=== PATIENT | male | born 1985 | race Caucasian/White ===

== ENCOUNTER 2016-12-04 | Outpatient (CLI) | payer MEDICAID | END 2016-12-04 15:03 | disposition critical access hospital (66) | DX: F99 Mental disorder, not otherwise specified (principal) | CPT/HCPCS: A0425; A0429 ==

== ENCOUNTER 2016-12-04 15:48 | Emergency (ER) | payer MEDICAID ==
[2016-12-04] MEDS ORDERED: QUEtiapine 100 MG TABLET PO STA (19:18)
[2016-12-04] MEDS ORDERED: traZODone 50 MG TABLET PO STA (19:18)
[2016-12-04] MEDS ORDERED: clonazePAM 0.5 MG TABLET PO STA (19:18)
[2016-12-04] MEDS ORDERED: OLANZapine ODT 5 MG TABLET TL STA (19:18)
[2016-12-04] MEDS ORDERED: OLANZapine ODT 5 MG TABLET TL ONE (19:31)
[2016-12-04] MEDS ORDERED: clonazePAM 0.5 MG TABLET PO ONE (19:31)
[2016-12-04] MEDS ORDERED: traZODone 50 MG TABLET PO ONE (19:32)
== END 2016-12-04 20:16 | disposition home or self-care (01) ==
DX: F20.9 Schizophrenia, unspecified (principal); F31.9 Bipolar disorder, unspecified; F41.0 Panic disorder [episodic paroxysmal anxiety]; F90.9 Attention-deficit hyperactivity disorder, unspecified type; F42.9 Obsessive-compulsive disorder, unspecified; F17.200 Nicotine dependence, unspecified, uncomplicated
CPT/HCPCS: 36415; 80053; 80306; 80307; 80320; 80329; 83690; 85025; 99283; 99284; A9270

== ENCOUNTER 2016-12-08 | Outpatient (CLI) | payer MEDICAID | END 2016-12-08 00:57 | disposition critical access hospital (66) | CPT/HCPCS: A0425; A0429 ==

== ENCOUNTER 2016-12-08 01:01 | Emergency (ER) | payer MEDICAID ==
[2016-12-08] MEDS ORDERED: OLANZapine ODT 5 MG TABLET TL ONE ×4 (01:29→14:03)
[2016-12-08] MEDS ORDERED: SODIUM CHLORIDE 0.9% 1,000 ML IV ONE (01:29)
[2016-12-08] MEDS ORDERED: ACETAMINOPHEN 325 MG TABLET PO ONE (02:43)
[2016-12-08] MEDS ORDERED: ACETAMINOPHEN 325 MG TABLET PO STA (02:43)
[2016-12-08] MEDS ORDERED: QUEtiapine 25 MG TABLET PO STA (13:44)
[2016-12-08] MEDS ORDERED: QUEtiapine 100 MG TABLET PO STA (14:10)
== END 2016-12-08 14:22 | disposition home or self-care (01) ==
DX: F20.9 Schizophrenia, unspecified (principal); R51 Headache; R05 Cough; Z91.14 Patient's other noncompliance with medication regimen; F17.200 Nicotine dependence, unspecified, uncomplicated; E86.0 Dehydration
CPT/HCPCS: 36415; 80053; 80306; 80320; 81003; 82550; 82553; 83690; 85025; 96360; 99285; A9270

== ENCOUNTER 2016-12-21 | Outpatient (CLI) | payer MEDICAID | END 2016-12-21 17:59 | disposition critical access hospital (66) | DX: R44.0 Auditory hallucinations (principal) | CPT/HCPCS: A0425; A0429 ==

== ENCOUNTER 2016-12-21 18:19 | Emergency (ER) | payer MEDICAID ==
[2016-12-21] MEDS ORDERED: OLANZapine ODT 5 MG TABLET TL ONE ×2 (19:18→19:21)
[2016-12-21] MEDS ORDERED: traZODone 50 MG TABLET PO STA (19:18)
[2016-12-21] MEDS ORDERED: traZODone 50 MG TABLET PO ONE (19:21)
[2016-12-21] MEDS ORDERED: LORazepam 0.5 MG TABLET PO STA (20:49)
[2016-12-21] MEDS ORDERED: LORazepam 0.5 MG TABLET ONE (20:50)
[2016-12-21] MEDS ORDERED: QUEtiapine 25 MG TABLET PO STA (20:53)
== END 2016-12-22 10:24 ==
DX: F20.9 Schizophrenia, unspecified (principal); F31.9 Bipolar disorder, unspecified; F41.0 Panic disorder [episodic paroxysmal anxiety]; F42.9 Obsessive-compulsive disorder, unspecified; F90.1 Attention-deficit hyperactivity disorder, predominantly hyperactive type; F17.200 Nicotine dependence, unspecified, uncomplicated
CPT/HCPCS: 36415; 80053; 80306; 80320; 81003; 83690; 85025; 99284; 99285; A9270

== ENCOUNTER 2017-02-09 17:01 | Outpatient (CLI) | payer MEDICAID | END 2017-02-09 17:02 | disposition EMS.NT | DX: Z03.89 Encounter for observation for other suspected diseases and conditions ruled out (principal) ==

== ENCOUNTER 2017-02-11 11:51 | Emergency (ER) | payer MEDICAID ==
[2017-02-11] MEDS ORDERED: SODIUM CHLORIDE 0.9% 1,000 ML IV ONE ×3 (13:24→16:02)
[2017-02-11] MEDS ORDERED: IOPAMIDOL-300 100 ML VIAL IVP ONE (14:18)
== END 2017-02-11 17:25 | disposition home or self-care (01) ==
DX: F15.10 Other stimulant abuse, uncomplicated (principal); D72.829 Elevated white blood cell count, unspecified; F20.9 Schizophrenia, unspecified; F17.200 Nicotine dependence, unspecified, uncomplicated
CPT/HCPCS: 36415; 74177; 80053; 80306; 80307; 80320; 80329; 81003; 83690; 85025; 96360; 96361; 99284; Q9967

== ENCOUNTER 2017-07-05 14:57 | Outpatient (CLI) | payer MEDICAID | END 2017-07-05 14:58 | disposition critical access hospital (66) | LOC: EMS 14:57 | PROVIDERS: ATTEND Surgery | DX: R45.851 Suicidal ideations (principal); R44.0 Auditory hallucinations | CPT/HCPCS: A0425; A0429 ==

== ENCOUNTER 2017-07-05 15:17 | Emergency (ER) | payer MEDICAID ==
[2017-07-05 15:31] VITALS: BP 124/72
[2017-07-05] MEDS ORDERED: SODIUM CHLORIDE FLUSH 0.9% 10 ML SYRINGE IVP ONE (15:58)
[2017-07-05 16:49] LABS: BILIRUBIN,URINE NEGATIVE (NEGATIVE); UA CHARGE (STRIP ONLY) YES; UR CULTURE IF IND NOT INDICATED
--- NOTE | 2017-07-05 17:31 | ED Physician Documentation ---
PD HPI MHE - Stated complaint Stated Complaint: MHE - Chief complaint Chief Complaint: MHE - History obtained from History obtained from: Patient - History of Present Illness Primary symptom: Suicidal ideation, Depression, Anxiety. No: Suicide attempt Timing - onset: Today (he has [facility] psych process and today was feeling anxious and concerned that voices were telling him to kill the other voices. He thought he would feel safer around others so called EMS to come to ED. He felt better enroute being with the medics. He is feeling okay here.) Contributing factors: No: Substance abuse - ETOH, Substance abuse - drugs Similar symptoms before: Diagnosis (schizoaffective disorder.) Recently seen: Emergency Dept Review of Systems Constitutional: denies: Fever, Chills Nose: denies: Rhinorrhea / runny nose, Congestion Throat: denies: Sore throat Respiratory: denies: Cough GI: denies: Nausea, Vomiting, Diarrhea Skin: denies: Abrasion (s), Laceration (s) Neurologic: denies: Focal weakness PD PAST MEDICAL HISTORY - Past Medical History Cardiovascular: None Respiratory: None Neuro: Tremors Endocrine/Autoimmune: None GI: None : Renal insuffiency HEENT: None Psych: Depression, Anxiety, Bipolar disorder, Schizophrenia, Panic attacks, ADD/ ADHD, Obsessive compulsive disorder Musculoskeletal: None Derm: None - Past Surgical History Past Surgical History: No - Present Medications Home Medications: Ambulatory Orders Medication Instructions Recorded Confirmed QUEtiapine [SEROquel] 300 mg PO QPM #60 tablet 10/10/15 01/19/16 Clonazepam 1 mg PO BID 12/14/15 01/19/16 FLUoxetine [PROzac] 30 mg PO DAILY 12/14/15 01/19/16 Olanzapine 10 mg ORAL BID 12/14/15 01/19/16 Trazodone HCl 50 mg ORAL QPM 12/14/15 01/19/16 Terbinafine HCl [Lamisil At] 1 applic TP BID 7 Days 01/19/16 Clonazepam 1 mg PO BID PRN #10 tablet 12/04/16 Olanzapine [Zyprexa] 10 mg PO BID #10 tablet 12/04/16 QUEtiapine [SEROquel] 300 mg PO QPM #15 tablet 12/04/16 Trazodone HCl 50 mg PO QPM #5 tablet 12/04/16 - Allergies Allergies/Adverse Reactions: Allergies Allergy/AdvReac Type Severity Reaction Status Date / Time ziprasidone HCl * AdvReac Severe Hallucinati Verified 12/21/16 18:40 [From [facility]] ons ziprasidone mesylate * AdvReac Severe Hallucinati Verified 12/21/16 18:40 [From [facility]] ons - Living Situation Living Situation: reports: Alone Living Arrangement: reports: At home - Social History Does the pt smoke?: Yes Smoking Status: Current every day smoker Does the pt drink ETOH?: Yes Does the pt have substance abuse?: Yes Substance Use and Type: Marijuana - Family History Family history: reports: Non contributory - Immunizations Immunizations are current?: No - POLST Patient has POLST: No PD ED PE NORMAL - Vitals Vital signs reviewed: Yes - General General: Alert and oriented X 3, No acute distress, Well developed/nourished - HEENT HEENT: Atraumatic, Pharynx benign - Neck Neck: Supple, no meningeal sign, No adenopathy - Cardiac Cardiac: RRR, No murmur - Respiratory Respiratory: Clear bilaterally - Derm Derm: Normal color, Warm and dry - Extremities Extremities: No tenderness to palpate, Normal ROM s pain - Neuro Neuro: Alert and oriented X 3, No motor deficit, Normal speech Results - Vitals Vitals: Oxygen O2 Source Room air - Labs Labs: Laboratory Tests 07/05/17 15:20 Urine Color YELLOW Urine Clarity CLEAR Urine pH 6.0 Ur Specific [place] >=1.030 H Urine Protein TRACE Urine Glucose (UA) NEGATIVE Urine Ketones NEGATIVE Urine Occult Blood NEGATIVE Urine Nitrite NEGATIVE Urine Bilirubin NEGATIVE Urine Urobilinogen 1 (NORMAL) Ur Leukocyte Esterase NEGATIVE Ur Microscopic Review NOT INDICATED Urine Culture Comments NOT INDICATED Urine Opiates Screen NEGATIVE Ur Oxycodone Screen NEGATIVE Urine Methadone Screen NEGATIVE Ur Propoxyphene Screen NEGATIVE Ur Barbiturates Screen NEGATIVE Ur Tricyclics Screen POSITIVE H Ur Phencyclidine Scrn NEGATIVE Ur Amphetamine Screen NEGATIVE U Methamphetamines Scrn NEGATIVE U Benzodiazepines Scrn POSITIVE H Urine Cocaine Screen NEGATIVE U Cannabinoids Screen POSITIVE H PD MEDICAL DECISION MAKING - ED course Complexity details: reviewed old records, re-evaluated patient (he is feeling okay without suicidal thoughts here in ED. Feels better with dose Clonazepam. He can see his psych provider tomorrow. He feels comfortable going home and wants to leave soon to catch the bus before they stop running. ), considered differential, d/w patient Departure - Departure Disposition: 01 Home, Self Care Clinical Impression: Anxiety Condition: Stable Record reviewed to determine appropriate education?: Yes Instructions: ED Panic Attack Comments: Continue usual medications. Follow-up with your primary care and psychologist this week. Return as needed. Discharge Date/Time: 07/05/17 18:35
[2017-07-05] MEDS ORDERED: clonazePAM 0.5 MG TABLET PO STA (17:46)
[2017-07-05] MEDS ORDERED: clonazePAM 0.5 MG TABLET PO ONE (17:52)
== END 2017-07-05 18:35 | disposition home or self-care (01) ==
LOC: EDUNIT# → ED 15:17
DX: F41.9 Anxiety disorder, unspecified (principal); F17.200 Nicotine dependence, unspecified, uncomplicated; F12.90 Cannabis use, unspecified, uncomplicated; F32.9 Major depressive disorder, single episode, unspecified
CPT/HCPCS: 80306; 81003; 99283; A9270; 81001; 87086

== ENCOUNTER 2017-10-15 18:53 | Outpatient (CLI) | payer MEDICAID | END 2017-10-15 18:54 | disposition home or self-care (01) | LOC: EMS 18:53 | PROVIDERS: ATTEND Surgery | DX: S09.93XA Unspecified injury of face, initial encounter (principal); Y04.2XXA Assault by strike against or bumped into by another person, initial encounter ==

== ENCOUNTER 2017-10-24 11:05 | Outpatient (CLI) | payer MEDICAID | END 2017-10-24 11:06 | disposition critical access hospital (66) | LOC: EMS 11:05 | PROVIDERS: ATTEND Surgery | DX: R46.2 Strange and inexplicable behavior (principal) | CPT/HCPCS: A0425; A0429 ==

== ENCOUNTER 2017-10-24 11:25 | Emergency (ER) | payer MEDICAID ==
[2017-10-24 12:23] LABS: HCT - HEMATOCRIT 45.3 % (42.0-52.0); HGB - HEMOGLOBIN 15.2 g/dL (14.0-18.0); MEAN CORPUSCULAR HEMOGLOBIN 29.8 pg (27.0-31.0); MEAN CORPUSCULAR HGB CONC 33.6 g/dL (32.0-36.0); RED BLOOD COUNT 5.09 10^6/uL (4.70-6.10); RED CELL DISTRIBUTION WIDTH 14.1 % (12.0-15.0); WHITE BLOOD COUNT 18.1 x10^3/uL (4.8-10.8)
[2017-10-24 12:37] LABS: ALBUMIN/GLOBULIN RATIO 1.4 (1.0-2.2); BILIRUBIN,TOTAL 1.9 mg/dL (0.2-1.0); BUN - BLOOD UREA NITROGEN 25 mg/dL (6-20); CALCIUM 8.8 mg/dL (8.5-10.3); CARBON DIOXIDE - CO2 15 mmol/L (21-32); CHLORIDE 97 mmol/L (101-111); CREATININE 0.8 mg/dL (0.6-1.2); GFR - MDRD 113 (>89); GLUCOSE 69 mg/dL (70-100); LIPASE 12 U/L (22-51); POTASSIUM 4.2 mmol/L (3.5-5.0); SALICYLATE < 6.0 mg/dL; SODIUM 130 mmol/L (135-145)
[2017-10-24 12:38] LABS: ACETAMINOPHEN < 10 ug/mL (10-30)
--- NOTE | 2017-10-24 12:51 | ED Physician Documentation ---
PD HPI MHE - Stated complaint Stated Complaint: MHE - Chief complaint Chief Complaint: MHE - History obtained from History obtained from: Patient - History of Present Illness Primary symptom: Psychosis, Other (he walked into EMS station cold and wet, mumbling and mostly incoherent. Patient said he was not taking his meds when asked.) Timing - onset: Unknown Contributing factors: Off meds Similar symptoms before: Diagnosis (schizophrenia and homeless) Recently seen: Not recently seen Review of Systems Unable to obtain: AMS (acute psychosis) Constitutional: reports: Chills. denies: Fever Cardiac: denies: Chest pain / pressure Respiratory: denies: Cough GI: denies: Vomiting PD PAST MEDICAL HISTORY - Past Medical History Cardiovascular: None Respiratory: None Neuro: Tremors Endocrine/Autoimmune: None GI: None : Renal insuffiency HEENT: None Psych: Depression, Anxiety, Bipolar disorder, Schizophrenia, Panic attacks, ADD/ ADHD, Obsessive compulsive disorder Musculoskeletal: None Derm: None - Past Surgical History Past Surgical History: No - Present Medications Home Medications: Ambulatory Orders Medication Instructions Recorded Confirmed FLUoxetine [PROzac] 40 mg PO DAILY 12/14/15 09/27/17 OLANZapine [Zyprexa] 20 mg PO BID 09/27/17 09/27/17 QUEtiapine [SEROquel] 400 mg PO QPM 09/27/17 09/27/17 Divalproex [Rubén Toscano] 500 mg PO BID #30 tablet 10/24/17 Olanzapine [Zyprexa] 20 mg PO BID #30 tablet 10/24/17 Quetiapine Fumarate [Seroquel] 400 mg PO QPM #15 tablet 10/24/17 - Allergies Allergies/Adverse Reactions: Allergies Allergy/AdvReac Type Severity Reaction Status Date / Time ziprasidone HCl * AdvReac Severe Hallucinati Verified 09/27/17 15:55 [From [facility]] ons ziprasidone mesylate * AdvReac Severe Hallucinati Verified 09/27/17 15:55 [From [facility]] ons - Social History Does the pt smoke?: Yes Smoking Status: Current every day smoker Does the pt drink ETOH?: Yes Does the pt have substance abuse?: Yes - Immunizations Immunizations are current?: No - POLST Patient has POLST: No PD ED PE NORMAL - Vitals Vital signs reviewed: Yes - General General: Well developed/nourished. No: Alert and oriented X 3 (he is quite disheveled, wet feet and socks. Ungroomed and unbathed. ) - HEENT HEENT: Atraumatic, Pharynx benign. No: Moist mucous membranes, Dentition benign (very poor dentition; no obvious acute infection) - Neck Neck: Supple, no meningeal sign, No adenopathy - Cardiac Cardiac: RRR, No murmur - Respiratory Respiratory: Clear bilaterally - Abdomen Abdomen: Soft, Non tender - Male Male : Deferred - Rectal Rectal: Deferred - Back Back: No CVA TTP - Derm Derm: Normal color, Warm and dry, Other (feet with shriveled look and blanched skin with some superficial breakdown in toes creases c/w trench foot. No obvious infection. ) - Extremities Extremities: Normal ROM s pain - Neuro Neuro: No motor deficit, Other (he is just mumbling and making incoherent or nonsensical responses. Far away look when I call his name but he does turn head to look at me. ) Results - Vitals Vitals: Oxygen O2 Source Room air - Labs Labs: Laboratory Tests 10/24/17 10/24/17 10/24/17 12:09 12:09 13:37 WBC 18.1 H RBC 5.09 Hgb 15.2 Hct 45.3 MCV 89.0 MCH 29.8 MCHC 33.6 RDW 14.1 Plt Count Sodium 130 L Potassium 4.2 Chloride 97 L Carbon Dioxide 15 L Anion Gap 18.0 H BUN 25 H Creatinine 0.8 Estimated GFR (MDRD) 113 Glucose 69 L Calcium 8.8 Total Bilirubin 1.9 H AST 48 H ALT 23 Alkaline Phosphatase 61 Total Protein 8.0 Albumin 4.7 Globulin 3.3 Albumin/Globulin Ratio 1.4 Lipase 12 L Last Dose Date UNK Last Dose Time UNK Salicylates < 6.0 Acetaminophen < 10 L Valproic Acid < 10.0 Ethyl Alcohol < 5.0 PD MEDICAL DECISION MAKING - ED course Complexity details: re-evaluated patient (he is able to talk more clearly after dose of meds. Issue is of course getting him to take them ongoing, which is unlikely. He says he has Rx/meds already, but were not on him right now, so not sure where they would be. Gave Rx for his usual meds for couple weeks anyway, hopefully to get into his PMD. ), considered differential (exac of his schizophrenia, and he says not taking his meds. Very unkempt. Feet have trench foot from chronic wet. Nursing gave clean stockings and put lotion on feet. ), d /w patient, d/w home energy consultant supervisor (SW and DM[employer]ARISSE - saw patient and felt that he was not debilitated by his mentation at this time, and got him voucher to [facility]. ) Departure - Departure Disposition: 01 Home, Self Care Clinical Impression: Acute exacerbation of psychosis, Schizophrenia Trench feet Qualifiers: Encounter type: initial encounter Laterality: unspecified laterality Qualified Code(s): T69.029A - Immersion foot, unspecified foot, initial encounter Condition: Stable Record reviewed to determine appropriate education?: Yes Instructions: ED Schizophrenia General Follow-Up: [facility] [Provider Group] Prescriptions: Divalproex [Rubén Toscano] 500 mg PO BID #30 tablet Olanzapine [Zyprexa] 20 mg PO BID #30 tablet Quetiapine Fumarate [Seroquel] 400 mg PO QPM #15 tablet Comments: Continue usual medications and take them regularly. Drink lots of fluids. Eat regularly. Follow-up with your primary care clinic at nearest appointment. Discharge Date/Time: 10/24/17 16:28
[2017-10-24] MEDS ORDERED: OLANZapine 10 MG VIAL IM STA ×2 (13:09)
[2017-10-24] MEDS ORDERED: QUEtiapine 100 MG TABLET PO STA (13:09)
[2017-10-24] MEDS ORDERED: OLANZapine 10 MG VIAL IM ONE (13:21)
[2017-10-24] MEDS ORDERED: WATER FOR INJECTION,STERILE 10 ML ONE (13:21)
[2017-10-24 16:02] VITALS: BP 112/63
== END 2017-10-24 16:28 | disposition home or self-care (01) ==
LOC: ED 11:25
DX: F20.9 Schizophrenia, unspecified (principal); T69.029A Immersion foot, unspecified foot, initial encounter; X31.XXXA Exposure to excessive natural cold, initial encounter; Z59.0 Homelessness; F17.200 Nicotine dependence, unspecified, uncomplicated
CPT/HCPCS: 36415; 80053; 80164; 80307; 80320; 80329; 83690; 85027; 96372; 99283; 99284; A9270

== ENCOUNTER 2017-10-28 14:10 | Emergency (ER) | payer MEDICAID ==
--- NOTE | 2017-10-28 14:40 | ED Physician Documentation ---
PD HPI MHE - Stated complaint Stated Complaint: MHE - Chief complaint Chief Complaint: MHE - History obtained from History obtained from: Patient, Caregiver (Mr Velasquez his therapist) - History of Present Illness Primary symptom: Other (32 yo with H/o Schizphrenia, brought in by his therapist for increasing disorganized thoughts and wants hospitalization. Admits to episodic methamphetamine use, although he does not remember when he last used. He is only sometimes taking his medications. He does admit to suicidal ideation without plan.) Review of Systems Ten Systems: 10 systems reviewed and negative Constitutional: reports: Reviewed and negative Throat: reports: Reviewed and negative Cardiac: reports: Reviewed and negative PD PAST MEDICAL HISTORY - Past Medical History Cardiovascular: None Respiratory: None Neuro: Tremors Endocrine/Autoimmune: None GI: None : Renal insuffiency HEENT: None Psych: Depression, Anxiety, Bipolar disorder, Schizophrenia, Panic attacks, ADD/ ADHD, Obsessive compulsive disorder Musculoskeletal: None Derm: None - Past Surgical History Past Surgical History: No - Present Medications Home Medications: Ambulatory Orders Medication Instructions Recorded Confirmed FLUoxetine [PROzac] 40 mg PO DAILY 12/14/15 09/27/17 OLANZapine [Zyprexa] 20 mg PO BID 09/27/17 09/27/17 QUEtiapine [SEROquel] 400 mg PO QPM 09/27/17 09/27/17 Divalproex [uRbén Toscano] 500 mg PO BID #30 tablet 10/24/17 Olanzapine [Zyprexa] 20 mg PO BID #30 tablet 10/24/17 Quetiapine Fumarate [Seroquel] 400 mg PO QPM #15 tablet 10/24/17 - Allergies Allergies/Adverse Reactions: Allergies Allergy/AdvReac Type Severity Reaction Status Date / Time ziprasidone HCl * AdvReac Severe Hallucinati Verified 10/28/17 14:22 [From [facility]] ons ziprasidone mesylate * AdvReac Severe Hallucinati Verified 10/28/17 14:22 [From [facility]] ons - Social History Does the pt smoke?: Yes Smoking Status: Current every day smoker Does the pt drink ETOH?: Yes Does the pt have substance abuse?: Yes - Family History Family history: reports: Non contributory - Immunizations Immunizations are current?: No - POLST Patient has POLST: No PD ED PE NORMAL - Vitals Vital signs reviewed: Yes - General General: Other (Disheveled with disorganized thinking, cooperative though, admits to auditory hallucinations. Blunted affect.) - HEENT HEENT: PERRL, EOMI - Neck Neck: Supple, no meningeal sign, No bony TTP - Cardiac Cardiac: RRR, No murmur - Respiratory Respiratory: No respiratory distress, Clear bilaterally - Abdomen Abdomen: Normal bowel sounds, Soft, Non tender - Back Back: No CVA TTP, No spinal TTP - Derm Derm: Normal color, Warm and dry - Extremities Extremities: No edema, No calf tenderness / cord - Neuro Neuro: Alert and oriented X 3 Eye Opening: Spontaneous Motor: Obeys Commands Verbal: Oriented GCS Score: 15 Results - Vitals Vitals: Vital Signs - 24 hr 10/28/17 10/29/17 10/29/17 22:34 07:45 15:48 Temperature 36.4 C L Heart Rate 92 78 76 Respiratory 12 14 16 Rate Blood Pressure 130/78 122/70 117/97 H O2 Saturation 96 98 98 10/29/17 17:57 Temperature 36.5 C Heart Rate 91 Respiratory 20 Rate Blood Pressure 131/79 H O2 Saturation 97 Oxygen O2 Source Room air - Labs Labs: Laboratory Tests 10/28/17 10/28/17 10/28/17 14:40 14:50 14:50 WBC 7.5 RBC 4.60 L Hgb 13.7 L Hct 40.3 L MCV 87.7 MCH 29.9 MCHC 34.0 RDW 13.7 Plt Count 200 MPV 9.5 Neut # 4.3 Lymph # 2.1 [place] # 0.9 Eos # 0.2 Baso # 0.0 Absolute Nucleated RBC 0.00 Nucleated RBC % 0.0 Sodium 137 Potassium 3.6 Chloride 94 L Carbon Dioxide 29 Anion Gap 14.0 H BUN 18 Creatinine 0.8 Estimated GFR (MDRD) 113 Glucose 119 H Calcium 9.4 Total Bilirubin 0.6 AST 27 ALT 22 Alkaline Phosphatase 63 Total Protein 6.9 Albumin 4.0 Globulin 2.9 Albumin/Globulin Ratio 1.4 Lipase 23 Last Dose Date Last Dose Time Urine Opiates Screen NEGATIVE Ur Oxycodone Screen NEGATIVE Urine Methadone Screen NEGATIVE Ur Propoxyphene Screen NEGATIVE Ur Barbiturates Screen NEGATIVE Valproic Acid Ur Tricyclics Screen POSITIVE H Ur Phencyclidine Scrn NEGATIVE Ur Amphetamine Screen POSITIVE H U Methamphetamines Scrn POSITIVE H U Benzodiazepines Scrn NEGATIVE Urine Cocaine Screen NEGATIVE U Cannabinoids Screen POSITIVE H Ethyl Alcohol < 5.0 10/28/17 14:50 WBC RBC Hgb Hct MCV MCH MCHC RDW Plt Count MPV Neut # Lymph # [place] # Eos # Baso # Absolute Nucleated RBC Nucleated RBC % Sodium Potassium Chloride Carbon Dioxide Anion Gap BUN Creatinine Estimated GFR (MDRD) Glucose Calcium Total Bilirubin AST ALT Alkaline Phosphatase Total Protein Albumin Globulin Albumin/Globulin Ratio Lipase Last Dose Date UNKNOWN Last Dose Time UNKNOWN Urine Opiates Screen Ur Oxycodone Screen Urine Methadone Screen Ur Propoxyphene Screen Ur Barbiturates Screen Valproic Acid < 10.0 Ur Tricyclics Screen Ur Phencyclidine Scrn Ur Amphetamine Screen U Methamphetamines Scrn U Benzodiazepines Scrn Urine Cocaine Screen U Cannabinoids Screen Ethyl Alcohol PD MEDICAL DECISION MAKING - ED course ED course: 32-year-old gentleman with schizophrenia, seems exacerbated by Multiple issues including stressors, medication noncompliance, and drug use. He is medically clear for psychiatric evaluation. Seen by the social work specialist who is trying to arrange for a crisis bed for him. We were unable to arrange for crisis bed for him and he will overnight in the ER to have the social workers continue their efforts at placement in the morning. He is cooperative. Does request his usual nighttime medications. 10/29/17, He has been stable throughout the shift, social work trying to place. I guess there was a problem with the insurance and he could go to [place]. They arranged for a bed potentially [facility] but they wanted to Depakote level. I noted to the social work specialist that I actually got one yesterday and it was undetectable. They also wanted an EKG which is ordered. Departure - Departure Disposition: [facility] Hosp/Unit DC/Xfer Clinical Impression: Schizophrenia Condition: Stable Record reviewed to determine appropriate education?: Yes
[2017-10-28 15:06] LABS: BASOPHILS % (AUTO) 0.6 %; EOSINOPHILS # (AUTO) 0.2 10^3/uL (0.0-0.7); EOSINOPHILS % (AUTO) 2.2 %; HCT - HEMATOCRIT 40.3 % (42.0-52.0); HGB - HEMOGLOBIN 13.7 g/dL (14.0-18.0); LYMPHOCYTES # (AUTO) 2.1 10^3/uL (1.5-3.5); LYMPHOCYTES % (AUTO) 28.2 %; MEAN CORPUSCULAR HEMOGLOBIN 29.9 pg (27.0-31.0); MEAN CORPUSCULAR VOLUME 87.7 fL (80.0-94.0); MEAN PLATELET VOLUME 9.5 fL (7.4-11.4); MONOCYTES # (AUTO) 0.9 10^3/uL (0.0-1.0); MONOCYTES % (AUTO) 11.7 %; NEUTROPHILS # (AUTO) 4.3 10^3/uL (1.5-6.6); NEUTROPHILS % (AUTO) 57.3 %; RED CELL DISTRIBUTION WIDTH 13.7 % (12.0-15.0); UNCORRECTED WHITE BLOOD COUNT 7.5 x10^3/uL; WHITE BLOOD COUNT 7.5 x10^3/uL (4.8-10.8)
[2017-10-28 15:13] LABS: ALBUMIN/GLOBULIN RATIO 1.4 (1.0-2.2); BILIRUBIN,TOTAL 0.6 mg/dL (0.2-1.0); BUN - BLOOD UREA NITROGEN 18 mg/dL (6-20); CALCIUM 9.4 mg/dL (8.5-10.3); CARBON DIOXIDE - CO2 29 mmol/L (21-32); CHLORIDE 94 mmol/L (101-111); CREATININE 0.8 mg/dL (0.6-1.2); GFR - MDRD 113 (>89); GLUCOSE 119 mg/dL (70-100); LIPASE 23 U/L (22-51); POTASSIUM 3.6 mmol/L (3.5-5.0); SODIUM 137 mmol/L (135-145); TOTAL PROTEIN 6.9 g/dL (6.7-8.2)
[2017-10-28] MEDS ORDERED: DIVALPROEX ER 250 MG TABLET PO STA (20:15)
[2017-10-28] MEDS ORDERED: QUEtiapine 100 MG TABLET PO STA (20:15)
[2017-10-28] MEDS ORDERED: OLANZapine ODT 5 MG TABLET TL STA (20:15)
[2017-10-30] MEDS ORDERED: QUEtiapine 100 MG TABLET PO STA (00:59)
[2017-10-30] MEDS ORDERED: OLANZapine ODT 5 MG TABLET TL STA (00:59)
[2017-10-30] MEDS ORDERED: DIVALPROEX ER 250 MG TABLET PO STA (00:59)
[2017-10-30] MEDS ORDERED: OLANZapine ODT 5 MG TABLET TL ONE (01:11)
[2017-10-30 05:52] VITALS: BP 109/64
== END 2017-10-30 09:16 ==
LOC: ED 14:10
DX: F20.9 Schizophrenia, unspecified (principal); T43.226A Underdosing of selective serotonin reuptake inhibitors, initial encounter; T43.596A Underdosing of other antipsychotics and neuroleptics, initial encounter; T42.6X6A Underdosing of other antiepileptic and sedative-hypnotic drugs, initial encounter; Z91.128 Patient's intentional underdosing of medication regimen for other reason; F15.90 Other stimulant use, unspecified, uncomplicated; F31.9 Bipolar disorder, unspecified; F32.9 Major depressive disorder, single episode, unspecified; F41.9 Anxiety disorder, unspecified; F17.200 Nicotine dependence, unspecified, uncomplicated
CPT/HCPCS: 36415; 80053; 80164; 80306; 80320; 83690; 85025; 93005; 99284; 99285; A9270

== ENCOUNTER 2017-11-23 14:01 | Emergency (ER) | payer MEDICAID ==
[2017-11-23] MEDS ORDERED: OLANZapine ODT 5 MG TABLET TL STA (15:17)
--- NOTE | 2017-11-23 15:19 | ED Physician Documentation ---
PD HPI MHE - Stated complaint Stated Complaint: WITHDRAWS - Chief complaint Chief Complaint: MHE - History obtained from History obtained from: Patient - History of Present Illness Primary symptom: Psychosis Timing - onset: Today Pain level max: 0 Pain level now: 0 Similar symptoms before: Diagnosis (schizophrenia) - Additional information Additional information: patient unable to give history. Staring into space. mumbling to himself. Has a history of schizophrenia and methamphetamine abuse. Review of Systems Unable to obtain: Confused PD PAST MEDICAL HISTORY - Past Medical History Cardiovascular: None Respiratory: None Neuro: Tremors Endocrine/Autoimmune: None GI: None : Renal insuffiency HEENT: None Psych: Depression, Anxiety, Bipolar disorder, Schizophrenia, Panic attacks, ADD/ ADHD, Obsessive compulsive disorder Musculoskeletal: None Derm: None - Past Surgical History Past Surgical History: No - Present Medications Home Medications: Ambulatory Orders Medication Instructions Recorded Confirmed FLUoxetine [PROzac] 40 mg PO DAILY 12/14/15 09/27/17 OLANZapine [Zyprexa] 20 mg PO BID 09/27/17 09/27/17 QUEtiapine [SEROquel] 400 mg PO QPM 09/27/17 09/27/[address] [Rubén Toscano] 500 mg PO BID #30 tablet 10/24/17 Olanzapine [Zyprexa] 20 mg PO BID #30 tablet 10/24/17 Quetiapine Fumarate [Seroquel] 400 mg PO QPM #15 tablet 10/24/17 - Allergies Allergies/Adverse Reactions: Allergies Allergy/AdvReac Type Severity Reaction Status Date / Time ziprasidone HCl * AdvReac Severe Hallucinati Verified 10/28/17 14:22 [From [facility]] ons ziprasidone mesylate * AdvReac Severe Hallucinati Verified 10/28/17 14:22 [From [facility]] ons - Social History Does the pt smoke?: Yes Smoking Status: Current every day smoker Does the pt drink ETOH?: Yes Does the pt have substance abuse?: Yes - Immunizations Immunizations are current?: No - POLST Patient has POLST: No PD ED PE NORMAL - Vitals Vital signs reviewed: Yes - General General: No acute distress, Well developed/nourished - HEENT HEENT: PERRL, Moist mucous membranes - Neck Neck: Supple, no meningeal sign - Cardiac Cardiac: RRR - Respiratory Respiratory: No respiratory distress, Clear bilaterally - Abdomen Abdomen: Soft, Non tender, Non distended - Derm Derm: Warm and dry - Neuro Neuro: Other (alert) - Psych Psych: Other (staring into space, talking to himself) Results - Vitals Vitals: Vital Signs - 24 hr 11/23/17 11/23/17 14:28 17:25 Temperature 36.0 C L 36.9 C Heart Rate 89 82 Respiratory 14 14 Rate Blood Pressure 176/77 H 168/80 H O2 Saturation 100 100 Oxygen O2 Source Room air - Labs Labs: Laboratory Tests 11/23/17 11/23/17 11/23/17 15:31 15:31 18:00 WBC 11.9 H RBC 4.58 L Hgb 13.5 L Hct 39.7 L MCV 86.7 MCH 29.4 MCHC 33.9 RDW 13.9 Plt Count 268 MPV 8.8 Neut # Not Reportable Lymph # Not Reportable [place] # Not Reportable Eos # Not Reportable Baso # Not Reportable Absolute Nucleated RBC Not Reportable Total Counted 100 Band Neuts % (Manual) 0 Reactive Lymphs % (Man) 4 Abnorm Lymph % (Manual) 0 Nucleated RBC % Not Reportable Neutrophils # (Manual) 8.0 H Lymphocytes # (Manual) 2.4 Monocytes # (Manual) 1.4 H Eosinophils # (Manual) 0.1 Basophils # (Manual) 0.0 Differential Comment MANUAL DIFFERENTIAL Platelet Estimate NORMAL (130-450,000) Platelet Morphology NORMAL APPEARANCE RBC Morph Micro Appear NORMAL APPEARANCE Sodium 137 Potassium 3.8 Chloride 98 L Carbon Dioxide 28 Anion Gap 11.0 BUN 31 H Creatinine 0.7 Estimated GFR (MDRD) 132 Glucose 114 H Calcium 9.2 Total Bilirubin 1.1 H AST 31 ALT 26 Alkaline Phosphatase 59 Total Protein 8.0 Albumin 4.9 Globulin 3.1 Albumin/Globulin Ratio 1.6 Lipase 28 Urine Color YELLOW Urine Clarity CLEAR Urine pH 6.5 Ur Specific [place] 1.020 Urine Protein TRACE Urine Glucose (UA) NEGATIVE Urine Ketones 15 H Urine Occult Blood NEGATIVE Urine Nitrite NEGATIVE Urine Bilirubin NEGATIVE Urine Urobilinogen 0.2 (NORMAL) Ur Leukocyte Esterase NEGATIVE Ur Microscopic Review NOT INDICATED Urine Culture Comments NOT INDICATED Salicylates < 6.0 Urine Opiates Screen NEGATIVE Ur Oxycodone Screen NEGATIVE Urine Methadone Screen NEGATIVE Ur Propoxyphene Screen NEGATIVE Acetaminophen < 10 L Ur Barbiturates Screen NEGATIVE Ur Tricyclics Screen NEGATIVE Ur Phencyclidine Scrn NEGATIVE Ur Amphetamine Screen POSITIVE H U Methamphetamines Scrn POSITIVE H U Benzodiazepines Scrn NEGATIVE Urine Cocaine Screen NEGATIVE U Cannabinoids Screen POSITIVE H Ethyl Alcohol < 5.0 PD MEDICAL DECISION MAKING - ED course Complexity details: reviewed old records, reviewed results, re-evaluated patient , considered differential ED course: Patient is a 32-year-old schizophrenic male who presents to the emergency department with acute psychosis. Is positive for methamphetamines. Was given Zyprexa and fell asleep in the emergency department. He will need to be reevaluated when he awakens to see if he has had his baseline mental status or if he is still presenting with psychosis and hallucinations. If he is still psychotic, will likely need a [facility] evaluation as he will be unable to consent for treatment. He does not appear to have been taking his psychiatric medications. [facility]. This document was made in part using voice recognition software. While efforts are made to proofread this document, sound alike and grammatical errors may occur. Departure - Departure Clinical Impression: Schizophrenia, Methamphetamine abuse Condition: Stable
[2017-11-23 15:40] LABS: BASOPHILS % (AUTO) 0.5 %; EOSINOPHILS % (AUTO) 0.4 %; HGB - HEMOGLOBIN 13.5 g/dL (14.0-18.0); LYMPHOCYTES % (AUTO) 21.2 %; MEAN CORPUSCULAR HEMOGLOBIN 29.4 pg (27.0-31.0); MEAN CORPUSCULAR HGB CONC 33.9 g/dL (32.0-36.0); MEAN CORPUSCULAR VOLUME 86.7 fL (80.0-94.0); MEAN PLATELET VOLUME 8.8 fL (7.4-11.4); NEUTROPHILS % (AUTO) 63.9 %; PLT - PLATELET COUNT 268 10^3/uL (130-450); RED BLOOD COUNT 4.58 10^6/uL (4.70-6.10); RED CELL DISTRIBUTION WIDTH 13.9 % (12.0-15.0); WHITE BLOOD COUNT 11.9 x10^3/uL (4.8-10.8)
[2017-11-23 15:43] LABS: ABNORMAL LYMPHS % (MANUAL) 0 %; BAND NEUTROPHILS % (MANUAL) 0 %
[2017-11-23 15:51] LABS: ALBUMIN 4.9 g/dL (3.2-5.5); ALBUMIN/GLOBULIN RATIO 1.6 (1.0-2.2); ALKALINE PHOSPHATASE 59 IU/L (42-121); ALT ALANINE AMINOTRANSFERASE 26 IU/L (10-60); AST ASPARTATE AMINOTRANSFERASE 31 IU/L (10-42); BILIRUBIN,TOTAL 1.1 mg/dL (0.2-1.0); BUN - BLOOD UREA NITROGEN 31 mg/dL (6-20); CALCIUM 9.2 mg/dL (8.5-10.3); CARBON DIOXIDE - CO2 28 mmol/L (21-32); CHLORIDE 98 mmol/L (101-111); CREATININE 0.7 mg/dL (0.6-1.2); GFR - MDRD 132 (>89); GLUCOSE 114 mg/dL (70-100); LIPASE 28 U/L (22-51); SALICYLATE < 6.0 mg/dL; SODIUM 137 mmol/L (135-145)
[2017-11-23 15:52] LABS: ACETAMINOPHEN < 10 ug/mL (10-30)
[2017-11-23] MEDS ORDERED: OLANZapine 10 MG VIAL IM STA (16:19)
[2017-11-23 16:20] LABS: EOSINOPHILS # (MANUAL) 0.1 10^3/uL (0-0.7); LYMPHOCYTES # (MANUAL) 2.4 10^3/uL (1.5-3.5); LYMPHOCYTES % (MANUAL) 16 %; MONOCYTES # (MANUAL) 1.4 10^3/uL (0.0-1.0); NEUTROPHILS % (MANUAL) 67 %
[2017-11-23 16:21] LABS: DIFFERENTIAL COMMENT MANUAL DIFFERENTIAL; PLATELET ESTIMATE, MANUAL NORMAL (130-450,000) (NORMAL); PLATELET MORPHOLOGY NORMAL APPEARANCE (NORMAL); RBC MORPHOLOGY (MULTIPLE) NORMAL APPEARANCE (NORMAL)
[2017-11-23] MEDS ORDERED: WATER FOR INJECTION,STERILE 10 ML ONE (16:28)
[2017-11-23 18:22] LABS: MUDS CUTOFF CONCENTRATIONS CUTOFF CONC BELOW:
[2017-11-23 18:35] LABS: GLUCOSE, URINE (UA) NEGATIVE (NEGATIVE); KETONES,URINE (UA) 15 mg/dL (NEGATIVE); LEUKOCYTE ESTERASE, URINE NEGATIVE (NEGATIVE); NITRITE,URINE NEGATIVE (NEGATIVE); OCCULT BLOOD,URINE NEGATIVE (NEGATIVE); PH,URINE 6.5 PH (5.0-7.5); PROTEIN,URINE TRACE mg/dL (NEGATIVE); UROBILINOGEN,URINE 0.2 (NORMAL) E.U./dL (NORMAL)
[2017-11-23 18:39] LABS: BILIRUBIN,URINE NEGATIVE (NEGATIVE); CLARITY,URINE CLEAR (CLEAR); ICTOTEST,URINE NEGATIVE
[2017-11-23 19:06] LABS: AMPHETAMINE SCREEN,URINE POSITIVE (NEGATIVE); BENZODIAZEPINES SCREEN, URINE NEGATIVE (NEGATIVE); COCAINE SCREEN URINE NEGATIVE (NEGATIVE); METHADONE SCREEN, URINE NEGATIVE (NEGATIVE); METHAMPHETAMINES SCREEN, URINE POSITIVE (NEGATIVE); OPIATE SCREEN, URINE NEGATIVE (NEGATIVE); TRICYCLIC ANTIDEPRESSANT,URINE NEGATIVE (NEGATIVE)
[2017-11-23 19:07] LABS: OXYCODONE SCREEN, URINE NEGATIVE (NEGATIVE); PROPOXYPHENE SCREEN, URINE NEGATIVE (NEGATIVE)
--- NOTE | 2017-11-24 07:10 | ED Physician Documentation ---
ED Addendum - Addendum Addendum: 11/24/17 07:08 Patient was signed over to me from Dr. Bianchi. Patient was observed overnight. In the morning patient was awake, alert and oriented. Patient was no longer delusional or aggressive. Patient was not suicidal or homicidal or gravely disabled. patient required no further work up and was stable for discharge with outpatient follow up.
[2017-11-24 08:18] VITALS: BP 129/90
== END 2017-11-24 08:18 | disposition home or self-care (01) ==
LOC: ED 14:01
DX: F20.9 Schizophrenia, unspecified (principal); F15.10 Other stimulant abuse, uncomplicated; F31.9 Bipolar disorder, unspecified; F41.9 Anxiety disorder, unspecified; F42.9 Obsessive-compulsive disorder, unspecified; F17.200 Nicotine dependence, unspecified, uncomplicated; Z79.899 Other long term (current) drug therapy
CPT/HCPCS: 36415; 80053; 80306; 80307; 80320; 80329; 81003; 83690; 85025; 96372; 99283; 99284; A9270; 81001; 87086

== ENCOUNTER 2017-11-26 14:21 | Outpatient (CLI) | payer MEDICAID | END 2017-11-26 14:22 | disposition critical access hospital (66) | LOC: EMS 14:21 | PROVIDERS: ATTEND Surgery | DX: F99 Mental disorder, not otherwise specified (principal) | CPT/HCPCS: A0425; A0429 ==

== ENCOUNTER 2017-11-26 14:41 | Emergency (ER) | payer MEDICAID ==
[2017-11-26 15:34] LABS: HGB - HEMOGLOBIN 13.4 g/dL (14.0-18.0); MEAN CORPUSCULAR HEMOGLOBIN 29.4 pg (27.0-31.0); MEAN CORPUSCULAR HGB CONC 32.7 g/dL (32.0-36.0); MEAN PLATELET VOLUME 9.3 fL (7.4-11.4); RED BLOOD COUNT 4.55 10^6/uL (4.70-6.10)
[2017-11-26 15:54] LABS: ALBUMIN 4.3 g/dL (3.2-5.5); ALBUMIN/GLOBULIN RATIO 1.5 (1.0-2.2); ALKALINE PHOSPHATASE 53 IU/L (42-121); ALT ALANINE AMINOTRANSFERASE 25 IU/L (10-60); AST ASPARTATE AMINOTRANSFERASE 25 IU/L (10-42); BILIRUBIN,TOTAL 0.2 mg/dL (0.2-1.0); BUN - BLOOD UREA NITROGEN 17 mg/dL (6-20); CALCIUM 9.5 mg/dL (8.5-10.3); CARBON DIOXIDE - CO2 31 mmol/L (21-32); CHLORIDE 99 mmol/L (101-111); CREATININE 0.7 mg/dL (0.6-1.2); GFR - MDRD 132 (>89); GLUCOSE 104 mg/dL (70-100); LIPASE 27 U/L (22-51); SALICYLATE < 6.0 mg/dL; SODIUM 139 mmol/L (135-145); TOTAL PROTEIN 7.2 g/dL (6.7-8.2)
[2017-11-26 15:55] LABS: ACETAMINOPHEN < 10 ug/mL (10-30)
[2017-11-26 16:28] LABS: MUDS CUTOFF CONCENTRATIONS CUTOFF CONC BELOW:
[2017-11-26] MEDS ORDERED: QUEtiapine 100 MG TABLET PO STA (16:37)
[2017-11-26] MEDS ORDERED: OLANZapine ODT 5 MG TABLET TL STA (16:37)
[2017-11-26] MEDS ORDERED: DIVALPROEX DR 125 MG TABLET PO STA (16:37)
[2017-11-26 16:38] LABS: AMPHETAMINE SCREEN,URINE NEGATIVE (NEGATIVE); BENZODIAZEPINES SCREEN, URINE NEGATIVE (NEGATIVE); COCAINE SCREEN URINE NEGATIVE (NEGATIVE); METHADONE SCREEN, URINE NEGATIVE (NEGATIVE); METHAMPHETAMINES SCREEN, URINE NEGATIVE (NEGATIVE); OPIATE SCREEN, URINE NEGATIVE (NEGATIVE); OXYCODONE SCREEN, URINE NEGATIVE (NEGATIVE); PROPOXYPHENE SCREEN, URINE NEGATIVE (NEGATIVE); TRICYCLIC ANTIDEPRESSANT,URINE NEGATIVE (NEGATIVE)
[2017-11-26] MEDS ORDERED: DIVALPROEX DR 250 MG TABLET PO STA (16:40)
--- NOTE | 2017-11-26 16:40 | ED Physician Documentation ---
PD HPI MHE - Stated complaint Stated Complaint: MHE - Chief complaint Chief Complaint: MHE - History obtained from History obtained from: Patient - History of Present Illness Primary symptom: Other (This is a young man with history of schizophrenia, he either had his medications lost or misplaced depending on when I asked him a couple of days ago and he has been noncompliant because of that and feels like his thoughts are getting out of control and he is anxious.) Review of Systems Ten Systems: 10 systems reviewed and negative Constitutional: reports: Reviewed and negative Cardiac: reports: Reviewed and negative Respiratory: reports: Reviewed and negative GI: reports: Reviewed and negative PD PAST MEDICAL HISTORY - Past Medical History Cardiovascular: None Respiratory: None Neuro: Tremors Endocrine/Autoimmune: None GI: None : Renal insuffiency HEENT: None Psych: Depression, Anxiety, Bipolar disorder, Schizophrenia, Panic attacks, ADD/ ADHD, Obsessive compulsive disorder Musculoskeletal: None Derm: None - Past Surgical History Past Surgical History: No - Present Medications Home Medications: Ambulatory Orders Medication Instructions Recorded Confirmed FLUoxetine [PROzac] 40 mg PO DAILY 12/14/15 11/26/17 OLANZapine [Zyprexa] 20 mg PO BID 09/27/17 11/26/17 QUEtiapine [SEROquel] 400 mg PO QPM 09/27/17 11/26/17 Divalproex [Rubén Toscano] 500 mg PO BID #30 tablet 10/24/17 11/26/17 Olanzapine [Zyprexa] 20 mg PO BID #30 tablet 10/24/17 11/26/17 Quetiapine Fumarate [Seroquel] 400 mg PO QPM #15 tablet 10/24/17 11/26/17 FLUoxetine [PROzac] 40 mg PO DAILY #14 capsule 11/27/17 OLANZapine [Zyprexa] 20 mg PO BID #30 tablet 11/27/17 Quetiapine Fumarate [Seroquel Xr] 400 mg PO QPM #14 tab.er.24h 11/27/17 - Allergies Allergies/Adverse Reactions: Allergies Allergy/AdvReac Type Severity Reaction Status Date / Time ziprasidone HCl * AdvReac Severe Hallucinati Verified 10/28/17 14:22 [From Geodon] ons ziprasidone mesylate * AdvReac Severe Hallucinati Verified 10/28/17 14:22 [From Geodon] ons - Social History Does the pt smoke?: Yes Smoking Status: Current every day smoker Does the pt drink ETOH?: Yes Does the pt have substance abuse?: Yes - Family History Family history: reports: Non contributory - Immunizations Immunizations are current?: No - POLST Patient has POLST: No PD ED PE NORMAL - Vitals Vital signs reviewed: Yes - General General: Alert and oriented X 3, Other (Disheveled, blunted but not flat affect) - HEENT HEENT: PERRL, EOMI - Neck Neck: Supple, no meningeal sign, No bony TTP - Cardiac Cardiac: RRR, No murmur - Respiratory Respiratory: No respiratory distress, Clear bilaterally - Abdomen Abdomen: Normal bowel sounds, Soft, Non tender - Back Back: No CVA TTP, No spinal TTP - Derm Derm: Normal color, Warm and dry - Extremities Extremities: No edema, No calf tenderness / cord - Neuro Neuro: Alert and oriented X 3, Normal speech - Psych Psych: Other (Admits to hallucinating.) Results - Vitals Vitals: Vital Signs - 24 hr 11/26/17 11/26/17 11/27/17 14:44 19:17 02:07 Temperature 36.0 C L Heart Rate 84 103 H Respiratory 15 18 15 Rate Blood Pressure 135/84 H 127/63 O2 Saturation 98 96 11/27/17 11/27/17 06:53 11:11 Temperature 36.2 C L Heart Rate 76 88 Respiratory 16 18 Rate Blood Pressure 121/68 95/53 L O2 Saturation 98 98 Oxygen O2 Source Room air - Labs Labs: Laboratory Tests 11/26/17 11/26/17 11/26/17 15:20 15:29 15:29 WBC 8.0 RBC 4.55 L Hgb 13.4 L Hct 41.0 L MCV 90.0 MCH 29.4 MCHC 32.7 RDW 14.0 Plt Count 200 MPV 9.3 Sodium 139 Potassium 3.7 Chloride 99 L Carbon Dioxide 31 Anion Gap 9.0 BUN 17 Creatinine 0.7 Estimated GFR (MDRD) 132 Glucose 104 H Calcium 9.5 Total Bilirubin 0.2 AST 25 ALT 25 Alkaline Phosphatase 53 Total Protein 7.2 Albumin 4.3 Globulin 2.9 Albumin/Globulin Ratio 1.5 Lipase 27 Salicylates < 6.0 Urine Opiates Screen NEGATIVE Ur Oxycodone Screen NEGATIVE Urine Methadone Screen NEGATIVE Ur Propoxyphene Screen NEGATIVE Acetaminophen < 10 L Ur Barbiturates Screen NEGATIVE Ur Tricyclics Screen NEGATIVE Ur Phencyclidine Scrn NEGATIVE Ur Amphetamine Screen NEGATIVE U Methamphetamines Scrn NEGATIVE U Benzodiazepines Scrn NEGATIVE Urine Cocaine Screen NEGATIVE U Cannabinoids Screen POSITIVE H Ethyl Alcohol < 5.0 PD MEDICAL DECISION MAKING - ED course ED course: He is out of his medications, depending on when you ask him they were either lost or stolen. He felt better after his medications here and slept in the ER, no really other options at nighttime. Social work saw in the morning and arrange for respite bed and he needed a prescription for his meds. Departure - Departure Disposition: 01 Home, Self Care Clinical Impression: Schizophrenia Condition: Good Record reviewed to determine appropriate education?: Yes Prescriptions: FLUoxetine [PROzac] 40 mg PO DAILY #14 capsule OLANZapine [Zyprexa] 20 mg PO BID #30 tablet Quetiapine Fumarate [Seroquel Xr] 400 mg PO QPM #14 tab.er.24h Comments: Go directly to the respite bed and follow-up with your psychiatric physician as soon as possible.
[2017-11-27 11:11] VITALS: BP 95/53
== END 2017-11-27 12:22 | disposition home or self-care (01) ==
LOC: EDUNIT# → ED 14:41
DX: F20.9 Schizophrenia, unspecified (principal); Z76.0 Encounter for issue of repeat prescription; F17.200 Nicotine dependence, unspecified, uncomplicated
CPT/HCPCS: 36415; 80053; 80306; 80307; 80320; 80329; 83690; 85027; 99283; 99284; A9270

== ENCOUNTER 2018-01-16 14:36 | Outpatient (CLI) | payer MEDICAID | END 2018-01-16 14:37 | disposition critical access hospital (66) | LOC: EMS 14:36 | PROVIDERS: ATTEND Surgery | DX: R46.89 Other symptoms and signs involving appearance and behavior (principal) | CPT/HCPCS: A0425; A0429 ==

== ENCOUNTER 2018-01-16 14:55 | Emergency (ER) | payer MEDICAID ==
[2018-01-16] MEDS ORDERED: LORazepam 2 MG/ML VIAL IM STA (15:10)
--- NOTE | 2018-01-16 15:12 | ED Physician Documentation ---
PD HPI MHE - Stated complaint Stated Complaint: MHE - History obtained from History obtained from: Patient - History of Present Illness Primary symptom: Psychosis (32-year-old gent with chronic mental illness presents with rapid thoughts and both visual and auditory hallucinations. He told the nurse he has been taking his psychiatric medications, but would not answer this question for me. He denies any drug use except for marijuana, specifically denies methamphetamines. He would like to go to a crisis bed.) Review of Systems Ten Systems: 10 systems reviewed and negative Constitutional: reports: Reviewed and negative Cardiac: reports: Reviewed and negative Respiratory: reports: Reviewed and negative PD PAST MEDICAL HISTORY - Past Medical History Cardiovascular: None Respiratory: None Neuro: Tremors Endocrine/Autoimmune: None GI: None : Renal insuffiency HEENT: None Psych: Depression, Anxiety, Bipolar disorder, Schizophrenia, Panic attacks, ADD/ ADHD, Obsessive compulsive disorder Musculoskeletal: None Derm: None - Past Surgical History Past Surgical History: No - Present Medications Home Medications: Ambulatory Orders Medication Instructions Recorded Confirmed FLUoxetine [PROzac] 40 mg PO DAILY 12/14/15 11/26/17 OLANZapine [Zyprexa] 20 mg PO BID 09/27/17 11/26/17 QUEtiapine [SEROquel] 400 mg PO QPM 09/27/17 11/26/17 Divalproex [Rubén Toscano] 500 mg PO BID #30 tablet 10/24/17 11/26/17 Olanzapine [Zyprexa] 20 mg PO BID #30 tablet 10/24/17 11/26/17 Quetiapine Fumarate [Seroquel] 400 mg PO QPM #15 tablet 10/24/17 11/26/17 FLUoxetine [PROzac] 40 mg PO DAILY #14 capsule 11/27/17 OLANZapine [Zyprexa] 20 mg PO BID #30 tablet 11/27/17 Quetiapine Fumarate [Seroquel Xr] 400 mg PO QPM #14 tab.er.24h 11/27/17 - Allergies Allergies/Adverse Reactions: Allergies Allergy/AdvReac Type Severity Reaction Status Date / Time ziprasidone HCl * AdvReac Severe Hallucinati Verified 01/16/18 15:18 [From Geodon] ons ziprasidone mesylate * AdvReac Severe Hallucinati Verified 01/16/18 15:18 [From Geodon] ons - Social History Does the pt smoke?: Yes Smoking Status: Current every day smoker Does the pt drink ETOH?: Yes Does the pt have substance abuse?: Yes - Family History Family history: reports: Non contributory - Immunizations Immunizations are current?: No - POLST Patient has POLST: No PD ED PE NORMAL - Vitals Vital signs reviewed: Yes - General General: Alert and oriented X 3 (Anxious with rapid speech, good eye contact, does seem to respond to some external stimuli.) - HEENT HEENT: PERRL, EOMI - Neck Neck: Supple, no meningeal sign, No bony TTP - Cardiac Cardiac: RRR, No murmur - Respiratory Respiratory: No respiratory distress, Clear bilaterally - Abdomen Abdomen: Normal bowel sounds, Soft, Non tender - Back Back: No CVA TTP, No spinal TTP - Derm Derm: Normal color, Warm and dry - Extremities Extremities: No edema, No calf tenderness / cord - Neuro Neuro: Alert and oriented X 3 Eye Opening: Spontaneous Motor: Obeys Commands - Psych Psych: Other (Pressured affect) Results - Vitals Vitals: Vital Signs - 24 hr 01/16/18 01/17/18 01/17/18 18:50 06:04 10:27 Temperature 36.8 C 36.2 C L Heart Rate 84 117 H 92 Respiratory 12 16 14 Rate Blood Pressure 120/75 125/95 H 118/72 O2 Saturation 100 95 97 Oxygen O2 Source Room air - Labs Labs: Laboratory Tests 01/16/18 01/16/18 01/16/18 15:18 15:18 16:47 WBC 9.4 RBC 4.81 Hgb 14.2 Hct 41.2 L MCV 85.8 MCH 29.5 MCHC 34.4 RDW 13.1 Plt Count 197 MPV 9.4 Neut # 8.1 H Lymph # 0.8 L [place] # 0.4 Eos # 0.0 Baso # 0.0 Absolute Nucleated RBC 0.00 Nucleated RBC % 0.0 Sodium 136 Potassium 4.1 Chloride 100 L Carbon Dioxide 24 Anion Gap 12.0 BUN 14 Creatinine 0.9 Estimated GFR (MDRD) 98 Glucose 111 H Calcium 9.7 Total Bilirubin 0.5 AST 17 ALT < 10 L Alkaline Phosphatase 58 Total Protein 8.1 Albumin 5.2 Globulin 2.9 Albumin/Globulin Ratio 1.8 Lipase 10 L Urine Color Urine Clarity Urine pH Ur Specific [place] Urine Protein Urine Glucose (UA) Urine Ketones Urine Occult Blood Urine Nitrite Urine Bilirubin Urine Urobilinogen Ur Leukocyte Esterase Ur Microscopic Review Urine Culture Comments Salicylates < 6.0 Urine Opiates Screen NEGATIVE Ur Oxycodone Screen NEGATIVE Urine Methadone Screen NEGATIVE Ur Propoxyphene Screen NEGATIVE Acetaminophen < 10 L Ur Barbiturates Screen NEGATIVE Ur Tricyclics Screen POSITIVE H Ur Phencyclidine Scrn NEGATIVE Ur Amphetamine Screen NEGATIVE U Methamphetamines Scrn NEGATIVE U Benzodiazepines Scrn NEGATIVE Urine Cocaine Screen NEGATIVE U Cannabinoids Screen POSITIVE H Ethyl Alcohol < 5.0 01/16/18 16:47 WBC RBC Hgb Hct MCV MCH MCHC RDW Plt Count MPV Neut # Lymph # [place] # Eos # Baso # Absolute Nucleated RBC Nucleated RBC % Sodium Potassium Chloride Carbon Dioxide Anion Gap BUN Creatinine Estimated GFR (MDRD) Glucose Calcium Total Bilirubin AST ALT Alkaline Phosphatase Total Protein Albumin Globulin Albumin/Globulin Ratio Lipase Urine Color YELLOW Urine Clarity CLEAR Urine pH 6.0 Ur Specific [place] 1.025 Urine Protein NEGATIVE Urine Glucose (UA) NEGATIVE Urine Ketones >=80 H Urine Occult Blood TRACE-INTA Urine Nitrite NEGATIVE Urine Bilirubin NEGATIVE Urine Urobilinogen 0.2 (NORMAL) Ur Leukocyte Esterase NEGATIVE Ur Microscopic Review NOT INDICATED Urine Culture Comments NOT INDICATED Salicylates Urine Opiates Screen Ur Oxycodone Screen Urine Methadone Screen Ur Propoxyphene Screen Acetaminophen Ur Barbiturates Screen Ur Tricyclics Screen Ur Phencyclidine Scrn Ur Amphetamine Screen U Methamphetamines Scrn U Benzodiazepines Scrn Urine Cocaine Screen U Cannabinoids Screen Ethyl Alcohol PD MEDICAL DECISION MAKING - ED course ED course: 32-year-old gentleman presents with psychiatric symptoms and increased psychosis. Seen by the forensic social worker here who felt he was too acute for a crisis bed. The [facility] was called and and felt that he was close enough to his baseline and given the circumstances he was voluntary and deferred back to our forensic social worker for definitive placement. At this point the forensic social worker had already gone home so he is staying overnight in the emergency department. Care transferred to overnight ED physician. I was not involved in his care or decision making after 01/16/18 11pm. Departure - Departure Disposition: 07 Against Medical Advice Clinical Impression: Schizophrenia Psychosis Qualifiers: Psychosis type: unspecified psychosis type Qualified Code(s): F29 - Unspecified psychosis not due to a substance or known physiological condition Condition: Stable Discharge Date/Time: 01/17/18 12:15
[2018-01-16 15:23] LABS: BASOPHILS % (AUTO) 0.4 %; HGB - HEMOGLOBIN 14.2 g/dL (14.0-18.0); LYMPHOCYTES # (AUTO) 0.8 10^3/uL (1.5-3.5); MEAN CORPUSCULAR HEMOGLOBIN 29.5 pg (27.0-31.0); MEAN CORPUSCULAR HGB CONC 34.4 g/dL (32.0-36.0); MEAN CORPUSCULAR VOLUME 85.8 fL (80.0-94.0); MEAN PLATELET VOLUME 9.4 fL (7.4-11.4); MONOCYTES # (AUTO) 0.4 10^3/uL (0.0-1.0); MONOCYTES % (AUTO) 4.7 %; NEUTROPHILS # (AUTO) 8.1 10^3/uL (1.5-6.6); NEUTROPHILS % (AUTO) 85.9 %; PLT - PLATELET COUNT 197 10^3/uL (130-450); RED BLOOD COUNT 4.81 10^6/uL (4.70-6.10); RED CELL DISTRIBUTION WIDTH 13.1 % (12.0-15.0); WHITE BLOOD COUNT 9.4 x10^3/uL (4.8-10.8)
[2018-01-16 15:37] LABS: ALBUMIN 5.2 g/dL (3.2-5.5); ALBUMIN/GLOBULIN RATIO 1.8 (1.0-2.2); ALKALINE PHOSPHATASE 58 IU/L (42-121); ALT ALANINE AMINOTRANSFERASE < 10 IU/L (10-60); AST ASPARTATE AMINOTRANSFERASE 17 IU/L (10-42); BILIRUBIN,TOTAL 0.5 mg/dL (0.2-1.0); BUN - BLOOD UREA NITROGEN 14 mg/dL (6-20); CALCIUM 9.7 mg/dL (8.5-10.3); CARBON DIOXIDE - CO2 24 mmol/L (21-32); CHLORIDE 100 mmol/L (101-111); CREATININE 0.9 mg/dL (0.6-1.2); GFR - MDRD 98 (>89); GLUCOSE 111 mg/dL (70-100); LIPASE 10 U/L (22-51); SALICYLATE < 6.0 mg/dL; SODIUM 136 mmol/L (135-145); TOTAL PROTEIN 8.1 g/dL (6.7-8.2)
[2018-01-16 15:41] LABS: ACETAMINOPHEN < 10 ug/mL (10-30)
[2018-01-16 17:00] LABS: MUDS CUTOFF CONCENTRATIONS CUTOFF CONC BELOW:
[2018-01-16 17:02] LABS: GLUCOSE, URINE (UA) NEGATIVE (NEGATIVE); KETONES,URINE (UA) >=80 mg/dL (NEGATIVE); LEUKOCYTE ESTERASE, URINE NEGATIVE (NEGATIVE); NITRITE,URINE NEGATIVE (NEGATIVE); OCCULT BLOOD,URINE TRACE-INTA (NEGATIVE); PROTEIN,URINE NEGATIVE (NEGATIVE); UROBILINOGEN,URINE 0.2 (NORMAL) E.U./dL (NORMAL)
[2018-01-16 17:05] LABS: BILIRUBIN,URINE NEGATIVE (NEGATIVE); CLARITY,URINE CLEAR (CLEAR); ICTOTEST,URINE NEGATIVE
[2018-01-16 17:13] LABS: AMPHETAMINE SCREEN,URINE NEGATIVE (NEGATIVE); BENZODIAZEPINES SCREEN, URINE NEGATIVE (NEGATIVE); COCAINE SCREEN URINE NEGATIVE (NEGATIVE); METHADONE SCREEN, URINE NEGATIVE (NEGATIVE); METHAMPHETAMINES SCREEN, URINE NEGATIVE (NEGATIVE); OPIATE SCREEN, URINE NEGATIVE (NEGATIVE); OXYCODONE SCREEN, URINE NEGATIVE (NEGATIVE); PROPOXYPHENE SCREEN, URINE NEGATIVE (NEGATIVE); TRICYCLIC ANTIDEPRESSANT,URINE POSITIVE (NEGATIVE)
[2018-01-16] MEDS ORDERED: QUEtiapine 100 MG TABLET PO STA (20:23)
[2018-01-16] MEDS ORDERED: OLANZapine ODT 5 MG TABLET TL STA (20:23)
[2018-01-16] MEDS ORDERED: LORazepam 0.5 MG TABLET PO STA (22:13)
[2018-01-17 12:28] VITALS: BP 118/72
== END 2018-01-17 12:15 | disposition left against medical advice (07) ==
LOC: EDUNIT# → ED 14:55
DX: F20.9 Schizophrenia, unspecified (principal); F32.9 Major depressive disorder, single episode, unspecified; F17.200 Nicotine dependence, unspecified, uncomplicated
CPT/HCPCS: 36415; 80053; 80306; 80307; 80320; 80329; 81003; 83690; 85025; 93005; 96372; 99283; 99284; A9270; J2060; 81001; 87086

== ENCOUNTER 2018-01-18 16:05 | Outpatient (CLI) | payer MEDICAID | END 2018-01-18 16:06 | disposition critical access hospital (66) | LOC: EMS 16:05 | PROVIDERS: ATTEND Surgery | DX: R46.89 Other symptoms and signs involving appearance and behavior (principal) | CPT/HCPCS: A0425; A0429 ==

== ENCOUNTER 2018-01-18 16:27 | Emergency (ER) | payer MEDICAID ==
[2018-01-18] MEDS ORDERED: LORazepam 2 MG/ML VIAL IM STA ×2 (16:46→23:00)
--- NOTE | 2018-01-18 16:55 | ED Physician Documentation ---
PD HPI MHE - History obtained from History obtained from: Patient - History of Present Illness Primary symptom: Other (32-year-old with a history of schizophrenia, he presents with worsening psychosis. At this point he is an unreliable historian , I am unable to glean from him whether or not he is taking his medications. He just sort of babbling and staring off into space but he does admit to both auditory and visual hallucinations but he will not tell me what the content is.) - Stated complaint Stated Complaint: MHE - Chief complaint Chief Complaint: MHE Review of Systems Unable to obtain: Confused PD PAST MEDICAL HISTORY - Past Medical History Cardiovascular: None Respiratory: None Neuro: Tremors Endocrine/Autoimmune: None GI: None : Renal insuffiency HEENT: None Psych: Depression, Anxiety, Bipolar disorder, Schizophrenia, Panic attacks, ADD/ ADHD, Obsessive compulsive disorder Musculoskeletal: None Derm: None - Past Surgical History Past Surgical History: No - Social History Does the pt smoke?: Yes Smoking Status: Current every day smoker Does the pt drink ETOH?: Yes Does the pt have substance abuse?: Yes - Immunizations Immunizations are current?: No - POLST Patient has POLST: No - Present Medications Home Medications: Ambulatory Orders Medication Instructions Recorded Confirmed FLUoxetine [PROzac] 40 mg PO DAILY 12/14/15 11/26/17 OLANZapine [Zyprexa] 20 mg PO BID 09/27/17 11/26/17 QUEtiapine [SEROquel] 400 mg PO QPM 09/27/17 11/26/17 Divalproex [Rubén Toscano] 500 mg PO BID #30 tablet 10/24/17 11/26/17 Olanzapine [Zyprexa] 20 mg PO BID #30 tablet 10/24/17 11/26/17 Quetiapine Fumarate [Seroquel] 400 mg PO QPM #15 tablet 10/24/17 11/26/17 FLUoxetine [PROzac] 40 mg PO DAILY #14 capsule 11/27/17 OLANZapine [Zyprexa] 20 mg PO BID #30 tablet 11/27/17 Quetiapine Fumarate [Seroquel Xr] 400 mg PO QPM #14 tab.er.24h 11/27/17 - Allergies Allergies/Adverse Reactions: Allergies Allergy/AdvReac Type Severity Reaction Status Date / Time ziprasidone HCl * AdvReac Severe Hallucinati Verified 01/16/18 15:18 [From [facility]] ons ziprasidone mesylate * AdvReac Severe Hallucinati Verified 01/16/18 15:18 [From [facility]] ons PD ED PE NORMAL - Vitals Vital signs reviewed: Yes - General General: Other (He is alert and cooperative but somewhat agitated, severe flight of ideas.) - HEENT HEENT: PERRL, EOMI - Neck Neck: Supple, no meningeal sign, No bony TTP - Cardiac Cardiac: RRR, No murmur - Respiratory Respiratory: No respiratory distress, Clear bilaterally - Abdomen Abdomen: Soft, Non tender - Derm Derm: Normal color, Warm and dry - Neuro Neuro: No motor deficit, No sensory deficit Eye Opening: Spontaneous Motor: Obeys Commands Verbal: Oriented GCS Score: 15 Results - Rads (name of study) 1v chest Radiology: EMP read contemporaneously (NAD) - Vitals Vitals: Oxygen O2 Source Room air - Labs Labs: Laboratory Tests 01/18/18 01/18/18 01/18/18 16:58 16:58 16:58 WBC 10.1 RBC 5.19 Hgb 14.8 Hct 44.3 MCV 85.4 MCH 28.5 MCHC 33.3 RDW 13.2 Plt Count 242 MPV 9.4 Neut # 7.0 H Lymph # 2.2 [place] # 0.8 Eos # 0.0 Baso # 0.1 Absolute Nucleated RBC 0.00 Nucleated RBC % 0.0 Sodium 135 Potassium 3.7 Chloride 96 L Carbon Dioxide 25 Anion Gap 14.0 H BUN 17 Creatinine 0.9 Estimated GFR (MDRD) 98 Glucose 109 H Calcium 9.5 Total Bilirubin 0.6 AST 17 ALT 11 Alkaline Phosphatase 58 Total Protein 8.2 Albumin 5.2 Globulin 3.0 Albumin/Globulin Ratio 1.7 Lipase < 10 L Last Dose Date UNKNOWN Last Dose Time UNKNOWN Urine Opiates Screen Ur Oxycodone Screen Urine Methadone Screen Ur Propoxyphene Screen Ur Barbiturates Screen Valproic Acid < 10.0 Ur Tricyclics Screen Ur Phencyclidine Scrn Ur Amphetamine Screen U Methamphetamines Scrn U Benzodiazepines Scrn Urine Cocaine Screen U Cannabinoids Screen Ethyl Alcohol < 5.0 01/18/18 19:30 WBC RBC Hgb Hct MCV MCH MCHC RDW Plt Count MPV Neut # Lymph # [place] # Eos # Baso # Absolute Nucleated RBC Nucleated RBC % Sodium Potassium Chloride Carbon Dioxide Anion Gap BUN Creatinine Estimated GFR (MDRD) Glucose Calcium Total Bilirubin AST ALT Alkaline Phosphatase Total Protein Albumin Globulin Albumin/Globulin Ratio Lipase Last Dose Date Last Dose Time Urine Opiates Screen NEGATIVE Ur Oxycodone Screen NEGATIVE Urine Methadone Screen NEGATIVE Ur Propoxyphene Screen NEGATIVE Ur Barbiturates Screen NEGATIVE Valproic Acid Ur Tricyclics Screen NEGATIVE Ur Phencyclidine Scrn NEGATIVE Ur Amphetamine Screen NEGATIVE U Methamphetamines Scrn NEGATIVE U Benzodiazepines Scrn POSITIVE H Urine Cocaine Screen NEGATIVE U Cannabinoids Screen POSITIVE H Ethyl Alcohol PD MEDICAL DECISION MAKING - ED course ED course: 32-year-old gentleman with chronic psychosis presents with an exacerbation of same. He seems well off of his baseline now and the [facility] was called to dispatch the [facility] after medical clearance. [facility] arrived and evaluated him. Also felt he was not at his baseline. They contacted his mother by phone who was specifically concerned for pneumonia and given the borderline pulse oximetry a chest x-ray was done without acute findings. (Nando Hadley) Patient was observed in the emergency department and after evaluation by mph arrangements were made for transfer for inpatient psychiatry. Patient was transferred in stable condition (Mario Hubbard) Departure - Departure Disposition: 65 Psych Hosp/Unit DC/Xfer Clinical Impression: Psychosis Qualifiers: Psychosis type: schizophrenia Schizophrenia type: disorganized schizophrenia Qualified Code(s): F20.1 - Disorganized schizophrenia Condition: Stable Discharge Date/Time: 01/19/18 03:36
[2018-01-18 17:11] LABS: BASOPHILS # (AUTO) 0.1 10^3/uL (0.0-0.1); BASOPHILS % (AUTO) 0.6 %; EOSINOPHILS % (AUTO) 0.1 %; HGB - HEMOGLOBIN 14.8 g/dL (14.0-18.0); LYMPHOCYTES # (AUTO) 2.2 10^3/uL (1.5-3.5); LYMPHOCYTES % (AUTO) 21.6 %; MEAN CORPUSCULAR HEMOGLOBIN 28.5 pg (27.0-31.0); MEAN CORPUSCULAR HGB CONC 33.3 g/dL (32.0-36.0); MEAN CORPUSCULAR VOLUME 85.4 fL (80.0-94.0); MEAN PLATELET VOLUME 9.4 fL (7.4-11.4); MONOCYTES # (AUTO) 0.8 10^3/uL (0.0-1.0); MONOCYTES % (AUTO) 8.1 %; NEUTROPHILS % (AUTO) 69.6 %; PLT - PLATELET COUNT 242 10^3/uL (130-450); RED BLOOD COUNT 5.19 10^6/uL (4.70-6.10); RED CELL DISTRIBUTION WIDTH 13.2 % (12.0-15.0); WHITE BLOOD COUNT 10.1 x10^3/uL (4.8-10.8)
[2018-01-18 17:18] LABS: ALBUMIN 5.2 g/dL (3.2-5.5); ALBUMIN/GLOBULIN RATIO 1.7 (1.0-2.2); ALKALINE PHOSPHATASE 58 IU/L (42-121); ALT ALANINE AMINOTRANSFERASE 11 IU/L (10-60); AST ASPARTATE AMINOTRANSFERASE 17 IU/L (10-42); BILIRUBIN,TOTAL 0.6 mg/dL (0.2-1.0); BUN - BLOOD UREA NITROGEN 17 mg/dL (6-20); CALCIUM 9.5 mg/dL (8.5-10.3); CARBON DIOXIDE - CO2 25 mmol/L (21-32); CHLORIDE 96 mmol/L (101-111); CREATININE 0.9 mg/dL (0.6-1.2); GFR - MDRD 98 (>89); GLUCOSE 109 mg/dL (70-100); SODIUM 135 mmol/L (135-145); TOTAL PROTEIN 8.2 g/dL (6.7-8.2)
[2018-01-18 17:19] LABS: LIPASE < 10 U/L (22-51)
[2018-01-18 17:21] LABS: VALPROIC ACID (DEPAKOTE) < 10.0 ug/mL
[2018-01-18 20:07] LABS: MUDS CUTOFF CONCENTRATIONS CUTOFF CONC BELOW:
[2018-01-18 20:22] LABS: AMPHETAMINE SCREEN,URINE NEGATIVE (NEGATIVE); BENZODIAZEPINES SCREEN, URINE POSITIVE (NEGATIVE); COCAINE SCREEN URINE NEGATIVE (NEGATIVE); METHADONE SCREEN, URINE NEGATIVE (NEGATIVE); METHAMPHETAMINES SCREEN, URINE NEGATIVE (NEGATIVE); OPIATE SCREEN, URINE NEGATIVE (NEGATIVE); OXYCODONE SCREEN, URINE NEGATIVE (NEGATIVE); PROPOXYPHENE SCREEN, URINE NEGATIVE (NEGATIVE); TRICYCLIC ANTIDEPRESSANT,URINE NEGATIVE (NEGATIVE)
[2018-01-18] MEDS ORDERED: OLANZapine ODT 5 MG TABLET TL STA (21:52)
[2018-01-18] MEDS ORDERED: QUEtiapine 100 MG TABLET PO STA (21:52)
[2018-01-18] MEDS ORDERED: FLUoxetine 10 MG CAPSULE PO STA (21:52)
--- NOTE | 2018-01-18 22:32 | XRAY Report ---
EXAM: CHEST RADIOGRAPHY EXAM DATE: 01/18/2018 10:26 PM. CLINICAL HISTORY: Cough. COMPARISON: 05/05/2013. TECHNIQUE: 1 view. FINDINGS: Lungs/Pleura: No focal opacities evident. No pleural effusion. No pneumothorax. Mediastinum: Within exam limitations, the cardiomediastinal contour is normal. Other: None. IMPRESSION: Stable negative single view chest. [facility] Referring Provider Line: [phone] SITE ID: [id number]
[2018-01-19 03:21] VITALS: BP 143/95
== END 2018-01-19 03:36 ==
LOC: EDUNIT# → ED 16:27
DX: F20.1 Disorganized schizophrenia (principal); F31.9 Bipolar disorder, unspecified; R05 Cough; F17.200 Nicotine dependence, unspecified, uncomplicated
CPT/HCPCS: 36415; 71045; 80053; 80164; 80306; 80320; 83690; 85025; 96372; 99283; 99284; A9270; J2060; 81001; 81003; 87086

== ENCOUNTER 2018-01-19 03:30 | Outpatient (CLI) | payer MEDICAID | END 2018-01-19 03:31 | LOC: EMS 03:30 | PROVIDERS: ATTEND Surgery | DX: F20.9 Schizophrenia, unspecified (principal) | CPT/HCPCS: A0425; A0428 ==

== ENCOUNTER 2018-03-03 17:10 | Outpatient (CLI) | payer MEDICAID ==
[2018-03-03 12:36] LABS: BASOPHILS % (AUTO) 0.6 %; EOSINOPHILS # (AUTO) 0.1 10^3/uL (0.0-0.7); EOSINOPHILS % (AUTO) 2.1 %; HGB - HEMOGLOBIN 14.3 g/dL (14.0-18.0); LYMPHOCYTES # (AUTO) 1.8 10^3/uL (1.5-3.5); LYMPHOCYTES % (AUTO) 35.9 %; MEAN CORPUSCULAR HEMOGLOBIN 28.9 pg (27.0-31.0); MEAN CORPUSCULAR HGB CONC 33.4 g/dL (32.0-36.0); MEAN CORPUSCULAR VOLUME 86.6 fL (80.0-94.0); MEAN PLATELET VOLUME 10.9 fL (7.4-11.4); MONOCYTES # (AUTO) 0.4 10^3/uL (0.0-1.0); MONOCYTES % (AUTO) 7.6 %; NEUTROPHILS # (AUTO) 2.7 10^3/uL (1.5-6.6); NEUTROPHILS % (AUTO) 53.8 %; PLT - PLATELET COUNT 158 10^3/uL (130-450); RED BLOOD COUNT 4.94 10^6/uL (4.70-6.10); RED CELL DISTRIBUTION WIDTH 13.6 % (12.0-15.0)
[2018-03-03 12:40] LABS: ALBUMIN 4.5 g/dL (3.2-5.5); ALBUMIN/GLOBULIN RATIO 1.8 (1.0-2.2); ALKALINE PHOSPHATASE 37 IU/L (42-121); ALT ALANINE AMINOTRANSFERASE < 10 IU/L (10-60); AST ASPARTATE AMINOTRANSFERASE 14 IU/L (10-42); BILIRUBIN,TOTAL 0.3 mg/dL (0.2-1.0); BUN - BLOOD UREA NITROGEN 13 mg/dL (6-20); CALCIUM 8.8 mg/dL (8.5-10.3); CARBON DIOXIDE - CO2 29 mmol/L (21-32); CHLORIDE 103 mmol/L (101-111); CHOL/HDL RATIO 3.8 (<5.0); CHOLESTEROL 186 mg/dL; CREATININE 0.8 mg/dL (0.6-1.2); GFR - MDRD 113 (>89); GLUCOSE 93 mg/dL (70-100); HDL CHOLESTEROL 49 mg/dL; LDL CHOLESTEROL,CALCULATED 122 mg/dL; LDL/HDL RATIO 2.5 (<3.6); SODIUM 136 mmol/L (135-145); VALPROIC ACID (DEPAKOTE) 76.6 ug/mL; VLDL CHOLESTEROL 15 mg/dL
== END 2018-03-03 17:11 | disposition home or self-care (01) ==
LOC: LAB.WCP 17:10
PROVIDERS: ATTEND Registered Nurse
DX: F25.9 Schizoaffective disorder, unspecified (principal); Z79.899 Other long term (current) drug therapy
CPT/HCPCS: 36415; 80053; 80061; 80164; 83721; 85025

== ENCOUNTER 2018-05-30 15:40 | Outpatient (CLI) | payer MEDICAID | END 2018-05-30 15:41 | disposition critical access hospital (66) | LOC: EMS 15:40 | PROVIDERS: ATTEND Surgery | DX: R52 Pain, unspecified (principal); K92.1 Melena; R06.00 Dyspnea, unspecified | CPT/HCPCS: A0425; A0429; A0999 ==

== ENCOUNTER 2018-05-30 15:59 | Emergency (ER) | payer MEDICAID ==
[2018-05-30 16:41] LABS: BASOPHILS % (AUTO) 0.7 %; EOSINOPHILS # (AUTO) 0.1 10^3/uL (0.0-0.7); EOSINOPHILS % (AUTO) 1.5 %; HGB - HEMOGLOBIN 14.5 g/dL (14.0-18.0); LYMPHOCYTES # (AUTO) 2.2 10^3/uL (1.5-3.5); LYMPHOCYTES % (AUTO) 46.4 %; MEAN CORPUSCULAR HEMOGLOBIN 30.8 pg (27.0-31.0); MEAN CORPUSCULAR HGB CONC 34.4 g/dL (32.0-36.0); MEAN CORPUSCULAR VOLUME 89.5 fL (80.0-94.0); MEAN PLATELET VOLUME 8.3 fL (7.4-11.4); MONOCYTES # (AUTO) 0.4 10^3/uL (0.0-1.0); MONOCYTES % (AUTO) 8.2 %; NEUTROPHILS # (AUTO) 2.1 10^3/uL (1.5-6.6); NEUTROPHILS % (AUTO) 43.2 %; PLT - PLATELET COUNT 130 10^3/uL (130-450); RED BLOOD COUNT 4.72 10^6/uL (4.70-6.10); RED CELL DISTRIBUTION WIDTH 15.6 % (12.0-15.0); WHITE BLOOD COUNT 4.8 x10^3/uL (4.8-10.8)
--- NOTE | 2018-05-30 16:44 | ED Physician Documentation ---
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 Patient states that over the last couple of weeks he has had some shortness of breath and intermittent leg pains. Patient states that he has also had a few episodes of bloody stool. Upon initial evaluation in the emergency department patient is well appearing in no distress. Review of Systems Ten Systems: 10 systems reviewed and negative PD PAST MEDICAL HISTORY - Past Medical History Cardiovascular: None Respiratory: None Endocrine/Autoimmune: None GI: None : Renal insuffiency HEENT: None Psych: Depression, Anxiety, Bipolar disorder, Schizophrenia, Panic attacks, ADD/ ADHD, Obsessive compulsive disorder Musculoskeletal: None Derm: None - Past Surgical History Past Surgical History: No - Present Medications Home Medications: Ambulatory Orders Medication Instructions Recorded Confirmed FLUoxetine [PROzac] 40 mg PO DAILY 12/14/15 11/26/17 OLANZapine [Zyprexa] 20 mg PO BID 09/27/17 11/26/17 QUEtiapine [SEROquel] 400 mg PO QPM 09/27/17 11/26/17 Divalproex [Rubén Toscano] 500 mg PO BID #30 tablet 10/24/17 11/26/17 Olanzapine [Zyprexa] 20 mg PO BID #30 tablet 10/24/17 11/26/17 Quetiapine Fumarate [Seroquel] 400 mg PO QPM #15 tablet 10/24/17 11/26/17 FLUoxetine [PROzac] 40 mg PO DAILY #14 capsule 11/27/17 OLANZapine [Zyprexa] 20 mg PO BID #30 tablet 11/27/17 Quetiapine Fumarate [Seroquel Xr] 400 mg PO QPM #14 tab.er.24h 11/27/17 - Allergies Allergies/Adverse Reactions: Allergies Allergy/AdvReac Type Severity Reaction Status Date / Time ziprasidone HCl * AdvReac Severe Hallucinati Verified 01/16/18 15:18 [From Geodon] ons ziprasidone mesylate * AdvReac Severe Hallucinati Verified 01/16/18 15:18 [From Geodon] ons - Social History Does the pt smoke?: Yes Smoking Status: Current every day smoker Does the pt drink ETOH?: Yes Does the pt have substance abuse?: Yes - Immunizations Immunizations are current?: No - POLST Patient has POLST: No PD ED PE NORMAL - Vitals Vital signs reviewed: Yes - General General: No acute distress, Well developed/nourished - HEENT HEENT: Atraumatic - Cardiac Cardiac: RRR - Respiratory Respiratory: No respiratory distress - Abdomen Abdomen: Soft, Non tender, Non distended - Rectal Rectal: Deferred - Derm Derm: Normal color, No rash - Extremities Extremities: No deformity, No tenderness to palpate, Normal ROM s pain, No edema - Neuro Neuro: No motor deficit, Normal speech Eye Opening: Spontaneous Motor: Obeys Commands Results - Vitals Vitals: Vital Signs - 24 hr 05/30/18 16:00 Temperature 36.4 C L Heart Rate 95 Respiratory 18 Rate Blood Pressure 145/99 H O2 Saturation 96 Oxygen O2 Source Room air - Labs Labs: Laboratory Tests 05/30/18 05/30/18 05/30/18 16:37 16:37 16:37 WBC 4.8 RBC 4.72 Hgb 14.5 Hct 42.3 MCV 89.5 MCH 30.8 MCHC 34.4 RDW 15.6 H Plt Count 130 MPV 8.3 Neut # (Auto) 2.1 Lymph # (Auto) 2.2 [place] # (Auto) 0.4 Eos # (Auto) 0.1 Baso # (Auto) 0.0 Absolute Nucleated RBC 0.01 Nucleated RBC % 0.1 PT 12.0 INR 1.1 APTT 33.4 H Sodium 140 Potassium 3.8 Chloride 104 Carbon Dioxide 26 Anion Gap 10.0 BUN 15 Creatinine 0.7 Estimated GFR (MDRD) 131 Glucose 92 Calcium 9.1 Phosphorus 4.1 Magnesium 2.1 Total Bilirubin 0.6 AST 28 ALT 19 Alkaline Phosphatase 46 Total Protein 7.3 Albumin 4.2 Globulin 3.1 Albumin/Globulin Ratio 1.4 Lipase 23 PD MEDICAL DECISION MAKING - ED course Complexity details: reviewed old records, reviewed results, re-evaluated patient , considered differential, d/w patient ED course: patient was seen and examined at bedside. patient was well appearing in no distress. labs were drawn. when patient's diagnostics came back the findings were discussed with him. Patient had no acute findings at this time. Patient required no further inpatient work up and was stable for discharge with outpatient follow up. - Sepsis Event Vital Signs: Vital Signs - 24 hr 05/30/18 16:00 Temperature 36.4 C L Heart Rate 95 Respiratory 18 Rate Blood Pressure 145/99 H O2 Saturation 96 Oxygen O2 Source Room air Departure - Departure Disposition: Home, Self Care Clinical Impression: Generalized muscle ache Condition: Good Instructions: ED Acute Pain [facility] Follow-Up: primary,care provider [Other] - Within 3 Days Comments: Your diagnostics today were within normal limits. there are no acute abnormalities. you should follow up with your doctor if your symptoms persist. you may return to the emergency department at any time for new, worsening or uncontrollable symptoms.
[2018-05-30 16:47] LABS: INR 1.1 (0.8-1.2)
[2018-05-30 16:59] LABS: ALBUMIN 4.2 g/dL (3.2-5.5); ALBUMIN/GLOBULIN RATIO 1.4 (1.0-2.2); BILIRUBIN,TOTAL 0.6 mg/dL (0.2-1.0); CALCIUM 9.1 mg/dL (8.5-10.3); CREATININE 0.7 mg/dL (0.6-1.2); MAGNESIUM 2.1 mg/dL (1.7-2.8); PHOSPHORUS 4.1 mg/dL (2.5-4.6); TOTAL PROTEIN 7.3 g/dL (6.7-8.2)
[2018-05-30 17:44] VITALS: BP 142/84
== END 2018-05-30 17:41 | disposition home or self-care (01) ==
LOC: EDUNIT# → ED 15:59
DX: M79.1 Myalgia (principal)
CPT/HCPCS: 36415; 80053; 83690; 83735; 84100; 85025; 85610; 85730; 99283

== ENCOUNTER 2019-11-21 19:32 | Outpatient (CLI) | payer MEDICAID | END 2019-11-21 19:33 | disposition critical access hospital (66) | LOC: EMS 19:32 | PROVIDERS: ATTEND Surgery | DX: G47.00 Insomnia, unspecified (principal); R11.10 Vomiting, unspecified; F32.9 Major depressive disorder, single episode, unspecified | CPT/HCPCS: A0425; A0429 ==

== ENCOUNTER 2019-11-21 19:50 | Emergency (ER) | payer MEDICAID ==
[2019-11-21 20:04] VITALS: BP 136/102
[2019-11-21] MEDS ORDERED: LORazepam 2 MG/ML VIAL IM STA (20:43)
--- NOTE | 2019-11-21 20:46 | ED Physician Documentation ---
PD HPI MHE - Stated complaint Stated Complaint: MHE - Chief complaint Chief Complaint: MHE - History obtained from History obtained from: Patient - History of Present Illness Primary symptom: Other (34-year-old gentleman with psychiatric disorder. Gets medications prescribed by [facility]. He had been out of his medication and has not slept for 3 days. That said he went to the pharmacy today and got his meds refilled which include Zyprexa, Seroquel, Depakote and lithium. He has not taken them yet. Denies suicidal or homicidal ideation. No drug use besides marijuana.) Review of Systems Constitutional: denies: Fever, Chills Throat: reports: Reviewed and negative Cardiac: reports: Reviewed and negative Respiratory: reports: Reviewed and negative PD PAST MEDICAL HISTORY - Past Medical History Cardiovascular: None Respiratory: None Endocrine/Autoimmune: None GI: None : Renal insuffiency HEENT: None Psych: Depression, Anxiety, Bipolar disorder, Schizophrenia, Panic attacks, ADD/ADHD, Obsessive compulsive disorder Musculoskeletal: None Derm: None - Past Surgical History Past Surgical History: No - Present Medications Home Medications: Ambulatory Orders Medication Instructions Recorded Confirmed OLANZapine [Zyprexa] 20 mg PO QPM 09/27/17 11/21/[address] [Depakote Dr] 500 mg PO BID #30 tablet 10/24/17 11/26/17 Quetiapine Fumarate [Seroquel Xr] 400 mg PO QPM #14 tab.er.24h 11/27/17 FLUoxetine [PROzac] 20 mg PO DAILY 11/21/19 11/21/19 [place] Carbonate 300 mg PO BID 11/21/19 11/21/19 Quetiapine Fumarate [Seroquel] 300 mg PO QPM 11/21/19 11/21/19 - Allergies Allergies/Adverse Reactions: Allergies Allergy/AdvReac Type Severity Reaction Status Date / Time ziprasidone HCl * AdvReac Severe Hallucinati Verified 01/16/18 15:18 [From [facility]] ons ziprasidone mesylate * AdvReac Severe Hallucinati Verified 01/16/18 15:18 [From [facility]] ons - Social History Does the pt smoke?: Yes Smoking Status: Current every day smoker Does the pt drink ETOH?: Yes Does the pt have substance abuse?: Yes Substance Use and Type: Marijuana - Immunizations Immunizations are current?: No Immunizations: TDAP >10years/unknown, Other immun current - POLST Patient has POLST: No PD ED PE NORMAL - Vitals Vital signs reviewed: Yes - General General: Alert and oriented X 3, Other (Somewhat disheveled but alert and oriented and cooperative) - HEENT HEENT: PERRL, EOMI - Neck Neck: Supple, no meningeal sign, No bony TTP - Neuro Neuro: Alert and oriented X 3, No motor deficit, No sensory deficit, Normal speech - Psych Psych: Normal mood, Normal affect Results - Vitals Vitals: Vital Signs - 24 hr 11/21/19 19:57 Heart Rate 112 H Blood Pressure 136/102 H O2 Saturation 95 Oxygen O2 Source Room air PD MEDICAL DECISION MAKING - ED course ED course: This is a 34-year-old gentleman with underlying psychiatric disorder who has had medical noncompliance, that said he has his meds now and is mostly worried to take his usual medications when he gets home. He can return anytime if worse. He is not interested in inpatient psychiatric treatment. Departure - Departure Disposition: 01 Home, Self Care Clinical Impression: Insomnia Qualifiers: Insomnia type: psychophysiologic Qualified Code(s): F51.04 - Psychophysiologic insomnia Condition: Good Record reviewed to determine appropriate education?: Yes Instructions: ED Insomnia Comments: Go home and take your usual medications in addition to the shot we gave you that should help you rest tonight, return anytime if worse or if you decide you would like to seek inpatient treatment.
== END 2019-11-21 21:15 | disposition home or self-care (01) ==
LOC: EDUNIT# → EDBD → ED 19:50
DX: F51.04 Psychophysiologic insomnia (principal); Z91.14 Patient's other noncompliance with medication regimen; F20.9 Schizophrenia, unspecified; F31.9 Bipolar disorder, unspecified; F17.200 Nicotine dependence, unspecified, uncomplicated
CPT/HCPCS: 96372; 99283; J2060

== ENCOUNTER 2019-12-13 13:11 | Outpatient (CLI) | payer MEDICAID | END 2019-12-13 13:12 | disposition critical access hospital (66) | LOC: EMS 13:11 | PROVIDERS: ATTEND Surgery | DX: R11.2 Nausea with vomiting, unspecified (principal); R51 Headache | CPT/HCPCS: A0425; A0429 ==

== ENCOUNTER 2019-12-13 13:30 | Emergency (ER) | payer MEDICAID ==
[2019-12-13] MEDS ORDERED: PROMETHAZINE 25 MG TABLET PO STA (14:09)
--- NOTE | 2019-12-13 14:14 | ED Physician Documentation ---
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 He states that he has been vomiting for the past 2 to 3 days and has been unable to take his medications. Does use marijuana several times daily. Occasionally drinks beer. No abdominal pain. No fevers. No diarrhea. Patient is comfortably drinking a Sprite upon arrival here. Review of Systems Ten Systems: 10 systems reviewed and negative Constitutional: denies: Fever, Chills Throat: denies: Sore throat Cardiac: denies: Chest pain / pressure Respiratory: denies: Cough GI: reports: Nausea, Vomiting. denies: Diarrhea Skin: denies: Rash Musculoskeletal: denies: Neck pain, Back pain Neurologic: denies: Headache PD PAST MEDICAL HISTORY - Past Medical History Past Medical History: Yes Cardiovascular: None Respiratory: None Endocrine/Autoimmune: None GI: None : Renal insuffiency HEENT: None Psych: Depression, Anxiety, Bipolar disorder, Schizophrenia, Panic attacks, ADD/ADHD, Obsessive compulsive disorder Musculoskeletal: None Derm: None - Past Surgical History Past Surgical History: No - Present Medications Home Medications: Ambulatory Orders Medication Instructions Recorded Confirmed OLANZapine [Zyprexa] 20 mg PO QPM 09/27/17 11/21/[address] [Rubén [place]osc[place]] 500 mg PO BID #30 tablet 10/24/17 11/26/17 Quetiapine Fumarate [Seroquel Xr] 400 mg PO QPM #14 tab.er.24h 11/27/17 FLUoxetine [PROzac] 20 mg PO DAILY 11/21/19 11/21/19 [place] Carbonate 300 mg PO BID 11/21/19 11/21/19 Quetiapine Fumarate [Seroquel] 300 mg PO QPM 11/21/19 11/21/19 Promethazine [Phenergan] 25 mg PO Q6H PRN #10 tab 12/13/19 - Allergies Allergies/Adverse Reactions: Allergies Allergy/AdvReac Type Severity Reaction Status Date / Time ziprasidone HCl * AdvReac Severe Hallucinati Verified 12/13/19 13:36 [From [facility]] ons ziprasidone mesylate * AdvReac Severe Hallucinati Verified 12/13/19 13:36 [From [facility]] ons - Social History Does the pt smoke?: Yes Smoking Status: Current every day smoker Does the pt drink ETOH?: Yes Does the pt have substance abuse?: Yes - Immunizations Immunizations are current?: No Immunizations: TDAP >10years/unknown, Other immun current - POLST Patient has POLST: No PD ED PE NORMAL - Vitals Vital signs reviewed: Yes - General General: Alert and oriented X 3, No acute distress, Well developed/nourished - HEENT HEENT: PERRL, Moist mucous membranes - Neck Neck: Supple, no meningeal sign - Cardiac Cardiac: RRR, Strong equal pulses - Respiratory Respiratory: No respiratory distress, Clear bilaterally - Abdomen Abdomen: Soft, Non tender, Non distended - Back Back: No CVA TTP - Derm Derm: Warm and dry - Extremities Extremities: No edema - Neuro Neuro: Alert and oriented X 3 - Psych Psych: Normal mood, Normal affect Results - Vitals Vitals: Vital Signs - 24 hr 12/13/19 13:36 Temperature 37.1 C Heart Rate 98 Respiratory 14 Rate Blood Pressure 120/66 O2 Saturation 95 Oxygen O2 Source Room air PD MEDICAL DECISION MAKING - ED course Complexity details: re-evaluated patient, considered differential, d/w patient ED course: Patient with vomiting for the past 2 days. Given Phenergan here. Tolerating p.o. without difficulty. He is able to tolerate his medications without difficulty. Abdomen is soft, nontender nondistended. Counseled to decrease or stop his marijuana use as this may be contributing as well. Patient counseled regarding signs and symptoms for which I believe and urgent re-evaluation would be necessary. Patient with good understanding of and agreement to plan and is comfortable going home at this time This document was made in part using voice recognition software. While efforts are made to proofread this document, sound alike and grammatical errors may occur. Departure - Departure Disposition: 01 Home, Self Care Clinical Impression: Vomiting Qualifiers: Vomiting type: unspecified Vomiting Intractability: non-intractable Nausea presence: with nausea Qualified Code(s): R11.2 - Nausea with vomiting, unspecified Condition: Good Instructions: ED Nausea Vomiting Follow-Up: Ludwig Packer PA-C [Primary Care Provider] - Within 1 week Prescriptions: Promethazine [Phenergan] 25 mg PO Q6H PRN #10 tab PRN Reason: Nausea / Vomiting Comments: Continue your medications at home. Return if you worsen. Follow-up with your doctor for further care.
[2019-12-13 15:13] VITALS: BP 120/64
== END 2019-12-13 15:13 | disposition home or self-care (01) ==
LOC: EDUNIT# → ED 13:30
DX: R11.2 Nausea with vomiting, unspecified (principal); F17.200 Nicotine dependence, unspecified, uncomplicated
CPT/HCPCS: 99283; Q0169

== ENCOUNTER 2019-12-14 21:36 | Outpatient (CLI) | payer MEDICAID | END 2019-12-14 21:37 | disposition critical access hospital (66) | LOC: EMS 21:36 | PROVIDERS: ATTEND Surgery | DX: R11.2 Nausea with vomiting, unspecified (principal) | CPT/HCPCS: A0425; A0427 ==

== ENCOUNTER 2019-12-14 21:51 | Emergency (ER) | payer MEDICAID ==
--- NOTE | 2019-12-15 01:02 | ED Physician Documentation ---
History of Present Illness - Stated complaint Stated Complaint: VOMITING - Chief complaint Chief Complaint: Abd Pain - History obtained from History obtained from: Patient (Patient is a 34-year-old male who presents after he been smoking marijuana daily and now is vomiting he denies any other complaints he denies drinking alcohol he denies any hematemesis or hematochezia.) Review of Systems Constitutional: reports: Reviewed and negative Eyes: reports: Reviewed and negative Ears: reports: Reviewed and negative Nose: reports: Reviewed and negative Throat: reports: Reviewed and negative Cardiac: reports: Reviewed and negative Respiratory: reports: Reviewed and negative GI: reports: Vomiting, Reviewed and negative : reports: Reviewed and negative Skin: reports: Reviewed and negative Musculoskeletal: reports: Reviewed and negative Neurologic: reports: Reviewed and negative Psychiatric: reports: Reviewed and negative Endocrine: reports: Reviewed and negative Immunocompromised: reports: Reviewed and negative PD PAST MEDICAL HISTORY - Past Medical History Past Medical History: Yes Cardiovascular: None Respiratory: None Endocrine/Autoimmune: None GI: None : Renal insuffiency HEENT: None Psych: Depression, Anxiety, Bipolar disorder, Schizophrenia, Panic attacks, ADD/ADHD, Obsessive compulsive disorder Musculoskeletal: None Derm: None - Past Surgical History Past Surgical History: No - Present Medications Home Medications: Ambulatory Orders Medication Instructions Recorded Confirmed OLANZapine [Zyprexa] 20 mg PO QPM 09/27/17 11/21/19 Divalproex [Rubén Toscano] 500 mg PO BID #30 tablet 10/24/17 11/26/17 Quetiapine Fumarate [Seroquel Xr] 400 mg PO QPM #14 tab.er.24h 11/27/17 FLUoxetine [PROzac] 20 mg PO DAILY 11/21/19 11/21/19 [place] Carbonate 300 mg PO BID 11/21/19 11/21/19 Quetiapine Fumarate [Seroquel] 300 mg PO QPM 11/21/19 11/21/19 Promethazine [Phenergan] 25 mg PO Q6H PRN #10 tab 12/13/19 - Allergies Allergies/Adverse Reactions: Allergies Allergy/AdvReac Type Severity Reaction Status Date / Time ziprasidone HCl * AdvReac Severe Hallucinati Verified 12/14/19 22:02 [From [facility]] ons ziprasidone mesylate * AdvReac Severe Hallucinati Verified 01/23/20 22:02 [From [facility]] ons - Social History Does the pt smoke?: Yes Smoking Status: Current every day smoker Does the pt drink ETOH?: Yes Does the pt have substance abuse?: Yes - Immunizations Immunizations are current?: No Immunizations: TDAP >10years/unknown, Other immun current - POLST Patient has POLST: No PD ED PE NORMAL - Vitals Vital signs reviewed: Yes - General General: Alert and oriented X 3, No acute distress - HEENT HEENT: PERRL - Neck Neck: Supple, no meningeal sign - Cardiac Cardiac: RRR, No murmur - Respiratory Respiratory: Clear bilaterally - Abdomen Abdomen: Normal bowel sounds, Soft, Non tender, Non distended - Derm Derm: Warm and dry - Extremities Extremities: No deformity - Neuro Neuro: Alert and oriented X 3 - Psych Psych: Normal mood, Normal affect Results - Vitals Vitals: Vital Signs - 24 hr 12/14/19 12/15/19 21:50 00:17 Temperature 36.8 C 37.1 C Heart Rate 94 82 Respiratory 18 15 Rate Blood Pressure 144/71 H 134/94 H O2 Saturation 99 97 Oxygen O2 Source Room air PD MEDICAL DECISION MAKING - ED course Complexity details: other (Patient was evaluated for several hours in the emergency department he stopped vomiting spontaneously he has been asking for food and water he is tolerated p.o. challenge she is ambulated his vital signs are unremarkable and the patient is requesting to be discharged home) Departure - Departure Disposition: Home, Self Care Clinical Impression: Cyclic vomiting syndrome Condition: Good Instructions: ED Diet Vomiting Diarrhea Follow-Up: Ludwig Packer PA-C [Primary Care Provider] - Tomorrow
[2019-12-15 01:37] VITALS: BP 155/109
== END 2019-12-15 01:45 | disposition home or self-care (01) ==
LOC: EDUNIT# → ED 21:51
DX: R11.15 Cyclical vomiting syndrome unrelated to migraine (principal); F17.200 Nicotine dependence, unspecified, uncomplicated
CPT/HCPCS: 99283

== ENCOUNTER 2019-12-15 15:07 | Outpatient (CLI) | payer MEDICAID | END 2019-12-15 15:08 | disposition critical access hospital (66) | LOC: EMS 15:07 | PROVIDERS: ATTEND Surgery | DX: R11.2 Nausea with vomiting, unspecified (principal); R10.9 Unspecified abdominal pain | CPT/HCPCS: A0425; A0429 ==

== ENCOUNTER 2019-12-15 15:25 | Emergency (ER) | payer MEDICAID ==
[2019-12-15] MEDS ORDERED: PROMETHAZINE 25 MG/1 ML VIAL IM STA (15:30)
--- NOTE | 2019-12-15 15:32 | ED Physician Documentation ---
<JomarNando M - Last Filed: 12/15/19 21:46> PD HPI NVD - Stated complaint Stated Complaint: VOMITING - Chief complaint Chief Complaint: Abd Pain - History obtained from History obtained from: Patient, EMS, Other - History of Present Illness Timing - onset: Other (34-year-old gentleman with extensive mental health issues, brought in by ambulance. I had spoken with the DCR Ayde Malik prior to arrival, he reportedly has been vomiting for the last 8 days. The patient says that his disassociative identity disorder is getting out of hand and he just cannot take it anymore and he has not been sleeping or eating and has been vomiting. He denied pain to me but told the paramedics that he has abdominal pain. No reported fevers or diarrhea. Review of the chart shows that this is his third visit in his many days, on the first visit he got Phenergan but reportedly threw it up after he got home. Yesterday he was witnessed per the record eating and drinking without issue in the department. He has not been taking his meds.) Review of Systems Ten Systems: 10 systems reviewed and negative Constitutional: reports: Fatigue. denies: Fever, Chills Cardiac: denies: Chest pain / pressure, Palpitations Respiratory: denies: Dyspnea, Cough GI: reports: Abdominal Pain, Nausea, Vomiting. denies: Diarrhea PD PAST MEDICAL HISTORY - Past Medical History Cardiovascular: None Respiratory: None Endocrine/Autoimmune: None GI: None : Renal insuffiency HEENT: None Psych: Depression, Anxiety, Bipolar disorder, Schizophrenia, Panic attacks, ADD/ADHD, Obsessive compulsive disorder Musculoskeletal: None Derm: None - Past Surgical History Past Surgical History: No - Present Medications Home Medications: Ambulatory Orders Medication Instructions Recorded Confirmed OLANZapine [Zyprexa] 20 mg PO QPM 09/27/17 11/21/19 FLUoxetine [PROzac] 20 mg PO DAILY 11/21/19 11/21/19 [place] Carbonate 300 mg PO BID 11/21/19 11/21/19 Quetiapine Fumarate [Seroquel] 300 mg PO QPM 11/21/19 11/21/19 Diclofenac Sodium [Voltarekailee] 12/15/19 - Allergies Allergies/Adverse Reactions: Allergies Allergy/AdvReac Type Severity Reaction Status Date / Time ziprasidone HCl * AdvReac Severe Hallucinati Verified 12/15/19 15:30 [From [facility]] ons ziprasidone mesylate * AdvReac Severe Hallucinati Verified 12/15/19 15:30 [From [facility]] ons - Social History Does the pt smoke?: Yes Smoking Status: Current every day smoker Does the pt drink ETOH?: Yes Does the pt have substance abuse?: Yes - Immunizations Immunizations are current?: No Immunizations: TDAP >10years/unknown, Other immun current - POLST Patient has POLST: No PD ED PE NORMAL - Vitals Vital signs reviewed: Yes - General General: Alert and oriented X 3, Other (He is crying with poor eye contact) - HEENT HEENT: PERRL, EOMI - Neck Neck: Supple, no meningeal sign, No bony TTP - Cardiac Cardiac: RRR, No murmur - Respiratory Respiratory: No respiratory distress, Clear bilaterally - Abdomen Abdomen: Normal bowel sounds, Soft, Non tender - Back Back: No CVA TTP, No spinal TTP - Derm Derm: Normal color, Warm and dry - Extremities Extremities: No edema, No calf tenderness / cord - Neuro Neuro: Alert and oriented X 3, Normal speech PD MEDICAL DECISION MAKING - ED course ED course: 34-year-old gentleman presents by ambulance for vomiting, but based on his description it is very consistent with a psychiatric issue. He was able to drink and eat here after some IV Phenergan, and his mental status and demeanor improved significantly after Ativan as well. He was seen by the DCR, Tomás who initially felt he was not attainable, but as Tomás was talking to the patient's mom by phone the patient got very agitated and Tomás changed his mind and decided to detain him. Patient was reexamined several times throughout his stay and remained without any abdominal tenderness. There was also some note of a lump on his head which has been there for 6 years, the patient was unable to point it out though and I was unable to feel any lumps on his head. Signed out to Dr. Burdick, the overnight doctor pending DCR placement. He was dehydrated based on his labs but received 2 L of IV fluids here which should help and he also received some oral potassium. 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.89 - Other specified eating disorder Condition: Stable <Vinnie Burdick - Last Filed: 12/16/19 01:22> Results - Vitals Vitals: Vital Signs - 24 hr 12/15/19 12/15/19 15:26 21:03 Temperature 37.1 C 37.1 C Heart Rate 86 84 Respiratory 18 12 Rate Blood Pressure 138/108 H 123/85 H O2 Saturation 97 98 Oxygen O2 Source Room air - Labs Labs: Laboratory Tests 12/15/19 12/15/19 12/15/19 15:36 15:36 15:36 WBC 17.0 H RBC 5.57 Hgb 16.5 Hct 47.1 MCV 84.6 MCH 29.6 MCHC 35.0 RDW 12.1 Plt Count 273 MPV 12.8 H Neut # (Auto) 12.2 H Lymph # (Auto) 3.0 [place] # (Auto) 1.7 H Eos # (Auto) 0.0 Baso # (Auto) 0.1 Absolute Nucleated RBC 0.00 Band Neuts % (Manual) Not Reportable Abnorm Lymph % (Manual) Not Reportable Nucleated RBC % 0.0 Neutrophils # (Manual) Not Reportable Lymphocytes # (Manual) Not Reportable Monocytes # (Manual) Not Reportable Eosinophils # (Manual) Not Reportable Basophils # (Manual) Not Reportable Differential Comment MANUAL=AUTO DIFF Manual Slide Review Indicated Platelet Estimate NORMAL (130-450,000) Platelet Morphology NORMAL APPEARANCE RBC Morph Micro Appear NORMAL APPEARANCE Sodium 136 Potassium 3.0 L Chloride 91 L Carbon Dioxide 27 Anion Gap 18.0 H BUN 34 H Creatinine 1.1 Estimated GFR (MDRD) 77 L Glucose 126 H Calcium 10.5 H Total Bilirubin 1.5 H AST 22 ALT 20 Alkaline Phosphatase 57 Total Protein 9.0 H Albumin 5.6 H Globulin 3.4 Albumin/Globulin Ratio 1.6 Lipase 80 H TSH 0.88 Urine Color Urine Clarity Urine pH Ur Specific [place] Urine Protein Urine Glucose (UA) Urine Ketones Urine Occult Blood Urine Nitrite Urine Bilirubin Urine Urobilinogen Ur Leukocyte Esterase Urine RBC Urine WBC Ur Squamous Epith Cells Urine Crystals Amorphous Sediment Urine Bacteria Urine Casts Last Dose Date Last Dose Time Salicylates < 6.0 Urine Opiates Screen Ur Oxycodone Screen Urine Methadone Screen Ur Propoxyphene Screen Acetaminophen < 10 L Ur Barbiturates Screen Ur Tricyclics Screen Ur Phencyclidine Scrn Ur Amphetamine Screen U Methamphetamines Scrn U Benzodiazepines Scrn [place] Urine Cocaine Screen U Cannabinoids Screen Ethyl Alcohol < 5.0 12/15/19 12/15/19 12/15/19 15:36 16:25 16:43 WBC RBC Hgb Hct MCV MCH MCHC RDW Plt Count MPV Neut # (Auto) Lymph # (Auto) [place] # (Auto) Eos # (Auto) Baso # (Auto) Absolute Nucleated RBC Band Neuts % (Manual) Abnorm Lymph % (Manual) Nucleated RBC % Neutrophils # (Manual) Lymphocytes # (Manual) Monocytes # (Manual) Eosinophils # (Manual) Basophils # (Manual) Differential Comment Manual Slide Review Platelet Estimate Platelet Morphology RBC Morph Micro Appear Sodium Potassium Chloride Carbon Dioxide Anion Gap BUN Creatinine Estimated GFR (MDRD) Glucose Calcium Total Bilirubin AST ALT Alkaline Phosphatase Total Protein Albumin Globulin Albumin/Globulin Ratio Lipase TSH Urine Color DARK YELLOW Urine Clarity CLOUDY Urine pH 5.5 Ur Specific [place] >=1.030 H Urine Protein 100 H Urine Glucose (UA) NEGATIVE Urine Ketones 15 H Urine Occult Blood NEGATIVE Urine Nitrite NEGATIVE Urine Bilirubin NEGATIVE Urine Urobilinogen 0.2 (NORMAL) Ur Leukocyte Esterase NEGATIVE Urine RBC 0-5 Urine WBC 0-3 Ur Squamous Epith Cells FEW Squamous Urine Crystals 3-5 Calcium Oxalate Amorphous Sediment Marked Urine Bacteria Few Urine Casts 3-5 Hyaline Casts Last Dose Date UNKNOWN Last Dose Time UNKNOWN Salicylates Urine Opiates Screen NEGATIVE Ur Oxycodone Screen NEGATIVE Urine Methadone Screen NEGATIVE Ur Propoxyphene Screen NEGATIVE Acetaminophen Ur Barbiturates Screen NEGATIVE Ur Tricyclics Screen POSITIVE H Ur Phencyclidine Scrn NEGATIVE Ur Amphetamine Screen NEGATIVE U Methamphetamines Scrn NEGATIVE U Benzodiazepines Scrn NEGATIVE [place] 0.21 Urine Cocaine Screen NEGATIVE U Cannabinoids Screen POSITIVE H Ethyl Alcohol 12/15/19 12/15/19 12/15/19 23:10 23:10 23:10 WBC 12.1 H RBC 4.57 L Hgb 13.7 L Hct 40.0 L MCV 87.5 MCH 30.0 MCHC 34.3 RDW 12.3 Plt Count 213 MPV 12.1 H Neut # (Auto) 7.6 H Lymph # (Auto) 2.8 [place] # (Auto) 1.5 H Eos # (Auto) 0.0 Baso # (Auto) 0.1 Absolute Nucleated RBC 0.00 Band Neuts % (Manual) Abnorm Lymph % (Manual) Nucleated RBC % 0.0 Neutrophils # (Manual) Lymphocytes # (Manual) Monocytes # (Manual) Eosinophils # (Manual) Basophils # (Manual) Differential Comment Manual Slide Review Platelet Estimate Platelet Morphology RBC Morph Micro Appear Sodium 137 Potassium 3.0 L Chloride 96 L Carbon Dioxide 30 Anion Gap 11.0 BUN 25 H Creatinine 0.9 Estimated GFR (MDRD) 97 Glucose 109 H Calcium 9.0 Total Bilirubin 1.1 H AST 20 ALT 17 Alkaline Phosphatase 43 Total Protein 6.9 Albumin 4.3 Globulin 2.6 Albumin/Globulin Ratio 1.7 Lipase TSH 0.58 Urine Color Urine Clarity Urine pH Ur Specific [place] Urine Protein Urine Glucose (UA) Urine Ketones Urine Occult Blood Urine Nitrite Urine Bilirubin Urine Urobilinogen Ur Leukocyte Esterase Urine RBC Urine WBC Ur Squamous Epith Cells Urine Crystals Amorphous Sediment Urine Bacteria Urine Casts Last Dose Date Last Dose Time Salicylates Urine Opiates Screen Ur Oxycodone Screen Urine Methadone Screen Ur Propoxyphene Screen Acetaminophen Ur Barbiturates Screen Ur Tricyclics Screen Ur Phencyclidine Scrn Ur Amphetamine Screen U Methamphetamines Scrn U Benzodiazepines Scrn [place] Urine Cocaine Screen U Cannabinoids Screen Ethyl Alcohol PD MEDICAL DECISION MAKING - ED course Complexity details: other (Patient was signed out to me at shift change by Dr. victoria. Patient Evaluated by myself currently he is being transferred to [facility] and is stable.)
[2019-12-15] MEDS ORDERED: SODIUM CHLORIDE 0.9% 1,000 ML IV ONE (15:43)
[2019-12-15] MEDS ORDERED: PROMETHAZINE INJ 25 MG in SODIUM CHLORIDE 0.9% 50 ML IV STA (15:43)
[2019-12-15 15:52] LABS: BASOPHILS # (AUTO) 0.1 10^3/uL (0.0-0.1); BASOPHILS % (AUTO) 0.4 %; EOSINOPHILS % (AUTO) 0.1 %; HGB - HEMOGLOBIN 16.5 g/dL (14.0-18.0); LYMPHOCYTES % (AUTO) 17.7 %; MEAN CORPUSCULAR HEMOGLOBIN 29.6 pg (27.0-31.0); MEAN CORPUSCULAR VOLUME 84.6 fL (80.0-94.0); MEAN PLATELET VOLUME 12.8 fL (7.4-11.4); MONOCYTES # (AUTO) 1.7 10^3/uL (0.0-1.0); MONOCYTES % (AUTO) 9.8 %; NEUTROPHILS # (AUTO) 12.2 10^3/uL (1.5-6.6); NEUTROPHILS % (AUTO) 71.4 %; PLT - PLATELET COUNT 273 10^3/uL (130-450); RED BLOOD COUNT 5.57 10^6/uL (4.70-6.10); RED CELL DISTRIBUTION WIDTH 12.1 % (12.0-15.0)
[2019-12-15 16:05] LABS: ACETAMINOPHEN < 10 ug/mL (10-30); ALBUMIN 5.6 g/dL (3.2-5.5); ALBUMIN/GLOBULIN RATIO 1.6 (1.0-2.2); ALKALINE PHOSPHATASE 57 IU/L (42-121); ALT ALANINE AMINOTRANSFERASE 20 IU/L (10-60); AST ASPARTATE AMINOTRANSFERASE 22 IU/L (10-42); BILIRUBIN,TOTAL 1.5 mg/dL (0.2-1.0); BUN - BLOOD UREA NITROGEN 34 mg/dL (6-20); CALCIUM 10.5 mg/dL (8.5-10.3); CARBON DIOXIDE - CO2 27 mmol/L (21-32); CHLORIDE 91 mmol/L (101-111); CREATININE 1.1 mg/dL (0.6-1.2); GFR - MDRD 77 (>89); GLUCOSE 126 mg/dL (70-100); LIPASE 80 U/L (22-51); SALICYLATE < 6.0 mg/dL; SODIUM 136 mmol/L (135-145)
[2019-12-15 16:09] LABS: LITHIUM 0.21 mmol/L
[2019-12-15] MEDS ORDERED: POTASSIUM CHLORIDE 20 MEQ TABLET PO STA (16:14)
[2019-12-15] MEDS ORDERED: LACTATED RINGERS 1,000 ML IV STA (16:14)
[2019-12-15 16:29] LABS: DIFFERENTIAL COMMENT MANUAL=AUTO DIFF; PLATELET ESTIMATE, MANUAL NORMAL (130-450,000) (NORMAL); PLATELET MORPHOLOGY NORMAL APPEARANCE (NORMAL); RBC MORPHOLOGY (MULTIPLE) NORMAL APPEARANCE (NORMAL)
[2019-12-15 16:46] LABS: MUDS CUTOFF CONCENTRATIONS CUTOFF CONC BELOW:
[2019-12-15] MEDS ORDERED: LORazepam 1 MG TABLET PO STA (16:59)
[2019-12-15 17:04] LABS: AMPHETAMINE SCREEN,URINE NEGATIVE (NEGATIVE); BENZODIAZEPINES SCREEN, URINE NEGATIVE (NEGATIVE); COCAINE SCREEN URINE NEGATIVE (NEGATIVE); METHADONE SCREEN, URINE NEGATIVE (NEGATIVE); METHAMPHETAMINES SCREEN, URINE NEGATIVE (NEGATIVE); OPIATE SCREEN, URINE NEGATIVE (NEGATIVE); OXYCODONE SCREEN, URINE NEGATIVE (NEGATIVE); PROPOXYPHENE SCREEN, URINE NEGATIVE (NEGATIVE); TRICYCLIC ANTIDEPRESSANT,URINE POSITIVE (NEGATIVE)
[2019-12-15] MEDS ORDERED: OLANZapine ODT 5 MG TABLET TL STA (21:38)
[2019-12-15 23:16] LABS: BASOPHILS # (AUTO) 0.1 10^3/uL (0.0-0.1); BASOPHILS % (AUTO) 0.4 %; EOSINOPHILS % (AUTO) 0.3 %; HGB - HEMOGLOBIN 13.7 g/dL (14.0-18.0); LYMPHOCYTES # (AUTO) 2.8 10^3/uL (1.5-3.5); LYMPHOCYTES % (AUTO) 23.5 %; MEAN CORPUSCULAR HGB CONC 34.3 g/dL (32.0-36.0); MEAN CORPUSCULAR VOLUME 87.5 fL (80.0-94.0); MEAN PLATELET VOLUME 12.1 fL (7.4-11.4); MONOCYTES # (AUTO) 1.5 10^3/uL (0.0-1.0); MONOCYTES % (AUTO) 12.4 %; NEUTROPHILS # (AUTO) 7.6 10^3/uL (1.5-6.6); PLT - PLATELET COUNT 213 10^3/uL (130-450); RED BLOOD COUNT 4.57 10^6/uL (4.70-6.10); RED CELL DISTRIBUTION WIDTH 12.3 % (12.0-15.0); WHITE BLOOD COUNT 12.1 x10^3/uL (4.8-10.8)
[2019-12-15 23:29] LABS: ALBUMIN 4.3 g/dL (3.2-5.5); ALBUMIN/GLOBULIN RATIO 1.7 (1.0-2.2); BILIRUBIN,TOTAL 1.1 mg/dL (0.2-1.0); CREATININE 0.9 mg/dL (0.6-1.2); TOTAL PROTEIN 6.9 g/dL (6.7-8.2)
[2019-12-16 00:07] LABS: BACTERIA,URINE Few /HPF (None Seen); BILIRUBIN,URINE NEGATIVE (NEGATIVE); CLARITY,URINE CLOUDY (CLEAR); GLUCOSE, URINE (UA) NEGATIVE (NEGATIVE); ICTOTEST,URINE NEGATIVE; KETONES,URINE (UA) 15 mg/dL (NEGATIVE); LEUKOCYTE ESTERASE, URINE NEGATIVE (NEGATIVE); NITRITE,URINE NEGATIVE (NEGATIVE); OCCULT BLOOD,URINE NEGATIVE (NEGATIVE); PH,URINE 5.5 PH (5.0-7.5); PROTEIN,URINE 100 mg/dL (NEGATIVE); RBC,URINE 0-5 /HPF (0-5); SQUAMOUS EPITHELIAL CELL,UR FEW Squamous (<= Few); UROBILINOGEN,URINE 0.2 (NORMAL) E.U./dL (NORMAL)
[2019-12-16 00:08] LABS: AMORPHOUS SEDIMENT,UR Marked /LPF; CASTS, URINE 3-5 Hyaline Casts /LPF; CRYSTALS,URINE 3-5 Calcium Oxalate /LPF
[2019-12-16 08:48] VITALS: BP 127/73
== END 2019-12-16 08:40 ==
LOC: EDUNIT# → ED 15:25
DX: E86.0 Dehydration (principal); F50.89 Other specified eating disorder; F23 Brief psychotic disorder; R11.15 Cyclical vomiting syndrome unrelated to migraine; F17.200 Nicotine dependence, unspecified, uncomplicated
CPT/HCPCS: 36415; 80053; 80178; 80306; 80307; 80320; 80329; 81001; 83690; 84443; 85025; 96361; 96365; 99283; 99284; 99285; A9270; J7040; J7120; J8499

== ENCOUNTER 2020-01-17 16:29 | Outpatient (CLI) | payer MEDICAID | END 2020-01-17 16:30 | disposition critical access hospital (66) | LOC: EMS 16:29 | PROVIDERS: ATTEND Surgery | DX: R45.850 Homicidal ideations (principal); R44.0 Auditory hallucinations | CPT/HCPCS: A0425; A0429; A0999 ==

== ENCOUNTER 2020-01-17 16:46 | Emergency (ER) | payer MEDICAID ==
[2020-01-17 17:07] LABS: BASOPHILS % (AUTO) 0.4 %; EOSINOPHILS % (AUTO) 0.2 %; HGB - HEMOGLOBIN 13.7 g/dL (14.0-18.0); LYMPHOCYTES # (AUTO) 1.1 10^3/uL (1.5-3.5); LYMPHOCYTES % (AUTO) 11.4 %; MEAN CORPUSCULAR HEMOGLOBIN 30.2 pg (27.0-31.0); MEAN CORPUSCULAR HGB CONC 33.5 g/dL (32.0-36.0); MEAN CORPUSCULAR VOLUME 90.1 fL (80.0-94.0); MEAN PLATELET VOLUME 11.3 fL (7.4-11.4); MONOCYTES # (AUTO) 0.5 10^3/uL (0.0-1.0); MONOCYTES % (AUTO) 5.6 %; NEUTROPHILS # (AUTO) 7.9 10^3/uL (1.5-6.6); NEUTROPHILS % (AUTO) 81.9 %; PLT - PLATELET COUNT 205 10^3/uL (130-450); RED BLOOD COUNT 4.54 10^6/uL (4.70-6.10); RED CELL DISTRIBUTION WIDTH 12.6 % (12.0-15.0); WHITE BLOOD COUNT 9.7 x10^3/uL (4.8-10.8)
[2020-01-17 17:21] LABS: MUDS CUTOFF CONCENTRATIONS CUTOFF CONC BELOW:
[2020-01-17 17:22] LABS: ACETAMINOPHEN < 10 ug/mL (10-30); ALBUMIN 4.8 g/dL (3.2-5.5); ALBUMIN/GLOBULIN RATIO 1.7 (1.0-2.2); ALKALINE PHOSPHATASE 50 IU/L (42-121); ALT ALANINE AMINOTRANSFERASE 17 IU/L (10-60); AST ASPARTATE AMINOTRANSFERASE 15 IU/L (10-42); BILIRUBIN,TOTAL 0.7 mg/dL (0.2-1.0); BUN - BLOOD UREA NITROGEN 20 mg/dL (6-20); CALCIUM 9.4 mg/dL (8.5-10.3); CARBON DIOXIDE - CO2 25 mmol/L (21-32); CHLORIDE 101 mmol/L (101-111); CREATININE 0.9 mg/dL (0.6-1.2); GFR - MDRD 97 (>89); GLUCOSE 101 mg/dL (70-100); LIPASE 26 U/L (22-51); SALICYLATE < 6.0 mg/dL; SODIUM 136 mmol/L (135-145); TOTAL PROTEIN 7.6 g/dL (6.7-8.2)
[2020-01-17 17:24] LABS: BILIRUBIN,URINE NEGATIVE (NEGATIVE); GLUCOSE, URINE (UA) NEGATIVE (NEGATIVE); KETONES,URINE (UA) TRACE mg/dL (NEGATIVE); LEUKOCYTE ESTERASE, URINE NEGATIVE (NEGATIVE); NITRITE,URINE NEGATIVE (NEGATIVE); OCCULT BLOOD,URINE NEGATIVE (NEGATIVE); PROTEIN,URINE NEGATIVE (NEGATIVE); UROBILINOGEN,URINE 0.2 (NORMAL) E.U./dL (NORMAL)
[2020-01-17 17:26] LABS: CLARITY,URINE CLEAR (CLEAR)
[2020-01-17] MEDS ORDERED: QUEtiapine 100 MG TABLET PO STA (17:29)
[2020-01-17] MEDS ORDERED: OLANZapine ODT 5 MG TABLET TL STA (17:29)
[2020-01-17] MEDS ORDERED: LITHIUM 150 MG CAPSULE PO STA (17:29)
[2020-01-17] MEDS ORDERED: FLUoxetine 10 MG CAPSULE PO STA (17:29)
[2020-01-17 17:40] LABS: AMPHETAMINE SCREEN,URINE NEGATIVE (NEGATIVE); BENZODIAZEPINES SCREEN, URINE NEGATIVE (NEGATIVE); COCAINE SCREEN URINE NEGATIVE (NEGATIVE); METHADONE SCREEN, URINE NEGATIVE (NEGATIVE); METHAMPHETAMINES SCREEN, URINE NEGATIVE (NEGATIVE); OPIATE SCREEN, URINE NEGATIVE (NEGATIVE); OXYCODONE SCREEN, URINE NEGATIVE (NEGATIVE); PROPOXYPHENE SCREEN, URINE NEGATIVE (NEGATIVE); TRICYCLIC ANTIDEPRESSANT,URINE POSITIVE (NEGATIVE)
[2020-01-17 17:59] LABS: LITHIUM 0.28 mmol/L
--- NOTE | 2020-01-17 18:18 | ED Physician Documentation ---
PD HPI MHE - Stated complaint Stated Complaint: MHE - Chief complaint Chief Complaint: MHE - History obtained from History obtained from: Patient, EMS - History of Present Illness Primary symptom: Psychosis Pain level max: 0 Pain level now: 0 Contributing factors: Off meds Recently seen: Not recently seen - Additional information Additional information: 34-year-old male with schizophrenia and dissociated identity disorder. He states he did not take his medications today and now the voices in his head are arguing with each other. Denies suicidal or homicidal ideation. Saw his counselor who told him to come here for possible respite care. Review of Systems Ten Systems: 10 systems reviewed and negative Constitutional: denies: Fever, Chills Throat: denies: Sore throat Cardiac: denies: Chest pain / pressure Respiratory: denies: Cough GI: denies: Nausea, Vomiting, Diarrhea Skin: denies: Rash Musculoskeletal: denies: Neck pain, Back pain Neurologic: denies: Headache PD PAST MEDICAL HISTORY - Past Medical History Past Medical History: Yes Cardiovascular: None Respiratory: None Endocrine/Autoimmune: None GI: None : Renal insuffiency HEENT: None Psych: Depression, Anxiety, Bipolar disorder, Schizophrenia, Panic attacks, ADD/ADHD, Obsessive compulsive disorder Musculoskeletal: None Derm: None - Past Surgical History Past Surgical History: No - Present Medications Home Medications: Ambulatory Orders Medication Instructions Recorded Confirmed OLANZapine [Zyprexa] 20 mg PO QPM 09/27/17 11/21/19 FLUoxetine [PROzac] 20 mg PO DAILY 11/21/19 11/21/19 [place] Carbonate 300 mg PO BID 11/21/19 11/21/19 Quetiapine Fumarate [Seroquel] 300 mg PO QPM 11/21/19 11/21/[address] [Voltaren] 12/15/19 - Allergies Allergies/Adverse Reactions: Allergies Allergy/AdvReac Type Severity Reaction Status Date / Time ziprasidone HCl * AdvReac Severe Hallucinati Verified 01/17/20 17:02 [From Geodon] ons ziprasidone mesylate * AdvReac Severe Hallucinati Verified 01/17/20 17:02 [From Geodon] ons - Social History Does the pt smoke?: Yes Smoking Status: Current every day smoker Does the pt drink ETOH?: Yes Does the pt have substance abuse?: Yes - Immunizations Immunizations are current?: No Immunizations: TDAP >10years/unknown, Other immun current - POLST Patient has POLST: No PD ED PE NORMAL - Vitals Vital signs reviewed: Yes - General General: Alert and oriented X 3, No acute distress, Well developed/nourished - HEENT HEENT: PERRL, Moist mucous membranes - Neck Neck: Supple, no meningeal sign - Cardiac Cardiac: RRR - Respiratory Respiratory: Clear bilaterally - Abdomen Abdomen: Soft, Non tender, Non distended - Back Back: No spinal TTP - Derm Derm: Warm and dry - Extremities Extremities: Normal ROM s pain - Neuro Neuro: Alert and oriented X 3 - Psych Psych: Normal mood, Normal affect Results - Vitals Vitals: Vital Signs - 24 hr 01/17/20 16:49 Temperature 36.8 C Heart Rate 108 H Respiratory 16 Rate Blood Pressure 138/100 H O2 Saturation 99 Oxygen O2 Source Room air - Labs Labs: Laboratory Tests 01/17/20 01/17/20 01/17/20 17:02 17:02 17:02 WBC 9.7 RBC 4.54 L Hgb 13.7 L Hct 40.9 L MCV 90.1 MCH 30.2 MCHC 33.5 RDW 12.6 Plt Count 205 MPV 11.3 Neut # (Auto) 7.9 H Lymph # (Auto) 1.1 L [place] # (Auto) 0.5 Eos # (Auto) 0.0 Baso # (Auto) 0.0 Absolute Nucleated RBC 0.00 Nucleated RBC % 0.0 Sodium 136 Potassium 4.5 Chloride 101 Carbon Dioxide 25 Anion Gap 10.0 BUN 20 Creatinine 0.9 Estimated GFR (MDRD) 97 Glucose 101 H Calcium 9.4 Total Bilirubin 0.7 AST 15 ALT 17 Alkaline Phosphatase 50 Total Protein 7.6 Albumin 4.8 Globulin 2.8 Albumin/Globulin Ratio 1.7 Lipase 26 TSH 0.85 Urine Color Urine Clarity Urine pH Ur Specific [place] Urine Protein Urine Glucose (UA) Urine Ketones Urine Occult Blood Urine Nitrite Urine Bilirubin Urine Urobilinogen Ur Leukocyte Esterase Ur Microscopic Review Urine Culture Comments Last Dose Date Last Dose Time Salicylates < 6.0 Urine Opiates Screen Ur Oxycodone Screen Urine Methadone Screen Ur Propoxyphene Screen Acetaminophen < 10 L Ur Barbiturates Screen Ur Tricyclics Screen Ur Phencyclidine Scrn Ur Amphetamine Screen U Methamphetamines Scrn U Benzodiazepines Scrn [place] Urine Cocaine Screen U Cannabinoids Screen Ethyl Alcohol < 5.0 01/17/20 01/17/20 17:10 17:35 WBC RBC Hgb Hct MCV MCH MCHC RDW Plt Count MPV Neut # (Auto) Lymph # (Auto) [place] # (Auto) Eos # (Auto) Baso # (Auto) Absolute Nucleated RBC Nucleated RBC % Sodium Potassium Chloride Carbon Dioxide Anion Gap BUN Creatinine Estimated GFR (MDRD) Glucose Calcium Total Bilirubin AST ALT Alkaline Phosphatase Total Protein Albumin Globulin Albumin/Globulin Ratio Lipase TSH Urine Color YELLOW Urine Clarity CLEAR Urine pH 6.0 Ur Specific [place] >=1.030 H Urine Protein NEGATIVE Urine Glucose (UA) NEGATIVE Urine Ketones TRACE Urine Occult Blood NEGATIVE Urine Nitrite NEGATIVE Urine Bilirubin NEGATIVE Urine Urobilinogen 0.2 (NORMAL) Ur Leukocyte Esterase NEGATIVE Ur Microscopic Review NOT INDICATED Urine Culture Comments NOT INDICATED Last Dose Date Last Dose Time 180 Salicylates Urine Opiates Screen NEGATIVE Ur Oxycodone Screen NEGATIVE Urine Methadone Screen NEGATIVE Ur Propoxyphene Screen NEGATIVE Acetaminophen Ur Barbiturates Screen NEGATIVE Ur Tricyclics Screen POSITIVE H Ur Phencyclidine Scrn NEGATIVE Ur Amphetamine Screen NEGATIVE U Methamphetamines Scrn NEGATIVE U Benzodiazepines Scrn NEGATIVE [place] 0.28 Urine Cocaine Screen NEGATIVE U Cannabinoids Screen POSITIVE H Ethyl Alcohol PD MEDICAL DECISION MAKING - ED course Complexity details: reviewed results, re-evaluated patient, considered differential, d/w patient, d/w intelligence consultant ED course: Upon arrival to the emergency department the patient was calm and cooperative. Speaking clearly and coherently. Social work was consulted and as she was talking to him he began to scream and cry. He is responding much more to the stimulus in his head. DCR will be dispatched. Patient was given his home medications in the emergency department Patient is signed out to the [facility] emergency department physician awaiting DCR and further evaluation.
[2020-01-18 07:58] VITALS: BP 126/98
== END 2020-01-18 08:30 ==
LOC: EDUNIT# → ED 16:46
DX: F20.9 Schizophrenia, unspecified (principal); F44.81 Dissociative identity disorder; F17.200 Nicotine dependence, unspecified, uncomplicated
CPT/HCPCS: 36415; 80053; 80178; 80306; 80307; 80320; 80329; 81003; 83690; 84443; 85025; 99283; 99285; A9270; 81001; 87086

== ENCOUNTER 2020-11-04 17:42 | Outpatient (CLI) | payer MEDICAID | END 2020-11-04 17:43 | disposition critical access hospital (66) | LOC: EMS 17:42 | PROVIDERS: ATTEND Surgery | DX: R45.851 Suicidal ideations (principal); R11.10 Vomiting, unspecified | CPT/HCPCS: A0425; A0429; A0999 ==

== ENCOUNTER 2020-11-04 18:03 | Emergency (ER) | payer MEDICAID ==
[2020-11-04 18:13] VITALS: BP 135/99
[2020-11-04 18:25] LABS: MUDS CUTOFF CONCENTRATIONS CUTOFF CONC BELOW:
[2020-11-04 18:28] LABS: BILIRUBIN,URINE NEGATIVE (NEGATIVE); GLUCOSE, URINE (UA) NEGATIVE (NEGATIVE); KETONES,URINE (UA) NEGATIVE (NEGATIVE); LEUKOCYTE ESTERASE, URINE NEGATIVE (NEGATIVE); NITRITE,URINE NEGATIVE (NEGATIVE); OCCULT BLOOD,URINE NEGATIVE (NEGATIVE); PH,URINE 6.5 PH (5.0-7.5); PROTEIN,URINE NEGATIVE (NEGATIVE); UROBILINOGEN,URINE 0.2 (NORMAL) E.U./dL (NORMAL)
[2020-11-04 18:29] LABS: CLARITY,URINE CLEAR (CLEAR)
[2020-11-04 18:42] LABS: BASOPHILS # (AUTO) 0.1 10^3/uL (0.0-0.1); BASOPHILS % (AUTO) 0.6 %; EOSINOPHILS # (AUTO) 0.2 10^3/uL (0.0-0.7); HGB - HEMOGLOBIN 16.1 g/dL (14.0-18.0); MEAN CORPUSCULAR HGB CONC 33.3 g/dL (32.0-36.0); MEAN CORPUSCULAR VOLUME 87.2 fL (80.0-94.0); MEAN PLATELET VOLUME 11.2 fL (7.4-11.4); MONOCYTES # (AUTO) 0.7 10^3/uL (0.0-1.0); MONOCYTES % (AUTO) 7.7 %; NEUTROPHILS # (AUTO) 5.5 10^3/uL (1.5-6.6); NEUTROPHILS % (AUTO) 65.2 %; PLT - PLATELET COUNT 240 10^3/uL (130-450); RED BLOOD COUNT 5.55 10^6/uL (4.70-6.10); RED CELL DISTRIBUTION WIDTH 12.8 % (12.0-15.0); WHITE BLOOD COUNT 8.4 x10^3/uL (4.8-10.8)
[2020-11-04 18:49] LABS: AMPHETAMINE SCREEN,URINE NEGATIVE (NEGATIVE); BENZODIAZEPINES SCREEN, URINE NEGATIVE (NEGATIVE); COCAINE SCREEN URINE NEGATIVE (NEGATIVE); METHADONE SCREEN, URINE NEGATIVE (NEGATIVE); METHAMPHETAMINES SCREEN, URINE NEGATIVE (NEGATIVE); OPIATE SCREEN, URINE NEGATIVE (NEGATIVE); OXYCODONE SCREEN, URINE NEGATIVE (NEGATIVE); PROPOXYPHENE SCREEN, URINE NEGATIVE (NEGATIVE); TRICYCLIC ANTIDEPRESSANT,URINE NEGATIVE (NEGATIVE)
[2020-11-04] MEDS ORDERED: NICOTINE 14 MG PATCH TOP STA (18:51)
[2020-11-04 18:58] LABS: ACETAMINOPHEN < 10 ug/mL (10-30); ALBUMIN 4.7 g/dL (3.2-5.5); ALBUMIN/GLOBULIN RATIO 1.7 (1.0-2.2); ALKALINE PHOSPHATASE 78 IU/L (42-121); ALT ALANINE AMINOTRANSFERASE 24 IU/L (10-60); AST ASPARTATE AMINOTRANSFERASE 15 IU/L (10-42); BILIRUBIN,TOTAL 0.7 mg/dL (0.2-1.0); BUN - BLOOD UREA NITROGEN 8 mg/dL (6-20); CALCIUM 9.6 mg/dL (8.5-10.3); CARBON DIOXIDE - CO2 28 mmol/L (21-32); CHLORIDE 103 mmol/L (101-111); CREATININE 0.8 mg/dL (0.6-1.2); GLUCOSE 109 mg/dL (70-100); LIPASE 27 U/L (22-51); SALICYLATE < 6.0 mg/dL; SODIUM 142 mmol/L (135-145); TOTAL PROTEIN 7.5 g/dL (6.7-8.2)
[2020-11-04 20:54] LABS: C. PNEUMONIAE- RESP PCR PANEL NOT DETECTED
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
--- NOTE | 2020-11-04 22:33 | ED Physician Documentation ---
PD HPI MHE - Stated complaint Stated Complaint: MHE - Chief complaint Chief Complaint: MHE - History obtained from History obtained from: Patient - History of Present Illness Primary symptom: Suicidal ideation, Psychosis Timing - onset: Chronic Pain level max: 0 Pain level now: 0 - Additional information Additional information: 35-year-old male, well-known schizophrenic presents to the emergency department stating that he has had increasing hallucinations and Suicidal ideation since returning home from [place] [facility]. He has been home for about 3 days. He is currently on Zyprexa. He is wondering if there is another medication that may work better for him. He thinks that he may need to be rehospitalized, but is open to trying medication. Nothing makes this better or worse. He has not hurt himself. Review of Systems Ten Systems: 10 systems reviewed and negative Constitutional: denies: Fever, Chills Throat: denies: Sore throat Cardiac: denies: Chest pain / pressure, Palpitations GI: denies: Vomiting, Diarrhea Skin: denies: Rash Musculoskeletal: denies: Neck pain, Back pain PD PAST MEDICAL HISTORY - Past Medical History Past Medical History: Yes Cardiovascular: High cholesterol Respiratory: None Neuro: None Endocrine/Autoimmune: None GI: None : Renal insuffiency HEENT: None Psych: Depression, Anxiety, Bipolar disorder, Schizophrenia, Panic attacks, ADD/ADHD, Obsessive compulsive disorder Musculoskeletal: None Derm: None - Past Surgical History Past Surgical History: No - Present Medications Home Medications: Ambulatory Orders Medication Instructions Recorded Confirmed OLANZapine [Zyprexa] 25 mg PO QPM 09/27/17 11/04/20 FLUoxetine [PROzac] 20 mg PO DAILY 11/21/19 11/21/19 [place] Carbonate 300 mg PO BID 11/21/19 11/21/19 Quetiapine Fumarate [Seroquel] 300 mg PO QPM 11/21/19 11/21/[address] [Voltaren] 12/15/19 Atorvastatin [Lipitor] 10 mg ORAL DAILY 11/04/20 11/04/20 traZODone [Desyrel] 150 mg PO HS 11/04/20 11/04/20 - Allergies Allergies/Adverse Reactions: Allergies Allergy/AdvReac Type Severity Reaction Status Date / Time ziprasidone HCl * AdvReac Severe Hallucinati Verified 11/04/20 18:10 [From Geodon] ons ziprasidone mesylate * AdvReac Severe Hallucinati Verified 11/04/20 18:10 [From [facility]] ons - Social History Does the pt smoke?: Yes Smoking Status: Current every day smoker Does the pt drink ETOH?: Yes Does the pt have substance abuse?: No - Immunizations Immunizations are current?: No Immunizations: TDAP >10years/unknown, Other immun current - POLST Patient has POLST: No PD ED PE NORMAL - Vitals Vital signs reviewed: Yes - General General: Alert and oriented X 3, No acute distress - HEENT HEENT: Atraumatic, PERRL, Moist mucous membranes - Neck Neck: Supple, no meningeal sign - Cardiac Cardiac: RRR, Strong equal pulses - Respiratory Respiratory: No respiratory distress, Clear bilaterally - Abdomen Abdomen: Soft, Non tender, Non distended - Derm Derm: Warm and dry - Neuro Neuro: Alert and oriented X 3 - Psych Psych: Normal mood, Normal affect Results - Vitals Vitals: Vital Signs - 24 hr 11/04/20 18:11 Temperature 37.2 C Heart Rate 81 Respiratory 18 Rate Blood Pressure 135/99 H O2 Saturation 98 Oxygen O2 Source Room air - Labs Labs: Laboratory Tests 11/04/20 11/04/20 11/04/20 18:20 18:24 18:24 WBC 8.4 RBC 5.55 Hgb 16.1 Hct 48.4 MCV 87.2 MCH 29.0 MCHC 33.3 RDW 12.8 Plt Count 240 MPV 11.2 Neut # (Auto) 5.5 Lymph # (Auto) 2.0 [place] # (Auto) 0.7 Eos # (Auto) 0.2 Baso # (Auto) 0.1 Absolute Nucleated RBC 0.00 Nucleated RBC % 0.0 Sodium 142 Potassium 3.7 Chloride 103 Carbon Dioxide 28 Anion Gap 11.0 BUN 8 Creatinine 0.8 Estimated GFR (MDRD) 111 Glucose 109 H Calcium 9.6 Total Bilirubin 0.7 AST 15 ALT 24 Alkaline Phosphatase 78 Total Protein 7.5 Albumin 4.7 Globulin 2.8 Albumin/Globulin Ratio 1.7 Lipase 27 TSH Urine Color YELLOW Urine Clarity CLEAR Urine pH 6.5 Ur Specific [place] 1.020 Urine Protein NEGATIVE Urine Glucose (UA) NEGATIVE Urine Ketones NEGATIVE Urine Occult Blood NEGATIVE Urine Nitrite NEGATIVE Urine Bilirubin NEGATIVE Urine Urobilinogen 0.2 (NORMAL) Ur Leukocyte Esterase NEGATIVE Ur Microscopic Review NOT INDICATED Urine Culture Comments NOT INDICATED Nasal Adenovirus (PCR) Nasal B. parapertussis DNA (PCR) Nasal Coronavir 229E PCR Nasal Coronavir HKU1 PCR Nasal Coronavir NL63 PCR Nasal Coronavir OC43 PCR Nasal Enterovir/Rhinovir PCR Nasal Influenza B PCR Nasal Influenza A PCR Nasal Parainfluen 1 PCR Nasal Parainfluen 2 PCR Nasal Parainfluen 3 PCR Nasal Parainfluen 4 PCR Nasal RSV (PCR) Nasal B.pertussis DNA PCR Nasal C.pneumoniae (PCR) Gabe Human Metapneumo PCR Nasal M.pneumoniae (PCR) Nasal SARS-CoV-2 (PCR) Salicylates < 6.0 Urine Opiates Screen NEGATIVE Ur Oxycodone Screen NEGATIVE Urine Methadone Screen NEGATIVE Ur Propoxyphene Screen NEGATIVE Acetaminophen < 10 L Ur Barbiturates Screen NEGATIVE Ur Tricyclics Screen NEGATIVE Ur Phencyclidine Scrn NEGATIVE Ur Amphetamine Screen NEGATIVE U Methamphetamines Scrn NEGATIVE U Benzodiazepines Scrn NEGATIVE Urine Cocaine Screen NEGATIVE U Cannabinoids Screen NEGATIVE Ethyl Alcohol < 5.0 11/04/20 11/04/20 18:24 19:50 WBC RBC Hgb Hct MCV MCH MCHC RDW Plt Count MPV Neut # (Auto) Lymph # (Auto) [place] # (Auto) Eos # (Auto) Baso # (Auto) Absolute Nucleated RBC Nucleated RBC % Sodium Potassium Chloride Carbon Dioxide Anion Gap BUN Creatinine Estimated GFR (MDRD) Glucose Calcium Total Bilirubin AST ALT Alkaline Phosphatase Total Protein Albumin Globulin Albumin/Globulin Ratio Lipase TSH 1.23 Urine Color Urine Clarity Urine pH Ur Specific [place] Urine Protein Urine Glucose (UA) Urine Ketones Urine Occult Blood Urine Nitrite Urine Bilirubin Urine Urobilinogen Ur Leukocyte Esterase Ur Microscopic Review Urine Culture Comments Nasal Adenovirus (PCR) NOT DETECTED Nasal B. parapertussis DNA (PCR) NOT DETECTED Nasal Coronavir 229E PCR NOT DETECTED Nasal Coronavir HKU1 PCR NOT DETECTED Nasal Coronavir NL63 PCR NOT DETECTED Nasal Coronavir OC43 PCR NOT DETECTED Nasal Enterovir/Rhinovir PCR NOT DETECTED Nasal Influenza B PCR NOT DETECTED Nasal Influenza A PCR NOT DETECTED Nasal Parainfluen 1 PCR NOT DETECTED Nasal Parainfluen 2 PCR NOT DETECTED Nasal Parainfluen 3 PCR NOT DETECTED Nasal Parainfluen 4 PCR NOT DETECTED Nasal RSV (PCR) NOT DETECTED Nasal B.pertussis DNA PCR NOT DETECTED Nasal C.pneumoniae (PCR) NOT DETECTED Gabe Human Metapneumo PCR NOT DETECTED Nasal M.pneumoniae (PCR) NOT DETECTED Nasal SARS-CoV-2 (PCR) NOT DETECTED Salicylates Urine Opiates Screen Ur Oxycodone Screen Urine Methadone Screen Ur Propoxyphene Screen Acetaminophen Ur Barbiturates Screen Ur Tricyclics Screen Ur Phencyclidine Scrn Ur Amphetamine Screen U Methamphetamines Scrn U Benzodiazepines Scrn Urine Cocaine Screen U Cannabinoids Screen Ethyl Alcohol PD MEDICAL DECISION MAKING - ED course Complexity details: reviewed results, re-evaluated patient, considered leroy frazier d/w patient, d/w commercial sales consultant ED course: Patient is medically clear for psychiatric care. Telepsychiatry was consulted. They recommend starting risperidone 1 mg p.o. twice daily. They state if he is still in the emergency department that they would change to 1 mg in the morning and 2 mg at night starting tomorrow. Social work will be consulted in the morning as well. Patient signed out to the oncoming emergency department physician. This document was made in part using voice recognition software. While efforts are made to proofread this document, sound alike and grammatical errors may occur. Departure - Departure Clinical Impression: Schizophrenia Qualifiers: Schizophrenia type: paranoid schizophrenia Qualified Code(s): F20.0 - Paranoid schizophrenia Condition: Stable
[2020-11-04] MEDS: risperiDONE 1 MG TABLET PO SCH (22:43)
[2020-11-05 03:30] LABS: LITHIUM < 0.05 mmol/L
[2020-11-05] MEDS: risperiDONE 1 MG TABLET PO SCH (09:31)
== END 2020-11-05 12:29 ==
LOC: EDUNIT# → ED 18:03
DX: F20.0 Paranoid schizophrenia (principal); F17.200 Nicotine dependence, unspecified, uncomplicated; Z20.828 Contact with and (suspected) exposure to other viral communicable diseases
CPT/HCPCS: 0202U; 80053; 80178; 80306; 80307; 80320; 80329; 81003; 83690; 84443; 85025; 99284; 99285; A9270; G0425; 81001; 87086

== ENCOUNTER 2020-12-23 21:56 | Outpatient (CLI) | payer MEDICAID | END 2020-12-23 21:57 | disposition critical access hospital (66) | LOC: EMS 21:56 | PROVIDERS: ATTEND Surgery | DX: Z00.8 Encounter for other general examination (principal) | CPT/HCPCS: A0425; A0429; A0999 ==

== ENCOUNTER 2020-12-23 22:13 | Emergency (ER) | payer MEDICAID ==
--- NOTE | 2020-12-23 23:26 | ED Physician Documentation ---
PD HPI MHE - Stated complaint Stated Complaint: MHE - Chief complaint Chief Complaint: MHE - History obtained from History obtained from: EMS - Additional information Additional information: The patient is brought to the emergency department by EMS after they were called due to the patient exhibiting more agitated behavior this evening. Patient has a history of paranoid schizophrenia and is chronically noncompliant with medication. He lives with his mother at home. Police did also respond to the call, and after evaluating the patient and talking with the mother, neither the mother nor the police wish to file for involuntary hold and evaluation. However, the medics state that they "talk the patient into coming" and told him he could have a meal if he came here. They state the patient has been cooperative for them. They are not aware of the patient making any attempts to harm himself, and they deny report of any suicidal or homicidal statements by the patient. Patient does not answer any questions during my attempt to evaluate and interview him. Review of Systems Unable to obtain: Uncooperative PD PAST MEDICAL HISTORY - Past Medical History Cardiovascular: High cholesterol Respiratory: None Neuro: None Endocrine/Autoimmune: None GI: None : Renal insuffiency HEENT: None Psych: Depression, Anxiety, Bipolar disorder, Schizophrenia, Panic attacks, ADD/ADHD, Obsessive compulsive disorder Musculoskeletal: None Derm: None - Past Surgical History Past Surgical History: No - Present Medications Home Medications: Ambulatory Orders Medication Instructions Recorded Confirmed OLANZapine [Zyprexa] 25 mg PO QPM 09/27/17 11/04/20 FLUoxetine [PROzac] 20 mg PO DAILY 11/21/19 11/21/19 [place] Carbonate 300 mg PO BID 11/21/19 11/21/19 Quetiapine Fumarate [Seroquel] 300 mg PO QPM 11/21/19 11/21/[address] [Voltaren] 12/15/19 Atorvastatin [Lipitor] 10 mg ORAL DAILY 11/04/20 11/04/20 traZODone [Desyrel] 150 mg PO HS 11/04/20 11/04/20 - Allergies Allergies/Adverse Reactions: Allergies Allergy/AdvReac Type Severity Reaction Status Date / Time ziprasidone HCl * AdvReac Severe Hallucinati Verified 12/24/20 13:12 [From [facility]] ons ziprasidone mesylate * AdvReac Severe Hallucinati Verified 12/24/20 13:12 [From [facility]] ons - Social History Does the pt smoke?: Yes Smoking Status: Current every day smoker Does the pt drink ETOH?: Yes Does the pt have substance abuse?: No - Immunizations Immunizations are current?: No Immunizations: TDAP >10years/unknown, Other immun current - POLST Patient has POLST: No PD ED PE NORMAL - Vitals Vital signs reviewed: Yes - General General: Other (Patient is disheveled and appears wary of staff. Does not answer questions.) - HEENT HEENT: Atraumatic, PERRL, Moist mucous membranes - Neck Neck: Supple, no meningeal sign - Respiratory Respiratory: No respiratory distress - Derm Derm: Normal color, Warm and dry, No rash - Extremities Extremities: No deformity - Neuro Neuro: Other (The patient does not answer questions. He ambulates without difficulty. No gross deficits physically.) - Psych Psych: Other (Patient does not respond verbally, though he does verbalize. Appears very wary of staff and refuses to get on stretcher. Wanders around emergency department shoving equipment and pulling on female nurses' clothes.) Results - Vitals Vitals: Oxygen O2 Source Room air PD MEDICAL DECISION MAKING - ED course Complexity details: considered differential, d/w patient ED course: The patient upon arrival in the emergency department expressed clearly that he did not wish to have anybody touch him or do anything to him. He swung between appearing wary of the staff and alternately coming inappropriately close and touching the clothes. The patient continued to wander around the emergency department and took multiple staff members to redirect. The patient continually refused to get in the bed or cooperate. I discussed with EMS what their exact intent was in bringing the patient here, as the patient's mother and police did not feel that the patient was off of baseline or that he should be involuntarily held and evaluated. At this point, the patient was completely uncooperative, and the only way to treat or evaluate would be to restrain him. Under the circumstances of his chronic paranoid schizophrenia with chronic medication noncompliance, I did not feel this was appropriate if the family was not concerned enough to file for an involuntary hold. The police were summoned and I did discuss the matter with them. I discussed with them that it is of no benefit to the patient to coax him into coming here when she clearly does not want help and there is no desire on the part of family to file an involuntary hold. The police ultimately offered to give the patient a ride home, and his mother was willing but not able. Mother understands that if she wishes to file an involuntary hold, she may have this patient sent back under different circumstances, at which time we can restrain him and medicate him if needed, for further evaluation. At this time, the pt will return home. Departure - Departure Disposition: 01 Home, Self Care Clinical Impression: Schizophrenia Qualifiers: Schizophrenia type: unspecified Qualified Code(s): F20.9 - Schizophrenia, unspecified Condition: Stable Discharge Date/Time: 12/23/20 23:32
== END 2020-12-23 23:32 | disposition home or self-care (01) ==
LOC: EDUNIT# → ED 22:13
DX: F20.9 Schizophrenia, unspecified (principal); F17.200 Nicotine dependence, unspecified, uncomplicated
CPT/HCPCS: 99281

== ENCOUNTER 2020-12-24 11:46 | Outpatient (CLI) | payer MEDICAID | END 2020-12-24 11:47 | disposition critical access hospital (66) | LOC: EMS 11:46 | PROVIDERS: ATTEND Surgery | DX: Z04.6 Encounter for general psychiatric examination, requested by authority (principal) | CPT/HCPCS: A0425; A0429; A0999 ==

== ENCOUNTER 2020-12-24 12:05 | Emergency (ER) | payer MEDICAID ==
[2020-12-24] MEDS ORDERED: OLANZapine 10 MG VIAL IM STA (12:27)
[2020-12-24] MEDS ORDERED: LORazepam 2 MG/ML VIAL IM STA ×2 (12:28→21:43)
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
[2020-12-24 14:29] LABS: C. PNEUMONIAE- RESP PCR PANEL NOT DETECTED
[2020-12-24 14:42] LABS: BASOPHILS # (AUTO) 0.1 10^3/uL (0.0-0.1); BASOPHILS % (AUTO) 0.6 %; EOSINOPHILS # (AUTO) 0.1 10^3/uL (0.0-0.7); EOSINOPHILS % (AUTO) 1.3 %; HGB - HEMOGLOBIN 15.4 g/dL (14.0-18.0); LYMPHOCYTES # (AUTO) 1.4 10^3/uL (1.5-3.5); LYMPHOCYTES % (AUTO) 16.7 %; MEAN CORPUSCULAR HEMOGLOBIN 28.9 pg (27.0-31.0); MEAN CORPUSCULAR HGB CONC 33.8 g/dL (32.0-36.0); MEAN CORPUSCULAR VOLUME 85.7 fL (80.0-94.0); MEAN PLATELET VOLUME 12.1 fL (7.4-11.4); MONOCYTES # (AUTO) 0.7 10^3/uL (0.0-1.0); MONOCYTES % (AUTO) 7.9 %; NEUTROPHILS # (AUTO) 6.2 10^3/uL (1.5-6.6); NEUTROPHILS % (AUTO) 73.3 %; PLT - PLATELET COUNT 245 10^3/uL (130-450); RED BLOOD COUNT 5.32 10^6/uL (4.70-6.10); RED CELL DISTRIBUTION WIDTH 12.5 % (12.0-15.0); WHITE BLOOD COUNT 8.5 x10^3/uL (4.8-10.8)
[2020-12-24 15:01] LABS: ACETAMINOPHEN < 10 ug/mL (10-30); ALBUMIN 4.8 g/dL (3.2-5.5); ALBUMIN/GLOBULIN RATIO 1.5 (1.0-2.2); ALKALINE PHOSPHATASE 76 IU/L (42-121); ALT ALANINE AMINOTRANSFERASE 52 IU/L (10-60); AST ASPARTATE AMINOTRANSFERASE 21 IU/L (10-42); BUN - BLOOD UREA NITROGEN 21 mg/dL (6-20); CARBON DIOXIDE - CO2 24 mmol/L (21-32); CHLORIDE 99 mmol/L (101-111); CREATININE 0.8 mg/dL (0.6-1.2); GLUCOSE 118 mg/dL (70-100); LIPASE 24 U/L (22-51); SALICYLATE < 6.0 mg/dL; TOTAL PROTEIN 8.1 g/dL (6.7-8.2)
[2020-12-24 15:52] LABS: MUDS CUTOFF CONCENTRATIONS CUTOFF CONC BELOW:
[2020-12-24 16:08] LABS: AMPHETAMINE SCREEN,URINE NEGATIVE (NEGATIVE); BENZODIAZEPINES SCREEN, URINE NEGATIVE (NEGATIVE); COCAINE SCREEN URINE NEGATIVE (NEGATIVE); METHADONE SCREEN, URINE NEGATIVE (NEGATIVE); METHAMPHETAMINES SCREEN, URINE POSITIVE (NEGATIVE); OPIATE SCREEN, URINE NEGATIVE (NEGATIVE); OXYCODONE SCREEN, URINE NEGATIVE (NEGATIVE); PROPOXYPHENE SCREEN, URINE NEGATIVE (NEGATIVE); TRICYCLIC ANTIDEPRESSANT,URINE NEGATIVE (NEGATIVE)
[2020-12-24 16:13] LABS: BILIRUBIN,URINE NEGATIVE (NEGATIVE); CLARITY,URINE CLEAR (CLEAR); ICTOTEST,URINE NEGATIVE; KETONES,URINE (UA) >=80 mg/dL (NEGATIVE); LEUKOCYTE ESTERASE, URINE NEGATIVE (NEGATIVE); NITRITE,URINE NEGATIVE (NEGATIVE); OCCULT BLOOD,URINE TRACE-INTACT (NEGATIVE); PROTEIN,URINE 100 mg/dL (NEGATIVE); UROBILINOGEN,URINE 1 (NORMAL) E.U./dL (NORMAL)
[2020-12-24 16:14] LABS: BACTERIA,URINE Rare /HPF (None Seen); CASTS, URINE 3-5 Hyaline Casts /LPF; GLUCOSE, URINE (UA) NEGATIVE (NEGATIVE); MUCUS,URINE Moderate Strands; RBC,URINE 0-5 /HPF (0-5); SQUAMOUS EPITHELIAL CELL,UR FEW Squamous (<= Few)
[2020-12-25] MEDS ORDERED: LORazepam 1 MG TABLET PO STA (06:34)
[2020-12-25] MEDS ORDERED: OLANZapine 10 MG VIAL IM STA (07:05)
[2020-12-25 09:04] VITALS: BP 136/85
--- NOTE | 2020-12-25 09:14 | ED Physician Documentation ---
Face to Face for Restraints - Immediate Situation Face to Face Evaluation Date: 12/25/20 Face to Face Evaluation Time: 07:00 Restraint Situation: Chemical Patient's Reactions to the Intervention: Compliant - Behavioral Condition Attitude: Guarded Behavior: Agitated Orientation: Person, Place, Situation Mood: Labile - Evaluation Review of Systems: He is breathing unlabored. Denies abd pain, chest pain, headache, nausea. Pertinent History/Illicit Drugs/Medications/Results: He has not been taking his usual psychiatric meds, which is reason for his symptoms and detainment by DCR. - Plan Need to Continue or Terminate Violent or Chemical Restraint: Anticipate giving IM medication to help with agitation as he was not wanting to take PO med at this time. Anticipate ongoing PO medications at his prescribed dosings. Transferring to Psychiatric facility later this morning. He is resting on cart and becoming less anxious/labile verbally. He was not physical during any of this this morning.
== END 2020-12-25 09:40 ==
LOC: EDSEX → EDUNIT# → ED 12:05
DX: F15.129 Other stimulant abuse with intoxication, unspecified (principal); F20.9 Schizophrenia, unspecified; Z91.128 Patient's intentional underdosing of medication regimen for other reason; F17.200 Nicotine dependence, unspecified, uncomplicated; Z20.822 Contact with and (suspected) exposure to COVID-19
CPT/HCPCS: 0202U; 36415; 51701; 80053; 80306; 80307; 80320; 80329; 81001; 83690; 84443; 85025; 93005; 96372; 99281; 99285; J2060; J8499; 81003; 87086

== ENCOUNTER 2021-02-25 | Outpatient (CLI) | payer MEDICAID | END 2021-02-25 18:52 | disposition critical access hospital (66) | DX: R45.89 Other symptoms and signs involving emotional state (principal) | CPT/HCPCS: A0425; A0429; A0999 ==

== ENCOUNTER 2021-02-25 19:10 | Emergency (ER) | payer MEDICAID ==
--- NOTE | 2021-02-25 19:38 | ED Physician Documentation ---
History of Present Illness - Stated complaint Stated Complaint: MHE - Chief complaint Chief Complaint: MHE - History obtained from History obtained from: Patient - Additonal information Additional information: 35-year-old man with history of schizophrenia and dissociative personality disorder presents with erratic behavior over the past few days reported by family as well as personal report of hearing satanic voices telling him to harm other people. He states that he has been working on taking his medications regularly. Endorses marijuana use but denies other drug use. Denies SI or visual hallucinations. Patient is requesting psychiatric evaluation for possible inpatient admission. Review of Systems Ten Systems: 10 systems reviewed and negative PD PAST MEDICAL HISTORY - Past Medical History Past Medical History: Yes Cardiovascular: High cholesterol Respiratory: None Neuro: None Endocrine/Autoimmune: None GI: None : Renal insuffiency HEENT: None Psych: Depression, Anxiety, Bipolar disorder, Schizophrenia, Panic attacks, ADD/ADHD, Obsessive compulsive disorder Musculoskeletal: None Derm: None - Past Surgical History Past Surgical History: No - Present Medications Home Medications: Ambulatory Orders Medication Instructions Recorded Confirmed Benztropine [Cogentin] 0.5 mg PO HS 02/25/21 02/26/21 Haloperidol Oral Soln [Haldol Oral 10 mg PO BID 02/25/21 02/26/21 Soln] LORazepam [Ativan] 0.5 mg PO BID 02/25/21 02/26/21 OLANZapine [Zyprexa Zydis] 20 mg PO HS 02/25/21 02/26/21 Benztropine [Cogentin] 0.5 mg PO DAILY 15 Days #3.75 02/26/21 tablet Fluoxetine HCl [Prozac] 60 mg PO DAILY 02/26/21 02/26/21 Fluoxetine HCl [Prozac] 60 mg PO QDAC 15 Days #45 tab 02/26/21 Haloperidol Oral Soln [Haldol Oral 10 mg PO BID #150 ml 02/26/21 Soln] LORazepam [Ativan] 0.5 mg PO BID 15 Days #30 tablet 02/26/21 OLANZapine ODT [Zyprexa Odt] 20 mg ORAL QDAC 15 Days #15 tablet 02/26/21 - Allergies Allergies/Adverse Reactions: Allergies Allergy/AdvReac Type Severity Reaction Status Date / Time ziprasidone HCl * AdvReac Severe Hallucinati Verified 12/24/20 13:12 [From [facility]] ons ziprasidone mesylate * AdvReac Severe Hallucinati Verified 12/24/20 13:12 [From [facility]] ons - Social History Does the pt smoke?: Yes Smoking Status: Current every day smoker Does the pt drink ETOH?: Yes Does the pt have substance abuse?: No Substance Use and Type: Marijuana - Immunizations Immunizations are current?: No Immunizations: TDAP >10years/unknown, Other immun current - POLST Patient has POLST: No PD ED PE NORMAL - Vitals Vital signs reviewed: Yes - General General: Alert and oriented X 3, No acute distress, Well developed/nourished - HEENT HEENT: Atraumatic, PERRL, EOMI - Neck Neck: Supple, no meningeal sign - Cardiac Cardiac: RRR - Respiratory Respiratory: No respiratory distress, Clear bilaterally - Abdomen Abdomen: Non tender, Non distended - Male Male : Deferred - Rectal Rectal: Deferred - Back Back: No spinal TTP - Derm Derm: Normal color - Extremities Extremities: No deformity - Neuro Neuro: Alert and oriented X 3 - Psych Psych: Other (+HI, +auditory hallucinations) Results - Vitals Vitals: Vital Signs - 24 hr 02/26/21 09:00 Temperature 36.6 C Heart Rate 90 Respiratory 18 Rate Blood Pressure 148/80 H O2 Saturation 99 Oxygen O2 Source Room air - Labs Labs: Laboratory Tests 02/25/21 02/25/21 02/25/21 19:22 19:44 19:44 WBC 8.0 RBC 5.29 Hgb 15.4 Hct 45.3 MCV 85.6 MCH 29.1 MCHC 34.0 RDW 12.5 Plt Count 218 MPV 11.7 H Neut # (Auto) 5.9 Lymph # (Auto) 1.7 [place] # (Auto) 0.4 Eos # (Auto) 0.0 Baso # (Auto) 0.0 Absolute Nucleated RBC 0.00 Nucleated RBC % 0.0 Sodium 138 Potassium 3.6 Chloride 104 Carbon Dioxide 25 Anion Gap 9.0 BUN 8 Creatinine 0.8 Estimated GFR (MDRD) 111 Glucose 112 H Calcium 9.7 Magnesium Total Bilirubin 0.9 AST 17 ALT 18 Alkaline Phosphatase 73 Total Protein 7.6 Albumin 4.7 Globulin 2.9 Albumin/Globulin Ratio 1.6 Lipase 56 H TSH Free T4 Free T3 pg/mL Urine Color YELLOW Urine Clarity CLEAR Urine pH 6.0 Ur Specific [place] >=1.030 H Urine Protein NEGATIVE Urine Glucose (UA) NEGATIVE Urine Ketones TRACE Urine Occult Blood NEGATIVE Urine Nitrite NEGATIVE Urine Bilirubin NEGATIVE Urine Urobilinogen 0.2 (NORMAL) Ur Leukocyte Esterase NEGATIVE Ur Microscopic Review NOT INDICATED Urine Culture Comments NOT INDICATED Nasal Adenovirus (PCR) Nasal B. parapertussis DNA (PCR) Nasal Coronavir 229E PCR Nasal Coronavir HKU1 PCR Nasal Coronavir NL63 PCR Nasal Coronavir OC43 PCR Nasal Enterovir/Rhinovir PCR Nasal Influenza B PCR Nasal Influenza A PCR Nasal Parainfluen 1 PCR Nasal Parainfluen 2 PCR Nasal Parainfluen 3 PCR Nasal Parainfluen 4 PCR Nasal RSV (PCR) Nasal B.pertussis DNA PCR Nasal C.pneumoniae (PCR) Gabe Human Metapneumo PCR Nasal M.pneumoniae (PCR) Nasal SARS-CoV-2 (PCR) Salicylates < 6.0 Urine Opiates Screen NEGATIVE Ur Oxycodone Screen NEGATIVE Urine Methadone Screen NEGATIVE Ur Propoxyphene Screen NEGATIVE Acetaminophen < 10 L Ur Barbiturates Screen NEGATIVE Ur Tricyclics Screen NEGATIVE Ur Phencyclidine Scrn NEGATIVE Ur Amphetamine Screen NEGATIVE U Methamphetamines Scrn NEGATIVE U Benzodiazepines Scrn POSITIVE H Urine Cocaine Screen NEGATIVE U Cannabinoids Screen POSITIVE H Ethyl Alcohol < 5.0 02/25/21 02/25/21 02/25/21 19:44 19:44 19:44 WBC RBC Hgb Hct MCV MCH MCHC RDW Plt Count MPV Neut # (Auto) Lymph # (Auto) [place] # (Auto) Eos # (Auto) Baso # (Auto) Absolute Nucleated RBC Nucleated RBC % Sodium Potassium Chloride Carbon Dioxide Anion Gap BUN Creatinine Estimated GFR (MDRD) Glucose Calcium Magnesium 2.2 Total Bilirubin AST ALT Alkaline Phosphatase Total Protein Albumin Globulin Albumin/Globulin Ratio Lipase TSH 0.16 L Free T4 1.00 Free T3 pg/mL 3.15 Urine Color Urine Clarity Urine pH Ur Specific [place] Urine Protein Urine Glucose (UA) Urine Ketones Urine Occult Blood Urine Nitrite Urine Bilirubin Urine Urobilinogen Ur Leukocyte Esterase Ur Microscopic Review Urine Culture Comments Nasal Adenovirus (PCR) Nasal B. parapertussis DNA (PCR) Nasal Coronavir 229E PCR Nasal Coronavir HKU1 PCR Nasal Coronavir NL63 PCR Nasal Coronavir OC43 PCR Nasal Enterovir/Rhinovir PCR Nasal Influenza B PCR Nasal Influenza A PCR Nasal Parainfluen 1 PCR Nasal Parainfluen 2 PCR Nasal Parainfluen 3 PCR Nasal Parainfluen 4 PCR Nasal RSV (PCR) Nasal B.pertussis DNA PCR Nasal C.pneumoniae (PCR) Gabe Human Metapneumo PCR Nasal M.pneumoniae (PCR) Nasal SARS-CoV-2 (PCR) Salicylates Urine Opiates Screen Ur Oxycodone Screen Urine Methadone Screen Ur Propoxyphene Screen Acetaminophen Ur Barbiturates Screen Ur Tricyclics Screen Ur Phencyclidine Scrn Ur Amphetamine Screen U Methamphetamines Scrn U Benzodiazepines Scrn Urine Cocaine Screen U Cannabinoids Screen Ethyl Alcohol 02/25/21 20:06 WBC RBC Hgb Hct MCV MCH MCHC RDW Plt Count MPV Neut # (Auto) Lymph # (Auto) [place] # (Auto) Eos # (Auto) Baso # (Auto) Absolute Nucleated RBC Nucleated RBC % Sodium Potassium Chloride Carbon Dioxide Anion Gap BUN Creatinine Estimated GFR (MDRD) Glucose Calcium Magnesium Total Bilirubin AST ALT Alkaline Phosphatase Total Protein Albumin Globulin Albumin/Globulin Ratio Lipase TSH Free T4 Free T3 pg/mL Urine Color Urine Clarity Urine pH Ur Specific [place] Urine Protein Urine Glucose (UA) Urine Ketones Urine Occult Blood Urine Nitrite Urine Bilirubin Urine Urobilinogen Ur Leukocyte Esterase Ur Microscopic Review Urine Culture Comments Nasal Adenovirus (PCR) NOT DETECTED Nasal B. parapertussis DNA (PCR) NOT DETECTED Nasal Coronavir 229E PCR NOT DETECTED Nasal Coronavir HKU1 PCR NOT DETECTED Nasal Coronavir NL63 PCR NOT DETECTED Nasal Coronavir OC43 PCR NOT DETECTED Nasal Enterovir/Rhinovir PCR NOT DETECTED Nasal Influenza B PCR NOT DETECTED Nasal Influenza A PCR NOT DETECTED Nasal Parainfluen 1 PCR NOT DETECTED Nasal Parainfluen 2 PCR NOT DETECTED Nasal Parainfluen 3 PCR NOT DETECTED Nasal Parainfluen 4 PCR NOT DETECTED Nasal RSV (PCR) NOT DETECTED Nasal B.pertussis DNA PCR NOT DETECTED Nasal C.pneumoniae (PCR) NOT DETECTED Gabe Human Metapneumo PCR NOT DETECTED Nasal M.pneumoniae (PCR) NOT DETECTED Nasal SARS-CoV-2 (PCR) NOT DETECTED Salicylates Urine Opiates Screen Ur Oxycodone Screen Urine Methadone Screen Ur Propoxyphene Screen Acetaminophen Ur Barbiturates Screen Ur Tricyclics Screen Ur Phencyclidine Scrn Ur Amphetamine Screen U Methamphetamines Scrn U Benzodiazepines Scrn Urine Cocaine Screen U Cannabinoids Screen Ethyl Alcohol PD MEDICAL DECISION MAKING - ED course ED course: 35-year-old man presents with "satanic voices". Will do medical screening and then have telepsych evaluate him. Impression: 1. schizophrenia 2. hallucinations Departure - Departure Disposition: 65 Psych Hosp/Unit DC/Xfer Clinical Impression: Hallucinations Schizophrenia Qualifiers: Schizophrenia type: unspecified Qualified Code(s): F20.9 - Schizophrenia, unspecified Condition: Stable Prescriptions: LORazepam [Ativan] 0.5 mg PO BID 15 Days #30 tablet Benztropine [Cogentin] 0.5 mg PO DAILY 15 Days #3.75 tablet Haloperidol Oral Soln [Haldol Oral Soln] 10 mg PO BID #150 ml Fluoxetine HCl [Prozac] 60 mg PO QDAC 15 Days #45 tab OLANZapine ODT [Zyprexa Odt] 20 mg ORAL QDAC 15 Days #15 tablet Discharge Date/Time: 02/26/21 11:16
[2021-02-25 19:39] LABS: MUDS CUTOFF CONCENTRATIONS CUTOFF CONC BELOW:
[2021-02-25 19:42] LABS: BILIRUBIN,URINE NEGATIVE (NEGATIVE); GLUCOSE, URINE (UA) NEGATIVE (NEGATIVE); KETONES,URINE (UA) TRACE mg/dL (NEGATIVE); LEUKOCYTE ESTERASE, URINE NEGATIVE (NEGATIVE); NITRITE,URINE NEGATIVE (NEGATIVE); OCCULT BLOOD,URINE NEGATIVE (NEGATIVE); PROTEIN,URINE NEGATIVE (NEGATIVE); UROBILINOGEN,URINE 0.2 (NORMAL) E.U./dL (NORMAL)
[2021-02-25 19:45] LABS: CLARITY,URINE CLEAR (CLEAR)
[2021-02-25 19:51] LABS: BASOPHILS % (AUTO) 0.5 %; EOSINOPHILS % (AUTO) 0.1 %; HCT - HEMATOCRIT 45.3 % (42.0-52.0); HGB - HEMOGLOBIN 15.4 g/dL (14.0-18.0); LYMPHOCYTES # (AUTO) 1.7 10^3/uL (1.5-3.5); LYMPHOCYTES % (AUTO) 20.7 %; MEAN CORPUSCULAR HEMOGLOBIN 29.1 pg (27.0-31.0); MEAN CORPUSCULAR VOLUME 85.6 fL (80.0-94.0); MEAN PLATELET VOLUME 11.7 fL (7.4-11.4); MONOCYTES # (AUTO) 0.4 10^3/uL (0.0-1.0); MONOCYTES % (AUTO) 4.5 %; NEUTROPHILS # (AUTO) 5.9 10^3/uL (1.5-6.6); NEUTROPHILS % (AUTO) 74.1 %; PLT - PLATELET COUNT 218 10^3/uL (130-450); RED BLOOD COUNT 5.29 10^6/uL (4.70-6.10); RED CELL DISTRIBUTION WIDTH 12.5 % (12.0-15.0)
[2021-02-25 19:59] LABS: AMPHETAMINE SCREEN,URINE NEGATIVE (NEGATIVE); BARBITURATE SCREEN,UR NEGATIVE (NEGATIVE); BENZODIAZEPINES SCREEN, URINE POSITIVE (NEGATIVE); COCAINE SCREEN URINE NEGATIVE (NEGATIVE); METHADONE SCREEN, URINE NEGATIVE (NEGATIVE); METHAMPHETAMINES SCREEN, URINE NEGATIVE (NEGATIVE); OPIATE SCREEN, URINE NEGATIVE (NEGATIVE); OXYCODONE SCREEN, URINE NEGATIVE (NEGATIVE); PROPOXYPHENE SCREEN, URINE NEGATIVE (NEGATIVE); THC CANNABINOID SCREEN, URINE POSITIVE (NEGATIVE); TRICYCLIC ANTIDEPRESSANT,URINE NEGATIVE (NEGATIVE)
[2021-02-25 20:10] LABS: ACETAMINOPHEN < 10 ug/mL (10-30); ALBUMIN 4.7 g/dL (3.2-5.5); ALBUMIN/GLOBULIN RATIO 1.6 (1.0-2.2); ALKALINE PHOSPHATASE 73 IU/L (42-121); ALT ALANINE AMINOTRANSFERASE 18 IU/L (10-60); AST ASPARTATE AMINOTRANSFERASE 17 IU/L (10-42); BILIRUBIN,TOTAL 0.9 mg/dL (0.2-1.0); BUN - BLOOD UREA NITROGEN 8 mg/dL (6-20); CALCIUM 9.7 mg/dL (8.5-10.3); CARBON DIOXIDE - CO2 25 mmol/L (21-32); CHLORIDE 104 mmol/L (101-111); CREATININE 0.8 mg/dL (0.6-1.2); ETOH - ETHANOL < 5.0 mg/dL; GFR - MDRD 111 (>89); GLUCOSE 112 mg/dL (70-100); LIPASE 56 U/L (22-51); POTASSIUM 3.6 mmol/L (3.5-5.0); SALICYLATE < 6.0 mg/dL; SODIUM 138 mmol/L (135-145); TOTAL PROTEIN 7.6 g/dL (6.7-8.2)
[2021-02-25] MEDS ORDERED: OLANZapine ODT 5 MG TABLET TL STA (20:26)
[2021-02-25 21:06] LABS: CORONAVIRUS 229E-RESP PCR NOT DETECTED; CORONAVIRUS HKU1-RESP PCR NOT DETECTED; CORONAVIRUS NL63-RESP PCR NOT DETECTED; CORONAVIRUS OC43-RESP PCR NOT DETECTED; HUMAN METAPNEUMOVIRUS NOT DETECTED; INFLUENZA A- RESP PCR PANEL NOT DETECTED; RHINOVIRUS/ENTEROVIRUS NOT DETECTED; SARS-CoV-2 -RESP PCR PANEL NOT DETECTED
[2021-02-25 21:07] LABS: B. PARAPERTUSSIS- RESP PCR PAN NOT DETECTED; B. PERTUSSIS- RESP PCR PANEL NOT DETECTED; C. PNEUMONIAE- RESP PCR PANEL NOT DETECTED; INFLUENZA B - RESP PCR PANEL NOT DETECTED; M. PNEUMONIAE- RESP PCR PANEL NOT DETECTED; PARAINFLUENZA VIRUS 1 NOT DETECTED; PARAINFLUENZA VIRUS 2 NOT DETECTED; PARAINFLUENZA VIRUS 3 NOT DETECTED; PARAINFLUENZA VIRUS 4 NOT DETECTED; RSV- RESP PCR PANEL NOT DETECTED
[2021-02-25] MEDS ORDERED: LORazepam 0.5 MG TABLET PO STA (21:46)
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
--- OUTSIDE RECORDS SUMMARY | 2021-02-26 03:26 | EXTERNAL MEDICAL SUMMARY RPT | Continuity of Care Document ---
:1985 Demographics Phone Unavailable Preferred Language Unknown Marital Status Unknown Islam Affiliation Unknown Race Unknown Ethnic Group Unknown Author Organization [facility] Address [address] [place] [address] Phone Social History date description facility [phone]
[2021-02-26 06:12] LABS: FREE T3 3.15 pg/mL (2.5-3.9)
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
[2021-02-26 09:23] VITALS: BP 148/80
[2021-02-26] MEDS ORDERED: haloperidoL 1 MG TABLET PO STA (10:15)
[2021-02-26] MEDS ORDERED: LORazepam 0.5 MG TABLET PO STA (10:15)
[2021-02-26] MEDS ORDERED: diphenhydrAMINE 25 MG CAPSULE PO STA (10:15)
[2021-02-26] MEDS ORDERED: FLUoxetine 10 MG CAPSULE PO STA (10:16)
[2021-02-26] MEDS ORDERED: LORazepam 1 MG TABLET PO STA (10:46)
[2021-02-26] MEDS ORDERED: NICOTINE 14 MG PATCH TOP STA (10:46)
== END 2021-02-26 11:16 ==
LOC: EDUNIT# → ED 19:10
DX: F20.9 Schizophrenia, unspecified (principal); F60.89 Other specific personality disorders; F17.200 Nicotine dependence, unspecified, uncomplicated; Z20.822 Contact with and (suspected) exposure to COVID-19
CPT/HCPCS: 0202U; 36415; 80053; 80306; 80307; 80320; 80329; 81003; 83690; 83735; 84439; 84443; 84481; 85025; 93005; 99281; 99285; A9270; G0426; J8499; Q3014; 81001; 87086

== ENCOUNTER 2021-03-02 23:45 | Outpatient (CLI) | payer MEDICAID | END 2021-03-02 23:46 | disposition home or self-care (01) | LOC: EMS 23:45 | DX: R53.81 Other malaise (principal) | CPT/HCPCS: A0425; A0429 ==

== ENCOUNTER 2021-03-03 00:01 | Emergency (ER) | payer MEDICAID ==
[2021-03-03 00:54] LABS: BILIRUBIN,URINE NEGATIVE (NEGATIVE); GLUCOSE, URINE (UA) NEGATIVE (NEGATIVE); KETONES,URINE (UA) NEGATIVE (NEGATIVE); LEUKOCYTE ESTERASE, URINE NEGATIVE (NEGATIVE); MUDS CUTOFF CONCENTRATIONS CUTOFF CONC BELOW:; NITRITE,URINE NEGATIVE (NEGATIVE); OCCULT BLOOD,URINE NEGATIVE (NEGATIVE); PH,URINE 6.5 PH (5.0-7.5); PROTEIN,URINE NEGATIVE (NEGATIVE); UROBILINOGEN,URINE 0.2 (NORMAL) E.U./dL (NORMAL)
[2021-03-03 00:55] LABS: CLARITY,URINE CLEAR (CLEAR)
[2021-03-03 01:04] LABS: AMPHETAMINE SCREEN,URINE NEGATIVE (NEGATIVE); BARBITURATE SCREEN,UR NEGATIVE (NEGATIVE); BENZODIAZEPINES SCREEN, URINE NEGATIVE (NEGATIVE); COCAINE SCREEN URINE NEGATIVE (NEGATIVE); METHADONE SCREEN, URINE NEGATIVE (NEGATIVE); METHAMPHETAMINES SCREEN, URINE NEGATIVE (NEGATIVE); OPIATE SCREEN, URINE NEGATIVE (NEGATIVE); OXYCODONE SCREEN, URINE NEGATIVE (NEGATIVE); PROPOXYPHENE SCREEN, URINE NEGATIVE (NEGATIVE); THC CANNABINOID SCREEN, URINE POSITIVE (NEGATIVE); TRICYCLIC ANTIDEPRESSANT,URINE NEGATIVE (NEGATIVE)
[2021-03-03] MEDS ORDERED: LORazepam 0.5 MG TABLET PO STA (01:43)
[2021-03-03] MEDS ORDERED: OLANZapine ODT 5 MG TABLET TL ONE (01:44)
--- NOTE | 2021-03-03 01:44 | ED Physician Documentation ---
PD HPI MHE - Stated complaint Stated Complaint: SI - Chief complaint Chief Complaint: MHE - History obtained from History obtained from: Patient - History of Present Illness Primary symptom: Psychosis, Out of meds Timing - onset: How many days ago (3) Contributing factors: Off meds, Out of meds Similar symptoms before: Diagnosis (schizoaffective disorder.) Recently seen: Emergency Dept, Admitted - Additional information Additional information: 35-year-old male with a psychiatric history of schizoaffective disorder has had a recent admission to [facility] and he was discharged 3 days ago without his medications and he subsequently went home and has been without his medicines for 3 days. He feels that he needs to be back on his medications and he feels that a respite bed with supervised medication administration would be helpful. Review of Systems Constitutional: denies: Fever Eyes: denies: Decreased vision Nose: denies: Congestion Throat: denies: Sore throat Cardiac: denies: Chest pain / pressure, Palpitations Respiratory: denies: Dyspnea, Cough GI: denies: Abdominal Pain, Nausea, Vomiting, Constipation, Diarrhea : denies: Dysuria, Frequency Skin: denies: Rash Musculoskeletal: denies: Neck pain, Back pain, Extremity pain Neurologic: denies: Generalized weakness, Focal weakness, Numbness Psychiatric: reports: Depressed, Anxiety, Insomnia. denies: Suicidal, Homicidal PD PAST MEDICAL HISTORY - Past Medical History Cardiovascular: High cholesterol Respiratory: None Neuro: None Endocrine/Autoimmune: None GI: None : Renal insuffiency HEENT: None Psych: Depression, Anxiety, Bipolar disorder, Schizophrenia, Panic attacks, ADD/ADHD, Obsessive compulsive disorder Musculoskeletal: None Derm: None - Past Surgical History Past Surgical History: No - Present Medications Home Medications: Ambulatory Orders Medication Instructions Recorded Confirmed Benztropine [Cogentin] 0.5 mg PO HS 02/25/21 03/03/21 Haloperidol Oral Soln [Haldol Oral 10 mg PO BID 02/25/21 03/03/21 Soln] LORazepam [Ativan] 0.5 mg PO BID 02/25/21 03/03/21 OLANZapine [Zyprexa Zydis] 20 mg PO HS 02/25/21 03/03/21 Benztropine [Cogentin] 0.5 mg PO DAILY 15 Days #3.75 02/26/21 03/03/21 tablet Fluoxetine HCl [Prozac] 60 mg PO DAILY 02/26/21 03/03/21 Fluoxetine HCl [Prozac] 60 mg PO QDAC 15 Days #45 tab 02/26/21 03/03/21 Haloperidol Oral Soln [Haldol Oral 10 mg PO BID #150 ml 02/26/21 03/03/21 Soln] LORazepam [Ativan] 0.5 mg PO BID 15 Days #30 tablet 02/26/21 03/03/21 OLANZapine ODT [Zyprexa Odt] 20 mg ORAL QDAC 15 Days #15 tablet 02/26/21 1 - Allergies Allergies/Adverse Reactions: Allergies Allergy/AdvReac Type Severity Reaction Status Date / Time ziprasidone HCl * AdvReac Severe Hallucinati Verified 03/03/21 19:37 [From Geodon] ons ziprasidone mesylate * AdvReac Severe Hallucinati Verified 03/03/21 19:37 [From Geodon] ons - Social History Does the pt smoke?: Yes Smoking Status: Current every day smoker Does the pt drink ETOH?: Yes Does the pt have substance abuse?: No - Immunizations Immunizations are current?: No Immunizations: TDAP >10years/unknown, Other immun current - POLST Patient has POLST: No PD ED PE NORMAL - Vitals Vital signs reviewed: Yes (hypertensive mild ) - General General: Alert and oriented X 3, No acute distress, Well developed/nourished - HEENT HEENT: Atraumatic, PERRL, EOMI, Ears normal - Neck Neck: Supple, no meningeal sign, No bony TTP - Cardiac Cardiac: RRR, No murmur - Respiratory Respiratory: No respiratory distress, Clear bilaterally - Abdomen Abdomen: Normal bowel sounds, Soft, Non tender, Non distended, No organomegaly - Back Back: No CVA TTP, No spinal TTP - Derm Derm: Normal color, Warm and dry, No rash - Extremities Extremities: No deformity, No edema - Neuro Neuro: Alert and oriented X 3, 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, No motor deficit, No sensory deficit, Normal speech Eye Opening: Spontaneous Motor: Obeys Commands Verbal: Oriented GCS Score: 15 - Psych Psych: Normal mood, Normal affect Results - Vitals Vitals: Vital Signs - 24 hr 03/03/21 03/03/21 09:44 11:13 Temperature 36.4 C L 36.3 C L Heart Rate 79 89 Respiratory 14 18 Rate Blood Pressure 134/68 H 144/101 H O2 Saturation 97 100 Oxygen O2 Source Room air - Labs Labs: Laboratory Tests 03/03/21 03/03/21 03/03/21 00:41 05:21 05:21 WBC 6.6 RBC 5.19 Hgb 14.9 Hct 44.3 MCV 85.4 MCH 28.7 MCHC 33.6 RDW 12.7 Plt Count 204 MPV 11.0 Neut # (Auto) 2.5 Lymph # (Auto) 3.4 [place] # (Auto) 0.5 Eos # (Auto) 0.2 Baso # (Auto) 0.1 Absolute Nucleated RBC 0.00 Nucleated RBC % 0.0 Sodium 140 Potassium 3.8 Chloride 106 Carbon Dioxide 25 Anion Gap 9.0 BUN 12 Creatinine 0.7 Estimated GFR (MDRD) 129 Glucose 88 Calcium 9.4 Total Bilirubin 0.5 AST 19 ALT 20 Alkaline Phosphatase 59 Total Protein 7.3 Albumin 4.7 Globulin 2.6 Albumin/Globulin Ratio 1.8 Lipase 153 H Urine Color YELLOW Urine Clarity CLEAR Urine pH 6.5 Ur Specific [place] 1.020 Urine Protein NEGATIVE Urine Glucose (UA) NEGATIVE Urine Ketones NEGATIVE Urine Occult Blood NEGATIVE Urine Nitrite NEGATIVE Urine Bilirubin NEGATIVE Urine Urobilinogen 0.2 (NORMAL) Ur Leukocyte Esterase NEGATIVE Ur Microscopic Review NOT INDICATED Urine Culture Comments NOT INDICATED Urine Opiates Screen NEGATIVE Ur Oxycodone Screen NEGATIVE Urine Methadone Screen NEGATIVE Ur Propoxyphene Screen NEGATIVE Ur Barbiturates Screen NEGATIVE Ur Tricyclics Screen NEGATIVE Ur Phencyclidine Scrn NEGATIVE Ur Amphetamine Screen NEGATIVE U Methamphetamines Scrn NEGATIVE U Benzodiazepines Scrn NEGATIVE Urine Cocaine Screen NEGATIVE U Cannabinoids Screen POSITIVE H Ethyl Alcohol 21.9 PD MEDICAL DECISION MAKING - ED course Complexity details: reviewed old records, reviewed results, re-evaluated patient, considered differential, d/w patient ED course: 35-year-old male with a psychiatric history who has recently been into the hospital on his medications had a benefit from the hospitalization but left the hospital without his medications. He has subsequently been out medications for 3 days and feels that he would do much better with them. He is asking for assistance with obtaining his medications and administration. He has been in a respite bed previously and feels this would be helpful. States that he does usually live with his mother. Departure - Departure Disposition: 01 Home, Self Care Clinical Impression: Psychiatric symptoms Condition: Stable Comments: Follow-up with your counselor and primary care at their earliest available. Your medications are available for pickup at [facility] and had been available for a week or so apparently. Continue with your usual medication doses. Stay well-hydrated. Regular diet. Return as needed. Discharge Date/Time: 03/03/21 11:16
--- OUTSIDE RECORDS SUMMARY | 2021-03-03 01:52 | EXTERNAL MEDICAL SUMMARY RPT | Continuity of Care Document ---
:1985 Demographics Phone Unavailable Preferred Language Unknown Marital Status Unknown Cheondoism Affiliation Unknown Race Unknown Ethnic Group Unknown Author Organization [facility] Address [address] [id number] Phone Social History date description facility [phone]
[2021-03-03 05:24] LABS: BASOPHILS # (AUTO) 0.1 10^3/uL (0.0-0.1); BASOPHILS % (AUTO) 0.9 %; EOSINOPHILS # (AUTO) 0.2 10^3/uL (0.0-0.7); EOSINOPHILS % (AUTO) 2.6 %; HCT - HEMATOCRIT 44.3 % (42.0-52.0); HGB - HEMOGLOBIN 14.9 g/dL (14.0-18.0); LYMPHOCYTES # (AUTO) 3.4 10^3/uL (1.5-3.5); LYMPHOCYTES % (AUTO) 51.1 %; MEAN CORPUSCULAR HEMOGLOBIN 28.7 pg (27.0-31.0); MEAN CORPUSCULAR HGB CONC 33.6 g/dL (32.0-36.0); MEAN CORPUSCULAR VOLUME 85.4 fL (80.0-94.0); MONOCYTES # (AUTO) 0.5 10^3/uL (0.0-1.0); MONOCYTES % (AUTO) 8.2 %; NEUTROPHILS # (AUTO) 2.5 10^3/uL (1.5-6.6); PLT - PLATELET COUNT 204 10^3/uL (130-450); RED BLOOD COUNT 5.19 10^6/uL (4.70-6.10); RED CELL DISTRIBUTION WIDTH 12.7 % (12.0-15.0); WHITE BLOOD COUNT 6.6 x10^3/uL (4.8-10.8)
[2021-03-03 05:37] LABS: ALBUMIN 4.7 g/dL (3.2-5.5); ALBUMIN/GLOBULIN RATIO 1.8 (1.0-2.2); BILIRUBIN,TOTAL 0.5 mg/dL (0.2-1.0); CALCIUM 9.4 mg/dL (8.5-10.3); CREATININE 0.7 mg/dL (0.6-1.2); ETOH - ETHANOL 21.9 mg/dL; POTASSIUM 3.8 mmol/L (3.5-5.0); TOTAL PROTEIN 7.3 g/dL (6.7-8.2)
--- NOTE | 2021-03-03 10:09 | ED Physician Documentation ---
ED Addendum - Addendum Addendum: 03/03/21 10:08 The patient was seen by social work. She contacted his counselor. She also contacted [facility] pharmacy and found that his prescriptions had been available to [facility] picker for the last week or more. She advised laying of this and he said he could go get them filled. He is comfortable going home at this point. No suicidal ideation.
[2021-03-03 11:14] VITALS: BP 144/101
== END 2021-03-03 11:16 | disposition home or self-care (01) ==
LOC: EDUNIT# → ED 00:01
DX: F41.9 Anxiety disorder, unspecified (principal); G47.00 Insomnia, unspecified; F32.9 Major depressive disorder, single episode, unspecified; T50.916A Underdosing of multiple unspecified drugs, medicaments and biological substances, initial encounter; Z91.138 Patient's unintentional underdosing of medication regimen for other reason; F17.200 Nicotine dependence, unspecified, uncomplicated
CPT/HCPCS: 36415; 80053; 80306; 80320; 81001; 81003; 83690; 85025; 87086; 99283; 99284

== ENCOUNTER 2021-03-03 19:07 | Outpatient (CLI) | payer MEDICAID | END 2021-03-03 19:08 | disposition critical access hospital (66) | LOC: EMS 19:07 | DX: R44.0 Auditory hallucinations (principal) | CPT/HCPCS: A0425; A0429 ==

== ENCOUNTER 2021-03-03 19:26 | Emergency (ER) | payer MEDICAID ==
--- OUTSIDE RECORDS SUMMARY | 2021-03-03 19:38 | EXTERNAL MEDICAL SUMMARY RPT | Continuity of Care Document ---
:1985 Demographics Phone Unavailable Preferred Language Unknown Marital Status Unknown Faith Affiliation Unknown Race Unknown Ethnic Group Unknown Author Organization [facility] Address [address] [place] [address] Phone Social History date description facility [phone]
[2021-03-03 22:24] LABS: MUDS CUTOFF CONCENTRATIONS CUTOFF CONC BELOW:
[2021-03-03 22:30] LABS: BILIRUBIN,URINE NEGATIVE (NEGATIVE); GLUCOSE, URINE (UA) NEGATIVE (NEGATIVE); KETONES,URINE (UA) NEGATIVE (NEGATIVE); LEUKOCYTE ESTERASE, URINE NEGATIVE (NEGATIVE); NITRITE,URINE NEGATIVE (NEGATIVE); OCCULT BLOOD,URINE NEGATIVE (NEGATIVE); PROTEIN,URINE NEGATIVE (NEGATIVE); UROBILINOGEN,URINE 0.2 (NORMAL) E.U./dL (NORMAL)
[2021-03-03 22:34] LABS: BASOPHILS # (AUTO) 0.1 10^3/uL (0.0-0.1); BASOPHILS % (AUTO) 0.7 %; EOSINOPHILS # (AUTO) 0.1 10^3/uL (0.0-0.7); EOSINOPHILS % (AUTO) 1.7 %; HCT - HEMATOCRIT 45.9 % (42.0-52.0); HGB - HEMOGLOBIN 15.4 g/dL (14.0-18.0); LYMPHOCYTES # (AUTO) 2.9 10^3/uL (1.5-3.5); LYMPHOCYTES % (AUTO) 38.8 %; MEAN CORPUSCULAR HEMOGLOBIN 28.6 pg (27.0-31.0); MEAN CORPUSCULAR HGB CONC 33.6 g/dL (32.0-36.0); MEAN CORPUSCULAR VOLUME 85.2 fL (80.0-94.0); MEAN PLATELET VOLUME 11.4 fL (7.4-11.4); MONOCYTES # (AUTO) 0.5 10^3/uL (0.0-1.0); MONOCYTES % (AUTO) 7.1 %; NEUTROPHILS # (AUTO) 3.8 10^3/uL (1.5-6.6); NEUTROPHILS % (AUTO) 51.4 %; PLT - PLATELET COUNT 225 10^3/uL (130-450); RED BLOOD COUNT 5.39 10^6/uL (4.70-6.10); WHITE BLOOD COUNT 7.4 x10^3/uL (4.8-10.8)
[2021-03-03 22:35] LABS: CLARITY,URINE CLEAR (CLEAR)
[2021-03-03 22:40] LABS: ALBUMIN/GLOBULIN RATIO 1.9 (1.0-2.2); ALKALINE PHOSPHATASE 63 IU/L (42-121); ALT ALANINE AMINOTRANSFERASE 22 IU/L (10-60); AST ASPARTATE AMINOTRANSFERASE 18 IU/L (10-42); BILIRUBIN,TOTAL 0.7 mg/dL (0.2-1.0); BUN - BLOOD UREA NITROGEN 15 mg/dL (6-20); CALCIUM 10.2 mg/dL (8.5-10.3); CARBON DIOXIDE - CO2 25 mmol/L (21-32); CHLORIDE 104 mmol/L (101-111); CREATININE 0.8 mg/dL (0.6-1.2); ETOH - ETHANOL < 5.0 mg/dL; GFR - MDRD 111 (>89); GLUCOSE 97 mg/dL (70-100); LIPASE 42 U/L (22-51); POTASSIUM 3.8 mmol/L (3.5-5.0); SODIUM 139 mmol/L (135-145); TOTAL PROTEIN 7.6 g/dL (6.7-8.2)
[2021-03-03 22:41] LABS: AMPHETAMINE SCREEN,URINE NEGATIVE (NEGATIVE); BARBITURATE SCREEN,UR NEGATIVE (NEGATIVE); BENZODIAZEPINES SCREEN, URINE POSITIVE (NEGATIVE); COCAINE SCREEN URINE NEGATIVE (NEGATIVE); METHADONE SCREEN, URINE NEGATIVE (NEGATIVE); METHAMPHETAMINES SCREEN, URINE NEGATIVE (NEGATIVE); OPIATE SCREEN, URINE NEGATIVE (NEGATIVE); OXYCODONE SCREEN, URINE NEGATIVE (NEGATIVE); PROPOXYPHENE SCREEN, URINE NEGATIVE (NEGATIVE); THC CANNABINOID SCREEN, URINE POSITIVE (NEGATIVE); TRICYCLIC ANTIDEPRESSANT,URINE NEGATIVE (NEGATIVE)
[2021-03-03] MEDS ORDERED: OLANZapine ODT 5 MG TABLET TL ONE (22:57)
[2021-03-03] MEDS ORDERED: LORazepam 0.5 MG TABLET PO STA (22:57)
[2021-03-03] MEDS ORDERED: HALOPERIDOL 10 MG/5 ML UDC PO STA (22:58)
[2021-03-03] MEDS ORDERED: BENZTROPINE 2 MG TABLET PO STA (22:59)
--- NOTE | 2021-03-04 04:14 | ED Physician Documentation ---
PD HPI MHE - Stated complaint Stated Complaint: MHE - Chief complaint Chief Complaint: MHE - History obtained from History obtained from: Patient - History of Present Illness Primary symptom: Psychosis Timing - onset: How many weeks ago (2) Contributing factors: Off meds Similar symptoms before: Diagnosis (schizoaffective disorder) Recently seen: Emergency Dept, Admitted - Additional information Additional information: 35-year-old male with history of schizoaffective disorder has recently been admitted into a psychiatric facility stayed for 2 days and left without medications. He has subsequently come back to the emergency department with a chief complaint that he wanted to have his medications back and be in a respite bed. We were able to get his medications back to him and he returns to the emergency department this evening with a chief complaint that he is having satanic thoughts intrusions. He denies any suicidal or homicidal ideation. He would like to go back to the psychiatric facility. He believes he needs further stabilization. Review of Systems Constitutional: denies: Fever Eyes: denies: Decreased vision Ears: denies: Ear pain Nose: denies: Rhinorrhea / runny nose, Congestion Throat: denies: Sore throat Cardiac: denies: Chest pain / pressure Respiratory: denies: Dyspnea, Cough GI: denies: Abdominal Pain, Nausea : denies: Dysuria, Frequency Skin: denies: Rash Musculoskeletal: denies: Neck pain, Back pain, Extremity pain Neurologic: denies: Generalized weakness, Focal weakness, Numbness, Difficulty speaking, Seizure, Confused, Headache, Head injury, LOC PD PAST MEDICAL HISTORY - Past Medical History Past Medical History: Yes Cardiovascular: High cholesterol Respiratory: None Neuro: None Endocrine/Autoimmune: None GI: None : Renal insuffiency HEENT: None Psych: Depression, Anxiety, Bipolar disorder, Schizophrenia, Panic attacks, ADD/ADHD, Obsessive compulsive disorder Musculoskeletal: None Derm: None - Past Surgical History Past Surgical History: No - Present Medications Home Medications: Ambulatory Orders Medication Instructions Recorded Confirmed OLANZapine [Zyprexa Zydis] 20 mg PO HS 02/25/21 03/03/21 Benztropine [Cogentin] 0.5 mg PO DAILY 15 Days #3.75 02/26/21 03/03/21 tablet Fluoxetine HCl [Prozac] 60 mg PO QDAC 15 Days #45 tab 04/07/21 04/12/21 Haloperidol Oral Soln [Haldol Oral 10 mg PO BID #150 ml 02/26/21 03/03/21 Soln] LORazepam [Ativan] 0.5 mg PO BID 15 Days #30 tablet 02/26/21 03/03/21 OLANZapine ODT [Zyprexa Odt] 20 mg ORAL QDAC 15 Days #15 tablet 02/26/21 03/03/21 - Allergies Allergies/Adverse Reactions: Allergies Allergy/AdvReac Type Severity Reaction Status Date / Time ziprasidone HCl * AdvReac Severe Hallucinati Verified 03/03/21 19:37 [From Geodon] ons ziprasidone mesylate * AdvReac Severe Hallucinati Verified 03/03/21 19:37 [From Geodon] ons - Social History Does the pt smoke?: Yes Smoking Status: Current every day smoker Does the pt drink ETOH?: Yes Does the pt have substance abuse?: No - Immunizations Immunizations are current?: No Immunizations: TDAP >10years/unknown, Other immun current - POLST Patient has POLST: No PD ED PE NORMAL - Vitals Vital signs reviewed: Yes (Tachycardic and hypertensive) - General General: Alert and oriented X 3, No acute distress, Well developed/nourished - HEENT HEENT: Atraumatic, PERRL, EOMI - Neck Neck: Supple, no meningeal sign, No bony TTP - Cardiac Cardiac: RRR, No murmur - Respiratory Respiratory: No respiratory distress, Clear bilaterally - Abdomen Abdomen: Soft, Non tender - Back Back: No CVA TTP, No spinal TTP - Derm Derm: Normal color, Warm and dry, No rash - Extremities Extremities: No deformity, No edema - Neuro Neuro: Alert and oriented X 3, 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, No motor deficit, No sensory deficit, Normal speech Eye Opening: Spontaneous Motor: Obeys Commands Verbal: Oriented GCS Score: 15 - Psych Psych: Normal mood, Normal affect Results - Vitals Vitals: Vital Signs - 24 hr 03/03/21 03/03/21 19:37 22:13 Temperature 36.6 C 36.3 C L Heart Rate 112 H 86 Respiratory 16 18 Rate Blood Pressure 143/100 H 142/98 H O2 Saturation 97 97 Oxygen O2 Source Room air - Labs Labs: Laboratory Tests 03/03/21 03/03/21 03/03/21 22:16 22:21 22:21 WBC 7.4 RBC 5.39 Hgb 15.4 Hct 45.9 MCV 85.2 MCH 28.6 MCHC 33.6 RDW 13.0 Plt Count 225 MPV 11.4 Neut # (Auto) 3.8 Lymph # (Auto) 2.9 [place] # (Auto) 0.5 Eos # (Auto) 0.1 Baso # (Auto) 0.1 Absolute Nucleated RBC 0.00 Nucleated RBC % 0.0 Sodium 139 Potassium 3.8 Chloride 104 Carbon Dioxide 25 Anion Gap 10.0 BUN 15 Creatinine 0.8 Estimated GFR (MDRD) 111 Glucose 97 Calcium 10.2 Total Bilirubin 0.7 AST 18 ALT 22 Alkaline Phosphatase 63 Total Protein 7.6 Albumin 5.0 Globulin 2.6 Albumin/Globulin Ratio 1.9 Lipase 42 Urine Color YELLOW Urine Clarity CLEAR Urine pH 6.0 Ur Specific [place] 1.025 Urine Protein NEGATIVE Urine Glucose (UA) NEGATIVE Urine Ketones NEGATIVE Urine Occult Blood NEGATIVE Urine Nitrite NEGATIVE Urine Bilirubin NEGATIVE Urine Urobilinogen 0.2 (NORMAL) Ur Leukocyte Esterase NEGATIVE Ur Microscopic Review NOT INDICATED Urine Culture Comments NOT INDICATED Urine Opiates Screen NEGATIVE Ur Oxycodone Screen NEGATIVE Urine Methadone Screen NEGATIVE Ur Propoxyphene Screen NEGATIVE Ur Barbiturates Screen NEGATIVE Ur Tricyclics Screen NEGATIVE Ur Phencyclidine Scrn NEGATIVE Ur Amphetamine Screen NEGATIVE U Methamphetamines Scrn NEGATIVE U Benzodiazepines Scrn POSITIVE H Urine Cocaine Screen NEGATIVE U Cannabinoids Screen POSITIVE H Ethyl Alcohol < 5.0 PD MEDICAL DECISION MAKING - ED course Complexity details: reviewed old records, reviewed results, re-evaluated patient, considered differential, d/w patient ED course: 35-year-old male with history of schizoaffective disorder has been off of his meds for several days and despite getting them back he is wanting to go back to the psychiatric facility. He is willing to stay in the emergency department overnight to talk to social work about placement. At shift change the patient is awaiting evaluation by the social worker palliative care for return to [facility] and care is turned over to Dr. Grover. Departure - Departure Clinical Impression: Schizophrenia Psychosis Qualifiers: Psychosis type: schizoaffective disorder Schizoaffective disorder type: depressive Qualified Code(s): F25.1 - Schizoaffective disorder, depressive type Condition: Stable
[2021-03-04 06:00] VITALS: BP 130/78
--- NOTE | 2021-03-04 13:28 | ED Physician Documentation ---
ED Addendum - Addendum Addendum: 03/04/21 13:27 The patient had rested here in the ER and slept overnight. He was feeling improved this morning. Social work talked with him and at this point the patient states he did not feel that he needed hospitalizing. He was offered respite and declined. He states he is feeling improved at this point and would prefer to be discharged. He had picked up his medication at [facility] yesterday and had started them last evening. This may be contributing to some improvement. The patient is not suicidal and is not acutely psychotic. At this point he may choose to be discharged comfortably. Disposition: The patient is discharged home in stable condition. Diagnoses: 1. History of schizophrenia 2. Acute psychosis, improving 3. Anxiety
== END 2021-03-04 14:00 | disposition home or self-care (01) ==
LOC: EDUNIT# → ED 19:26
DX: F25.1 Schizoaffective disorder, depressive type (principal); F17.200 Nicotine dependence, unspecified, uncomplicated; F41.9 Anxiety disorder, unspecified; G47.00 Insomnia, unspecified; F32.9 Major depressive disorder, single episode, unspecified; T50.916A Underdosing of multiple unspecified drugs, medicaments and biological substances, initial encounter; Z91.138 Patient's unintentional underdosing of medication regimen for other reason
CPT/HCPCS: 36415; 80053; 80306; 80320; 81003; 83690; 85025; 99283; 99284; A9270; 81001; 87086

== ENCOUNTER 2021-03-07 06:01 | Outpatient (CLI) | payer MEDICAID | END 2021-03-07 06:02 | disposition critical access hospital (66) | LOC: EMS 06:01 | DX: R44.0 Auditory hallucinations (principal) | CPT/HCPCS: A0425; A0429 ==

== ENCOUNTER 2021-03-07 06:20 | Emergency (ER) | payer MEDICAID ==
[2021-03-07] MEDS ORDERED: OLANZapine ODT 5 MG TABLET TL ONE (06:32)
--- NOTE | 2021-03-07 06:32 | ED Physician Documentation ---
PD HPI MHE - Stated complaint Stated Complaint: MHE - History obtained from History obtained from: Patient, EMS - History of Present Illness Primary symptom: Psychosis (he states he is hearing voices and have not been able to sleep. No illness. No recent change in meds. Was hospitalized for same last week, and in hospital 3 days. He says he felt better at time of discharge there.). No: Suicidal ideation, Suicide attempt Timing - onset: How many days ago (2) Contributing factors: No: Substance abuse - ETOH, Substance abuse - drugs, Off meds Similar symptoms before: Diagnosis (schizoaffective disorder) Recently seen: Emergency Dept, Admitted (last week for similar symptoms, then was in Crisis Bed few days ago.) Review of Systems Constitutional: denies: Fever, Chills Nose: denies: Rhinorrhea / runny nose, Congestion Throat: denies: Sore throat Respiratory: denies: Cough GI: denies: Abdominal Pain, Nausea, Vomiting, Diarrhea Neurologic: reports: Generalized weakness. denies: Focal weakness, Numbness, Near syncope Psychiatric: reports: Hallucinations. denies: Depressed, Suicidal PD PAST MEDICAL HISTORY - Past Medical History Cardiovascular: High cholesterol Respiratory: None Neuro: None Endocrine/Autoimmune: None GI: None : Renal insuffiency HEENT: None Psych: Depression, Anxiety, Bipolar disorder, Schizophrenia, Panic attacks, ADD/ADHD, Obsessive compulsive disorder Musculoskeletal: None Derm: None - Past Surgical History Past Surgical History: No - Present Medications Home Medications: Ambulatory Orders Medication Instructions Recorded Confirmed OLANZapine [Zyprexa Zydis] 20 mg PO HS 02/25/21 03/08/21 Benztropine [Cogentin] 0.5 mg PO DAILY 15 Days #3.75 02/26/21 03/08/21 tablet Fluoxetine HCl [Prozac] 60 mg PO QDAC 15 Days #45 tab 02/26/21 03/08/21 Haloperidol Oral Soln [Haldol Oral 10 mg PO BID #150 ml 02/26/21 03/08/21 Soln] LORazepam [Ativan] 0.5 mg PO BID 15 Days #30 tablet 02/26/21 03/08/21 OLANZapine ODT [Zyprexa Odt] 20 mg ORAL QDAC 15 Days #15 tablet 02/26/21 03/08/21 - Allergies Allergies/Adverse Reactions: Allergies Allergy/AdvReac Type Severity Reaction Status Date / Time ziprasidone HCl * AdvReac Severe Hallucinati Verified 03/08/21 00:45 [From [facility]] ons ziprasidone mesylate * AdvReac Severe Hallucinati Verified 03/08/21 00:45 [From [facility]] ons - Social History Does the pt smoke?: Yes Smoking Status: Current every day smoker Does the pt drink ETOH?: Yes Does the pt have substance abuse?: No - Immunizations Immunizations are current?: No Immunizations: TDAP >10years/unknown, Other immun current - POLST Patient has POLST: No PD ED PE NORMAL - Vitals Vital signs reviewed: Yes - General General: Alert and oriented X 3, No acute distress, Well developed/nourished - HEENT HEENT: Pharynx benign - Neck Neck: Supple, no meningeal sign, No adenopathy - Cardiac Cardiac: RRR, No murmur - Respiratory Respiratory: Clear bilaterally - Abdomen Abdomen: Soft, Non tender - Derm Derm: Normal color, Warm and dry - Extremities Extremities: No tenderness to palpate, Normal ROM s pain - Neuro Neuro: Alert and oriented X 3, No motor deficit, Normal speech Eye Opening: Spontaneous Motor: Obeys Commands Verbal: Oriented GCS Score: 15 Results - Vitals Vitals: Vital Signs - 24 hr 03/07/21 03/07/21 03/07/21 06:25 06:29 13:33 Temperature 36.4 C L 36.4 C L 36.5 C Heart Rate 90 90 80 Respiratory 20 20 18 Rate Blood Pressure 147/106 H 147/106 H 160/80 H O2 Saturation 98 98 100 Oxygen O2 Source Room air - Labs Labs: Laboratory Tests 03/07/21 03/07/21 03/07/21 06:20 06:34 06:34 WBC 7.4 RBC 5.16 Hgb 14.8 Hct 43.9 MCV 85.1 MCH 28.7 MCHC 33.7 RDW 12.9 Plt Count 208 MPV 11.0 Neut # (Auto) 5.3 Lymph # (Auto) 1.5 [place] # (Auto) 0.5 Eos # (Auto) 0.0 Baso # (Auto) 0.1 Absolute Nucleated RBC 0.00 Nucleated RBC % 0.0 Sodium 141 Potassium 3.9 Chloride 108 Carbon Dioxide 25 Anion Gap 8.0 BUN 7 Creatinine 0.7 Estimated GFR (MDRD) 129 Glucose 98 Calcium 9.6 Total Bilirubin 0.7 AST 21 ALT 21 Alkaline Phosphatase 65 Total Protein 7.5 Albumin 5.0 Globulin 2.5 Albumin/Globulin Ratio 2.0 Lipase 42 TSH Urine Color YELLOW Urine Clarity CLEAR Urine pH 8.5 H Ur Specific [place] 1.015 Urine Protein NEGATIVE Urine Glucose (UA) NEGATIVE Urine Ketones NEGATIVE Urine Occult Blood NEGATIVE Urine Nitrite NEGATIVE Urine Bilirubin NEGATIVE Urine Urobilinogen 0.2 (NORMAL) Ur Leukocyte Esterase NEGATIVE Ur Microscopic Review NOT INDICATED Urine Culture Comments NOT INDICATED Nasal Adenovirus (PCR) Nasal B. parapertussis DNA (PCR) Nasal Coronavir 229E PCR Nasal Coronavir HKU1 PCR Nasal Coronavir NL63 PCR Nasal Coronavir OC43 PCR Nasal Enterovir/Rhinovir PCR Nasal Influenza B PCR Nasal Influenza A PCR Nasal Parainfluen 1 PCR Nasal Parainfluen 2 PCR Nasal Parainfluen 3 PCR Nasal Parainfluen 4 PCR Nasal RSV (PCR) Nasal B.pertussis DNA PCR Nasal C.pneumoniae (PCR) Gabe Human Metapneumo PCR Nasal M.pneumoniae (PCR) Nasal SARS-CoV-2 (PCR) Salicylates < 6.0 Urine Opiates Screen NEGATIVE Ur Oxycodone Screen NEGATIVE Urine Methadone Screen NEGATIVE Ur Propoxyphene Screen NEGATIVE Acetaminophen < 10 L Ur Barbiturates Screen NEGATIVE Ur Tricyclics Screen NEGATIVE Ur Phencyclidine Scrn NEGATIVE Ur Amphetamine Screen NEGATIVE U Methamphetamines Scrn NEGATIVE U Benzodiazepines Scrn POSITIVE H Urine Cocaine Screen NEGATIVE U Cannabinoids Screen POSITIVE H Ethyl Alcohol < 5.0 03/07/21 03/07/21 06:34 06:34 WBC RBC Hgb Hct MCV MCH MCHC RDW Plt Count MPV Neut # (Auto) Lymph # (Auto) [place] # (Auto) Eos # (Auto) Baso # (Auto) Absolute Nucleated RBC Nucleated RBC % Sodium Potassium Chloride Carbon Dioxide Anion Gap BUN Creatinine Estimated GFR (MDRD) Glucose Calcium Total Bilirubin AST ALT Alkaline Phosphatase Total Protein Albumin Globulin Albumin/Globulin Ratio Lipase TSH 1.19 Urine Color Urine Clarity Urine pH Ur Specific [place] Urine Protein Urine Glucose (UA) Urine Ketones Urine Occult Blood Urine Nitrite Urine Bilirubin Urine Urobilinogen Ur Leukocyte Esterase Ur Microscopic Review Urine Culture Comments Nasal Adenovirus (PCR) NOT DETECTED Nasal B. parapertussis DNA (PCR) NOT DETECTED Nasal Coronavir 229E PCR NOT DETECTED Nasal Coronavir HKU1 PCR NOT DETECTED Nasal Coronavir NL63 PCR NOT DETECTED Nasal Coronavir OC43 PCR NOT DETECTED Nasal Enterovir/Rhinovir PCR NOT DETECTED Nasal Influenza B PCR NOT DETECTED Nasal Influenza A PCR NOT DETECTED Nasal Parainfluen 1 PCR NOT DETECTED Nasal Parainfluen 2 PCR NOT DETECTED Nasal Parainfluen 3 PCR NOT DETECTED Nasal Parainfluen 4 PCR NOT DETECTED Nasal RSV (PCR) NOT DETECTED Nasal B.pertussis DNA PCR NOT DETECTED Nasal C.pneumoniae (PCR) NOT DETECTED Gabe Human Metapneumo PCR NOT DETECTED Nasal M.pneumoniae (PCR) NOT DETECTED Nasal SARS-CoV-2 (PCR) NOT DETECTED Salicylates Urine Opiates Screen Ur Oxycodone Screen Urine Methadone Screen Ur Propoxyphene Screen Acetaminophen Ur Barbiturates Screen Ur Tricyclics Screen Ur Phencyclidine Scrn Ur Amphetamine Screen U Methamphetamines Scrn U Benzodiazepines Scrn Urine Cocaine Screen U Cannabinoids Screen Ethyl Alcohol PD MEDICAL DECISION MAKING - ED course Complexity details: considered differential (S looked for placement but facilities not accepted pt. She talked with his counselor who will see him soon. Pt okay with discharge.), d/w patient Departure - Departure Disposition: 01 Home, Self Care Clinical Impression: Acute exacerbation of psychosis, Schizophrenia Clinical Impression: (Ruled Out): Suicidal ideation Condition: Stable Record reviewed to determine appropriate education?: Yes Comments: Continue with your current medications. See your prescribing provider as scheduled. Stay well-hydrated. Return as needed. Discharge Date/Time: 03/07/21 13:33
[2021-03-07 06:39] LABS: MUDS CUTOFF CONCENTRATIONS CUTOFF CONC BELOW:
[2021-03-07 06:40] LABS: BASOPHILS # (AUTO) 0.1 10^3/uL (0.0-0.1); BASOPHILS % (AUTO) 0.7 %; EOSINOPHILS % (AUTO) 0.5 %; HCT - HEMATOCRIT 43.9 % (42.0-52.0); HGB - HEMOGLOBIN 14.8 g/dL (14.0-18.0); LYMPHOCYTES # (AUTO) 1.5 10^3/uL (1.5-3.5); LYMPHOCYTES % (AUTO) 19.5 %; MEAN CORPUSCULAR HEMOGLOBIN 28.7 pg (27.0-31.0); MEAN CORPUSCULAR HGB CONC 33.7 g/dL (32.0-36.0); MEAN CORPUSCULAR VOLUME 85.1 fL (80.0-94.0); MONOCYTES # (AUTO) 0.5 10^3/uL (0.0-1.0); MONOCYTES % (AUTO) 7.3 %; NEUTROPHILS # (AUTO) 5.3 10^3/uL (1.5-6.6); NEUTROPHILS % (AUTO) 71.7 %; PLT - PLATELET COUNT 208 10^3/uL (130-450); RED BLOOD COUNT 5.16 10^6/uL (4.70-6.10); RED CELL DISTRIBUTION WIDTH 12.9 % (12.0-15.0); WHITE BLOOD COUNT 7.4 x10^3/uL (4.8-10.8)
[2021-03-07 06:43] LABS: BILIRUBIN,URINE NEGATIVE (NEGATIVE); GLUCOSE, URINE (UA) NEGATIVE (NEGATIVE); KETONES,URINE (UA) NEGATIVE (NEGATIVE); LEUKOCYTE ESTERASE, URINE NEGATIVE (NEGATIVE); NITRITE,URINE NEGATIVE (NEGATIVE); OCCULT BLOOD,URINE NEGATIVE (NEGATIVE); PH,URINE 8.5 PH (5.0-7.5); PROTEIN,URINE NEGATIVE (NEGATIVE); UROBILINOGEN,URINE 0.2 (NORMAL) E.U./dL (NORMAL)
[2021-03-07 06:46] LABS: CLARITY,URINE CLEAR (CLEAR)
--- OUTSIDE RECORDS SUMMARY | 2021-03-07 06:46 | EXTERNAL MEDICAL SUMMARY RPT | Continuity of Care Document ---
:1985 Demographics Phone Unavailable Preferred Language Unknown Marital Status Unknown Taoist Affiliation Unknown Race Unknown Ethnic Group Unknown Author Organization [facility] Address [address] [phone] Phone Social History date description facility [phone]
[2021-03-07 06:56] LABS: BENZODIAZEPINES SCREEN, URINE POSITIVE (NEGATIVE); THC CANNABINOID SCREEN, URINE POSITIVE (NEGATIVE)
[2021-03-07 06:57] LABS: AMPHETAMINE SCREEN,URINE NEGATIVE (NEGATIVE); BARBITURATE SCREEN,UR NEGATIVE (NEGATIVE); COCAINE SCREEN URINE NEGATIVE (NEGATIVE); METHADONE SCREEN, URINE NEGATIVE (NEGATIVE); METHAMPHETAMINES SCREEN, URINE NEGATIVE (NEGATIVE); OPIATE SCREEN, URINE NEGATIVE (NEGATIVE); OXYCODONE SCREEN, URINE NEGATIVE (NEGATIVE); PROPOXYPHENE SCREEN, URINE NEGATIVE (NEGATIVE); TRICYCLIC ANTIDEPRESSANT,URINE NEGATIVE (NEGATIVE)
[2021-03-07 07:14] LABS: ACETAMINOPHEN < 10 ug/mL (10-30); ALKALINE PHOSPHATASE 65 IU/L (42-121); ALT ALANINE AMINOTRANSFERASE 21 IU/L (10-60); AST ASPARTATE AMINOTRANSFERASE 21 IU/L (10-42); BILIRUBIN,TOTAL 0.7 mg/dL (0.2-1.0); BUN - BLOOD UREA NITROGEN 7 mg/dL (6-20); CALCIUM 9.6 mg/dL (8.5-10.3); CARBON DIOXIDE - CO2 25 mmol/L (21-32); CHLORIDE 108 mmol/L (101-111); CREATININE 0.7 mg/dL (0.6-1.2); ETOH - ETHANOL < 5.0 mg/dL; GFR - MDRD 129 (>89); GLUCOSE 98 mg/dL (70-100); LIPASE 42 U/L (22-51); POTASSIUM 3.9 mmol/L (3.5-5.0); SALICYLATE < 6.0 mg/dL; SODIUM 141 mmol/L (135-145); TOTAL PROTEIN 7.5 g/dL (6.7-8.2)
[2021-03-07 07:31] LABS: B. PARAPERTUSSIS- RESP PCR PAN NOT DETECTED; B. PERTUSSIS- RESP PCR PANEL NOT DETECTED; C. PNEUMONIAE- RESP PCR PANEL NOT DETECTED; CORONAVIRUS 229E-RESP PCR NOT DETECTED; CORONAVIRUS HKU1-RESP PCR NOT DETECTED; CORONAVIRUS NL63-RESP PCR NOT DETECTED; CORONAVIRUS OC43-RESP PCR NOT DETECTED; HUMAN METAPNEUMOVIRUS NOT DETECTED; INFLUENZA A- RESP PCR PANEL NOT DETECTED; INFLUENZA B - RESP PCR PANEL NOT DETECTED; M. PNEUMONIAE- RESP PCR PANEL NOT DETECTED; PARAINFLUENZA VIRUS 1 NOT DETECTED; PARAINFLUENZA VIRUS 2 NOT DETECTED; PARAINFLUENZA VIRUS 3 NOT DETECTED; PARAINFLUENZA VIRUS 4 NOT DETECTED; RHINOVIRUS/ENTEROVIRUS NOT DETECTED; RSV- RESP PCR PANEL NOT DETECTED; SARS-CoV-2 -RESP PCR PANEL NOT DETECTED
[2021-03-07 13:35] VITALS: BP 160/80
== END 2021-03-07 13:33 | disposition home or self-care (01) ==
LOC: EDUNIT# → ED 06:20
DX: F29 Unspecified psychosis not due to a substance or known physiological condition (principal); F20.9 Schizophrenia, unspecified; F17.200 Nicotine dependence, unspecified, uncomplicated; Z20.822 Contact with and (suspected) exposure to COVID-19
CPT/HCPCS: 0202U; 36415; 80053; 80306; 80307; 80320; 80329; 81003; 83690; 84443; 85025; 99283; 99284; A9270; 81001; 87086

== ENCOUNTER 2021-03-08 00:23 | Outpatient (CLI) | payer MEDICAID | END 2021-03-08 00:24 | disposition critical access hospital (66) | LOC: EMS 00:23 | DX: R44.0 Auditory hallucinations (principal) | CPT/HCPCS: A0425; A0429 ==

== ENCOUNTER 2021-03-08 00:38 | Emergency (ER) | payer MEDICAID ==
--- OUTSIDE RECORDS SUMMARY | 2021-03-08 00:53 | EXTERNAL MEDICAL SUMMARY RPT | Continuity of Care Document ---
:1985 Demographics Phone Unavailable Preferred Language Unknown Marital Status Unknown Christian Affiliation Unknown Race Unknown Ethnic Group Unknown Author Organization [facility] Address [address] [place] [address] Phone Social History date description facility [phone]
[2021-03-08] MEDS ORDERED: OLANZapine ODT 5 MG TABLET TL ONE (02:40)
--- NOTE | 2021-03-08 05:06 | ED Physician Documentation ---
History of Present Illness - Stated complaint Stated Complaint: MHE - Chief complaint Chief Complaint: MHE - History obtained from History obtained from: Patient - Additonal information Additional information: 35-year-old man presents stating that he is having hallucinations. Patient was just seen here a few hours ago for psych eval and discharged. When asked if anything is changed since that time he is unable to answer. denies SI/HI. Review of Systems Unable to obtain: Uncooperative PD PAST MEDICAL HISTORY - Past Medical History Past Medical History: Yes Cardiovascular: High cholesterol Respiratory: None Neuro: None Endocrine/Autoimmune: None GI: None : Renal insuffiency HEENT: None Psych: Depression, Anxiety, Bipolar disorder, Schizophrenia, Panic attacks, ADD/ADHD, Obsessive compulsive disorder Musculoskeletal: None Derm: None - Past Surgical History Past Surgical History: No - Present Medications Home Medications: Ambulatory Orders Medication Instructions Recorded Confirmed OLANZapine [Zyprexa Zydis] 20 mg PO HS 02/25/21 03/08/21 Benztropine [Cogentin] 0.5 mg PO DAILY 15 Days #3.75 02/26/21 03/08/21 tablet Fluoxetine HCl [Prozac] 60 mg PO QDAC 15 Days #45 tab 02/26/21 03/08/21 Haloperidol Oral Soln [Haldol Oral 10 mg PO BID #150 ml 02/26/21 03/08/21 Soln] LORazepam [Ativan] 0.5 mg PO BID 15 Days #30 tablet 02/26/21 03/08/21 OLANZapine ODT [Zyprexa Odt] 20 mg ORAL QDAC 15 Days #15 tablet 02/26/21 03/08/21 - Allergies Allergies/Adverse Reactions: Allergies Allergy/AdvReac Type Severity Reaction Status Date / Time ziprasidone HCl * AdvReac Severe Hallucinati Verified 03/08/21 00:45 [From [facility]] ons ziprasidone mesylate * AdvReac Severe Hallucinati Verified 03/08/21 00:45 [From [facility]] ons - Social History Does the pt smoke?: Yes Smoking Status: Current every day smoker Does the pt drink ETOH?: Yes Does the pt have substance abuse?: No - Immunizations Immunizations are current?: No Immunizations: TDAP >10years/unknown, Other immun current - POLST Patient has POLST: No PD ED PE NORMAL - Vitals Vital signs reviewed: Yes - General General: Alert and oriented X 3, No acute distress, Well developed/nourished - HEENT HEENT: Atraumatic, PERRL, EOMI - Derm Derm: Normal color, Warm and dry - Extremities Extremities: No deformity - Neuro Neuro: Alert and oriented X 3 - Psych Psych: Normal mood, Normal affect, Other (patient appears to have linear thought process. good eye contact. does not appear to be responding to internal stimuli. ) Results - Vitals Vitals: Vital Signs - 24 hr 03/08/21 03/08/21 03/08/21 00:45 00:48 01:48 Temperature 36.7 C 36.7 C Heart Rate 98 98 Respiratory 16 16 15 Rate Blood Pressure 136/99 H 136/99 H O2 Saturation 99 99 03/08/21 03/08/21 03/08/21 02:44 03:31 04:02 Temperature Heart Rate Respiratory 16 14 13 Rate Blood Pressure O2 Saturation 03/08/21 03/08/21 05:16 05:23 Temperature Heart Rate Respiratory 13 16 Rate Blood Pressure O2 Saturation Oxygen O2 Source Room air PD MEDICAL DECISION MAKING - ED course ED course: 35-year-old man with history of schizophrenia presents requesting his psych meds. He has been sleeping comfortably overnight. 5:30am - upon my eval the patient was easy to arouse and states the zyprexa helped him. Feeling better and amenable to discharge with outpatient follow up . Departure - Departure Disposition: 01 Home, Self Care Clinical Impression: Schizophrenia Condition: Good Instructions: ED Schizophrenia General Comments: You were seen in the emergency department for mental health evaluation. I am glad that you are feeling better. Please return to the emergency department if you have any new or worsening symptoms or have other concerns. Follow-up with your psychiatrist.
[2021-03-08 06:20] VITALS: BP 129/82
== END 2021-03-08 06:19 | disposition home or self-care (01) ==
LOC: EDUNIT# → ED 00:38
DX: F20.9 Schizophrenia, unspecified (principal); F17.200 Nicotine dependence, unspecified, uncomplicated
CPT/HCPCS: 99281; 99283; A9270

== ENCOUNTER 2021-03-10 01:29 | Outpatient (CLI) | payer MEDICAID | END 2021-03-10 01:30 | disposition critical access hospital (66) | LOC: EMS 01:29 | DX: R44.0 Auditory hallucinations (principal) | CPT/HCPCS: A0425; A0429 ==

== ENCOUNTER 2021-03-10 01:45 | Emergency (ER) | payer MEDICAID ==
--- NOTE | 2021-03-10 01:52 | ED Physician Documentation ---
PD HPI MHE - Stated complaint Stated Complaint: SI - Chief complaint Chief Complaint: MHE - History obtained from History obtained from: Patient, EMS - History of Present Illness Primary symptom: Psychosis (he states he is still hearing voices and has not improved. He did see his counselor last week. Has been to ER several times this month for this. Was hospitalized one of those, without med change according to patient.) Timing - onset: How many weeks ago (few weeks of worsening auditory hallucinations, anxiety, poor sleep.) Contributing factors: Substance abuse - drugs. No: Substance abuse - ETOH, Off meds (he says he is taking his meds regularly.), Out of meds Similar symptoms before: Diagnosis (schizophrenia. ADHD.) Recently seen: Emergency Dept Review of Systems Constitutional: denies: Fever Nose: denies: Rhinorrhea / runny nose, Congestion Throat: denies: Sore throat Cardiac: denies: Chest pain / pressure Respiratory: denies: Cough GI: denies: Abdominal Pain, Nausea, Vomiting Skin: denies: Abrasion (s), Laceration (s) Neurologic: reports: Generalized weakness. denies: Focal weakness, Numbness, Altered mental status, Headache, Head injury Psychiatric: reports: Hallucinations, Anxiety, Insomnia PD PAST MEDICAL HISTORY - Past Medical History Cardiovascular: High cholesterol Respiratory: None Neuro: None Endocrine/Autoimmune: None GI: None : Renal insuffiency HEENT: None Psych: Depression, Anxiety, Bipolar disorder, Schizophrenia, Panic attacks, ADD/ADHD, Obsessive compulsive disorder Musculoskeletal: None Derm: None - Past Surgical History Past Surgical History: No - Present Medications Home Medications: Ambulatory Orders Medication Instructions Recorded Confirmed OLANZapine [Zyprexa Zydis] 20 mg PO HS 02/25/21 03/08/21 Benztropine [Cogentin] 0.5 mg PO DAILY 15 Days #3.75 02/26/21 03/08/21 tablet Fluoxetine HCl [Prozac] 60 mg PO QDAC 15 Days #45 tab 02/26/21 03/08/21 Haloperidol Oral Soln [Haldol Oral 10 mg PO BID #150 ml 02/26/21 03/08/21 Soln] LORazepam [Ativan] 0.5 mg PO BID 15 Days #30 tablet 02/26/21 03/08/21 OLANZapine ODT [Zyprexa Odt] 20 mg ORAL QDAC 15 Days #15 tablet 02/26/21 03/08/21 - Allergies Allergies/Adverse Reactions: Allergies Allergy/AdvReac Type Severity Reaction Status Date / Time ziprasidone HCl * AdvReac Severe Hallucinati [facility] 03/10[facility]21 [facility] ziprasidone mesylate * AdvReac Severe Hallucinati Verified 03/10/21 01:55 [facility] ons - Social History Does the pt smoke?: Yes Smoking Status: Current every day smoker Does the pt drink ETOH?: Yes Does the pt have substance abuse?: No - Immunizations Immunizations are current?: No Immunizations: TDAP >10years/unknown, Other immun current - POLST Patient has POLST: No PD ED PE NORMAL - Vitals Vital signs reviewed: Yes - General General: Alert and oriented X 3, Well developed/nourished, Other (anxious. Cooperative. Answers questions directly. ) - HEENT HEENT: Pharynx benign - Neck Neck: Supple, no meningeal sign - Cardiac Cardiac: No murmur. No: RRR (regular but tachycardic. ) - Respiratory Respiratory: Clear bilaterally - Abdomen Abdomen: Soft, Non tender - Derm Derm: Normal color, Warm and dry - Neuro Neuro: Alert and oriented X 3, No motor deficit, Normal speech Eye Opening: Spontaneous Motor: Obeys Commands Verbal: Oriented GCS Score: 15 - Psych Psych: No: Normal affect (anxious) Results - Vitals Vitals: Vital Signs - 24 hr 03/10/21 01:45 Temperature 36.8 C Heart Rate 120 H Respiratory 16 Rate Blood Pressure 139/98 H O2 Saturation 100 Oxygen O2 Source Room air - Labs Labs: Laboratory Tests 03/10/21 03/10/21 03/10/21 01:41 01:49 01:49 WBC 10.8 RBC 5.37 Hgb 15.4 Hct 44.9 MCV 83.6 MCH 28.7 MCHC 34.3 RDW 12.8 Plt Count 224 MPV 11.0 Neut # (Auto) 7.8 H Lymph # (Auto) 2.0 [place] # (Auto) 0.9 Eos # (Auto) 0.0 Baso # (Auto) 0.1 Absolute Nucleated RBC 0.00 Nucleated RBC % 0.0 Sodium 133 L Potassium 3.4 L Chloride 99 L Carbon Dioxide 22 Anion Gap 12.0 BUN 22 H Creatinine 0.8 Estimated GFR (MDRD) 111 Glucose 104 H Calcium 9.7 Total Bilirubin 1.1 H AST 19 ALT 22 Alkaline Phosphatase 73 Total Protein 7.9 Albumin 5.1 Globulin 2.8 Albumin/Globulin Ratio 1.8 Lipase 20 L TSH Urine Color YELLOW Urine Clarity CLEAR Urine pH 6.0 Ur Specific [place] >=1.030 H Urine Protein TRACE Urine Glucose (UA) NEGATIVE Urine Ketones 15 H Urine Occult Blood NEGATIVE Urine Nitrite NEGATIVE Urine Bilirubin NEGATIVE Urine Urobilinogen 1 (NORMAL) Ur Leukocyte Esterase NEGATIVE Ur Microscopic Review NOT INDICATED Urine Culture Comments NOT INDICATED Salicylates < 6.0 Urine Opiates Screen NEGATIVE Ur Oxycodone Screen NEGATIVE Urine Methadone Screen NEGATIVE Ur Propoxyphene Screen NEGATIVE Acetaminophen < 10 L Ur Barbiturates Screen NEGATIVE Ur Tricyclics Screen NEGATIVE Ur Phencyclidine Scrn NEGATIVE Ur Amphetamine Screen NEGATIVE U Methamphetamines Scrn NEGATIVE U Benzodiazepines Scrn NEGATIVE Urine Cocaine Screen NEGATIVE U Cannabinoids Screen POSITIVE H Ethyl Alcohol < 5.0 03/10/21 01:49 WBC RBC Hgb Hct MCV MCH MCHC RDW Plt Count MPV Neut # (Auto) Lymph # (Auto) [place] # (Auto) Eos # (Auto) Baso # (Auto) Absolute Nucleated RBC Nucleated RBC % Sodium Potassium Chloride Carbon Dioxide Anion Gap BUN Creatinine Estimated GFR (MDRD) Glucose Calcium Total Bilirubin AST ALT Alkaline Phosphatase Total Protein Albumin Globulin Albumin/Globulin Ratio Lipase TSH 0.78 Urine Color Urine Clarity Urine pH Ur Specific [place] Urine Protein Urine Glucose (UA) Urine Ketones Urine Occult Blood Urine Nitrite Urine Bilirubin Urine Urobilinogen Ur Leukocyte Esterase Ur Microscopic Review Urine Culture Comments Salicylates Urine Opiates Screen Ur Oxycodone Screen Urine Methadone Screen Ur Propoxyphene Screen Acetaminophen Ur Barbiturates Screen Ur Tricyclics Screen Ur Phencyclidine Scrn Ur Amphetamine Screen U Methamphetamines Scrn U Benzodiazepines Scrn Urine Cocaine Screen U Cannabinoids Screen Ethyl Alcohol PD MEDICAL DECISION MAKING - ED course Complexity details: re-evaluated patient (Patient did relax and sleep for the remainder of the night. He had been given p.o. Zyprexa which is one of his usual medicines. Social work will see him this morning and help with disposition.), considered differential (patient with auditory hallucinations, anxiety, poor sleep. Requesting hospitalization and med changes. Will have him see SW in morning as they are not here at this time of evening. ), d/w patient
[2021-03-10] MEDS ORDERED: OLANZapine ODT 5 MG TABLET TL ONE (01:53)
[2021-03-10 01:59] LABS: MUDS CUTOFF CONCENTRATIONS CUTOFF CONC BELOW:
[2021-03-10 02:01] LABS: GLUCOSE, URINE (UA) NEGATIVE (NEGATIVE); KETONES,URINE (UA) 15 mg/dL (NEGATIVE); LEUKOCYTE ESTERASE, URINE NEGATIVE (NEGATIVE); NITRITE,URINE NEGATIVE (NEGATIVE); OCCULT BLOOD,URINE NEGATIVE (NEGATIVE); PROTEIN,URINE TRACE mg/dL (NEGATIVE); UROBILINOGEN,URINE 1 (NORMAL) E.U./dL (NORMAL)
[2021-03-10 02:08] LABS: CLARITY,URINE CLEAR (CLEAR)
[2021-03-10 02:09] LABS: BASOPHILS # (AUTO) 0.1 10^3/uL (0.0-0.1); BASOPHILS % (AUTO) 0.6 %; EOSINOPHILS % (AUTO) 0.1 %; HCT - HEMATOCRIT 44.9 % (42.0-52.0); HGB - HEMOGLOBIN 15.4 g/dL (14.0-18.0); LYMPHOCYTES % (AUTO) 18.4 %; MEAN CORPUSCULAR HEMOGLOBIN 28.7 pg (27.0-31.0); MEAN CORPUSCULAR HGB CONC 34.3 g/dL (32.0-36.0); MEAN CORPUSCULAR VOLUME 83.6 fL (80.0-94.0); MONOCYTES # (AUTO) 0.9 10^3/uL (0.0-1.0); MONOCYTES % (AUTO) 8.2 %; NEUTROPHILS # (AUTO) 7.8 10^3/uL (1.5-6.6); NEUTROPHILS % (AUTO) 72.5 %; PLT - PLATELET COUNT 224 10^3/uL (130-450); RED BLOOD COUNT 5.37 10^6/uL (4.70-6.10); RED CELL DISTRIBUTION WIDTH 12.8 % (12.0-15.0); WHITE BLOOD COUNT 10.8 x10^3/uL (4.8-10.8)
[2021-03-10 02:09] LABS: BILIRUBIN,URINE NEGATIVE (NEGATIVE); ICTOTEST,URINE NEGATIVE
[2021-03-10 02:11] LABS: AMPHETAMINE SCREEN,URINE NEGATIVE (NEGATIVE); BARBITURATE SCREEN,UR NEGATIVE (NEGATIVE); BENZODIAZEPINES SCREEN, URINE NEGATIVE (NEGATIVE); COCAINE SCREEN URINE NEGATIVE (NEGATIVE); METHADONE SCREEN, URINE NEGATIVE (NEGATIVE); METHAMPHETAMINES SCREEN, URINE NEGATIVE (NEGATIVE); OPIATE SCREEN, URINE NEGATIVE (NEGATIVE); OXYCODONE SCREEN, URINE NEGATIVE (NEGATIVE); PROPOXYPHENE SCREEN, URINE NEGATIVE (NEGATIVE); THC CANNABINOID SCREEN, URINE POSITIVE (NEGATIVE); TRICYCLIC ANTIDEPRESSANT,URINE NEGATIVE (NEGATIVE)
[2021-03-10 02:23] LABS: ACETAMINOPHEN < 10 ug/mL (10-30); ALBUMIN 5.1 g/dL (3.2-5.5); ALBUMIN/GLOBULIN RATIO 1.8 (1.0-2.2); ALKALINE PHOSPHATASE 73 IU/L (42-121); ALT ALANINE AMINOTRANSFERASE 22 IU/L (10-60); AST ASPARTATE AMINOTRANSFERASE 19 IU/L (10-42); BILIRUBIN,TOTAL 1.1 mg/dL (0.2-1.0); BUN - BLOOD UREA NITROGEN 22 mg/dL (6-20); CALCIUM 9.7 mg/dL (8.5-10.3); CARBON DIOXIDE - CO2 22 mmol/L (21-32); CHLORIDE 99 mmol/L (101-111); CREATININE 0.8 mg/dL (0.6-1.2); ETOH - ETHANOL < 5.0 mg/dL; GFR - MDRD 111 (>89); GLUCOSE 104 mg/dL (70-100); LIPASE 20 U/L (22-51); POTASSIUM 3.4 mmol/L (3.5-5.0); SALICYLATE < 6.0 mg/dL; SODIUM 133 mmol/L (135-145); TOTAL PROTEIN 7.9 g/dL (6.7-8.2)
--- OUTSIDE RECORDS SUMMARY | 2021-03-10 02:29 | EXTERNAL MEDICAL SUMMARY RPT | Continuity of Care Document ---
:1985 Demographics Phone Unavailable Preferred Language Unknown Marital Status Unknown Nondenominational Affiliation Unknown Race Unknown Ethnic Group Unknown Author Organization [facility] Address [address] [phone] Phone Social History date description facility [phone]
[2021-03-10] MEDS ORDERED: OLANZapine ODT 5 MG TABLET TL STA (10:14)
[2021-03-10 12:11] LABS: B. PARAPERTUSSIS- RESP PCR PAN NOT DETECTED; B. PERTUSSIS- RESP PCR PANEL NOT DETECTED; C. PNEUMONIAE- RESP PCR PANEL NOT DETECTED; CORONAVIRUS 229E-RESP PCR NOT DETECTED; CORONAVIRUS HKU1-RESP PCR NOT DETECTED; CORONAVIRUS NL63-RESP PCR NOT DETECTED; CORONAVIRUS OC43-RESP PCR NOT DETECTED; HUMAN METAPNEUMOVIRUS NOT DETECTED; INFLUENZA A- RESP PCR PANEL NOT DETECTED; INFLUENZA B - RESP PCR PANEL NOT DETECTED; M. PNEUMONIAE- RESP PCR PANEL NOT DETECTED; PARAINFLUENZA VIRUS 1 NOT DETECTED; PARAINFLUENZA VIRUS 2 NOT DETECTED; PARAINFLUENZA VIRUS 3 NOT DETECTED; PARAINFLUENZA VIRUS 4 NOT DETECTED; RHINOVIRUS/ENTEROVIRUS NOT DETECTED; RSV- RESP PCR PANEL NOT DETECTED; SARS-CoV-2 -RESP PCR PANEL NOT DETECTED
[2021-03-10 15:55] VITALS: BP 132/92
== END 2021-03-10 16:09 ==
LOC: EDUNIT# → ED 01:45
DX: F20.9 Schizophrenia, unspecified (principal); R45.851 Suicidal ideations; F29 Unspecified psychosis not due to a substance or known physiological condition; F41.9 Anxiety disorder, unspecified; Z20.822 Contact with and (suspected) exposure to COVID-19; R53.1 Weakness; R00.0 Tachycardia, unspecified; F17.200 Nicotine dependence, unspecified, uncomplicated
CPT/HCPCS: 0202U; 36415; 80053; 80306; 80307; 80320; 80329; 81003; 83690; 83735; 84443; 85025; 93005; 99284; 99285; A9270; 81001; 87086

== ENCOUNTER 2021-03-31 20:28 | Outpatient (CLI) | payer MEDICAID | END 2021-03-31 20:29 | disposition critical access hospital (66) | LOC: EMS 20:28 | DX: R46.89 Other symptoms and signs involving appearance and behavior (principal) | CPT/HCPCS: A0425; A0429; A0999 ==

== ENCOUNTER 2021-04-01 07:51 | Outpatient (CLI) | payer MEDICAID | END 2021-04-01 07:52 | disposition critical access hospital (66) | LOC: EMS 07:51 | DX: Z00.8 Encounter for other general examination (principal) | CPT/HCPCS: A0425; A0429; A0999 ==

== ENCOUNTER 2021-04-01 08:10 | Emergency (ER) | payer MEDICAID ==
[2021-04-01] MEDS ORDERED: OLANZapine ODT 5 MG TABLET TL ONE (08:21)
--- NOTE | 2021-04-01 08:22 | ED Physician Documentation ---
PD HPI MHE - Stated complaint Stated Complaint: MHE - History obtained from History obtained from: Patient, EMS - History of Present Illness Primary symptom: Psychosis (He is hearing voices and feeling very anxious.) Timing - onset: How many days ago (has had increased symptoms over baseline for the past 4-5 days.) Contributing factors: No: Substance abuse - ETOH, Substance abuse - drugs (d enies substances), Off meds (he states he has been taking meds.), Out of meds Similar symptoms before: Diagnosis (schizophrenia with intermittent exac. Last hospitalization was about a month ago. He is not able to tell me if there were med changes with that stay.) Recently seen: Not recently seen (presented to ER for care twice yesterday but left within few minutes.) Review of Systems Constitutional: denies: Fever Nose: denies: Rhinorrhea / runny nose, Congestion Throat: denies: Sore throat Respiratory: denies: Dyspnea, Cough GI: denies: Abdominal Pain, Nausea, Vomiting Musculoskeletal: denies: Neck pain, Back pain Neurologic: denies: Focal weakness, Numbness, Syncope, Headache, Head injury PD PAST MEDICAL HISTORY - Past Medical History Cardiovascular: High cholesterol Respiratory: None Neuro: None Endocrine/Autoimmune: None GI: None : Renal insuffiency HEENT: None Psych: Depression, Anxiety, Bipolar disorder, Schizophrenia, Panic attacks, ADD/ADHD, Obsessive compulsive disorder Musculoskeletal: None Derm: None - Past Surgical History Past Surgical History: No - Present Medications Home Medications: Ambulatory Orders Medication Instructions Recorded Confirmed OLANZapine [Zyprexa Zydis] 20 mg PO HS 02/25/21 03/08/21 Benztropine [Cogentin] 0.5 mg PO DAILY 15 Days #3.75 02/26/21 03/08/21 tablet Fluoxetine HCl [Prozac] 60 mg PO QDAC 15 Days #45 tab 02/26/21 03/08/21 Haloperidol Oral Soln [Haldol Oral 10 mg PO BID #150 ml 02/26/21 03/08/21 Soln] LORazepam [Ativan] 0.5 mg PO BID 15 Days #30 tablet 02/26/21 03/08/21 OLANZapine ODT [Zyprexa Odt] 20 mg ORAL QDAC 15 Days #15 tablet 02/26/21 03/08/21 - Allergies Allergies/Adverse Reactions: Allergies Allergy/AdvReac Type Severity Reaction Status Date / Time ziprasidone HCl * AdvReac Severe Hallucinati Verified 04/01/21 08:13 [From [facility]] ons ziprasidone mesylate * AdvReac Severe Hallucinati Verified 04/01/21 08:13 [From [facility]] ons - Social History Does the pt smoke?: Yes Smoking Status: Current every day smoker Does the pt drink ETOH?: Yes Does the pt have substance abuse?: No - Immunizations Immunizations are current?: No Immunizations: TDAP >10years/unknown, Other immun current - POLST Patient has POLST: No PD ED PE NORMAL - Vitals Vital signs reviewed: Yes - General General: Alert and oriented X 3 (but is reluctant to answer questions and needs repeated questioning to get response. ), No acute distress, Well developed/nourished, Other (unkempt, uncombed, but appears nourished. ) - HEENT HEENT: Atraumatic, Moist mucous membranes - Neck Neck: Supple, no meningeal sign, No adenopathy - Cardiac Cardiac: RRR, No murmur - Respiratory Respiratory: Clear bilaterally - Abdomen Abdomen: Soft, Non tender - Derm Derm: Normal color, Warm and dry - Extremities Extremities: No tenderness to palpate, Normal ROM s pain - Neuro Neuro: Alert and oriented X 3, No motor deficit, Normal speech Eye Opening: Spontaneous Motor: Obeys Commands Verbal: Confused GCS Score: 14 Results - Vitals Vitals: Vital Signs - 24 hr 04/01/21 04/01/21 04/01/21 08:13 09:18 15:02 Temperature 37.2 C 36.7 C 37.2 C Heart Rate 103 H 88 108 H Respiratory 18 18 18 Rate Blood Pressure 151/108 H 145/98 H 137/83 H O2 Saturation 98 99 97 Oxygen O2 Source Room air - EKG (time done) 09:12 Rate: Rate (enter#) (88) Rhythm: NSR [place]: Normal Intervals: Normal [place] QRS: Normal Ischemia: Normal ST segments, ST elevation c/w repol. No: ST elevation c/w ischemia, ST depression, T wave inversion - Labs Labs: Laboratory Tests 04/01/21 04/01/21 04/01/21 08:33 08:33 08:33 WBC 12.5 H RBC 5.12 Hgb 14.9 Hct 43.7 MCV 85.4 MCH 29.1 MCHC 34.1 RDW 13.2 Plt Count 306 MPV 10.7 Neut # (Auto) 10.6 H Lymph # (Auto) 1.2 L [place] # (Auto) 0.6 Eos # (Auto) 0.0 Baso # (Auto) 0.0 Absolute Nucleated RBC 0.00 Nucleated RBC % 0.0 Sodium 135 Potassium 4.0 Chloride 96 L Carbon Dioxide 24 Anion Gap 15.0 H BUN 22 H Creatinine 0.8 Estimated GFR (MDRD) 111 Glucose 105 H Calcium 9.7 Total Bilirubin 1.6 H AST 32 ALT 32 Alkaline Phosphatase 72 Total Protein 7.9 Albumin 5.1 Globulin 2.8 Albumin/Globulin Ratio 1.8 Lipase 57 H TSH 0.25 L Urine Color Urine Clarity Urine pH Ur Specific [place] Urine Protein Urine Glucose (UA) Urine Ketones Urine Occult Blood Urine Nitrite Urine Bilirubin Urine Urobilinogen Ur Leukocyte Esterase Ur Microscopic Review Urine Culture Comments Nasal Adenovirus (PCR) Nasal B. parapertussis DNA (PCR) Nasal Coronavir 229E PCR Nasal Coronavir HKU1 PCR Nasal Coronavir NL63 PCR Nasal Coronavir OC43 PCR Nasal Enterovir/Rhinovir PCR Nasal Influenza B PCR Nasal Influenza A PCR Nasal Parainfluen 1 PCR Nasal Parainfluen 2 PCR Nasal Parainfluen 3 PCR Nasal Parainfluen 4 PCR Nasal RSV (PCR) Nasal B.pertussis DNA PCR Nasal C.pneumoniae (PCR) Gabe Human Metapneumo PCR Nasal M.pneumoniae (PCR) Nasal SARS-CoV-2 (PCR) Salicylates < 6.0 Urine Opiates Screen Ur Oxycodone Screen Urine Methadone Screen Ur Propoxyphene Screen Acetaminophen < 10 L Ur Barbiturates Screen Ur Tricyclics Screen Ur Phencyclidine Scrn Ur Amphetamine Screen U Methamphetamines Scrn U Benzodiazepines Scrn Urine Cocaine Screen U Cannabinoids Screen Ethyl Alcohol < 5.0 04/01/21 04/01/21 08:45 12:00 WBC RBC Hgb Hct MCV MCH MCHC RDW Plt Count MPV Neut # (Auto) Lymph # (Auto) [place] # (Auto) Eos # (Auto) Baso # (Auto) Absolute Nucleated RBC Nucleated RBC % Sodium Potassium Chloride Carbon Dioxide Anion Gap BUN Creatinine Estimated GFR (MDRD) Glucose Calcium Total Bilirubin AST ALT Alkaline Phosphatase Total Protein Albumin Globulin Albumin/Globulin Ratio Lipase TSH Urine Color YELLOW Urine Clarity CLEAR Urine pH 6.0 Ur Specific [place] <=1.005 Urine Protein NEGATIVE Urine Glucose (UA) NEGATIVE Urine Ketones 15 H Urine Occult Blood NEGATIVE Urine Nitrite NEGATIVE Urine Bilirubin NEGATIVE Urine Urobilinogen 0.2 (NORMAL) Ur Leukocyte Esterase NEGATIVE Ur Microscopic Review NOT INDICATED Urine Culture Comments NOT INDICATED Nasal Adenovirus (PCR) NOT DETECTED Nasal B. parapertussis DNA (PCR) NOT DETECTED Nasal Coronavir 229E PCR NOT DETECTED Nasal Coronavir HKU1 PCR NOT DETECTED Nasal Coronavir NL63 PCR NOT DETECTED Nasal Coronavir OC43 PCR NOT DETECTED Nasal Enterovir/Rhinovir PCR NOT DETECTED Nasal Influenza B PCR NOT DETECTED Nasal Influenza A PCR NOT DETECTED Nasal Parainfluen 1 PCR NOT DETECTED Nasal Parainfluen 2 PCR NOT DETECTED Nasal Parainfluen 3 PCR NOT DETECTED Nasal Parainfluen 4 PCR NOT DETECTED Nasal RSV (PCR) NOT DETECTED Nasal B.pertussis DNA PCR NOT DETECTED Nasal C.pneumoniae (PCR) NOT DETECTED Gabe Human Metapneumo PCR NOT DETECTED Nasal M.pneumoniae (PCR) NOT DETECTED Nasal SARS-CoV-2 (PCR) NOT DETECTED Salicylates Urine Opiates Screen NEGATIVE Ur Oxycodone Screen NEGATIVE Urine Methadone Screen NEGATIVE Ur Propoxyphene Screen NEGATIVE Acetaminophen Ur Barbiturates Screen NEGATIVE Ur Tricyclics Screen NEGATIVE Ur Phencyclidine Scrn NEGATIVE Ur Amphetamine Screen NEGATIVE U Methamphetamines Scrn NEGATIVE U Benzodiazepines Scrn POSITIVE H Urine Cocaine Screen NEGATIVE U Cannabinoids Screen POSITIVE H Ethyl Alcohol PD MEDICAL DECISION MAKING - ED course Complexity details: considered differential (Exac of schizophrenia. He states has been taking meds. He feels he needs hospitalization. EVONNE harrison ), d/w patient Departure - Departure Disposition: 65 Psych Hosp/Unit DC/Xfer Clinical Impression: Anxiety, Hallucinations, Acute exacerbation of psychosis Condition: Stable
[2021-04-01] MEDS ORDERED: LORazepam 1 MG TABLET PO STA (08:23)
[2021-04-01 08:38] LABS: BASOPHILS % (AUTO) 0.2 %; EOSINOPHILS % (AUTO) 0.1 %; HCT - HEMATOCRIT 43.7 % (42.0-52.0); HGB - HEMOGLOBIN 14.9 g/dL (14.0-18.0); LYMPHOCYTES # (AUTO) 1.2 10^3/uL (1.5-3.5); LYMPHOCYTES % (AUTO) 9.8 %; MEAN CORPUSCULAR HEMOGLOBIN 29.1 pg (27.0-31.0); MEAN CORPUSCULAR HGB CONC 34.1 g/dL (32.0-36.0); MEAN CORPUSCULAR VOLUME 85.4 fL (80.0-94.0); MEAN PLATELET VOLUME 10.7 fL (7.4-11.4); MONOCYTES # (AUTO) 0.6 10^3/uL (0.0-1.0); NEUTROPHILS # (AUTO) 10.6 10^3/uL (1.5-6.6); NEUTROPHILS % (AUTO) 84.7 %; PLT - PLATELET COUNT 306 10^3/uL (130-450); RED BLOOD COUNT 5.12 10^6/uL (4.70-6.10); RED CELL DISTRIBUTION WIDTH 13.2 % (12.0-15.0); WHITE BLOOD COUNT 12.5 x10^3/uL (4.8-10.8)
[2021-04-01 08:52] LABS: ACETAMINOPHEN < 10 ug/mL (10-30); ALBUMIN 5.1 g/dL (3.2-5.5); ALBUMIN/GLOBULIN RATIO 1.8 (1.0-2.2); ALKALINE PHOSPHATASE 72 IU/L (42-121); ALT ALANINE AMINOTRANSFERASE 32 IU/L (10-60); AST ASPARTATE AMINOTRANSFERASE 32 IU/L (10-42); BILIRUBIN,TOTAL 1.6 mg/dL (0.2-1.0); BUN - BLOOD UREA NITROGEN 22 mg/dL (6-20); CALCIUM 9.7 mg/dL (8.5-10.3); CARBON DIOXIDE - CO2 24 mmol/L (21-32); CHLORIDE 96 mmol/L (101-111); CREATININE 0.8 mg/dL (0.6-1.2); ETOH - ETHANOL < 5.0 mg/dL; GFR - MDRD 111 (>89); GLUCOSE 105 mg/dL (70-100); LIPASE 57 U/L (22-51); SALICYLATE < 6.0 mg/dL; SODIUM 135 mmol/L (135-145); TOTAL PROTEIN 7.9 g/dL (6.7-8.2)
[2021-04-01 10:30] LABS: B. PARAPERTUSSIS- RESP PCR PAN NOT DETECTED; B. PERTUSSIS- RESP PCR PANEL NOT DETECTED; C. PNEUMONIAE- RESP PCR PANEL NOT DETECTED; CORONAVIRUS 229E-RESP PCR NOT DETECTED; CORONAVIRUS HKU1-RESP PCR NOT DETECTED; CORONAVIRUS NL63-RESP PCR NOT DETECTED; CORONAVIRUS OC43-RESP PCR NOT DETECTED; HUMAN METAPNEUMOVIRUS NOT DETECTED; INFLUENZA A- RESP PCR PANEL NOT DETECTED; INFLUENZA B - RESP PCR PANEL NOT DETECTED; M. PNEUMONIAE- RESP PCR PANEL NOT DETECTED; PARAINFLUENZA VIRUS 1 NOT DETECTED; PARAINFLUENZA VIRUS 2 NOT DETECTED; PARAINFLUENZA VIRUS 3 NOT DETECTED; PARAINFLUENZA VIRUS 4 NOT DETECTED; RHINOVIRUS/ENTEROVIRUS NOT DETECTED; RSV- RESP PCR PANEL NOT DETECTED; SARS-CoV-2 -RESP PCR PANEL NOT DETECTED
[2021-04-01 12:04] LABS: MUDS CUTOFF CONCENTRATIONS CUTOFF CONC BELOW:
[2021-04-01 12:10] LABS: BILIRUBIN,URINE NEGATIVE (NEGATIVE); GLUCOSE, URINE (UA) NEGATIVE (NEGATIVE); KETONES,URINE (UA) 15 mg/dL (NEGATIVE); LEUKOCYTE ESTERASE, URINE NEGATIVE (NEGATIVE); NITRITE,URINE NEGATIVE (NEGATIVE); OCCULT BLOOD,URINE NEGATIVE (NEGATIVE); PROTEIN,URINE NEGATIVE (NEGATIVE); UROBILINOGEN,URINE 0.2 (NORMAL) E.U./dL (NORMAL)
[2021-04-01 12:16] LABS: CLARITY,URINE CLEAR (CLEAR)
[2021-04-01 12:35] LABS: AMPHETAMINE SCREEN,URINE NEGATIVE (NEGATIVE); BARBITURATE SCREEN,UR NEGATIVE (NEGATIVE); BENZODIAZEPINES SCREEN, URINE POSITIVE (NEGATIVE); COCAINE SCREEN URINE NEGATIVE (NEGATIVE); METHADONE SCREEN, URINE NEGATIVE (NEGATIVE); METHAMPHETAMINES SCREEN, URINE NEGATIVE (NEGATIVE); OPIATE SCREEN, URINE NEGATIVE (NEGATIVE); OXYCODONE SCREEN, URINE NEGATIVE (NEGATIVE); PROPOXYPHENE SCREEN, URINE NEGATIVE (NEGATIVE); THC CANNABINOID SCREEN, URINE POSITIVE (NEGATIVE); TRICYCLIC ANTIDEPRESSANT,URINE NEGATIVE (NEGATIVE)
[2021-04-01 15:04] VITALS: BP 137/83
== END 2021-04-01 15:09 ==
LOC: EDUNIT# → ED 08:10
DX: F20.9 Schizophrenia, unspecified (principal); F17.200 Nicotine dependence, unspecified, uncomplicated; Z20.822 Contact with and (suspected) exposure to COVID-19; Z53.21 Procedure and treatment not carried out due to patient leaving prior to being seen by health care provider; F29 Unspecified psychosis not due to a substance or known physiological condition; F41.9 Anxiety disorder, unspecified
CPT/HCPCS: 0202U; 36415; 80053; 80306; 80307; 80320; 80329; 81003; 83690; 84443; 85025; 93005; 99281; 99283; 99285; A9270; J8499; 81001; 87086

== ENCOUNTER 2021-04-11 17:34 | Emergency (ER) | payer MEDICAID ==
[2021-04-11 17:57] LABS: MUDS CUTOFF CONCENTRATIONS CUTOFF CONC BELOW:
[2021-04-11 17:59] LABS: BILIRUBIN,URINE NEGATIVE (NEGATIVE); GLUCOSE, URINE (UA) NEGATIVE (NEGATIVE); KETONES,URINE (UA) NEGATIVE (NEGATIVE); LEUKOCYTE ESTERASE, URINE NEGATIVE (NEGATIVE); NITRITE,URINE NEGATIVE (NEGATIVE); OCCULT BLOOD,URINE NEGATIVE (NEGATIVE); PROTEIN,URINE NEGATIVE (NEGATIVE); UROBILINOGEN,URINE 0.2 (NORMAL) E.U./dL (NORMAL)
[2021-04-11 18:01] LABS: BASOPHILS % (AUTO) 0.3 %; EOSINOPHILS % (AUTO) 0.3 %; HGB - HEMOGLOBIN 14.1 g/dL (14.0-18.0); LYMPHOCYTES # (AUTO) 2.5 10^3/uL (1.5-3.5); LYMPHOCYTES % (AUTO) 28.8 %; MEAN CORPUSCULAR HGB CONC 33.6 g/dL (32.0-36.0); MEAN CORPUSCULAR VOLUME 86.4 fL (80.0-94.0); MEAN PLATELET VOLUME 11.1 fL (7.4-11.4); MONOCYTES # (AUTO) 0.7 10^3/uL (0.0-1.0); MONOCYTES % (AUTO) 7.6 %; NEUTROPHILS # (AUTO) 5.4 10^3/uL (1.5-6.6); NEUTROPHILS % (AUTO) 62.8 %; PLT - PLATELET COUNT 245 10^3/uL (130-450); RED BLOOD COUNT 4.86 10^6/uL (4.70-6.10); RED CELL DISTRIBUTION WIDTH 13.3 % (12.0-15.0); WHITE BLOOD COUNT 8.7 x10^3/uL (4.8-10.8)
[2021-04-11 18:01] LABS: CLARITY,URINE CLEAR (CLEAR)
[2021-04-11 18:09] LABS: AMPHETAMINE SCREEN,URINE NEGATIVE (NEGATIVE); BARBITURATE SCREEN,UR NEGATIVE (NEGATIVE); BENZODIAZEPINES SCREEN, URINE POSITIVE (NEGATIVE); COCAINE SCREEN URINE NEGATIVE (NEGATIVE); METHADONE SCREEN, URINE NEGATIVE (NEGATIVE); METHAMPHETAMINES SCREEN, URINE NEGATIVE (NEGATIVE); OPIATE SCREEN, URINE NEGATIVE (NEGATIVE); OXYCODONE SCREEN, URINE NEGATIVE (NEGATIVE); PROPOXYPHENE SCREEN, URINE NEGATIVE (NEGATIVE); THC CANNABINOID SCREEN, URINE POSITIVE (NEGATIVE); TRICYCLIC ANTIDEPRESSANT,URINE NEGATIVE (NEGATIVE)
[2021-04-11 18:16] LABS: ACETAMINOPHEN < 10 ug/mL (10-30); ALBUMIN/GLOBULIN RATIO 1.9 (1.0-2.2); ALKALINE PHOSPHATASE 60 IU/L (42-121); ALT ALANINE AMINOTRANSFERASE 20 IU/L (10-60); AST ASPARTATE AMINOTRANSFERASE 17 IU/L (10-42); BILIRUBIN,TOTAL 0.4 mg/dL (0.2-1.0); BUN - BLOOD UREA NITROGEN 10 mg/dL (6-20); CALCIUM 9.5 mg/dL (8.5-10.3); CARBON DIOXIDE - CO2 26 mmol/L (21-32); CHLORIDE 100 mmol/L (101-111); CREATININE 0.7 mg/dL (0.6-1.2); ETOH - ETHANOL < 5.0 mg/dL; GFR - MDRD 129 (>89); GLUCOSE 103 mg/dL (70-100); LIPASE 26 U/L (22-51); POTASSIUM 3.8 mmol/L (3.5-5.0); SALICYLATE < 6.0 mg/dL; SODIUM 133 mmol/L (135-145); TOTAL PROTEIN 7.7 g/dL (6.7-8.2)
[2021-04-11] MEDS ORDERED: NICOTINE 14 MG PATCH TOP STA (19:38)
[2021-04-11 20:05] LABS: B. PARAPERTUSSIS- RESP PCR PAN NOT DETECTED; B. PERTUSSIS- RESP PCR PANEL NOT DETECTED; C. PNEUMONIAE- RESP PCR PANEL NOT DETECTED; CORONAVIRUS 229E-RESP PCR NOT DETECTED; CORONAVIRUS HKU1-RESP PCR NOT DETECTED; CORONAVIRUS NL63-RESP PCR NOT DETECTED; CORONAVIRUS OC43-RESP PCR NOT DETECTED; HUMAN METAPNEUMOVIRUS NOT DETECTED; INFLUENZA A- RESP PCR PANEL NOT DETECTED; INFLUENZA B - RESP PCR PANEL NOT DETECTED; M. PNEUMONIAE- RESP PCR PANEL NOT DETECTED; PARAINFLUENZA VIRUS 1 NOT DETECTED; PARAINFLUENZA VIRUS 2 NOT DETECTED; PARAINFLUENZA VIRUS 3 NOT DETECTED; PARAINFLUENZA VIRUS 4 NOT DETECTED; RHINOVIRUS/ENTEROVIRUS NOT DETECTED; RSV- RESP PCR PANEL NOT DETECTED; SARS-CoV-2 -RESP PCR PANEL NOT DETECTED
--- NOTE | 2021-04-11 20:41 | ED Physician Documentation ---
PD HPI MHE - Stated complaint Stated Complaint: MHE - Chief complaint Chief Complaint: MHE - History obtained from History obtained from: Patient - History of Present Illness Primary symptom: Psychosis Pain level max: 0 Pain level now: 0 - Additional information Additional information: Patient is a well-known schizophrenic/schizoaffective patient who presents to the emergency department stating the voices are getting louder and he is concerned that he may hurt himself or hurt his family. Nothing makes it better or worse. Recently admitted for same. Review of Systems Ten Systems: 10 systems reviewed and negative Constitutional: denies: Fever, Chills Cardiac: denies: Chest pain / pressure Respiratory: denies: Cough GI: denies: Abdominal Pain, Vomiting, Diarrhea : denies: Dysuria Skin: denies: Rash Musculoskeletal: denies: Neck pain, Back pain Neurologic: denies: Headache PD PAST MEDICAL HISTORY - Past Medical History Past Medical History: Yes Cardiovascular: High cholesterol Respiratory: None Neuro: None Endocrine/Autoimmune: None GI: None : Renal insuffiency HEENT: None Psych: Depression, Anxiety, Bipolar disorder, Schizophrenia, Panic attacks, ADD/ADHD, Obsessive compulsive disorder Musculoskeletal: None Derm: None - Past Surgical History Past Surgical History: No - Present Medications Home Medications: Ambulatory Orders Medication Instructions Recorded Confirmed Haloperidol Oral Soln [Haldol Oral 10 mg PO BID #150 ml 02/26/21 04/11/21 Soln] LORazepam [Ativan] 0.5 mg PO BID 15 Days #30 tablet 02/26/21 04/11/21 - Allergies Allergies/Adverse Reactions: Allergies Allergy/AdvReac Type Severity Reaction Status Date / Time ziprasidone HCl * AdvReac Severe Hallucinati Verified 04/11/21 17:46 [From [facility]] ons ziprasidone mesylate * AdvReac Severe Hallucinati Verified 04/11/21 17:46 [From [facility]] ons - Social History Does the pt smoke?: Yes Smoking Status: Current every day smoker Does the pt drink ETOH?: Yes Does the pt have substance abuse?: No - Immunizations Immunizations are current?: No Immunizations: TDAP >10years/unknown, Other immun current - POLST Patient has POLST: No PD ED PE NORMAL - Vitals Vital signs reviewed: Yes - General General: Alert and oriented X 3, No acute distress, Well developed/nourished - HEENT HEENT: PERRL, Moist mucous membranes, Pharynx benign - Neck Neck: Supple, no meningeal sign - Cardiac Cardiac: RRR, Strong equal pulses - Respiratory Respiratory: No respiratory distress, Clear bilaterally - Abdomen Abdomen: Soft, Non tender, Non distended - Derm Derm: Warm and dry - Extremities Extremities: No edema, No calf tenderness / cord - Neuro Neuro: Alert and oriented X 3, scrap sorter 2-12 intact, No motor deficit, No sensory deficit, Normal speech Eye Opening: Spontaneous Motor: Obeys Commands Verbal: Oriented GCS Score: 15 Results - Vitals Vitals: Vital Signs - 24 hr 04/11/21 17:43 Temperature 36.2 C L Heart Rate 96 Respiratory 16 Rate Blood Pressure 127/94 H O2 Saturation 100 Oxygen O2 Source Room air - Labs Labs: Laboratory Tests 04/11/21 04/11/21 04/11/21 17:50 17:55 17:55 WBC 8.7 RBC 4.86 Hgb 14.1 Hct 42.0 MCV 86.4 MCH 29.0 MCHC 33.6 RDW 13.3 Plt Count 245 MPV 11.1 Neut # (Auto) 5.4 Lymph # (Auto) 2.5 [place] # (Auto) 0.7 Eos # (Auto) 0.0 Baso # (Auto) 0.0 Absolute Nucleated RBC 0.00 Nucleated RBC % 0.0 Sodium 133 L Potassium 3.8 Chloride 100 L Carbon Dioxide 26 Anion Gap 7.0 BUN 10 Creatinine 0.7 Estimated GFR (MDRD) 129 Glucose 103 H Calcium 9.5 Total Bilirubin 0.4 AST 17 ALT 20 Alkaline Phosphatase 60 Total Protein 7.7 Albumin 5.0 Globulin 2.7 Albumin/Globulin Ratio 1.9 Lipase 26 TSH Urine Color YELLOW Urine Clarity CLEAR Urine pH 6.0 Ur Specific [place] >=1.030 H Urine Protein NEGATIVE Urine Glucose (UA) NEGATIVE Urine Ketones NEGATIVE Urine Occult Blood NEGATIVE Urine Nitrite NEGATIVE Urine Bilirubin NEGATIVE Urine Urobilinogen 0.2 (NORMAL) Ur Leukocyte Esterase NEGATIVE Ur Microscopic Review NOT INDICATED Urine Culture Comments NOT INDICATED Nasal Adenovirus (PCR) Nasal B. parapertussis DNA (PCR) Nasal Coronavir 229E PCR Nasal Coronavir HKU1 PCR Nasal Coronavir NL63 PCR Nasal Coronavir OC43 PCR Nasal Enterovir/Rhinovir PCR Nasal Influenza B PCR Nasal Influenza A PCR Nasal Parainfluen 1 PCR Nasal Parainfluen 2 PCR Nasal Parainfluen 3 PCR Nasal Parainfluen 4 PCR Nasal RSV (PCR) Nasal B.pertussis DNA PCR Nasal C.pneumoniae (PCR) Gabe Human Metapneumo PCR Nasal M.pneumoniae (PCR) Nasal SARS-CoV-2 (PCR) Salicylates < 6.0 Urine Opiates Screen NEGATIVE Ur Oxycodone Screen NEGATIVE Urine Methadone Screen NEGATIVE Ur Propoxyphene Screen NEGATIVE Acetaminophen < 10 L Ur Barbiturates Screen NEGATIVE Ur Tricyclics Screen NEGATIVE Ur Phencyclidine Scrn NEGATIVE Ur Amphetamine Screen NEGATIVE U Methamphetamines Scrn NEGATIVE U Benzodiazepines Scrn POSITIVE H Urine Cocaine Screen NEGATIVE U Cannabinoids Screen POSITIVE H Ethyl Alcohol < 5.0 04/11/21 04/11/21 17:55 19:13 WBC RBC Hgb Hct MCV MCH MCHC RDW Plt Count MPV Neut # (Auto) Lymph # (Auto) [place] # (Auto) Eos # (Auto) Baso # (Auto) Absolute Nucleated RBC Nucleated RBC % Sodium Potassium Chloride Carbon Dioxide Anion Gap BUN Creatinine Estimated GFR (MDRD) Glucose Calcium Total Bilirubin AST ALT Alkaline Phosphatase Total Protein Albumin Globulin Albumin/Globulin Ratio Lipase TSH 1.59 Urine Color Urine Clarity Urine pH Ur Specific [place] Urine Protein Urine Glucose (UA) Urine Ketones Urine Occult Blood Urine Nitrite Urine Bilirubin Urine Urobilinogen Ur Leukocyte Esterase Ur Microscopic Review Urine Culture Comments Nasal Adenovirus (PCR) NOT DETECTED Nasal B. parapertussis DNA (PCR) NOT DETECTED Nasal Coronavir 229E PCR NOT DETECTED Nasal Coronavir HKU1 PCR NOT DETECTED Nasal Coronavir NL63 PCR NOT DETECTED Nasal Coronavir OC43 PCR NOT DETECTED Nasal Enterovir/Rhinovir PCR NOT DETECTED Nasal Influenza B PCR NOT DETECTED Nasal Influenza A PCR NOT DETECTED Nasal Parainfluen 1 PCR NOT DETECTED Nasal Parainfluen 2 PCR NOT DETECTED Nasal Parainfluen 3 PCR NOT DETECTED Nasal Parainfluen 4 PCR NOT DETECTED Nasal RSV (PCR) NOT DETECTED Nasal B.pertussis DNA PCR NOT DETECTED Nasal C.pneumoniae (PCR) NOT DETECTED Gabe Human Metapneumo PCR NOT DETECTED Nasal M.pneumoniae (PCR) NOT DETECTED Nasal SARS-CoV-2 (PCR) NOT DETECTED Salicylates Urine Opiates Screen Ur Oxycodone Screen Urine Methadone Screen Ur Propoxyphene Screen Acetaminophen Ur Barbiturates Screen Ur Tricyclics Screen Ur Phencyclidine Scrn Ur Amphetamine Screen U Methamphetamines Scrn U Benzodiazepines Scrn Urine Cocaine Screen U Cannabinoids Screen Ethyl Alcohol PD MEDICAL DECISION MAKING - ED course Complexity details: reviewed results, re-evaluated patient, considered differential, d/w patient ED course: Patient is medically clear for psychiatric care. Social work will be consulted in the morning for voluntary placement. Patient signed out to the oncoming emergency department physician. Departure - Departure Clinical Impression: Schizophrenia Qualifiers: Schizophrenia type: unspecified Qualified Code(s): F20.9 - Schizophrenia, unspecified Condition: Stable
[2021-04-11] MEDS ORDERED: LORazepam 1 MG TABLET PO STA (20:47)
[2021-04-12 06:14] VITALS: BP 121/77
[2021-04-12] MEDS ORDERED: HALOPERIDOL 10 MG/5 ML UDC PO SCH (09:00)
[2021-04-12] MEDS ORDERED: haloperidoL 1 MG TABLET PO SCH (09:00)
[2021-04-12] MEDS ORDERED: LORazepam 1 MG TABLET PO STA (13:47)
--- NOTE | 2021-04-12 13:52 | ED Physician Documentation ---
ED Addendum - Addendum Addendum: 04/12/21 13:52 Patient eloped just prior to administration of medication for anxiolysis. He was in process of undergoing voluntary inpatient psychiatric placement.
== END 2021-04-12 13:56 | disposition home or self-care (01) ==
LOC: ED 17:34
DX: F20.9 Schizophrenia, unspecified (principal); Z53.29 Procedure and treatment not carried out because of patient's decision for other reasons; F17.200 Nicotine dependence, unspecified, uncomplicated; Z20.822 Contact with and (suspected) exposure to COVID-19
CPT/HCPCS: 0202U; 36415; 80053; 80306; 80307; 80320; 80329; 81003; 83690; 84443; 85025; 99283; A9270; J8499; 81001; 87086

== ENCOUNTER 2021-04-27 13:32 | Outpatient (CLI) | payer MEDICAID | END 2021-04-27 13:33 | disposition critical access hospital (66) | LOC: EMS 13:32 | DX: R44.0 Auditory hallucinations (principal); R41.89 Other symptoms and signs involving cognitive functions and awareness | CPT/HCPCS: A0425; A0429 ==

== ENCOUNTER 2021-04-27 13:53 | Emergency (ER) | payer MEDICAID ==
--- NOTE | 2021-04-27 14:02 | ED Physician Documentation ---
PD HPI MHE - Stated complaint Stated Complaint: MHE - History obtained from History obtained from: Patient, EMS - Additional information Additional information: 35-year-old gentleman with severe mental illness who resides with his mother. H as a history of schizoaffective and dissociative disorder. Presents by ambulance because he has been hearing voices talking about the end times and other scary things. No command hallucinations or SI, HI. He has been taking his medications. These include Haldol, carbamazepine. Recently started on atorvastatin. Denies any recent methamphetamine use and last few drug screens here have been negative for same. Albeit fairly reliably positive for cannabis. Review of Systems Ten Systems: 10 systems reviewed and negative Constitutional: reports: Reviewed and negative Nose: reports: Reviewed and negative Throat: reports: Reviewed and negative PD PAST MEDICAL HISTORY - Past Medical History Cardiovascular: High cholesterol Respiratory: None Neuro: None Endocrine/Autoimmune: None GI: None : Renal insuffiency HEENT: None Psych: Depression, Anxiety, Bipolar disorder, Schizophrenia, Panic attacks, ADD/ADHD, Obsessive compulsive disorder Musculoskeletal: None Derm: None - Past Surgical History Past Surgical History: No - Present Medications Home Medications: Ambulatory Orders Medication Instructions Recorded Confirmed Atorvastatin [Lipitor] 10 mg PO DAILY 04/27/21 04/27/21 Benztropine Mesylate 1 mg PO BID 04/27/21 04/27/21 LORazepam [Ativan] 0.5 mg PO BID 04/27/21 04/27/21 carBAMazepine [TEGretol] 200 mg PO BID 04/27/21 04/27/21 haloperidoL [Haloperidol] 10 mg PO BID 04/27/21 04/27/21 traZODone [Desyrel] 150 mg PO HS 04/27/21 04/27/21 - Allergies Allergies/Adverse Reactions: Allergies Allergy/AdvReac Type Severity Reaction Status Date / Time ziprasidone HCl * AdvReac Severe Hallucinati Verified 04/27/21 14:11 [From [facility]] ons ziprasidone mesylate * AdvReac Severe Hallucinati Verified 04/27/21 14:11 [From [facility]] ons - Social History Does the pt smoke?: Yes Smoking Status: Current every day smoker Does the pt drink ETOH?: Yes Does the pt have substance abuse?: No - Immunizations Immunizations are current?: No Immunizations: TDAP >10years/unknown, Other immun current - POLST Patient has POLST: No PD ED PE NORMAL - Vitals Vital signs reviewed: Yes - General General: Alert and oriented X 3, No acute distress - HEENT HEENT: PERRL, EOMI - Neck Neck: Supple, no meningeal sign, No bony TTP - Cardiac Cardiac: RRR, No murmur - Respiratory Respiratory: No respiratory distress, Clear bilaterally - Abdomen Abdomen: Normal bowel sounds, Soft, Non tender - Back Back: No CVA TTP, No spinal TTP - Derm Derm: Normal color, Warm and dry - Extremities Extremities: No edema, No calf tenderness / cord - Neuro Neuro: Alert and oriented X 3, Normal speech - Psych Psych: Other (Intense affect, admits to auditory hallucinations and delusions. No SI or HI. Slightly pressured affect.) Results - Vitals Vitals: Vital Signs - 24 hr 04/27/21 04/27/21 04/27/21 14:07 14:10 21:58 Temperature 37.1 C 37.1 C 36.8 C Heart Rate 101 H 101 H 95 Respiratory 16 16 12 Rate Blood Pressure 148/98 H 148/98 H 110/76 O2 Saturation 96 96 96 04/28/21 06:15 Temperature 36.9 C Heart Rate 67 Respiratory 14 Rate Blood Pressure 118/68 O2 Saturation 99 Oxygen O2 Source Room air - Labs Labs: Laboratory Tests 04/27/21 04/27/21 04/27/21 14:17 14:17 14:29 WBC 8.0 RBC 5.38 Hgb 15.4 Hct 47.0 MCV 87.4 MCH 28.6 MCHC 32.8 RDW 13.0 Plt Count 220 MPV 11.3 Neut # (Auto) 4.9 Lymph # (Auto) 2.4 [place] # (Auto) 0.6 Eos # (Auto) 0.1 Baso # (Auto) 0.1 Absolute Nucleated RBC 0.00 Nucleated RBC % 0.0 Sodium Potassium Chloride Carbon Dioxide Anion Gap BUN Creatinine Estimated GFR (MDRD) Glucose Calcium Total Bilirubin AST ALT Alkaline Phosphatase Total Protein Albumin Globulin Albumin/Globulin Ratio Lipase TSH Urine Color YELLOW Urine Clarity CLEAR Urine pH 6.0 Ur Specific [place] 1.020 Urine Protein NEGATIVE Urine Glucose (UA) NEGATIVE Urine Ketones 15 H Urine Occult Blood NEGATIVE Urine Nitrite NEGATIVE Urine Bilirubin NEGATIVE Urine Urobilinogen 0.2 (NORMAL) Ur Leukocyte Esterase NEGATIVE Ur Microscopic Review NOT INDICATED Urine Culture Comments NOT INDICATED Nasal Adenovirus (PCR) NOT DETECTED Nasal B. parapertussis DNA (PCR) NOT DETECTED Nasal Coronavir 229E PCR NOT DETECTED Nasal Coronavir HKU1 PCR NOT DETECTED Nasal Coronavir NL63 PCR NOT DETECTED Nasal Coronavir OC43 PCR NOT DETECTED Nasal Enterovir/Rhinovir PCR NOT DETECTED Nasal Influenza B PCR NOT DETECTED Nasal Influenza A PCR NOT DETECTED Nasal Parainfluen 1 PCR NOT DETECTED Nasal Parainfluen 2 PCR NOT DETECTED Nasal Parainfluen 3 PCR NOT DETECTED Nasal Parainfluen 4 PCR NOT DETECTED Nasal RSV (PCR) NOT DETECTED Nasal B.pertussis DNA PCR NOT DETECTED Nasal C.pneumoniae (PCR) NOT DETECTED Gabe Human Metapneumo PCR NOT DETECTED Nasal M.pneumoniae (PCR) NOT DETECTED Nasal SARS-CoV-2 (PCR) NOT DETECTED Last Dose Date Last Dose Time Salicylates Urine Opiates Screen NEGATIVE Ur Oxycodone Screen NEGATIVE Urine Methadone Screen NEGATIVE Ur Propoxyphene Screen NEGATIVE Acetaminophen Ur Barbiturates Screen NEGATIVE Carbamazepine Ur Tricyclics Screen NEGATIVE Ur Phencyclidine Scrn NEGATIVE Ur Amphetamine Screen POSITIVE H U Methamphetamines Scrn POSITIVE H U Benzodiazepines Scrn POSITIVE H Urine Cocaine Screen NEGATIVE U Cannabinoids Screen POSITIVE H Ethyl Alcohol 04/27/21 04/27/21 04/27/21 14:29 14:29 14:29 WBC RBC Hgb Hct MCV MCH MCHC RDW Plt Count MPV Neut # (Auto) Lymph # (Auto) [place] # (Auto) Eos # (Auto) Baso # (Auto) Absolute Nucleated RBC Nucleated RBC % Sodium 135 Potassium 4.1 Chloride 98 L Carbon Dioxide 24 Anion Gap 13.0 BUN 21 H Creatinine 0.9 Estimated GFR (MDRD) 97 Glucose 105 H Calcium 9.4 Total Bilirubin 0.7 AST 16 ALT 17 Alkaline Phosphatase 72 Total Protein 7.7 Albumin 5.1 Globulin 2.6 Albumin/Globulin Ratio 2.0 Lipase 22 TSH 0.30 L Urine Color Urine Clarity Urine pH Ur Specific [place] Urine Protein Urine Glucose (UA) Urine Ketones Urine Occult Blood Urine Nitrite Urine Bilirubin Urine Urobilinogen Ur Leukocyte Esterase Ur Microscopic Review Urine Culture Comments Nasal Adenovirus (PCR) Nasal B. parapertussis DNA (PCR) Nasal Coronavir 229E PCR Nasal Coronavir HKU1 PCR Nasal Coronavir NL63 PCR Nasal Coronavir OC43 PCR Nasal Enterovir/Rhinovir PCR Nasal Influenza B PCR Nasal Influenza A PCR Nasal Parainfluen 1 PCR Nasal Parainfluen 2 PCR Nasal Parainfluen 3 PCR Nasal Parainfluen 4 PCR Nasal RSV (PCR) Nasal B.pertussis DNA PCR Nasal C.pneumoniae (PCR) Gabe Human Metapneumo PCR Nasal M.pneumoniae (PCR) Nasal SARS-CoV-2 (PCR) Last Dose Date UNKNOWN Last Dose Time UNKNOWN Salicylates < 6.0 Urine Opiates Screen Ur Oxycodone Screen Urine Methadone Screen Ur Propoxyphene Screen Acetaminophen < 10 L Ur Barbiturates Screen Carbamazepine 9.7 Ur Tricyclics Screen Ur Phencyclidine Scrn Ur Amphetamine Screen U Methamphetamines Scrn U Benzodiazepines Scrn Urine Cocaine Screen U Cannabinoids Screen Ethyl Alcohol < 5.0 PD MEDICAL DECISION MAKING - ED course ED course: 35yo M with schizoaffective presents with increase psychosis. Requests inpt tx. Telepsych rec inpt tx. Eventually accepted for psych tx as per Dr Bianchi's note. Departure - Departure Disposition: 65 Psych Hosp/Unit DC/Xfer Clinical Impression: Schizophrenia, Psychosis Condition: Good
[2021-04-27 14:25] LABS: MUDS CUTOFF CONCENTRATIONS CUTOFF CONC BELOW:
[2021-04-27 14:27] LABS: BILIRUBIN,URINE NEGATIVE (NEGATIVE); CLARITY,URINE CLEAR (CLEAR); GLUCOSE, URINE (UA) NEGATIVE (NEGATIVE); KETONES,URINE (UA) 15 mg/dL (NEGATIVE); LEUKOCYTE ESTERASE, URINE NEGATIVE (NEGATIVE); NITRITE,URINE NEGATIVE (NEGATIVE); OCCULT BLOOD,URINE NEGATIVE (NEGATIVE); PROTEIN,URINE NEGATIVE (NEGATIVE); UROBILINOGEN,URINE 0.2 (NORMAL) E.U./dL (NORMAL)
[2021-04-27 14:34] LABS: BASOPHILS # (AUTO) 0.1 10^3/uL (0.0-0.1); BASOPHILS % (AUTO) 0.7 %; EOSINOPHILS # (AUTO) 0.1 10^3/uL (0.0-0.7); EOSINOPHILS % (AUTO) 0.6 %; HGB - HEMOGLOBIN 15.4 g/dL (14.0-18.0); LYMPHOCYTES # (AUTO) 2.4 10^3/uL (1.5-3.5); LYMPHOCYTES % (AUTO) 29.6 %; MEAN CORPUSCULAR HEMOGLOBIN 28.6 pg (27.0-31.0); MEAN CORPUSCULAR HGB CONC 32.8 g/dL (32.0-36.0); MEAN CORPUSCULAR VOLUME 87.4 fL (80.0-94.0); MEAN PLATELET VOLUME 11.3 fL (7.4-11.4); MONOCYTES # (AUTO) 0.6 10^3/uL (0.0-1.0); MONOCYTES % (AUTO) 7.5 %; NEUTROPHILS # (AUTO) 4.9 10^3/uL (1.5-6.6); NEUTROPHILS % (AUTO) 61.2 %; PLT - PLATELET COUNT 220 10^3/uL (130-450); RED BLOOD COUNT 5.38 10^6/uL (4.70-6.10)
[2021-04-27 14:38] LABS: AMPHETAMINE SCREEN,URINE POSITIVE (NEGATIVE); BARBITURATE SCREEN,UR NEGATIVE (NEGATIVE); BENZODIAZEPINES SCREEN, URINE POSITIVE (NEGATIVE); COCAINE SCREEN URINE NEGATIVE (NEGATIVE); METHADONE SCREEN, URINE NEGATIVE (NEGATIVE); METHAMPHETAMINES SCREEN, URINE POSITIVE (NEGATIVE); OPIATE SCREEN, URINE NEGATIVE (NEGATIVE); OXYCODONE SCREEN, URINE NEGATIVE (NEGATIVE); PROPOXYPHENE SCREEN, URINE NEGATIVE (NEGATIVE); THC CANNABINOID SCREEN, URINE POSITIVE (NEGATIVE); TRICYCLIC ANTIDEPRESSANT,URINE NEGATIVE (NEGATIVE)
--- OUTSIDE RECORDS SUMMARY | 2021-04-27 14:40 | EXTERNAL MEDICAL SUMMARY RPT | Continuity of Care Document ---
:1985 Demographics Phone Unavailable Preferred Language Unknown Marital Status Unknown Alevism Affiliation Unknown Race Unknown Ethnic Group Unknown Author Organization [facility] Address [address] [place] [address] Phone Allergies Encounters Medications Problems Results
[2021-04-27 14:51] LABS: ACETAMINOPHEN < 10 ug/mL (10-30); ALBUMIN 5.1 g/dL (3.2-5.5); ALKALINE PHOSPHATASE 72 IU/L (42-121); ALT ALANINE AMINOTRANSFERASE 17 IU/L (10-60); AST ASPARTATE AMINOTRANSFERASE 16 IU/L (10-42); BILIRUBIN,TOTAL 0.7 mg/dL (0.2-1.0); BUN - BLOOD UREA NITROGEN 21 mg/dL (6-20); CALCIUM 9.4 mg/dL (8.5-10.3); CARBON DIOXIDE - CO2 24 mmol/L (21-32); CHLORIDE 98 mmol/L (101-111); CREATININE 0.9 mg/dL (0.6-1.2); ETOH - ETHANOL < 5.0 mg/dL; GFR - MDRD 97 (>89); GLUCOSE 105 mg/dL (70-100); LIPASE 22 U/L (22-51); POTASSIUM 4.1 mmol/L (3.5-5.0); SALICYLATE < 6.0 mg/dL; SODIUM 135 mmol/L (135-145); TOTAL PROTEIN 7.7 g/dL (6.7-8.2)
[2021-04-27 14:58] LABS: CARBAMAZEPINE (TEGRETOL) 9.7 ug/mL
--- NOTE | 2021-04-27 15:07 | TELEPSYCH PHYS NOTE ---
Telepsych Note - CHIEF COMPLAINT/HX OF PRESENT ILLNESS Chief Complaint and History of Present Illness: Pt is a 35y/o swm with h/o schizoaffective d/o who presents with c/o hearing voices and the end of time, fighting the beast trying to kill God. Pt says he is exhausted and needs help. He did not answer if he was having suicidal thoughts but he did deny thoughts of harm to others. He did not answer if he has harmed himself before but he denied h/o violence. He denied h/o harm to self or others. He says his mood is low and sleep is poor. He has some nightmares but did not answer if he has a h/o trauma. He said his energy is normal. He denied seeing things. He did not answer if he is eating. He denied current drug use. He denied use of alcohol. He did not answer if he has an outpatient provider. - SI/HI/SELF HARM SI/HI/Self Harm Text (Current or History of):: HE did not directly answer if he was having suicidal thoughts, he just said, "I need help" He denied homicidal thoughts. He did not answer if he has a h/o self harm but denied h/o violence. - VIOLENCE/LEGAL/COLLATERAL Violence - Legal - Collateral: denied h/o violence - PSYCHIATRIC HX/TREATMENT HX Psychiatric: Depression, Anxiety, Bipolar disorder, Schizophrenia, Panic attacks, ADD/ADHD, Obsessive compulsive disorder Psychiatric/Treatment Hx Other: Pt says he has been hospitalized many times but was not able to provide any details. - DRUG/ALCOHOL HX Substance Use and Type: Marijuana, Meth Substance use/abuse/alcohol text: PT has a h/o meth and marijuana use. He denied current use. - MEDICAL HX Does the pt have a hx of MRSA?: No Neurological History: None Eyes, Ears, Nose, Throat: None Cardiovascular: High cholesterol Respiratory: None Skin: None Endocrine/Autoimmune: None Gastrointestinal: None Urinary: Renal insuffiency Musculoskeletal: None Blood Disorders: None PMH Other: Pt denied having any mendical issues, sz or head trauma - HOME MEDICATIONS Home Meds (as last confirmed): PT unable to state what meds he is on or what he has taken in the past - ALLERGIES Allergies (as last confirmed): Allergies Allergy/AdvReac Type Severity Reaction Status Date / Time ziprasidone HCl * AdvReac Severe Hallucinati Verified 04/27/21 14:11 [From [facility]] ons ziprasidone mesylate * AdvReac Severe Hallucinati Verified 04/27/21 14:11 [From [facility]] ons - FAMILY PSYCH/SUICIDE/SOCIAL HX-MENTAL Family - Suicide - Social Hx and Mental Status Exam: Pt said his adopted dad committed suicide using cyanide. He was not able to provide any further details of family hx Social hx: PT lives with his mother and has 3 kids ages 8, 10, 11y/o. He is on disability. He has some college but not in the workforce. He denied access to guns. He says he has legal issues to include being on probation but was not able to state why. MSE: PT was appropriately groomed but did not provide eye contact. He appeared in distress and was clearly internally preoccupied. He was calm and cooperative but had difficulty staying focused and frequently asked for questions to be repeated. He never answered reference suicidal thoughts or h/o self harm. His displayed paucity of speech but normal volume and rate. Insight and judgment were limited - PATIENT PROBLEM LIST (1) Psychosis Qualifiers: Psychosis type: schizoaffective disorder Schizoaffective disorder type: unspecified Qualified Code(s): F25.9 - Schizoaffective disorder, unspecified Impression: PT presents with c/o of the end of time, fighting the beast to save God. Pt displays paucity of speech, is clearly internally preoccupied and having difficulty focusing to answer questions. He appears high distraught, distracted, grimacing to internal stimuli and asking if we can hurry. PT reportedly has a h/o meth and marijuana use but is denying current substance use. UDS is pending. He denied thoughts of harm to others but did not answer if he had any thoughts of harming himself or h/o self harm. He said his adopted dad killed himself but did not answer reference bio family hx. Pt denied medical issues. HE lives with his mom. He says he has pending legal issues but was not able to elaborate. He began grimacing, closing his eyes and asking if this can be done. PT was clearly distressed and agreed to inpatient care. - TREATMENT/PHARMACOLOGICAL RECOMMENDATION Treatment - Pharmacological - Therapy Recommendations: Recommend admit to inpatient psychiatry for mood stabilization and safety. PRovide safety precautions 1:1. Pt is in agreement. Rec discussed with Dr Acevedo Recommend zyprexa 10mg po q 4h prn agitation/psychosis NTE 40mg qd Start zyprexa 5mg po bid - TIME SPENT & PROVIDER LOCATION Telepsych consultation conducted via videoconferencing: Yes List names and roles of persons who participated in consult: Dr Alarcon and Earnest Barraza Telepsych Provider Location: [place] Time Telepsych consult began: 17:40 Time Telepsych consult completed: 18:30
[2021-04-27] MEDS ORDERED: NICOTINE 14 MG PATCH TOP STA (15:10)
[2021-04-27 15:21] LABS: B. PARAPERTUSSIS- RESP PCR PAN NOT DETECTED; B. PERTUSSIS- RESP PCR PANEL NOT DETECTED; C. PNEUMONIAE- RESP PCR PANEL NOT DETECTED; CORONAVIRUS 229E-RESP PCR NOT DETECTED; CORONAVIRUS HKU1-RESP PCR NOT DETECTED; CORONAVIRUS NL63-RESP PCR NOT DETECTED; CORONAVIRUS OC43-RESP PCR NOT DETECTED; HUMAN METAPNEUMOVIRUS NOT DETECTED; INFLUENZA A- RESP PCR PANEL NOT DETECTED; INFLUENZA B - RESP PCR PANEL NOT DETECTED; M. PNEUMONIAE- RESP PCR PANEL NOT DETECTED; PARAINFLUENZA VIRUS 1 NOT DETECTED; PARAINFLUENZA VIRUS 2 NOT DETECTED; PARAINFLUENZA VIRUS 3 NOT DETECTED; PARAINFLUENZA VIRUS 4 NOT DETECTED; RHINOVIRUS/ENTEROVIRUS NOT DETECTED; RSV- RESP PCR PANEL NOT DETECTED; SARS-CoV-2 -RESP PCR PANEL NOT DETECTED
[2021-04-27] MEDS ORDERED: LORazepam 1 MG TABLET PO STA (20:36)
--- NOTE | 2021-04-28 10:59 | ED Physician Documentation ---
ED Addendum - Addendum Addendum: 04/28/21 10:58 Patient accepted to [facility] by MAURICE Mcmanus. COBRA forms completed. Patient transferred Departure - Departure Disposition: 65 Psych Hosp/Unit DC/Xfer Clinical Impression: Schizophrenia Qualifiers: Schizophrenia type: unspecified Qualified Code(s): F20.9 - Schizophrenia, unspecified Psychosis Qualifiers: Psychosis type: schizoaffective disorder Schizoaffective disorder type: unspecified Qualified Code(s): F25.9 - Schizoaffective disorder, unspecified Condition: Good
[2021-04-28 15:07] VITALS: BP 108/69
== END 2021-04-28 15:07 ==
LOC: EDUNIT# → ED 13:53
DX: F25.9 Schizoaffective disorder, unspecified (principal); F17.200 Nicotine dependence, unspecified, uncomplicated; Z20.822 Contact with and (suspected) exposure to COVID-19
CPT/HCPCS: 0202U; 36415; 80053; 80156; 80306; 80307; 80320; 80329; 81003; 83690; 84443; 85025; 99284; 99285; A9270; G0426; Q3014; 81001; 87086

== ENCOUNTER 2021-05-14 08:16 | Outpatient (CLI) | payer MEDICAID | END 2021-05-14 08:17 | disposition critical access hospital (66) | LOC: EMS 08:16 | DX: R44.0 Auditory hallucinations (principal) | CPT/HCPCS: A0425; A0429 ==

== ENCOUNTER 2021-05-14 08:36 | Emergency (ER) | payer MEDICAID ==
[2021-05-14 09:02] LABS: BILIRUBIN,URINE NEGATIVE (NEGATIVE); GLUCOSE, URINE (UA) NEGATIVE (NEGATIVE); KETONES,URINE (UA) NEGATIVE (NEGATIVE); LEUKOCYTE ESTERASE, URINE NEGATIVE (NEGATIVE); MUDS CUTOFF CONCENTRATIONS CUTOFF CONC BELOW:; NITRITE,URINE NEGATIVE (NEGATIVE); OCCULT BLOOD,URINE NEGATIVE (NEGATIVE); PROTEIN,URINE TRACE mg/dL (NEGATIVE); UROBILINOGEN,URINE 0.2 (NORMAL) E.U./dL (NORMAL)
[2021-05-14] MEDS ORDERED: OLANZapine ODT 5 MG TABLET TL STA (09:02)
[2021-05-14 09:04] LABS: CLARITY,URINE CLEAR (CLEAR)
[2021-05-14 09:17] LABS: AMPHETAMINE SCREEN,URINE POSITIVE (NEGATIVE); BARBITURATE SCREEN,UR NEGATIVE (NEGATIVE); BENZODIAZEPINES SCREEN, URINE NEGATIVE (NEGATIVE); COCAINE SCREEN URINE NEGATIVE (NEGATIVE); METHADONE SCREEN, URINE NEGATIVE (NEGATIVE); METHAMPHETAMINES SCREEN, URINE POSITIVE (NEGATIVE); OPIATE SCREEN, URINE NEGATIVE (NEGATIVE); OXYCODONE SCREEN, URINE NEGATIVE (NEGATIVE); PROPOXYPHENE SCREEN, URINE NEGATIVE (NEGATIVE); THC CANNABINOID SCREEN, URINE POSITIVE (NEGATIVE); TRICYCLIC ANTIDEPRESSANT,URINE NEGATIVE (NEGATIVE)
[2021-05-14 09:31] LABS: BASOPHILS # (AUTO) 0.1 10^3/uL (0.0-0.1); BASOPHILS % (AUTO) 0.6 %; EOSINOPHILS % (AUTO) 0.1 %; HCT - HEMATOCRIT 44.5 % (42.0-52.0); HGB - HEMOGLOBIN 15.2 g/dL (14.0-18.0); LYMPHOCYTES # (AUTO) 1.6 10^3/uL (1.5-3.5); LYMPHOCYTES % (AUTO) 19.8 %; MEAN CORPUSCULAR HEMOGLOBIN 29.5 pg (27.0-31.0); MEAN CORPUSCULAR HGB CONC 34.2 g/dL (32.0-36.0); MEAN CORPUSCULAR VOLUME 86.2 fL (80.0-94.0); MEAN PLATELET VOLUME 11.1 fL (7.4-11.4); MONOCYTES # (AUTO) 0.5 10^3/uL (0.0-1.0); NEUTROPHILS # (AUTO) 5.7 10^3/uL (1.5-6.6); NEUTROPHILS % (AUTO) 73.1 %; PLT - PLATELET COUNT 226 10^3/uL (130-450); RED BLOOD COUNT 5.16 10^6/uL (4.70-6.10); RED CELL DISTRIBUTION WIDTH 12.8 % (12.0-15.0); WHITE BLOOD COUNT 7.9 x10^3/uL (4.8-10.8)
[2021-05-14 09:49] LABS: ACETAMINOPHEN < 10 ug/mL (10-30); ALBUMIN/GLOBULIN RATIO 1.9 (1.0-2.2); ALKALINE PHOSPHATASE 70 IU/L (42-121); ALT ALANINE AMINOTRANSFERASE 19 IU/L (10-60); AST ASPARTATE AMINOTRANSFERASE 16 IU/L (10-42); BILIRUBIN,TOTAL 0.6 mg/dL (0.2-1.0); BUN - BLOOD UREA NITROGEN 13 mg/dL (6-20); CALCIUM 9.3 mg/dL (8.5-10.3); CARBON DIOXIDE - CO2 27 mmol/L (21-32); CHLORIDE 100 mmol/L (101-111); CREATININE 0.6 mg/dL (0.6-1.2); ETOH - ETHANOL < 5.0 mg/dL; GFR - MDRD 153 (>89); GLUCOSE 115 mg/dL (70-100); LIPASE 20 U/L (22-51); POTASSIUM 3.7 mmol/L (3.5-5.0); SALICYLATE < 6.0 mg/dL; SODIUM 135 mmol/L (135-145); TOTAL PROTEIN 7.7 g/dL (6.7-8.2)
[2021-05-14 10:24] VITALS: BP 147/107
[2021-05-14 11:19] LABS: B. PARAPERTUSSIS- RESP PCR PAN NOT DETECTED; B. PERTUSSIS- RESP PCR PANEL NOT DETECTED; C. PNEUMONIAE- RESP PCR PANEL NOT DETECTED; CORONAVIRUS 229E-RESP PCR NOT DETECTED; CORONAVIRUS HKU1-RESP PCR NOT DETECTED; CORONAVIRUS NL63-RESP PCR NOT DETECTED; CORONAVIRUS OC43-RESP PCR NOT DETECTED; HUMAN METAPNEUMOVIRUS NOT DETECTED; INFLUENZA A- RESP PCR PANEL NOT DETECTED; INFLUENZA B - RESP PCR PANEL NOT DETECTED; M. PNEUMONIAE- RESP PCR PANEL NOT DETECTED; PARAINFLUENZA VIRUS 1 NOT DETECTED; PARAINFLUENZA VIRUS 2 NOT DETECTED; PARAINFLUENZA VIRUS 3 NOT DETECTED; PARAINFLUENZA VIRUS 4 NOT DETECTED; RHINOVIRUS/ENTEROVIRUS NOT DETECTED; RSV- RESP PCR PANEL NOT DETECTED; SARS-CoV-2 -RESP PCR PANEL NOT DETECTED
--- NOTE | 2021-05-14 12:41 | ED Physician Documentation ---
History of Present Illness - Stated complaint Stated Complaint: MHE - Chief complaint Chief Complaint: MHE - History obtained from History obtained from: Patient - Additonal information Additional information: Patient comes emergency department complaining of increasing hallucinations and feeling unsafe at home. He was just discharged from [facility] last week for similar symptoms. He denies any suicidal ideation or homicidal ideation at this time. According to his mom, the patient seems to be steadily decompensating. Patient states that he is taking his medications, though Mom cannot verify this. Patient denies any substance use today, though he does have a history of methamphetamine abuse. No other complaints at this time. Review of Systems Ten Systems: 10 systems reviewed and negative Constitutional: reports: Reviewed and negative Eyes: reports: Reviewed and negative Ears: reports: Reviewed and negative Nose: reports: Reviewed and negative Throat: reports: Reviewed and negative Cardiac: reports: Reviewed and negative Respiratory: reports: Reviewed and negative GI: reports: Reviewed and negative : reports: Reviewed and negative Skin: reports: Reviewed and negative Musculoskeletal: reports: Reviewed and negative Neurologic: reports: Reviewed and negative Psychiatric: reports: Hallucinations, Anxiety Endocrine: reports: Reviewed and negative Immunocompromised: reports: Reviewed and negative PD PAST MEDICAL HISTORY - Past Medical History Past Medical History: Yes Cardiovascular: High cholesterol Respiratory: None Neuro: None Endocrine/Autoimmune: None GI: None : Renal insuffiency HEENT: None Psych: Depression, Anxiety, Bipolar disorder, Schizophrenia, Panic attacks, ADD/ADHD, Obsessive compulsive disorder Musculoskeletal: None Derm: None - Past Surgical History Past Surgical History: No - Present Medications Home Medications: Ambulatory Orders Medication Instructions Recorded Confirmed Atorvastatin [Lipitor] 10 mg PO DAILY 04/27/21 04/27/21 Benztropine Mesylate 1 mg PO BID 04/27/21 04/27/21 LORazepam [Ativan] 0.5 mg PO BID 04/27/21 04/27/21 carBAMazepine [TEGretol] 200 mg PO BID 04/27/21 04/27/21 haloperidoL [Haloperidol] 10 mg PO BID 04/27/21 04/27/21 traZODone [Desyrel] 150 mg PO HS 04/27/21 04/27/21 - Allergies Allergies/Adverse Reactions: Allergies Allergy/AdvReac Type Severity Reaction Status Date / Time ziprasidone HCl * AdvReac Severe Hallucinati Verified 05/14/21 08:43 [From [facility]] ons ziprasidone mesylate * AdvReac Severe Hallucinati Verified 05/14/21 08:43 [From [facility]] ons - Social History Does the pt smoke?: Yes Smoking Status: Current every day smoker Does the pt drink ETOH?: Yes Does the pt have substance abuse?: No - Immunizations Immunizations are current?: No Immunizations: TDAP >10years/unknown, Other immun current - POLST Patient has POLST: No PD ED PE NORMAL - Vitals Vital signs reviewed: Yes - General General: Alert and oriented X 3, No acute distress, Other (Disheveled) - HEENT HEENT: Atraumatic, PERRL, EOMI, Moist mucous membranes - Neck Neck: Supple, no meningeal sign - Cardiac Cardiac: RRR, No murmur - Respiratory Respiratory: No respiratory distress, Clear bilaterally - Abdomen Abdomen: Soft, Non tender, Non distended - Derm Derm: Normal color, Warm and dry, No rash - Extremities Extremities: No deformity, No edema - Neuro Neuro: Alert and oriented X 3, detective precinct 2-12 intact, Other - Psych Psych: Normal mood, Other (Somewhat withdrawn but does answer questions.) Results - Vitals Vitals: Vital Signs - 24 hr 05/14/21 05/14/21 08:43 10:24 Temperature 36.8 C 36.7 C Heart Rate 90 96 Respiratory 18 16 Rate Blood Pressure 125/85 H 147/107 H O2 Saturation 97 100 Oxygen O2 Source Room air - Labs Labs: Laboratory Tests 05/14/21 05/14/21 05/14/21 08:50 09:24 09:24 WBC 7.9 RBC 5.16 Hgb 15.2 Hct 44.5 MCV 86.2 MCH 29.5 MCHC 34.2 RDW 12.8 Plt Count 226 MPV 11.1 Neut # (Auto) 5.7 Lymph # (Auto) 1.6 [place] # (Auto) 0.5 Eos # (Auto) 0.0 Baso # (Auto) 0.1 Absolute Nucleated RBC 0.00 Nucleated RBC % 0.0 Sodium 135 Potassium 3.7 Chloride 100 L Carbon Dioxide 27 Anion Gap 8.0 BUN 13 Creatinine 0.6 Estimated GFR (MDRD) 153 Glucose 115 H Calcium 9.3 Total Bilirubin 0.6 AST 16 ALT 19 Alkaline Phosphatase 70 Total Protein 7.7 Albumin 5.0 Globulin 2.7 Albumin/Globulin Ratio 1.9 Lipase 20 L TSH Urine Color DARK YELLOW Urine Clarity CLEAR Urine pH 6.0 Ur Specific [place] >=1.030 H Urine Protein TRACE Urine Glucose (UA) NEGATIVE Urine Ketones NEGATIVE Urine Occult Blood NEGATIVE Urine Nitrite NEGATIVE Urine Bilirubin NEGATIVE Urine Urobilinogen 0.2 (NORMAL) Ur Leukocyte Esterase NEGATIVE Ur Microscopic Review NOT INDICATED Urine Culture Comments NOT INDICATED Nasal Adenovirus (PCR) Nasal B. parapertussis DNA (PCR) Nasal Coronavir 229E PCR Nasal Coronavir HKU1 PCR Nasal Coronavir NL63 PCR Nasal Coronavir OC43 PCR Nasal Enterovir/Rhinovir PCR Nasal Influenza B PCR Nasal Influenza A PCR Nasal Parainfluen 1 PCR Nasal Parainfluen 2 PCR Nasal Parainfluen 3 PCR Nasal Parainfluen 4 PCR Nasal RSV (PCR) Nasal B.pertussis DNA PCR Nasal C.pneumoniae (PCR) Gabe Human Metapneumo PCR Nasal M.pneumoniae (PCR) Nasal SARS-CoV-2 (PCR) Salicylates < 6.0 Urine Opiates Screen NEGATIVE Ur Oxycodone Screen NEGATIVE Urine Methadone Screen NEGATIVE Ur Propoxyphene Screen NEGATIVE Acetaminophen < 10 L Ur Barbiturates Screen NEGATIVE Ur Tricyclics Screen NEGATIVE Ur Phencyclidine Scrn NEGATIVE Ur Amphetamine Screen POSITIVE H U Methamphetamines Scrn POSITIVE H U Benzodiazepines Scrn NEGATIVE Urine Cocaine Screen NEGATIVE U Cannabinoids Screen POSITIVE H Ethyl Alcohol < 5.0 05/14/21 05/14/21 09:24 10:20 WBC RBC Hgb Hct MCV MCH MCHC RDW Plt Count MPV Neut # (Auto) Lymph # (Auto) [place] # (Auto) Eos # (Auto) Baso # (Auto) Absolute Nucleated RBC Nucleated RBC % Sodium Potassium Chloride Carbon Dioxide Anion Gap BUN Creatinine Estimated GFR (MDRD) Glucose Calcium Total Bilirubin AST ALT Alkaline Phosphatase Total Protein Albumin Globulin Albumin/Globulin Ratio Lipase TSH 0.56 Urine Color Urine Clarity Urine pH Ur Specific [place] Urine Protein Urine Glucose (UA) Urine Ketones Urine Occult Blood Urine Nitrite Urine Bilirubin Urine Urobilinogen Ur Leukocyte Esterase Ur Microscopic Review Urine Culture Comments Nasal Adenovirus (PCR) NOT DETECTED Nasal B. parapertussis DNA (PCR) NOT DETECTED Nasal Coronavir 229E PCR NOT DETECTED Nasal Coronavir HKU1 PCR NOT DETECTED Nasal Coronavir NL63 PCR NOT DETECTED Nasal Coronavir OC43 PCR NOT DETECTED Nasal Enterovir/Rhinovir PCR NOT DETECTED Nasal Influenza B PCR NOT DETECTED Nasal Influenza A PCR NOT DETECTED Nasal Parainfluen 1 PCR NOT DETECTED Nasal Parainfluen 2 PCR NOT DETECTED Nasal Parainfluen 3 PCR NOT DETECTED Nasal Parainfluen 4 PCR NOT DETECTED Nasal RSV (PCR) NOT DETECTED Nasal B.pertussis DNA PCR NOT DETECTED Nasal C.pneumoniae (PCR) NOT DETECTED Gabe Human Metapneumo PCR NOT DETECTED Nasal M.pneumoniae (PCR) NOT DETECTED Nasal SARS-CoV-2 (PCR) NOT DETECTED Salicylates Urine Opiates Screen Ur Oxycodone Screen Urine Methadone Screen Ur Propoxyphene Screen Acetaminophen Ur Barbiturates Screen Ur Tricyclics Screen Ur Phencyclidine Scrn Ur Amphetamine Screen U Methamphetamines Scrn U Benzodiazepines Scrn Urine Cocaine Screen U Cannabinoids Screen Ethyl Alcohol PD MEDICAL DECISION MAKING - ED course Complexity details: reviewed results, re-evaluated patient, considered differential, d/w patient ED course: Pt is well-known to our emergency department and has had required inpatient management of his schizoaffective disorder and psychosis before. He was just recently admitted to [facility] and discharged, and I felt he would likely need readmission. Medical clearance labs were done and patient was deemed clear to proceed with mental health evaluation. He was accepted for transfer to [facility] again by MAURICE Dejesus. Pt was voluntary, and remained stable until transfer. Departure - Departure Disposition: 65 Psych Hosp/Unit DC/Xfer Discharge Date/Time: 05/14/21 15:13
== END 2021-05-14 15:13 ==
LOC: EDUNIT# → ED 08:36
DX: F25.8 Other schizoaffective disorders (principal); F23 Brief psychotic disorder; F17.200 Nicotine dependence, unspecified, uncomplicated; Z20.822 Contact with and (suspected) exposure to COVID-19
CPT/HCPCS: 0202U; 36415; 80053; 80306; 80307; 80320; 80329; 81003; 83690; 84443; 85025; 99285; A9270; 81001; 87086

== ENCOUNTER 2021-06-01 16:08 | Outpatient (CLI) | payer MEDICAID | END 2021-06-01 16:09 | disposition critical access hospital (66) | LOC: EMS 16:08 | DX: R44.0 Auditory hallucinations (principal) | CPT/HCPCS: A0425; A0429; A0999 ==

== ENCOUNTER 2021-06-01 16:25 | Emergency (ER) | payer MEDICAID ==
[2021-06-01 17:02] LABS: BASOPHILS % (AUTO) 0.5 %; EOSINOPHILS % (AUTO) 0.3 %; HCT - HEMATOCRIT 42.2 % (42.0-52.0); HGB - HEMOGLOBIN 14.5 g/dL (14.0-18.0); LYMPHOCYTES # (AUTO) 1.7 10^3/uL (1.5-3.5); LYMPHOCYTES % (AUTO) 25.9 %; MEAN CORPUSCULAR HEMOGLOBIN 29.2 pg (27.0-31.0); MEAN CORPUSCULAR HGB CONC 34.4 g/dL (32.0-36.0); MEAN CORPUSCULAR VOLUME 85.1 fL (80.0-94.0); MEAN PLATELET VOLUME 11.6 fL (7.4-11.4); MONOCYTES # (AUTO) 0.6 10^3/uL (0.0-1.0); MONOCYTES % (AUTO) 8.6 %; NEUTROPHILS # (AUTO) 4.1 10^3/uL (1.5-6.6); NEUTROPHILS % (AUTO) 64.4 %; PLT - PLATELET COUNT 192 10^3/uL (130-450); RED BLOOD COUNT 4.96 10^6/uL (4.70-6.10); RED CELL DISTRIBUTION WIDTH 12.8 % (12.0-15.0); WHITE BLOOD COUNT 6.4 x10^3/uL (4.8-10.8)
--- NOTE | 2021-06-01 17:07 | ED Physician Documentation ---
PD HPI MHE - Stated complaint Stated Complaint: MHE - Chief complaint Chief Complaint: MHE - History obtained from History obtained from: Patient - Additional information Additional information: 36-year-old gentleman with longstanding mental health issues presents with auditory hallucinations about demons. He vacillates as to whether or not he wants hospitalization on initial evaluation. He states he has been taking his medications and denies recent methamphetamine use. Review of Systems Ten Systems: 10 systems reviewed and negative Constitutional: reports: Reviewed and negative Ears: reports: Reviewed and negative Nose: reports: Reviewed and negative Throat: reports: Reviewed and negative PD PAST MEDICAL HISTORY - Past Medical History Cardiovascular: High cholesterol Respiratory: None Neuro: None Endocrine/Autoimmune: None GI: None : Renal insuffiency HEENT: None Psych: Depression, Anxiety, Bipolar disorder, Schizophrenia, Panic attacks, ADD/ADHD, Obsessive compulsive disorder Musculoskeletal: None Derm: None - Past Surgical History Past Surgical History: No - Present Medications Home Medications: Ambulatory Orders Medication Instructions Recorded Confirmed Atorvastatin [Lipitor] 10 mg PO DAILY 04/27/21 06/01/21 Benztropine Mesylate 1 mg PO BID 04/27/21 06/01/21 LORazepam [Ativan] 0.5 mg PO BID 04/27/21 06/01/21 carBAMazepine [TEGretol] 200 mg PO BID 04/27/21 06/01/21 traZODone [Desyrel] 150 mg PO HS 04/27/21 06/01/21 - Allergies Allergies/Adverse Reactions: Allergies Allergy/AdvReac Type Severity Reaction Status Date / Time ziprasidone HCl * AdvReac Severe Hallucinati Verified 06/01/21 16:35 [From [facility]] ons ziprasidone mesylate * AdvReac Severe Hallucinati Verified 06/01/21 16:35 [From [facility]] ons - Social History Does the pt smoke?: Yes Smoking Status: Current every day smoker Does the pt drink ETOH?: Yes Does the pt have substance abuse?: No - Immunizations Immunizations are current?: No Immunizations: TDAP >10years/unknown, Other immun current - POLST Patient has POLST: No PD ED PE NORMAL - Vitals Vital signs reviewed: Yes - General General: Alert and oriented X 3, Other (Very slow answers with poor eye contact but in no distress.) - HEENT HEENT: PERRL, EOMI - Neck Neck: Supple, no meningeal sign, No bony TTP - Cardiac Cardiac: RRR, No murmur - Respiratory Respiratory: No respiratory distress, Clear bilaterally - Abdomen Abdomen: Soft, Non tender - Back Back: No CVA TTP, No spinal TTP - Derm Derm: Normal color, Warm and dry - Extremities Extremities: No edema, No calf tenderness / cord - Neuro Neuro: Alert and oriented X 3, Normal speech - Psych Psych: Other (Poor eye contact, blunted affect) Results - Vitals Vitals: Vital Signs - 24 hr 06/01/21 06/01/21 06/01/21 16:32 17:04 17:10 Temperature 36.5 C Heart Rate 104 H 100 Respiratory 18 16 Rate Blood Pressure 126/77 143/108 H O2 Saturation 98 97 Oxygen O2 Source Room air - Labs Labs: Laboratory Tests 06/01/21 06/01/21 06/01/21 16:51 16:51 16:51 WBC 6.4 RBC 4.96 Hgb 14.5 Hct 42.2 MCV 85.1 MCH 29.2 MCHC 34.4 RDW 12.8 Plt Count 192 MPV 11.6 H Neut # (Auto) 4.1 Lymph # (Auto) 1.7 [place] # (Auto) 0.6 Eos # (Auto) 0.0 Baso # (Auto) 0.0 Absolute Nucleated RBC 0.00 Nucleated RBC % 0.0 Sodium 137 Potassium 3.6 Chloride 102 Carbon Dioxide 25 Anion Gap 10.0 BUN 12 Creatinine 0.7 Estimated GFR (MDRD) 128 Glucose 100 Calcium 9.4 Total Bilirubin 0.9 AST 16 ALT 19 Alkaline Phosphatase 71 Total Protein 7.4 Albumin 4.8 Globulin 2.6 Albumin/Globulin Ratio 1.8 Lipase 19 L TSH 0.81 Urine Color Urine Clarity Urine pH Ur Specific [place] Urine Protein Urine Glucose (UA) Urine Ketones Urine Occult Blood Urine Nitrite Urine Bilirubin Urine Urobilinogen Ur Leukocyte Esterase Urine RBC Urine WBC Ur Epithelial Cells Ur Squamous Epith Cells Urine Bacteria Urine Mucus Urine Sperm Ur Microscopic Review Urine Culture Comments Salicylates < 6.0 Urine Opiates Screen Ur Oxycodone Screen Urine Methadone Screen Ur Propoxyphene Screen Acetaminophen < 10 L Ur Barbiturates Screen Ur Tricyclics Screen Ur Phencyclidine Scrn Ur Amphetamine Screen U Methamphetamines Scrn U Benzodiazepines Scrn Urine Cocaine Screen U Cannabinoids Screen Ethyl Alcohol < 5.0 07/11/21 17:20 WBC RBC Hgb Hct MCV MCH MCHC RDW Plt Count MPV Neut # (Auto) Lymph # (Auto) [place] # (Auto) Eos # (Auto) Baso # (Auto) Absolute Nucleated RBC Nucleated RBC % Sodium Potassium Chloride Carbon Dioxide Anion Gap BUN Creatinine Estimated GFR (MDRD) Glucose Calcium Total Bilirubin AST ALT Alkaline Phosphatase Total Protein Albumin Globulin Albumin/Globulin Ratio Lipase TSH Urine Color YELLOW Urine Clarity CLEAR Urine pH 6.5 Ur Specific [place] 1.025 Urine Protein 100 H Urine Glucose (UA) NEGATIVE Urine Ketones TRACE Urine Occult Blood NEGATIVE Urine Nitrite NEGATIVE Urine Bilirubin NEGATIVE Urine Urobilinogen 0.2 (NORMAL) Ur Leukocyte Esterase NEGATIVE Urine RBC 0-5 Urine WBC 0-3 Ur Epithelial Cells FEW Transitional Ur Squamous Epith Cells NONE SEEN Urine Bacteria None Seen Urine Mucus Marked Strands Urine Sperm PRESENT Ur Microscopic Review INDICATED Urine Culture Comments NOT INDICATED Salicylates Urine Opiates Screen NEGATIVE Ur Oxycodone Screen NEGATIVE Urine Methadone Screen NEGATIVE Ur Propoxyphene Screen NEGATIVE Acetaminophen Ur Barbiturates Screen NEGATIVE Ur Tricyclics Screen NEGATIVE Ur Phencyclidine Scrn NEGATIVE Ur Amphetamine Screen NEGATIVE U Methamphetamines Scrn NEGATIVE U Benzodiazepines Scrn POSITIVE H Urine Cocaine Screen NEGATIVE U Cannabinoids Screen POSITIVE H Ethyl Alcohol PD MEDICAL DECISION MAKING - ED course ED course: 36-year-old gentleman presents with auditory hallucinations. No methamphetamines on board. He was offered hospitalization, but declines. Agreeable to single dose of antipsychotic care. States he has been otherwise compliant with his medications. Departure - Departure Disposition: 01 Home, Self Care Clinical Impression: Psychiatric symptoms Condition: Good Record reviewed to determine appropriate education?: Yes Instructions: ED Psychosis Comments: Call your doctor to arrange a follow-up appointment, make the next available appointment. In the interim, return anytime if worse or if new symptoms develop.
[2021-06-01 17:19] LABS: ACETAMINOPHEN < 10 ug/mL (10-30); ALBUMIN 4.8 g/dL (3.2-5.5); ALBUMIN/GLOBULIN RATIO 1.8 (1.0-2.2); ALKALINE PHOSPHATASE 71 IU/L (42-121); ALT ALANINE AMINOTRANSFERASE 19 IU/L (10-60); AST ASPARTATE AMINOTRANSFERASE 16 IU/L (10-42); BILIRUBIN,TOTAL 0.9 mg/dL (0.2-1.0); BUN - BLOOD UREA NITROGEN 12 mg/dL (6-20); CALCIUM 9.4 mg/dL (8.5-10.3); CARBON DIOXIDE - CO2 25 mmol/L (21-32); CHLORIDE 102 mmol/L (101-111); CREATININE 0.7 mg/dL (0.6-1.2); ETOH - ETHANOL < 5.0 mg/dL; GFR - MDRD 128 (>89); GLUCOSE 100 mg/dL (70-100); LIPASE 19 U/L (22-51); POTASSIUM 3.6 mmol/L (3.5-5.0); SALICYLATE < 6.0 mg/dL; SODIUM 137 mmol/L (135-145); TOTAL PROTEIN 7.4 g/dL (6.7-8.2)
[2021-06-01 17:32] LABS: MUDS CUTOFF CONCENTRATIONS CUTOFF CONC BELOW:
[2021-06-01 17:34] LABS: BILIRUBIN,URINE NEGATIVE (NEGATIVE); GLUCOSE, URINE (UA) NEGATIVE (NEGATIVE); KETONES,URINE (UA) TRACE mg/dL (NEGATIVE); LEUKOCYTE ESTERASE, URINE NEGATIVE (NEGATIVE); NITRITE,URINE NEGATIVE (NEGATIVE); OCCULT BLOOD,URINE NEGATIVE (NEGATIVE); PH,URINE 6.5 PH (5.0-7.5); PROTEIN,URINE 100 mg/dL (NEGATIVE); UROBILINOGEN,URINE 0.2 (NORMAL) E.U./dL (NORMAL)
[2021-06-01 17:36] LABS: CLARITY,URINE CLEAR (CLEAR)
[2021-06-01 17:47] LABS: BACTERIA,URINE None Seen /HPF (None Seen); EPITHELIAL CELLS,UR FEW Transitional /HPF (<= Few); MUCUS,URINE Marked Strands; RBC,URINE 0-5 /HPF (0-5); SPERM,URINE PRESENT; SQUAMOUS EPITHELIAL CELL,UR NONE SEEN (<= Few); WBC,URINE 0-3 /HPF (0-3)
[2021-06-01 17:48] LABS: AMPHETAMINE SCREEN,URINE NEGATIVE (NEGATIVE); BARBITURATE SCREEN,UR NEGATIVE (NEGATIVE); BENZODIAZEPINES SCREEN, URINE POSITIVE (NEGATIVE); COCAINE SCREEN URINE NEGATIVE (NEGATIVE); METHADONE SCREEN, URINE NEGATIVE (NEGATIVE); METHAMPHETAMINES SCREEN, URINE NEGATIVE (NEGATIVE); OPIATE SCREEN, URINE NEGATIVE (NEGATIVE); OXYCODONE SCREEN, URINE NEGATIVE (NEGATIVE); PROPOXYPHENE SCREEN, URINE NEGATIVE (NEGATIVE); THC CANNABINOID SCREEN, URINE POSITIVE (NEGATIVE); TRICYCLIC ANTIDEPRESSANT,URINE NEGATIVE (NEGATIVE)
[2021-06-01] MEDS ORDERED: OLANZapine ODT 5 MG TABLET TL STA (18:11)
[2021-06-01 18:15] LABS: B. PARAPERTUSSIS- RESP PCR PAN NOT DETECTED; B. PERTUSSIS- RESP PCR PANEL NOT DETECTED; C. PNEUMONIAE- RESP PCR PANEL NOT DETECTED; CORONAVIRUS 229E-RESP PCR NOT DETECTED; CORONAVIRUS HKU1-RESP PCR NOT DETECTED; CORONAVIRUS NL63-RESP PCR NOT DETECTED; CORONAVIRUS OC43-RESP PCR NOT DETECTED; HUMAN METAPNEUMOVIRUS NOT DETECTED; INFLUENZA A- RESP PCR PANEL NOT DETECTED; INFLUENZA B - RESP PCR PANEL NOT DETECTED; M. PNEUMONIAE- RESP PCR PANEL NOT DETECTED; PARAINFLUENZA VIRUS 1 NOT DETECTED; PARAINFLUENZA VIRUS 2 NOT DETECTED; PARAINFLUENZA VIRUS 3 NOT DETECTED; PARAINFLUENZA VIRUS 4 NOT DETECTED; RHINOVIRUS/ENTEROVIRUS NOT DETECTED; RSV- RESP PCR PANEL NOT DETECTED; SARS-CoV-2 -RESP PCR PANEL NOT DETECTED
[2021-06-01 18:24] VITALS: BP 141/108
== END 2021-06-01 18:42 | disposition home or self-care (01) ==
LOC: EDUNIT# → ED 16:25
DX: R44.0 Auditory hallucinations (principal); F31.9 Bipolar disorder, unspecified; F17.200 Nicotine dependence, unspecified, uncomplicated; Z20.822 Contact with and (suspected) exposure to COVID-19
CPT/HCPCS: 0202U; 36415; 80053; 80306; 80307; 80320; 80329; 81001; 81003; 83690; 84443; 85025; 87086; 99283; 99284

== ENCOUNTER 2021-06-01 23:40 | Outpatient (CLI) | payer MEDICAID | END 2021-06-01 23:41 | disposition critical access hospital (66) | LOC: EMS 23:40 | DX: R44.0 Auditory hallucinations (principal) | CPT/HCPCS: A0425; A0429; A0999 ==

== ENCOUNTER 2021-06-01 23:58 | Emergency (ER) | payer MEDICAID ==
--- NOTE | 2021-06-02 01:13 | ED Physician Documentation ---
PD HPI MHE - Stated complaint Stated Complaint: DEMONS IN HEAD - Chief complaint Chief Complaint: MHE - History obtained from History obtained from: Patient, EMS - History of Present Illness Primary symptom: Psychosis Timing - onset: How many weeks ago (1) Contributing factors: Other (does not know of trigger) Similar symptoms before: Diagnosis (psychosis) Recently seen: Emergency Dept - Additional information Additional information: 36-year-old male with a history of psychosis was seen in the emergency department earlier today with ambivalence about going into the hospital. He did accept a dose of olanzapine earlier and he has come back to the emergency department this evening by ambulance with the chief complaint of demons in his head. He denies any command hallucinations he denies any persecute Etienne hallucinations states that the demons are just trying to make it hard for him. He denies any current methamphetamine use.Tonight he believes he needs to be back in the hospital. Review of Systems Constitutional: denies: Fever Eyes: denies: Decreased vision Ears: denies: Ear pain Nose: denies: Congestion Throat: denies: Sore throat Cardiac: denies: Chest pain / pressure Respiratory: denies: Dyspnea, Cough GI: denies: Abdominal Pain, Nausea, Vomiting : denies: Dysuria, Frequency Skin: denies: Rash Musculoskeletal: denies: Neck pain, Back pain, Extremity pain Neurologic: denies: Generalized weakness, Focal weakness, Numbness, Difficulty speaking Psychiatric: reports: Depressed, Hallucinations. denies: Suicidal, Homicidal PD PAST MEDICAL HISTORY - Past Medical History Cardiovascular: High cholesterol Respiratory: None Neuro: None Endocrine/Autoimmune: None GI: None : Renal insuffiency HEENT: None Psych: Depression, Anxiety, Bipolar disorder, Schizophrenia, Panic attacks, ADD/ADHD, Obsessive compulsive disorder Musculoskeletal: None Derm: None - Past Surgical History Past Surgical History: No - Present Medications Home Medications: Ambulatory Orders Medication Instructions Recorded Confirmed Atorvastatin [Lipitor] 10 mg PO DAILY 04/27/21 06/02/21 Benztropine Mesylate 1 mg PO BID 04/27/21 06/02/21 LORazepam [Ativan] 0.5 mg PO BID 04/27/21 06/02/21 carBAMazepine [TEGretol] 200 mg PO BID 04/27/21 06/02/21 traZODone [Desyrel] 150 mg PO HS 04/27/21 06/02/21 - Allergies Allergies/Adverse Reactions: Allergies Allergy/AdvReac Type Severity Reaction Status Date / Time ziprasidone HCl * AdvReac Severe Hallucinati Verified 06/01/21 16:35 [From [facility]] ons ziprasidone mesylate * AdvReac Severe Hallucinati Verified 06/01/21 16:35 [From [facility]] ons - Social History Does the pt smoke?: Yes Smoking Status: Current every day smoker Does the pt drink ETOH?: Yes Does the pt have substance abuse?: No - Immunizations Immunizations are current?: No Immunizations: TDAP >10years/unknown, Other immun current - POLST Patient has POLST: No PD ED PE NORMAL - Vitals Vital signs reviewed: Yes (hypertensive ) - General General: Alert and oriented X 3, Well developed/nourished, Other (quiet and withdrawn with flat affect. ) - HEENT HEENT: Atraumatic, PERRL, EOMI - Neck Neck: Supple, no meningeal sign, No bony TTP - Cardiac Cardiac: RRR, No murmur - Respiratory Respiratory: No respiratory distress, Clear bilaterally - Abdomen Abdomen: Soft, Non tender - Back Back: No CVA TTP, No spinal TTP - Derm Derm: Normal color, Warm and dry, No rash - Extremities Extremities: No deformity, No edema - Neuro Neuro: Alert and oriented X 3, parking patroller 2-12 intact, No motor deficit, No sensory deficit, Normal speech Eye Opening: Spontaneous Motor: Obeys Commands Verbal: Oriented GCS Score: 15 - Psych Psych: Other (mood is withdrawn and the affect is flat ) Results - Vitals Vitals: Vital Signs - 24 hr 06/02/21 06/02/21 06/02/21 00:03 02:42 05:33 Temperature 34.1 C L 36.3 C L Heart Rate 87 90 81 Respiratory 18 18 16 Rate Blood Pressure 132/95 H 140/90 H 150/109 H O2 Saturation 98 100 99 06/02/21 06:11 Temperature 36.7 C Heart Rate 72 Respiratory 16 Rate Blood Pressure 140/88 H O2 Saturation 100 Oxygen O2 Source Room air - Labs Labs: Laboratory Tests 06/02/21 06/02/21 06/02/21 01:45 02:00 02:00 WBC 6.4 RBC 4.80 Hgb 14.2 Hct 41.4 L MCV 86.3 MCH 29.6 MCHC 34.3 RDW 12.9 Plt Count 182 MPV 11.8 H Neut # (Auto) 3.5 Lymph # (Auto) 2.2 [place] # (Auto) 0.7 Eos # (Auto) 0.1 Baso # (Auto) 0.0 Absolute Nucleated RBC 0.00 Nucleated RBC % 0.0 Sodium 135 Potassium 3.3 L Chloride 101 Carbon Dioxide 25 Anion Gap 9.0 BUN 12 Creatinine 0.6 Estimated GFR (MDRD) 153 Glucose 112 H Calcium 8.8 Total Bilirubin 0.8 AST 15 ALT 16 Alkaline Phosphatase 62 Total Protein 6.9 Albumin 4.4 Globulin 2.5 Albumin/Globulin Ratio 1.8 Lipase 22 TSH Urine Color YELLOW Urine Clarity CLEAR Urine pH 6.5 Ur Specific [place] 1.010 Urine Protein NEGATIVE Urine Glucose (UA) NEGATIVE Urine Ketones NEGATIVE Urine Occult Blood NEGATIVE Urine Nitrite NEGATIVE Urine Bilirubin NEGATIVE Urine Urobilinogen 0.2 (NORMAL) Ur Leukocyte Esterase NEGATIVE Ur Microscopic Review NOT INDICATED Urine Culture Comments NOT INDICATED Salicylates < 6.0 Urine Opiates Screen NEGATIVE Ur Oxycodone Screen NEGATIVE Urine Methadone Screen NEGATIVE Ur Propoxyphene Screen NEGATIVE Acetaminophen < 10 L Ur Barbiturates Screen NEGATIVE Ur Tricyclics Screen NEGATIVE Ur Phencyclidine Scrn NEGATIVE Ur Amphetamine Screen NEGATIVE U Methamphetamines Scrn NEGATIVE U Benzodiazepines Scrn POSITIVE H Urine Cocaine Screen NEGATIVE U Cannabinoids Screen NEGATIVE Ethyl Alcohol < 5.0 06/02/21 02:00 WBC RBC Hgb Hct MCV MCH MCHC RDW Plt Count MPV Neut # (Auto) Lymph # (Auto) [place] # (Auto) Eos # (Auto) Baso # (Auto) Absolute Nucleated RBC Nucleated RBC % Sodium Potassium Chloride Carbon Dioxide Anion Gap BUN Creatinine Estimated GFR (MDRD) Glucose Calcium Total Bilirubin AST ALT Alkaline Phosphatase Total Protein Albumin Globulin Albumin/Globulin Ratio Lipase TSH 1.00 Urine Color Urine Clarity Urine pH Ur Specific [place] Urine Protein Urine Glucose (UA) Urine Ketones Urine Occult Blood Urine Nitrite Urine Bilirubin Urine Urobilinogen Ur Leukocyte Esterase Ur Microscopic Review Urine Culture Comments Salicylates Urine Opiates Screen Ur Oxycodone Screen Urine Methadone Screen Ur Propoxyphene Screen Acetaminophen Ur Barbiturates Screen Ur Tricyclics Screen Ur Phencyclidine Scrn Ur Amphetamine Screen U Methamphetamines Scrn U Benzodiazepines Scrn Urine Cocaine Screen U Cannabinoids Screen Ethyl Alcohol PD MEDICAL DECISION MAKING - ED course Complexity details: reviewed old records, reviewed results, re-evaluated patient, considered differential, d/w patient ED course: 36-year-old schizophrenic male on medication has an exacerbation of his auditory hallucinations and feels like he needs to come back into the hospital. He was seen in the emerge department earlier today and given a dose of Zyprexa. Despite this he has come back to the emergency department this evening feeling hospitalization is required. He has been in the hospital a number of times. Today he is medically cleared for telepsych. Telepsych recommends the patient be admitted to an inpatient psychiatric facility as he appears to be gravely disabled. He is very disorganized in his thought process unable to give an adequate history at all. At shift change care of the patient is turned over to Dr. Mejia with pending social work consult for hospitalization. Departure - Departure Clinical Impression: Psychosis Qualifiers: Psychosis type: schizoaffective disorder Schizoaffective disorder type: unsp ecified Qualified Code(s): F25.9 - Schizoaffective disorder, unspecified
[2021-06-02 01:59] LABS: MUDS CUTOFF CONCENTRATIONS CUTOFF CONC BELOW:
[2021-06-02 02:02] LABS: BILIRUBIN,URINE NEGATIVE (NEGATIVE); GLUCOSE, URINE (UA) NEGATIVE (NEGATIVE); KETONES,URINE (UA) NEGATIVE (NEGATIVE); LEUKOCYTE ESTERASE, URINE NEGATIVE (NEGATIVE); NITRITE,URINE NEGATIVE (NEGATIVE); OCCULT BLOOD,URINE NEGATIVE (NEGATIVE); PH,URINE 6.5 PH (5.0-7.5); PROTEIN,URINE NEGATIVE (NEGATIVE); UROBILINOGEN,URINE 0.2 (NORMAL) E.U./dL (NORMAL)
[2021-06-02 02:04] LABS: CLARITY,URINE CLEAR (CLEAR)
[2021-06-02 02:10] LABS: BASOPHILS % (AUTO) 0.3 %; EOSINOPHILS # (AUTO) 0.1 10^3/uL (0.0-0.7); EOSINOPHILS % (AUTO) 0.8 %; HCT - HEMATOCRIT 41.4 % (42.0-52.0); HGB - HEMOGLOBIN 14.2 g/dL (14.0-18.0); LYMPHOCYTES # (AUTO) 2.2 10^3/uL (1.5-3.5); LYMPHOCYTES % (AUTO) 33.5 %; MEAN CORPUSCULAR HEMOGLOBIN 29.6 pg (27.0-31.0); MEAN CORPUSCULAR HGB CONC 34.3 g/dL (32.0-36.0); MEAN CORPUSCULAR VOLUME 86.3 fL (80.0-94.0); MEAN PLATELET VOLUME 11.8 fL (7.4-11.4); MONOCYTES # (AUTO) 0.7 10^3/uL (0.0-1.0); MONOCYTES % (AUTO) 10.3 %; NEUTROPHILS # (AUTO) 3.5 10^3/uL (1.5-6.6); NEUTROPHILS % (AUTO) 54.9 %; PLT - PLATELET COUNT 182 10^3/uL (130-450); RED CELL DISTRIBUTION WIDTH 12.9 % (12.0-15.0); WHITE BLOOD COUNT 6.4 x10^3/uL (4.8-10.8)
[2021-06-02 02:13] LABS: AMPHETAMINE SCREEN,URINE NEGATIVE (NEGATIVE); BARBITURATE SCREEN,UR NEGATIVE (NEGATIVE); BENZODIAZEPINES SCREEN, URINE POSITIVE (NEGATIVE); COCAINE SCREEN URINE NEGATIVE (NEGATIVE); METHADONE SCREEN, URINE NEGATIVE (NEGATIVE); METHAMPHETAMINES SCREEN, URINE NEGATIVE (NEGATIVE); OPIATE SCREEN, URINE NEGATIVE (NEGATIVE); OXYCODONE SCREEN, URINE NEGATIVE (NEGATIVE); PROPOXYPHENE SCREEN, URINE NEGATIVE (NEGATIVE); THC CANNABINOID SCREEN, URINE NEGATIVE (NEGATIVE); TRICYCLIC ANTIDEPRESSANT,URINE NEGATIVE (NEGATIVE)
[2021-06-02 02:27] LABS: ACETAMINOPHEN < 10 ug/mL (10-30); ALBUMIN 4.4 g/dL (3.2-5.5); ALBUMIN/GLOBULIN RATIO 1.8 (1.0-2.2); ALKALINE PHOSPHATASE 62 IU/L (42-121); ALT ALANINE AMINOTRANSFERASE 16 IU/L (10-60); AST ASPARTATE AMINOTRANSFERASE 15 IU/L (10-42); BILIRUBIN,TOTAL 0.8 mg/dL (0.2-1.0); BUN - BLOOD UREA NITROGEN 12 mg/dL (6-20); CALCIUM 8.8 mg/dL (8.5-10.3); CARBON DIOXIDE - CO2 25 mmol/L (21-32); CHLORIDE 101 mmol/L (101-111); CREATININE 0.6 mg/dL (0.6-1.2); ETOH - ETHANOL < 5.0 mg/dL; GFR - MDRD 153 (>89); GLUCOSE 112 mg/dL (70-100); LIPASE 22 U/L (22-51); POTASSIUM 3.3 mmol/L (3.5-5.0); SALICYLATE < 6.0 mg/dL; SODIUM 135 mmol/L (135-145); TOTAL PROTEIN 6.9 g/dL (6.7-8.2)
--- NOTE | 2021-06-02 05:50 | TELEPSYCH PHYS NOTE ---
Telepsych Note - CHIEF COMPLAINT/HX OF PRESENT ILLNESS Chief Complaint and History of Present Illness: Name: Earnest Barraza :87 Date: 06/02/21 Time:830 Location of patient: [facility] Location of doctor: [place] Length of consult:30 min This evaluation was conducted via telepsychiatry with the assistance of onsite staff Reason for consult: psychosis Requested by: Bakari Gabriel MD History of Present Illness: 36 year old male with a history of schizophrenia who presented to the ED for the second time in 24 hours reporting demons in his head. he had presented earlier and was ambivalent about hospitalization, but took some Zyprexa. later he returned reporting the demon in his head are too much. The patient was agreeable to the tele interview. He reports that he is having trouble with his head. he reports there are demons and things. he reports he really cant say what they are saying , but they are making him scream. he reports that he has been having them for a while now. he could not tell me the last times he had seen a psychiatrist . he reports taking his medication, but can not say what those are. he reports that his sleep is variable. he reports he is appetite , energy and motivation have been low. he denies suicidal or homicidal ideations intents or plans. he denies visual hallucinations Collateral contacted (Y/N) no____. Name Phone #? , Relationship to the patient . If N, (No Answer/None available/Patient meets criteria for admission/Other free text reason)he meets criteria Sleep issues: Y- Quantity: unknown hours Quality: Suicide Assessment: PSS-3: 1) Over the past 2 weeks have you felt down, depressed or hopeless? (Y/N) yes 2) Over the past 2 weeks have you had thoughts of killing yourself? (Y/N) no 3) Have you ever in your life attempted to kill yourself? (Y/N) yes If yes, then when? Within the past 24h? (N), past month? (N), between 1-6 months (N), > 6 months (Y) PSS-3 Secondary Screen If #2 is yes or #3 is yes within the past 6 months, then complete secondary screen: 1) Positive on PSS-3 questions 2 & 3 active SI with a past attempt? (Y/N) no 2) Have you been thinking about how you might kill yourself? (Y/N) no 3) Have you had some intention of acting on your thoughts? (Y/N) no 4) Lifetime psychiatric hospitalization? (Y/N) yes 5) Has drinking or substance abuse ever been a problem for you? (Y/N) no 6) Current irritability, agitation, or aggression? (Y/N) no PSS-3 Secondary Screen Scoring: Mild - SI/HI/SELF HARM SI/HI/SELF HARM (CURRENT OR HISTORY OF):: Other SI/HI/Self Harm Text (Current or History of):: . he reports a couple suicide attempts of overdose that were 10-20 years ago. - VIOLENCE/LEGAL/COLLATERAL Violence - Legal - Collateral: Access to firearms: Y/N - if Y then describe: denies HI/Violence/Property destruction: Y/N - if Y then describe: denies Legal: Y/N - if Y then describe: reports he was arrested 2 times and he does not remember what for - PSYCHIATRIC HX/TREATMENT HX Psychiatric: Depression, Anxiety, Bipolar disorder, Schizophrenia, Panic attacks, ADD/ADHD, Obsessive compulsive disorder Psychiatric/Treatment Hx Other: : reports seeing a psychiatrist at 9 years old for ADHD , depression. he reports 15 psychiatric hospitalizations. he reports a couple suicide attempts of overdose that were 10-20 years ago. he reports he does not have a psychiatrist and then he reports he does. [place] Hospitalizations: (Y/N) if Y describe: yes Current Treatment: Medication management ( unknown) Therapy (N) - DRUG/ALCOHOL HX ETOH Use: Other Number: 1 Amount/day: Pack/day (ppd) Substance use/abuse/alcohol text: Drug/Alcohol History: Y/N - if Y then describe: reports he smokes 1 ppd and occasional alcohol. denies drugs - MEDICAL HX Does the pt have a hx of MRSA?: No Neurological History: None Eyes, Ears, Nose, Throat: None Cardiovascular: High cholesterol Respiratory: None Skin: None Endocrine/Autoimmune: None Gastrointestinal: None Urinary: Renal insuffiency Musculoskeletal: None Blood Disorders: None - HOME MEDICATIONS Home Meds (as last confirmed): Patient History Medication Instructions Recorded Confirmed Atorvastatin [Lipitor] 10 mg PO DAILY 04/27/21 06/02/21 Benztropine Mesylate 1 mg PO BID 04/27/21 06/02/21 LORazepam [Ativan] 0.5 mg PO BID 04/27/21 06/02/21 carBAMazepine [TEGretol] 200 mg PO BID 04/27/21 06/02/21 traZODone [Desyrel] 150 mg PO HS 04/27/21 06/02/21 - ALLERGIES Allergies (as last confirmed): Allergies Allergy/AdvReac Type Severity Reaction Status Date / Time ziprasidone HCl * AdvReac Severe Hallucinati Verified 06/01/21 16:35 [From [facility]] ons ziprasidone mesylate * AdvReac Severe Hallucinati Verified 06/01/21 16:35 [From [facility]] ons - FAMILY PSYCH/SUICIDE/SOCIAL HX-MENTAL Family - Suicide - Social Hx and Mental Status Exam: [facility]-based Safety Assessment: Risk Factors h/o mental illness Stressors: mental illness Attempts/Self-injury: Y/N if Y then describe : h/o suicide attempts Impulsivity: Y/N if Y then describe : no Drug/Alcohol History: Y/N - if Y then describe: reports he smokes 1 ppd and occasional alcohol. denies drugs Trauma history: Y/N - if Y then describe: denies Access to firearms: Y/N - if Y then describe: denies HI/Violence/Property destruction: Y/N - if Y then describe: denies Legal: Y/N - if Y then describe: reports he was arrested 2 times and he does not remember what for Family Psych History: Y/N - if Y then describe: denies Family History of suicide: (Y/N) no Protective Factors Internal: unknown External: Social supports/ Therapeutic relationships: Y/N - if Y then describe family Relationship history: single Living situation: Homeless Y/N if no describe: lives with mom Employment: Y/N - if Y then describe: disabled Education: reports some college Responsibility to family/children/work: Y/N - if Y then describe: denies Future orientation: Y/N - if Y then describe: no Mental Status Exam: Appearance and attire: he is disheveled and unkempt Attitude and behavior: guarded Psychomotor agitation/abnormal movements: psychomotor retardation Speech: slow , monotone Affect and mood: flat mood depressed Association and thought processes: there is thought blocking Thought content: paranoid and suspicious Perception: internally stimulated Sensorium, memory, and orientation: alert and oriented times 3 Intellectual functioning: average Insight and judgment: limited - PATIENT PROBLEM LIST (1) Schizophrenia Qualifiers: Schizophrenia type: paranoid schizophrenia Qualified Code(s): F20.0 - Paranoid schizophrenia - TREATMENT/PHARMACOLOGICAL RECOMMENDATION Treatment - Pharmacological - Therapy Recommendations: [email or web address] Impression/Risk Assessment: Current Suicide Risk (Elevated? Y/N): no Current Violence Risk (Elevated? Y/N): no Ability to care for self: Y/N no Summary: 36 year old male with a history of schizophrenia who presented to the ED with worsening complaints of demons in his head. he is ambivalent , guarded , paranoid and flat affect, thought blocking and internally stimulated. he is gravely disabled and would benefit from inpatient psychiatric hospitalization Diagnosis: Schizophrenia paranoid type CPT code: 76454 Treatment Plan Level of Care: inpatient Psychiatric Clearance: no Observation level close observation Pharmacological: Zyprexa 10mg IM q 4 hour prn agitation Zyprexa 10mg po q hs Patient psychotic? Y/N if Y was standing antipsychotic medication started Y/N yes Therapy: supportive Follow up needed while in hospital?: Y/N/NA if Y then frequency, q 24 hours Discussed plan with onsite seal delivery vehicle team technician, who? (Y/N): Who Bakari Gabriel MD Other: Sandy Clayton MD - TIME SPENT & PROVIDER LOCATION Telepsych consultation conducted via videoconferencing: Yes (30 min Sandy Davis MD) List names and roles of persons who participated in consult: Bakari Yu MD Telepsych Provider Location: [place] Time Telepsych consult began: 06:15 Time Telepsych consult completed: 06:45
[2021-06-02 06:40] VITALS: BP 140/88
== END 2021-06-02 11:38 | disposition left against medical advice (07) ==
LOC: EDUNIT# → ED 23:58
DX: F20.0 Paranoid schizophrenia (principal); F31.9 Bipolar disorder, unspecified; F17.200 Nicotine dependence, unspecified, uncomplicated; Z20.822 Contact with and (suspected) exposure to COVID-19
CPT/HCPCS: 0202U; 36415; 80053; 80306; 80307; 80320; 80329; 81001; 81003; 83690; 84443; 85025; 99283; 99284; A9270; G0425; Q3014; 87086

== ENCOUNTER 2021-06-02 18:52 | Emergency (ER) | payer MEDICAID ==
[2021-06-02 19:18] LABS: BASOPHILS % (AUTO) 0.5 %; EOSINOPHILS % (AUTO) 0.1 %; HCT - HEMATOCRIT 43.6 % (42.0-52.0); HGB - HEMOGLOBIN 14.2 g/dL (14.0-18.0); LYMPHOCYTES # (AUTO) 2.3 10^3/uL (1.5-3.5); LYMPHOCYTES % (AUTO) 27.7 %; MEAN CORPUSCULAR HEMOGLOBIN 28.5 pg (27.0-31.0); MEAN CORPUSCULAR HGB CONC 32.6 g/dL (32.0-36.0); MEAN CORPUSCULAR VOLUME 87.6 fL (80.0-94.0); MEAN PLATELET VOLUME 11.3 fL (7.4-11.4); MONOCYTES # (AUTO) 0.7 10^3/uL (0.0-1.0); NEUTROPHILS # (AUTO) 5.3 10^3/uL (1.5-6.6); NEUTROPHILS % (AUTO) 63.3 %; PLT - PLATELET COUNT 208 10^3/uL (130-450); RED BLOOD COUNT 4.98 10^6/uL (4.70-6.10); RED CELL DISTRIBUTION WIDTH 13.2 % (12.0-15.0); WHITE BLOOD COUNT 8.3 x10^3/uL (4.8-10.8)
[2021-06-02 19:22] LABS: MUDS CUTOFF CONCENTRATIONS CUTOFF CONC BELOW:
[2021-06-02 19:26] LABS: BILIRUBIN,URINE NEGATIVE (NEGATIVE); GLUCOSE, URINE (UA) NEGATIVE (NEGATIVE); KETONES,URINE (UA) TRACE mg/dL (NEGATIVE); LEUKOCYTE ESTERASE, URINE NEGATIVE (NEGATIVE); NITRITE,URINE NEGATIVE (NEGATIVE); OCCULT BLOOD,URINE NEGATIVE (NEGATIVE); PROTEIN,URINE NEGATIVE (NEGATIVE); UROBILINOGEN,URINE 0.2 (NORMAL) E.U./dL (NORMAL)
[2021-06-02 19:29] LABS: CLARITY,URINE CLEAR (CLEAR)
[2021-06-02 19:30] LABS: ACETAMINOPHEN < 10 ug/mL (10-30); ALBUMIN 4.7 g/dL (3.2-5.5); ALBUMIN/GLOBULIN RATIO 1.7 (1.0-2.2); ALKALINE PHOSPHATASE 67 IU/L (42-121); ALT ALANINE AMINOTRANSFERASE 17 IU/L (10-60); AST ASPARTATE AMINOTRANSFERASE 18 IU/L (10-42); BILIRUBIN,TOTAL 0.6 mg/dL (0.2-1.0); BUN - BLOOD UREA NITROGEN 12 mg/dL (6-20); CALCIUM 9.5 mg/dL (8.5-10.3); CARBON DIOXIDE - CO2 26 mmol/L (21-32); CHLORIDE 102 mmol/L (101-111); CREATININE 0.9 mg/dL (0.6-1.2); ETOH - ETHANOL < 5.0 mg/dL; GFR - MDRD 96 (>89); GLUCOSE 112 mg/dL (70-100); LIPASE 22 U/L (22-51); POTASSIUM 3.4 mmol/L (3.5-5.0); SALICYLATE < 6.0 mg/dL; SODIUM 140 mmol/L (135-145); TOTAL PROTEIN 7.4 g/dL (6.7-8.2)
[2021-06-02 19:34] LABS: AMPHETAMINE SCREEN,URINE NEGATIVE (NEGATIVE); BARBITURATE SCREEN,UR NEGATIVE (NEGATIVE); BENZODIAZEPINES SCREEN, URINE POSITIVE (NEGATIVE); COCAINE SCREEN URINE NEGATIVE (NEGATIVE); METHADONE SCREEN, URINE NEGATIVE (NEGATIVE); METHAMPHETAMINES SCREEN, URINE NEGATIVE (NEGATIVE); OPIATE SCREEN, URINE NEGATIVE (NEGATIVE); OXYCODONE SCREEN, URINE NEGATIVE (NEGATIVE); PROPOXYPHENE SCREEN, URINE NEGATIVE (NEGATIVE); THC CANNABINOID SCREEN, URINE NEGATIVE (NEGATIVE); TRICYCLIC ANTIDEPRESSANT,URINE NEGATIVE (NEGATIVE)
--- NOTE | 2021-06-02 20:04 | ED Physician Documentation ---
PD HPI MHE - Stated complaint Stated Complaint: MHE - Chief complaint Chief Complaint: MHE - History obtained from History obtained from: Patient - History of Present Illness Primary symptom: Psychosis, Off meds Timing - onset: Chronic Pain level max: 0 Pain level now: 0 - Additional information Additional information: Patient is a 36-year-old male with a longstanding history of schizophrenia. He has been seen here 3 times in the past 24 hours for same. He was recommended inpatient admission earlier, but left to the hospital. Patient has returned requesting inpatient admission. He states he is hearing more voices and the hallucinations are becoming louder. He has not taken his medications today. Nothing makes it better or worse. He is not suicidal or homicidal. Review of Systems Ten Systems: 10 systems reviewed and negative Constitutional: denies: Fever, Chills Cardiac: denies: Chest pain / pressure, Palpitations Respiratory: denies: Dyspnea, Cough GI: denies: Nausea, Vomiting : denies: Dysuria Skin: denies: Rash Musculoskeletal: denies: Neck pain, Back pain Neurologic: denies: Headache PD PAST MEDICAL HISTORY - Past Medical History Cardiovascular: High cholesterol Respiratory: None Neuro: None Endocrine/Autoimmune: None GI: None : Renal insuffiency HEENT: None Psych: Depression, Anxiety, Bipolar disorder, Schizophrenia, Panic attacks, ADD/ADHD, Obsessive compulsive disorder Musculoskeletal: None Derm: None - Past Surgical History Past Surgical History: No - Present Medications Home Medications: Ambulatory Orders Medication Instructions Recorded Confirmed Atorvastatin [Lipitor] 10 mg PO DAILY 04/27/21 06/02/21 Benztropine Mesylate 1 mg PO BID 04/27/21 06/02/21 LORazepam [Ativan] 0.5 mg PO BID 04/27/21 06/02/21 carBAMazepine [TEGretol] 200 mg PO BID 04/27/21 06/02/21 traZODone [Desyrel] 150 mg PO HS 04/27/21 06/02/21 - Allergies Allergies/Adverse Reactions: Allergies Allergy/AdvReac Type Severity Reaction Status Date / Time ziprasidone HCl * AdvReac Severe Hallucinati Verified 06/01/21 16:35 [From [facility]] ons ziprasidone mesylate * AdvReac Severe Hallucinati Verified 06/01/21 16:35 [From [facility]] ons - Social History Does the pt smoke?: Yes Smoking Status: Current every day smoker Does the pt drink ETOH?: Yes Does the pt have substance abuse?: No - Immunizations Immunizations are current?: No Immunizations: TDAP >10years/unknown, Other immun current - POLST Patient has POLST: No PD ED PE NORMAL - Vitals Vital signs reviewed: Yes - General General: Alert and oriented X 3, Other (Patient is often staring into space intake in a long time to respond to questions) - HEENT HEENT: PERRL, Moist mucous membranes - Neck Neck: Supple, no meningeal sign - Cardiac Cardiac: RRR, Strong equal pulses - Respiratory Respiratory: No respiratory distress, Clear bilaterally - Abdomen Abdomen: Soft, Non tender, Non distended - Derm Derm: Warm and dry - Extremities Extremities: No edema - Neuro Neuro: Alert and oriented X 3 - Psych Psych: Other (flat affect. Peers to be responding to internal stimuli) Results - Vitals Vitals: Vital Signs - 24 hr 06/02/21 06/02/21 18:58 19:02 Temperature 36.3 C L 36.5 C Heart Rate 107 H 107 H Respiratory 16 16 Rate Blood Pressure 129/92 H 129/92 H O2 Saturation 97 97 Oxygen O2 Source Room air - Labs Labs: Laboratory Tests 06/02/21 06/02/21 06/02/21 19:10 19:10 19:10 WBC 8.3 RBC 4.98 Hgb 14.2 Hct 43.6 MCV 87.6 MCH 28.5 MCHC 32.6 RDW 13.2 Plt Count 208 MPV 11.3 Neut # (Auto) 5.3 Lymph # (Auto) 2.3 [place] # (Auto) 0.7 Eos # (Auto) 0.0 Baso # (Auto) 0.0 Absolute Nucleated RBC 0.00 Nucleated RBC % 0.0 Sodium 140 Potassium 3.4 L Chloride 102 Carbon Dioxide 26 Anion Gap 12.0 BUN 12 Creatinine 0.9 Estimated GFR (MDRD) 96 Glucose 112 H Calcium 9.5 Total Bilirubin 0.6 AST 18 ALT 17 Alkaline Phosphatase 67 Total Protein 7.4 Albumin 4.7 Globulin 2.7 Albumin/Globulin Ratio 1.7 Lipase 22 TSH 0.70 Urine Color Urine Clarity Urine pH Ur Specific [place] Urine Protein Urine Glucose (UA) Urine Ketones Urine Occult Blood Urine Nitrite Urine Bilirubin Urine Urobilinogen Ur Leukocyte Esterase Ur Microscopic Review Urine Culture Comments Nasal Adenovirus (PCR) Nasal B. parapertussis DNA (PCR) Nasal Coronavir 229E PCR Nasal Coronavir HKU1 PCR Nasal Coronavir NL63 PCR Nasal Coronavir OC43 PCR Nasal Enterovir/Rhinovir PCR Nasal Influenza B PCR Nasal Influenza A PCR Nasal Parainfluen 1 PCR Nasal Parainfluen 2 PCR Nasal Parainfluen 3 PCR Nasal Parainfluen 4 PCR Nasal RSV (PCR) Nasal B.pertussis DNA PCR Nasal C.pneumoniae (PCR) Gabe Human Metapneumo PCR Nasal M.pneumoniae (PCR) Nasal SARS-CoV-2 (PCR) Salicylates < 6.0 Urine Opiates Screen Ur Oxycodone Screen Urine Methadone Screen Ur Propoxyphene Screen Acetaminophen < 10 L Ur Barbiturates Screen Ur Tricyclics Screen Ur Phencyclidine Scrn Ur Amphetamine Screen U Methamphetamines Scrn U Benzodiazepines Scrn Urine Cocaine Screen U Cannabinoids Screen Ethyl Alcohol < 5.0 06/02/21 06/02/21 19:14 19:32 WBC RBC Hgb Hct MCV MCH MCHC RDW Plt Count MPV Neut # (Auto) Lymph # (Auto) [place] # (Auto) Eos # (Auto) Baso # (Auto) Absolute Nucleated RBC Nucleated RBC % Sodium Potassium Chloride Carbon Dioxide Anion Gap BUN Creatinine Estimated GFR (MDRD) Glucose Calcium Total Bilirubin AST ALT Alkaline Phosphatase Total Protein Albumin Globulin Albumin/Globulin Ratio Lipase TSH Urine Color YELLOW Urine Clarity CLEAR Urine pH 6.0 Ur Specific [place] 1.025 Urine Protein NEGATIVE Urine Glucose (UA) NEGATIVE Urine Ketones TRACE Urine Occult Blood NEGATIVE Urine Nitrite NEGATIVE Urine Bilirubin NEGATIVE Urine Urobilinogen 0.2 (NORMAL) Ur Leukocyte Esterase NEGATIVE Ur Microscopic Review NOT INDICATED Urine Culture Comments NOT INDICATED Nasal Adenovirus (PCR) NOT DETECTED Nasal B. parapertussis DNA (PCR) NOT DETECTED Nasal Coronavir 229E PCR NOT DETECTED Nasal Coronavir HKU1 PCR NOT DETECTED Nasal Coronavir NL63 PCR NOT DETECTED Nasal Coronavir OC43 PCR NOT DETECTED Nasal Enterovir/Rhinovir PCR NOT DETECTED Nasal Influenza B PCR NOT DETECTED Nasal Influenza A PCR NOT DETECTED Nasal Parainfluen 1 PCR NOT DETECTED Nasal Parainfluen 2 PCR NOT DETECTED Nasal Parainfluen 3 PCR NOT DETECTED Nasal Parainfluen 4 PCR NOT DETECTED Nasal RSV (PCR) NOT DETECTED Nasal B.pertussis DNA PCR NOT DETECTED Nasal C.pneumoniae (PCR) NOT DETECTED Gabe Human Metapneumo PCR NOT DETECTED Nasal M.pneumoniae (PCR) NOT DETECTED Nasal SARS-CoV-2 (PCR) NOT DETECTED Salicylates Urine Opiates Screen NEGATIVE Ur Oxycodone Screen NEGATIVE Urine Methadone Screen NEGATIVE Ur Propoxyphene Screen NEGATIVE Acetaminophen Ur Barbiturates Screen NEGATIVE Ur Tricyclics Screen NEGATIVE Ur Phencyclidine Scrn NEGATIVE Ur Amphetamine Screen NEGATIVE U Methamphetamines Scrn NEGATIVE U Benzodiazepines Scrn POSITIVE H Urine Cocaine Screen NEGATIVE U Cannabinoids Screen NEGATIVE Ethyl Alcohol PD MEDICAL DECISION MAKING - ED course Complexity details: reviewed results, re-evaluated patient, considered differential, d/w patient ED course: 36-year-old male with longstanding schizophrenia. Well-known to this emergency department. We will consult telepsychiatry and seek placement for the patient. Given Zyprexa orally here. [facility]. Departure - Departure Clinical Impression: Schizophrenia Psychosis Qualifiers: Psychosis type: unspecified psychosis type Qualified Code(s): F29 - Unspecified psychosis not due to a substance or known physiological condition Condition: Stable
[2021-06-02 20:29] LABS: B. PARAPERTUSSIS- RESP PCR PAN NOT DETECTED; B. PERTUSSIS- RESP PCR PANEL NOT DETECTED; C. PNEUMONIAE- RESP PCR PANEL NOT DETECTED; CORONAVIRUS 229E-RESP PCR NOT DETECTED; CORONAVIRUS HKU1-RESP PCR NOT DETECTED; CORONAVIRUS NL63-RESP PCR NOT DETECTED; CORONAVIRUS OC43-RESP PCR NOT DETECTED; HUMAN METAPNEUMOVIRUS NOT DETECTED; INFLUENZA A- RESP PCR PANEL NOT DETECTED; INFLUENZA B - RESP PCR PANEL NOT DETECTED; M. PNEUMONIAE- RESP PCR PANEL NOT DETECTED; PARAINFLUENZA VIRUS 1 NOT DETECTED; PARAINFLUENZA VIRUS 2 NOT DETECTED; PARAINFLUENZA VIRUS 3 NOT DETECTED; PARAINFLUENZA VIRUS 4 NOT DETECTED; RHINOVIRUS/ENTEROVIRUS NOT DETECTED; RSV- RESP PCR PANEL NOT DETECTED; SARS-CoV-2 -RESP PCR PANEL NOT DETECTED
[2021-06-02] MEDS: OLANZapine ODT 5 MG TABLET TL ONE (20:58)
--- NOTE | 2021-06-03 05:38 | TELEPSYCH PHYS NOTE ---
Telepsych Note - CHIEF COMPLAINT/HX OF PRESENT ILLNESS Chief Complaint and History of Present Illness: Name: Earnest Barraza : 87 Date: 06/03/21 Time:815 EST Location of patient: [facility] Location of doctor: [place] Length of consult:27 min This evaluation was conducted via telepsychiatry with the assistance of onsite staff Reason for consult: psychosis Requested by: Yrn Bianchi History of Present Illness: 36 year old male with a history of schizophrenia who has presented to the ED three times in the last 48 hours. he initially presented in the AM on 06/01/21 reporting he needed admission and then changed his mind. then he presented again later that night and had a dose of Zyprexa. the morning of the Psychiatry was consulted after his second presentation and he was saying the demons had worsened and the voices louder. at that time it was recommended to admit the patient and that he was gravely disabled. there was no beds available and the patient had been re evaluated by social work and the patient reported the voices had decreased and they were going to try home and him follow up with his counselor. however, the patient presented again with the demons in his head. the patient was agreeable to the interview . the patient is known to this provider. the patient reports he is there as they did not find a bed and he thought he would try to go home and do it on his own. He reports that it was too difficult and there was chaos in his head. he reports the demons were attacking him. he reports that he hears the voices but cant really tell what they are saying and it feels like and attack. he denies suicidal or homicidal ideations intents or plans. he denies visual hallucinations Collateral contacted (Y/N) no____. Name_Jaye Machado Phone #?__[phone] , Relationship to the patient____ Mother . If N, (No Answer/None available/Patient meets criteria for admission/Other free text reason) no answer Sleep issues: Y- Quantity: 5 hours Quality: he reports good Suicide Assessment: PSS-3: 1) Over the past 2 weeks have you felt down, depressed or hopeless? (Y/N) no 2) Over the past 2 weeks have you had thoughts of killing yourself? (Y/N) no 3) Have you ever in your life attempted to kill yourself? (Y/N) yes If yes, then when? Within the past 24h? (N), past month? (N), between 1-6 months (N), > 6 months (N) PSS-3 Secondary Screen If #2 is yes or #3 is yes within the past 6 months, then complete secondary screen: 1) Positive on PSS-3 questions 2 & 3 active SI with a past attempt? (Y/N) no 2) Have you been thinking about how you might kill yourself? (Y/N) no 3) Have you had some intention of acting on your thoughts? (Y/N) no 4) Lifetime psychiatric hospitalization? (Y/N) yes 5) Has drinking or substance abuse ever been a problem for you? (Y/N) no 6) Current irritability, agitation, or aggression? (Y/N) no PSS-3 Secondary Screen Scoring: (Mild/Moderate/Severe) Mild (0-2) No current attempt and no plan/intent Moderate (3-4) No current attempt, Plan OR intent but not both Severe (5-6) Current Attempt with Plan AND intent - SI/HI/SELF HARM SI/HI/SELF HARM (CURRENT OR HISTORY OF):: Other SI/HI/Self Harm Text (Current or History of):: inability to care for self - VIOLENCE/LEGAL/COLLATERAL Violence - Legal - Collateral: Access to firearms: Y/N - if Y then describe: denies HI/Violence/Property destruction: Y/N - if Y then describe: denies Legal: Y/N - if Y then describe: reports yes , but does not remember the charges - PSYCHIATRIC HX/TREATMENT HX Psychiatric: Depression, Anxiety, Bipolar disorder, Schizophrenia, Panic attacks, ADD/ADHD, Obsessive compulsive disorder Psychiatric/Treatment Hx Other: : first seen a psychiatrist at 9 years old for depression and ADHD. he reports that he has had 15 plus psychiatric hospitalizations. he reports one recent one at [facility]. he reports a couple suicide attempts in the past by overdose about 15-20 years ago Hospitalizations: (Y/N) if Y describe: yes Current Treatment: Medication management (Y) Therapy (Y) - DRUG/ALCOHOL HX Substance Use and Type: Marijuana Number: 1 Substance use/abuse/alcohol text: smokes 1 ppd, occasional alcohol and a history of marijuana use - MEDICAL HX Does the pt have a hx of MRSA?: No Neurological History: None Eyes, Ears, Nose, Throat: None Cardiovascular: High cholesterol Respiratory: None Skin: None Endocrine/Autoimmune: None Gastrointestinal: None Urinary: Renal insuffiency Musculoskeletal: None Blood Disorders: None - HOME MEDICATIONS Home Meds (as last confirmed): Patient History Medication Instructions Recorded Confirmed Atorvastatin [Lipitor] 10 mg PO DAILY 04/27/21 06/02/21 Benztropine Mesylate 1 mg PO BID 04/27/21 06/02/21 LORazepam [Ativan] 0.5 mg PO BID 04/27/21 06/02/21 carBAMazepine [TEGretol] 200 mg PO BID 04/27/21 06/02/21 traZODone [Desyrel] 150 mg PO HS 04/27/21 06/02/21 - ALLERGIES Allergies (as last confirmed): Allergies Allergy/AdvReac Type Severity Reaction Status Date / Time ziprasidone HCl * AdvReac Severe Hallucinati Verified 06/01/21 16:35 [From Geodon] ons ziprasidone mesylate * AdvReac Severe Hallucinati Verified 06/01/21 16:35 [From Geodon] ons - FAMILY PSYCH/SUICIDE/SOCIAL HX-MENTAL Family - Suicide - Social Hx and Mental Status Exam: [facility] Safety Assessment: Risk Factors h/o schizophrenia Stressors: mental illness Attempts/Self-injury: Y/N if Y then describe: remote suicide attempts Impulsivity: Y/N if Y then describe : denies Drug/Alcohol History: Y/N - if Y then describe: smokes 1 ppd, occasional alcohol and a history of marijuana use Trauma history: Y/N - if Y then describe: denies Access to firearms: Y/N - if Y then describe: denies HI/Violence/Property destruction: Y/N - if Y then describe: denies Legal: Y/N - if Y then describe: reports yes , but does not remember the charges Family Psych History: Y/N - if Y then describe: denies Family History of suicide: (Y/N) no Protective Factors Internal: unknown External: Social supports/ Therapeutic relationships: Y/N - if Y then describe mother Relationship history: single Living situation: Homeless Y/N if no describe: lives with mother Employment: Y/N - if Y then describe: disabled Education: some college Responsibility to family/children/work: Y/N - if Y then describe: none Future orientation: Y/N - if Y then describe: no Mental Status Exam: Appearance and attire: he is mildly disheveled Attitude and behavior: guarded Psychomotor agitation/abnormal movements: psychomotor retardation Speech: slow and monotone Affect and mood: flat, he reports ok Association and thought processes: thought blocking Thought content: paranoid and scared Perception: hears demons Sensorium, memory, and orientation: alert and oriented times 3 Intellectual functioning: average Insight and judgment: limited - TREATMENT/PHARMACOLOGICAL RECOMMENDATION Treatment - Pharmacological - Therapy Recommendations: [email or web address] Current Suicide Risk (Elevated? Y/N):no Current Violence Risk (Elevated? Y/N): no Ability to care for self: Y/N no Summary: 36 year old male with a history of schizophrenia paranoid type who has presented 3 times in 48 hours to the ED with voices of demons. he has failed outpatient treatment at this time. he has thought blocking, paranoia, voices and inability to care for self. he is gravely disabled and would benefit from inpatient psychiatric hospitalizations Diagnosis: schizophrenia paranoid type CPT code: 04312 Treatment Plan Level of Care: inpatient Psychiatric Clearance: no Observation level close observation Pharmacological: Zyprexa 10mg po q hs Patient psychotic? Y/N if Y was standing antipsychotic medication started Y/N yes Therapy: CBT Follow up needed while in hospital?: Y/N/NA if Y then frequency, Daily Discussed plan with onsite wallpaper remover steam, who? (Y/N): Who Dr. Arora Other: Sandy Clayton MD - TIME SPENT & PROVIDER LOCATION Telepsych consultation conducted via videoconferencing: Yes ( 27 min) List names and roles of persons who participated in consult: Dr. Arora Telepsych Provider Location: [place] Time Telepsych consult began: 06:00 Time Telepsych consult completed: 06:30
[2021-06-03] MEDS: traZODone 50 MG TABLET PO STA (10:11)
[2021-06-03] MEDS: BENZTROPINE 2 MG TABLET PO SCH (10:11)
[2021-06-03] MEDS: LORazepam 0.5 MG TABLET PO SCH (10:11)
[2021-06-03] MEDS: carBAMazepine 200 MG TABLET PO SCH (10:11)
[2021-06-03] MEDS: NICOTINE 14 MG PATCH TOP STA (11:54)
--- NOTE | 2021-06-03 12:50 | ED Physician Documentation ---
ED Addendum - Addendum Addendum: The patient was seen by social work. I did order his usual daily medicines upon change of shift. He did have breakfast. Social work was able to arrange placement for him at the crisis center in [place]. The patient is ready and willing to go there. He states he will take the bus directly to there. Otherwise no change in medications. Diagnosis: 1. History of schizoaffective disorder 2. Hallucinations chronic with anxiety 3. Anxiety 4. Poor nutrition Disposition: The patient is discharged home in stable condition with intention to go to the crisis center from here. 06/03/21 12:48
[2021-06-03 12:59] VITALS: BP 137/75
== END 2021-06-03 12:57 | disposition home or self-care (01) ==
LOC: ED 18:52
DX: F20.0 Paranoid schizophrenia (principal); F17.200 Nicotine dependence, unspecified, uncomplicated; F29 Unspecified psychosis not due to a substance or known physiological condition; E46 Unspecified protein-calorie malnutrition; Z20.822 Contact with and (suspected) exposure to COVID-19
CPT/HCPCS: 0202U; 36415; 80053; 80306; 80307; 80320; 80329; 81003; 83690; 84443; 85025; 93005; 99283; 99284; A9270; G0425; Q3014; 81001; 87086

== ENCOUNTER 2021-06-21 01:15 | Outpatient (CLI) | payer MEDICAID | END 2021-06-21 01:16 | disposition critical access hospital (66) | LOC: EMS 01:15 | DX: R44.8 Other symptoms and signs involving general sensations and perceptions (principal) | CPT/HCPCS: A0425; A0429 ==

== ENCOUNTER 2021-06-21 01:35 | Emergency (ER) | payer MEDICAID ==
--- NOTE | 2021-06-21 03:00 | ED Physician Documentation ---
PD HPI MHE - Stated complaint Stated Complaint: MHE - Chief complaint Chief Complaint: MHE - History obtained from History obtained from: Patient - History of Present Illness Primary symptom: Anxiety Timing - onset: Last night Pain level now: 0 Recently seen: Emergency Dept - Additional information Additional information: BIBA. Patient called 911 due to "having a lot of trouble with fear and anxiety". He endorses auditory hallucinations but cannot discern specific words. He denies SI, denies HI. He says he has been taking his medications as prescribed. Patient is well known to this ED, multiple visits (this is his 18th [facility] ED visit this year) Review of Systems Constitutional: reports: Reviewed and negative Cardiac: reports: Reviewed and negative Respiratory: reports: Reviewed and negative GI: reports: Reviewed and negative Psychiatric: reports: Hallucinations, Anxiety. denies: Depressed, Suicidal, Homicidal PD PAST MEDICAL HISTORY - Past Medical History Cardiovascular: High cholesterol Respiratory: None Neuro: None Endocrine/Autoimmune: None GI: None : Renal insuffiency HEENT: None Psych: Depression, Anxiety, Bipolar disorder, Schizophrenia, Panic attacks, ADD/ADHD, Obsessive compulsive disorder Musculoskeletal: None Derm: None - Past Surgical History Past Surgical History: No - Present Medications Home Medications: Ambulatory Orders Medication Instructions Recorded Confirmed Atorvastatin [Lipitor] 10 mg PO DAILY 04/27/21 06/03/21 Benztropine Mesylate 1 mg PO BID 04/27/21 06/03/21 LORazepam [Ativan] 0.5 mg PO BID 04/27/21 06/03/21 carBAMazepine [TEGretol] 200 mg PO BID 04/27/21 06/03/21 traZODone [Desyrel] 150 mg PO HS 04/27/21 06/03/21 haloperidoL [Haloperidol] 10 mg PO DAILY 06/03/21 06/03/21 - Allergies Allergies/Adverse Reactions: Allergies Allergy/AdvReac Type Severity Reaction Status Date / Time ziprasidone HCl * AdvReac Severe Hallucinati Verified 06/01/21 16:35 [From Geodon] ons ziprasidone mesylate * AdvReac Severe Hallucinati Verified 06/01/21 16:35 [From Geodon] ons - Social History Does the pt smoke?: Yes Smoking Status: Current every day smoker Does the pt drink ETOH?: Yes Does the pt have substance abuse?: No - Immunizations Immunizations are current?: No Immunizations: TDAP >10years/unknown, Other immun current - POLST Patient has POLST: No PD ED PE NORMAL - Vitals Vital signs reviewed: Yes - General General: Alert and oriented X 3, No acute distress, Well developed/nourished, Other (appears anxious; appears to be responding to internal stimuli during H+P, occasionally mouthing words before answering my questions) - HEENT HEENT: PERRL, EOMI - Cardiac Cardiac: RRR, No murmur - Respiratory Respiratory: No respiratory distress, Clear bilaterally - Abdomen Abdomen: Soft, Non tender - Neuro Neuro: Alert and oriented X 3 Eye Opening: Spontaneous Motor: Obeys Commands Verbal: Oriented GCS Score: 15 PD ED PE EXPANDED - Psych Psych: Withdrawn, Poor eye contact, Anxious Results - Vitals Vitals: Vital Signs - 24 hr 06/21/21 06/21/21 06/21/21 01:39 03:25 07:54 Temperature 36.5 C 36.5 C Heart Rate 99 75 82 Respiratory 16 16 16 Rate Blood Pressure 150/101 H 111/74 114/69 O2 Saturation 99 98 96 Oxygen O2 Source Room air - Labs Labs: Laboratory Tests 06/21/21 06/21/21 06/21/21 03:20 03:20 03:20 WBC 10.7 RBC 5.13 Hgb 14.9 Hct 44.4 MCV 86.5 MCH 29.0 MCHC 33.6 RDW 13.2 Plt Count 210 MPV 10.7 Neut # (Auto) 8.4 H Lymph # (Auto) 1.5 [place] # (Auto) 0.7 Eos # (Auto) 0.0 Baso # (Auto) 0.1 Absolute Nucleated RBC 0.00 Nucleated RBC % 0.0 Sodium 137 Potassium 3.7 Chloride 101 Carbon Dioxide 25 Anion Gap 11.0 BUN 17 Creatinine 0.8 Estimated GFR (MDRD) 110 Glucose 107 H Calcium 9.3 TSH 1.76 Urine Color Urine Clarity Urine pH Ur Specific Muse Urine Protein Urine Glucose (UA) Urine Ketones Urine Occult Blood Urine Nitrite Urine Bilirubin Urine Urobilinogen Ur Leukocyte Esterase Ur Microscopic Review Urine Culture Comments Salicylates < 6.0 Urine Opiates Screen Ur Oxycodone Screen Urine Methadone Screen Ur Propoxyphene Screen Acetaminophen < 10 L Ur Barbiturates Screen Ur Tricyclics Screen Ur Phencyclidine Scrn Ur Amphetamine Screen U Methamphetamines Scrn U Benzodiazepines Scrn Urine Cocaine Screen U Cannabinoids Screen Ethyl Alcohol < 5.0 06/21/21 07:50 WBC RBC Hgb Hct MCV MCH MCHC RDW Plt Count MPV Neut # (Auto) Lymph # (Auto) [place] # (Auto) Eos # (Auto) Baso # (Auto) Absolute Nucleated RBC Nucleated RBC % Sodium Potassium Chloride Carbon Dioxide Anion Gap BUN Creatinine Estimated GFR (MDRD) Glucose Calcium TSH Urine Color YELLOW Urine Clarity CLEAR Urine pH 6.0 Ur Specific Muse 1.015 Urine Protein NEGATIVE Urine Glucose (UA) NEGATIVE Urine Ketones NEGATIVE Urine Occult Blood NEGATIVE Urine Nitrite NEGATIVE Urine Bilirubin NEGATIVE Urine Urobilinogen 0.2 (NORMAL) Ur Leukocyte Esterase NEGATIVE Ur Microscopic Review NOT INDICATED Urine Culture Comments NOT INDICATED Salicylates Urine Opiates Screen NEGATIVE Ur Oxycodone Screen NEGATIVE Urine Methadone Screen NEGATIVE Ur Propoxyphene Screen NEGATIVE Acetaminophen Ur Barbiturates Screen NEGATIVE Ur Tricyclics Screen NEGATIVE Ur Phencyclidine Scrn NEGATIVE Ur Amphetamine Screen NEGATIVE U Methamphetamines Scrn NEGATIVE U Benzodiazepines Scrn NEGATIVE Urine Cocaine Screen NEGATIVE U Cannabinoids Screen NEGATIVE Ethyl Alcohol PD MEDICAL DECISION MAKING - ED course Complexity details: reviewed old records, reviewed results, re-evaluated patient, considered differential, d/w patient ED course: patient present requesting help with his symptoms of anxiety and auditory hallucinations. His behavior is odd but similar to most of his previous, frequent ED visits. Care of patient turned over to Dr. Fonseca at end of my shift pending consult. Departure - Departure Disposition: 01 Home, Self Care Clinical Impression: Schizophrenia Discharge Date/Time: 06/21/21 10:45
[2021-06-21] MEDS ORDERED: NICOTINE 14 MG PATCH TOP STA (03:10)
[2021-06-21 03:29] LABS: BASOPHILS # (AUTO) 0.1 10^3/uL (0.0-0.1); BASOPHILS % (AUTO) 0.5 %; EOSINOPHILS % (AUTO) 0.4 %; HCT - HEMATOCRIT 44.4 % (42.0-52.0); HGB - HEMOGLOBIN 14.9 g/dL (14.0-18.0); LYMPHOCYTES # (AUTO) 1.5 10^3/uL (1.5-3.5); LYMPHOCYTES % (AUTO) 13.7 %; MEAN CORPUSCULAR HGB CONC 33.6 g/dL (32.0-36.0); MEAN CORPUSCULAR VOLUME 86.5 fL (80.0-94.0); MEAN PLATELET VOLUME 10.7 fL (7.4-11.4); MONOCYTES # (AUTO) 0.7 10^3/uL (0.0-1.0); MONOCYTES % (AUTO) 6.2 %; NEUTROPHILS # (AUTO) 8.4 10^3/uL (1.5-6.6); NEUTROPHILS % (AUTO) 78.8 %; PLT - PLATELET COUNT 210 10^3/uL (130-450); RED BLOOD COUNT 5.13 10^6/uL (4.70-6.10); RED CELL DISTRIBUTION WIDTH 13.2 % (12.0-15.0); WHITE BLOOD COUNT 10.7 x10^3/uL (4.8-10.8)
[2021-06-21 03:39] LABS: ACETAMINOPHEN < 10 ug/mL (10-30); BUN - BLOOD UREA NITROGEN 17 mg/dL (6-20); CALCIUM 9.3 mg/dL (8.5-10.3); CARBON DIOXIDE - CO2 25 mmol/L (21-32); CHLORIDE 101 mmol/L (101-111); CREATININE 0.8 mg/dL (0.6-1.2); ETOH - ETHANOL < 5.0 mg/dL; GFR - MDRD 110 (>89); GLUCOSE 107 mg/dL (70-100); POTASSIUM 3.7 mmol/L (3.5-5.0); SALICYLATE < 6.0 mg/dL; SODIUM 137 mmol/L (135-145)
[2021-06-21 07:55] VITALS: BP 114/69
[2021-06-21 08:04] LABS: BILIRUBIN,URINE NEGATIVE (NEGATIVE); GLUCOSE, URINE (UA) NEGATIVE (NEGATIVE); KETONES,URINE (UA) NEGATIVE (NEGATIVE); LEUKOCYTE ESTERASE, URINE NEGATIVE (NEGATIVE); MUDS CUTOFF CONCENTRATIONS CUTOFF CONC BELOW:; NITRITE,URINE NEGATIVE (NEGATIVE); OCCULT BLOOD,URINE NEGATIVE (NEGATIVE); PROTEIN,URINE NEGATIVE (NEGATIVE); UROBILINOGEN,URINE 0.2 (NORMAL) E.U./dL (NORMAL)
[2021-06-21 08:06] LABS: CLARITY,URINE CLEAR (CLEAR)
[2021-06-21 08:18] LABS: AMPHETAMINE SCREEN,URINE NEGATIVE (NEGATIVE); BENZODIAZEPINES SCREEN, URINE NEGATIVE (NEGATIVE); COCAINE SCREEN URINE NEGATIVE (NEGATIVE); METHAMPHETAMINES SCREEN, URINE NEGATIVE (NEGATIVE); OPIATE SCREEN, URINE NEGATIVE (NEGATIVE); THC CANNABINOID SCREEN, URINE NEGATIVE (NEGATIVE); TRICYCLIC ANTIDEPRESSANT,URINE NEGATIVE (NEGATIVE)
[2021-06-21 08:19] LABS: BARBITURATE SCREEN,UR NEGATIVE (NEGATIVE); METHADONE SCREEN, URINE NEGATIVE (NEGATIVE); OXYCODONE SCREEN, URINE NEGATIVE (NEGATIVE); PROPOXYPHENE SCREEN, URINE NEGATIVE (NEGATIVE)
--- NOTE | 2021-06-21 11:00 | ED Physician Documentation ---
ED Addendum - Addendum Addendum: 06/21/21 10:59 Patient endorsed to me by Dr. Arora awaiting social work evaluation. I discussed with her manager social and she feels that he is at baseline and has outpatient resources readily available. We will make efforts to touch base with patient's mother to pursue legal guardianship. Patient was discharged but left prior to discharge paperwork. Impression 1. schizophrenia
== END 2021-06-21 10:45 | disposition home or self-care (01) ==
LOC: EDUNIT# → ED 01:35
DX: F20.9 Schizophrenia, unspecified (principal); F17.200 Nicotine dependence, unspecified, uncomplicated
CPT/HCPCS: 36415; 80048; 80306; 80307; 80320; 80329; 81003; 84443; 85025; 99283; A9270; 81001; 87086

== ENCOUNTER 2021-06-28 15:22 | Outpatient (CLI) | payer MEDICAID | END 2021-06-28 15:23 | disposition critical access hospital (66) | LOC: EMS 15:22 | DX: R44.0 Auditory hallucinations (principal) | CPT/HCPCS: A0425; A0429; A0999 ==

== ENCOUNTER 2021-06-28 15:38 | Emergency (ER) | payer MEDICAID ==
[2021-06-28 15:49] VITALS: BP 119/51
--- NOTE | 2021-06-28 16:30 | ED Physician Documentation ---
History of Present Illness - Stated complaint Stated Complaint: MHE - Chief complaint Chief Complaint: MHE - Additonal information Additional information: 36-year-old male is brought to the emergency department via EMS when he was found laying in the grass. He reports to this provider that he did a lot of methamphetamine and needs to get checked out. He would like to talk to a psychiatrist and make sure he is okay but he declines any blood draw. When asked patient where is that he replies with here. He often appears to respond to internal stimuli. He will stare at his hand vacantly and mouth words that are not clear to me. He is asking for time to see if he feels better. Review of Systems Unable to obtain: Intoxicated, Uncooperative PD PAST MEDICAL HISTORY - Past Medical History Cardiovascular: High cholesterol Respiratory: None Neuro: None Endocrine/Autoimmune: None GI: None : Renal insuffiency HEENT: None Psych: Depression, Anxiety, Bipolar disorder, Schizophrenia, Panic attacks, ADD/ADHD, Obsessive compulsive disorder Musculoskeletal: None Derm: None - Past Surgical History Past Surgical History: No - Present Medications Home Medications: Ambulatory Orders Medication Instructions Recorded Confirmed Atorvastatin [Lipitor] 10 mg PO DAILY 04/27/21 06/03/21 Benztropine Mesylate 1 mg PO BID 04/27/21 06/03/21 LORazepam [Ativan] 0.5 mg PO BID 04/27/21 06/03/21 carBAMazepine [TEGretol] 200 mg PO BID 04/27/21 06/03/21 traZODone [Desyrel] 150 mg PO HS 04/27/21 06/03/21 haloperidoL [Haloperidol] 10 mg PO DAILY 06/03/21 06/03/21 - Allergies Allergies/Adverse Reactions: Allergies Allergy/AdvReac Type Severity Reaction Status Date / Time ziprasidone HCl * AdvReac Severe Hallucinati Verified 06/28/21 15:49 [From Geodon] ons ziprasidone mesylate * AdvReac Severe Hallucinati Verified 06/28/21 15:49 [From Geodon] ons - Social History Does the pt smoke?: Yes Smoking Status: Current every day smoker Does the pt drink ETOH?: Yes Does the pt have substance abuse?: No - Immunizations Immunizations are current?: No Immunizations: TDAP >10years/unknown, Other immun current - POLST Patient has POLST: No PD ED PE EXPANDED - General General: Alert, Disheveled, poorly kept - HEENT HEENT: PERRL. No: Atraumatic - Neck Neck: Supple w/out meningeal sx. No: Adenopathy - Cardiac Cardiac: Regular Rate, Radial strong equal, Cap refill < 2 sec. No: Murmur Present - Respiratory Respiratory: Clear to ausultation yara. No: Distress, Labored - Abdomen Abdomen: Normal Bowel sounds. No: Tender to palpation - Derm Derm: Normal color, Warm and dry. No: Rash - Extremities Extremities: Normal. No: Deformity, Tenderness - Neuro Neuro: CNII-XII intact - GCS Eye Opening: Spontaneous Motor: Obeys Commands Verbal: Inappropriate Total: 13 - Psych Psych: Poor eye contact, Other (Intermittently makes eye contact. Often stares at his hand and mouths words. Does appear to be responding to internal stimuli. He is not combative. Simply keeps repeating that he needs to get checked out. He refuses blood draw.) Results - Vitals Vitals: Vital Signs - 24 hr 06/28/21 15:44 Temperature 36.9 C Heart Rate 106 H Respiratory 16 Rate Blood Pressure 119/51 L O2 Saturation 99 Oxygen O2 Source Room air PD MEDICAL DECISION MAKING - ED course ED course: 36-year-old male who is well-known to this emergency department is brought in after being found laying in grass requesting to get checked out. He does admit to this provider that he smoked methamphetamine and wants to make sure he is okay. He is requesting to speak to a psychiatrist but declines any blood draw. He is asking for its time to see if he is okay and may be a place to sleep tonight. However when questioned further he will not respond to providers questions. 1700: I was speaking with the patient discussing his need for psychiatry and methamphetamine evaluation. He declined to provide urine or blood. I did offer him Zyprexa however he de refused he simply wants to speak to a psychiatrist. Social work is left for the day. The patient abruptly grabbed his belongings and walked from the emergency department. Departure - Departure Disposition: ED [place] Clinical Impression: Methamphetamine abuse
[2021-06-28] MEDS ORDERED: OLANZapine ODT 5 MG TABLET TL ONE (16:35)
== END 2021-06-28 17:04 | disposition left against medical advice (07) ==
LOC: EDUNIT# → ED 15:38
DX: F15.129 Other stimulant abuse with intoxication, unspecified (principal); F17.200 Nicotine dependence, unspecified, uncomplicated
CPT/HCPCS: 80053; 80307; 80320; 80329; 83690; 84443; 85025; 99281; 99283

== ENCOUNTER 2021-07-14 16:58 | Emergency (ER) | payer MEDICAID ==
[2021-07-14 17:07] VITALS: BP 131/98
--- NOTE | 2021-07-14 17:23 | ED Physician Documentation ---
PD HPI MHE - Stated complaint Stated Complaint: RX REFILL - Chief complaint Chief Complaint: General - History obtained from History obtained from: Patient, Family - History of Present Illness Primary symptom: Out of meds (he ran out of Trazodone week or more ago and states trouble sleeping and more anxious without it. Requesting refill. Unable to get soon appt with PMD.) Timing - onset: How many weeks ago (1) Contributing factors: Out of meds (Trazodone, he states has other meds still.) Recently seen: Emergency Dept Review of Systems Constitutional: denies: Fever, Chills Nose: denies: Rhinorrhea / runny nose, Congestion Throat: denies: Sore throat Respiratory: denies: Cough GI: denies: Vomiting Neurologic: denies: Headache, Head injury Psychiatric: reports: Hallucinations (chronic mild voices), Anxiety, Insomnia. denies: Suicidal PD PAST MEDICAL HISTORY - Past Medical History Cardiovascular: High cholesterol Respiratory: None Neuro: None Endocrine/Autoimmune: None GI: None : Renal insuffiency HEENT: None Psych: Depression, Anxiety, Bipolar disorder, Schizophrenia, Panic attacks, ADD/ADHD, Obsessive compulsive disorder Musculoskeletal: None Derm: None - Past Surgical History Past Surgical History: No - Present Medications Home Medications: Ambulatory Orders Medication Instructions Recorded Confirmed Atorvastatin [Lipitor] 10 mg PO DAILY 04/27/21 06/03/21 Benztropine Mesylate 1 mg PO BID 04/27/21 06/03/21 LORazepam [Ativan] 0.5 mg PO BID 04/27/21 06/03/21 carBAMazepine [TEGretol] 200 mg PO BID 04/27/21 06/03/21 traZODone [Desyrel] 150 mg PO HS 04/27/21 06/03/21 haloperidoL [Haloperidol] 10 mg PO DAILY 06/03/21 06/03/21 Trazodone HCl 150 mg PO QPM 30 Days #45 tablet 07/14/21 - Allergies Allergies/Adverse Reactions: Allergies Allergy/AdvReac Type Severity Reaction Status Date / Time ziprasidone HCl * AdvReac Severe Hallucinati Verified 06/28/21 15:49 [From Geodon] ons ziprasidone mesylate * AdvReac Severe Hallucinati Verified 06/28/21 15:49 [From Geodon] ons - Social History Does the pt smoke?: Yes Smoking Status: Current every day smoker Does the pt drink ETOH?: Yes Does the pt have substance abuse?: No - Immunizations Immunizations are current?: No Immunizations: TDAP >10years/unknown, Other immun current - POLST Patient has POLST: No PD ED PE NORMAL - Vitals Vital signs reviewed: Yes - General General: Alert and oriented X 3, Well developed/nourished - Derm Derm: Normal color, Warm and dry - Neuro Neuro: Alert and oriented X 3, No motor deficit, Normal speech, Other (Moderately blunted affect with sluggish responses but otherwise appropriate.) Results - Vitals Vitals: Vital Signs - 24 hr 07/14/21 17:04 Temperature 36.8 C Heart Rate 83 Respiratory 16 Rate Blood Pressure 131/98 H O2 Saturation 98 Oxygen O2 Source Room air PD MEDICAL DECISION MAKING - ED course Complexity details: reviewed old records (Prior dose listed on records is 150 mg po qhs. ), considered differential, d/w patient Departure - Departure Disposition: 01 Home, Self Care Clinical Impression: No mechanism for timely refill of medication Schizophrenia Qualifiers: Schizophrenia type: unspecified Qualified Code(s): F20.9 - Schizophrenia, unspecified Condition: Stable Record reviewed to determine appropriate education?: Yes Prescriptions: Trazodone HCl 150 mg PO QPM 30 Days #45 tablet Comments: Wrote a prescription for your trazodone 150 mg each evening. They come in 100 mg tablets so use 1-1/2 tablets each evening. Follow-up with your primary care provider for subsequent medication refills. I transmitted to to [facility] pharmacy in [place]. Discharge Date/Time: 07/14/21 17:40
== END 2021-07-14 17:40 | disposition home or self-care (01) ==
LOC: ED 16:58
DX: Z76.0 Encounter for issue of repeat prescription (principal); F20.9 Schizophrenia, unspecified; F17.200 Nicotine dependence, unspecified, uncomplicated
CPT/HCPCS: 99282

== ENCOUNTER 2021-07-21 05:49 | Outpatient (CLI) | payer MEDICAID | END 2021-07-21 05:50 | disposition critical access hospital (66) | LOC: EMS 05:49 | DX: Z00.8 Encounter for other general examination (principal) | CPT/HCPCS: A0425; A0429; A0999 ==

== ENCOUNTER 2021-07-21 06:04 | Emergency (ER) | payer MEDICAID ==
[2021-07-21 06:11] VITALS: BP 141/101
--- NOTE | 2021-07-21 07:54 | ED Physician Documentation ---
PD HPI MHE - Stated complaint Stated Complaint: MHE - Chief complaint Chief Complaint: MHE - History obtained from History obtained from: Patient - History of Present Illness Primary symptom: Psychosis Timing - onset: Today Contributing factors: Substance abuse - drugs Similar symptoms before: Diagnosis (methamphetamine abuse and schizophrenia) Recently seen: Emergency Dept - Additional information Additional information: 36-year-old male well-known to the emergency department has history of schizophrenia and methamphetamine abuse. He is brought to the emergency department this morning by ambulance after being found outside of [facility] confused and asking for help. He denies command hallucinations, SI, HI or recent illness. He refuses offered antipsychotic Review of Systems Constitutional: denies: Fever Eyes: denies: Decreased vision Nose: denies: Congestion Respiratory: denies: Cough GI: denies: Vomiting PD PAST MEDICAL HISTORY - Past Medical History Past Medical History: Yes Cardiovascular: High cholesterol Respiratory: None Neuro: None Endocrine/Autoimmune: None GI: None : Renal insuffiency HEENT: None Psych: Depression, Anxiety, Bipolar disorder, Schizophrenia, Panic attacks, ADD/ADHD, Obsessive compulsive disorder Musculoskeletal: None Derm: None - Past Surgical History Past Surgical History: No - Present Medications Home Medications: Ambulatory Orders Medication Instructions Recorded Confirmed Atorvastatin [Lipitor] 10 mg PO DAILY 04/27/21 06/03/21 Benztropine Mesylate 1 mg PO BID 04/27/21 06/03/21 LORazepam [Ativan] 0.5 mg PO BID 04/27/21 06/03/21 carBAMazepine [TEGretol] 200 mg PO BID 04/27/21 06/03/21 traZODone [Desyrel] 150 mg PO HS 04/27/21 06/03/21 haloperidoL [Haloperidol] 10 mg PO DAILY 06/03/21 06/03/21 Trazodone HCl 150 mg PO QPM 30 Days #45 tablet 07/14/21 - Allergies Allergies/Adverse Reactions: Allergies Allergy/AdvReac Type Severity Reaction Status Date / Time ziprasidone HCl * AdvReac Severe Hallucinati Verified 07/21/21 06:07 [From [facility]] ons ziprasidone mesylate * AdvReac Severe Hallucinati Verified 07/21/21 06:07 [From [facility]] ons - Social History Does the pt smoke?: Yes Smoking Status: Current every day smoker Does the pt drink ETOH?: Yes Does the pt have substance abuse?: No - Immunizations Immunizations are current?: No Immunizations: TDAP >10years/unknown, Other immun current - POLST Patient has POLST: No PD ED PE NORMAL - Vitals Vital signs reviewed: Yes (hypertensive ) - General General: Alert and oriented X 3, No acute distress, Well developed/nourished - HEENT HEENT: Atraumatic, PERRL, EOMI - Neck Neck: Supple, no meningeal sign - Cardiac Cardiac: RRR, No murmur - Respiratory Respiratory: No respiratory distress, Clear bilaterally - Abdomen Abdomen: Normal bowel sounds, Soft, Non tender, Non distended, No organomegaly - Back Back: No CVA TTP, No spinal TTP - Derm Derm: Normal color, Warm and dry, No rash - Extremities Extremities: No deformity, No edema - Neuro Neuro: Alert and oriented X 3, chemist biological 2-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, No motor deficit, No sensory deficit, Normal speech Eye Opening: Spontaneous Motor: Obeys Commands Verbal: Confused GCS Score: 14 - Psych Psych: Normal mood, Normal affect Results - Vitals Vitals: Vital Signs - 24 hr 07/21/21 07/21/21 06:08 06:10 Temperature 36.5 C 36.5 C Heart Rate 85 85 Respiratory 19 19 Rate Blood Pressure 141/101 H 141/101 H O2 Saturation 99 99 Oxygen O2 Source Room air - Labs Labs: Laboratory Tests 07/21/21 07/21/21 08:25 10:01 Urine Opiates Screen NEGATIVE Ur Oxycodone Screen NEGATIVE Urine Methadone Screen NEGATIVE Ur Propoxyphene Screen NEGATIVE Ur Barbiturates Screen NEGATIVE Ur Tricyclics Screen NEGATIVE Ur Phencyclidine Scrn NEGATIVE Ur Amphetamine Screen NEGATIVE U Methamphetamines Scrn NEGATIVE U Benzodiazepines Scrn NEGATIVE Urine Cocaine Screen NEGATIVE U Cannabinoids Screen NEGATIVE Ethyl Alcohol < 5.0 PD MEDICAL DECISION MAKING - ED course Complexity details: reviewed old records, reviewed results, re-evaluated patient, considered differential, d/w patient ED course: 36-year-old schizophrenic male with a history of methamphetamine abuse comes into the emergency department after acting oddly in the community. He denies any command hallucinations any suicidal or homicidal ideation and after a stay in the emergency department wants to go home. He is refusing services with recommended oral antipsychotic. Departure - Departure Disposition: 01 Home, Self Care Clinical Impression: Schizophrenia, Homelessness, Methamphetamine abuse Condition: Stable Instructions: ED Drug Abuse General, ED Schizophrenia General Follow-Up: [facility] [Provider Group] Discharge Date/Time: 07/21/21 10:37
[2021-07-21 10:06] LABS: MUDS CUTOFF CONCENTRATIONS CUTOFF CONC BELOW:
[2021-07-21 10:24] LABS: AMPHETAMINE SCREEN,URINE NEGATIVE (NEGATIVE); BARBITURATE SCREEN,UR NEGATIVE (NEGATIVE); BENZODIAZEPINES SCREEN, URINE NEGATIVE (NEGATIVE); COCAINE SCREEN URINE NEGATIVE (NEGATIVE); METHADONE SCREEN, URINE NEGATIVE (NEGATIVE); METHAMPHETAMINES SCREEN, URINE NEGATIVE (NEGATIVE); OPIATE SCREEN, URINE NEGATIVE (NEGATIVE); OXYCODONE SCREEN, URINE NEGATIVE (NEGATIVE); PROPOXYPHENE SCREEN, URINE NEGATIVE (NEGATIVE); THC CANNABINOID SCREEN, URINE NEGATIVE (NEGATIVE); TRICYCLIC ANTIDEPRESSANT,URINE NEGATIVE (NEGATIVE)
== END 2021-07-21 10:37 | disposition home or self-care (01) ==
LOC: EDUNIT# → EDBD → ED 06:04
DX: F15.10 Other stimulant abuse, uncomplicated (principal); F20.9 Schizophrenia, unspecified; Z59.0 Homelessness; F17.200 Nicotine dependence, unspecified, uncomplicated
CPT/HCPCS: 36415; 80306; 80320; 99283

== ENCOUNTER 2021-07-22 00:40 | Outpatient (CLI) | payer MEDICAID | END 2021-07-22 00:41 | disposition critical access hospital (66) | LOC: EMS 00:40 | DX: R44.8 Other symptoms and signs involving general sensations and perceptions (principal) | CPT/HCPCS: A0425; A0429; A0999 ==

== ENCOUNTER 2021-07-22 00:54 | Emergency (ER) | payer MEDICAID ==
[2021-07-22 01:02] VITALS: BP 148/89
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
[2021-07-22] MEDS ORDERED: OLANZapine ODT 5 MG TABLET TL ONE (02:08)
[2021-07-22 02:22] LABS: BASOPHILS # (AUTO) 0.1 10^3/uL (0.0-0.1); BASOPHILS % (AUTO) 1.3 %; EOSINOPHILS # (AUTO) 0.2 10^3/uL (0.0-0.7); EOSINOPHILS % (AUTO) 2.8 %; HCT - HEMATOCRIT 43.8 % (42.0-52.0); HGB - HEMOGLOBIN 14.4 g/dL (14.0-18.0); LYMPHOCYTES # (AUTO) 2.2 10^3/uL (1.5-3.5); LYMPHOCYTES % (AUTO) 28.4 %; MEAN CORPUSCULAR HEMOGLOBIN 29.1 pg (27.0-31.0); MEAN CORPUSCULAR HGB CONC 32.9 g/dL (32.0-36.0); MEAN CORPUSCULAR VOLUME 88.5 fL (80.0-94.0); MEAN PLATELET VOLUME 10.8 fL (7.4-11.4); MONOCYTES # (AUTO) 0.6 10^3/uL (0.0-1.0); MONOCYTES % (AUTO) 7.9 %; NEUTROPHILS # (AUTO) 4.6 10^3/uL (1.5-6.6); NEUTROPHILS % (AUTO) 59.3 %; PLT - PLATELET COUNT 247 10^3/uL (130-450); RED BLOOD COUNT 4.95 10^6/uL (4.70-6.10); RED CELL DISTRIBUTION WIDTH 13.2 % (12.0-15.0); WHITE BLOOD COUNT 7.8 x10^3/uL (4.8-10.8)
[2021-07-22 02:23] LABS: MUDS CUTOFF CONCENTRATIONS CUTOFF CONC BELOW:
[2021-07-22 02:25] LABS: GLUCOSE, URINE (UA) NEGATIVE (NEGATIVE); KETONES,URINE (UA) 15 mg/dL (NEGATIVE); LEUKOCYTE ESTERASE, URINE NEGATIVE (NEGATIVE); NITRITE,URINE NEGATIVE (NEGATIVE); OCCULT BLOOD,URINE TRACE-INTA (NEGATIVE); PH,URINE 5.5 PH (5.0-7.5); PROTEIN,URINE NEGATIVE (NEGATIVE); UROBILINOGEN,URINE 0.2 (NORMAL) E.U./dL (NORMAL)
[2021-07-22 02:28] LABS: BILIRUBIN,URINE NEGATIVE (NEGATIVE); CLARITY,URINE CLEAR (CLEAR); ICTOTEST,URINE NEGATIVE
[2021-07-22 02:36] LABS: AMPHETAMINE SCREEN,URINE NEGATIVE (NEGATIVE); BARBITURATE SCREEN,UR NEGATIVE (NEGATIVE); BENZODIAZEPINES SCREEN, URINE NEGATIVE (NEGATIVE); COCAINE SCREEN URINE NEGATIVE (NEGATIVE); METHADONE SCREEN, URINE NEGATIVE (NEGATIVE); METHAMPHETAMINES SCREEN, URINE NEGATIVE (NEGATIVE); OPIATE SCREEN, URINE NEGATIVE (NEGATIVE); OXYCODONE SCREEN, URINE NEGATIVE (NEGATIVE); PROPOXYPHENE SCREEN, URINE NEGATIVE (NEGATIVE); THC CANNABINOID SCREEN, URINE NEGATIVE (NEGATIVE); TRICYCLIC ANTIDEPRESSANT,URINE NEGATIVE (NEGATIVE)
[2021-07-22 02:40] LABS: ACETAMINOPHEN < 10 ug/mL (10-30); ALBUMIN 4.3 g/dL (3.2-5.5); ALBUMIN/GLOBULIN RATIO 1.7 (1.0-2.2); ALKALINE PHOSPHATASE 54 IU/L (42-121); ALT ALANINE AMINOTRANSFERASE 23 IU/L (10-60); AST ASPARTATE AMINOTRANSFERASE 19 IU/L (10-42); BILIRUBIN,TOTAL 0.6 mg/dL (0.2-1.0); BUN - BLOOD UREA NITROGEN 16 mg/dL (6-20); CARBON DIOXIDE - CO2 24 mmol/L (21-32); CHLORIDE 105 mmol/L (101-111); CREATININE 0.8 mg/dL (0.6-1.2); ETOH - ETHANOL < 5.0 mg/dL; GFR - MDRD 110 (>89); GLUCOSE 107 mg/dL (70-100); LIPASE 46 U/L (22-51); POTASSIUM 3.5 mmol/L (3.5-5.0); SALICYLATE < 6.0 mg/dL; SODIUM 139 mmol/L (135-145); TOTAL PROTEIN 6.9 g/dL (6.7-8.2)
== END 2021-07-22 09:53 | disposition home or self-care (01) ==
LOC: EDUNIT# → ED 00:54
DX: F29 Unspecified psychosis not due to a substance or known physiological condition (principal); F20.9 Schizophrenia, unspecified; F17.200 Nicotine dependence, unspecified, uncomplicated
CPT/HCPCS: 36415; 80053; 80306; 80307; 80320; 80329; 81001; 81003; 83690; 84443; 85025; 87086; 99283

== ENCOUNTER 2021-07-28 01:22 | Outpatient (CLI) | payer MEDICAID | END 2021-07-28 01:23 | disposition critical access hospital (66) | LOC: EMS 01:22 | DX: R41.82 Altered mental status, unspecified (principal); R44.1 Visual hallucinations; R46.4 Slowness and poor responsiveness | CPT/HCPCS: A0425; A0429; A0999 ==

== ENCOUNTER 2021-07-28 01:39 | Emergency (ER) | payer MEDICAID ==
--- NOTE | 2021-07-28 01:46 | ED Physician Documentation ---
History of Present Illness - Stated complaint Stated Complaint: ANXIETY - History obtained from History obtained from: EMS - Additonal information Additional information: 36-year-old man, well known to our ed, with pmh schizophrenia, bipolar, depression, presents after being brought in by EMS with report of acute anxiety. He lives with his mother and apparently called EMS himself, appeared responsive to internal stimuli en route and was minimally conversant. In the emergency department the patient is intermittently conversant, responding to internal stimuli but cooperative. I am unable to obtain a history except for asking if he needs anything. In response he says "can I have a sandwich". Review of Systems Unable to obtain: Uncooperative PD PAST MEDICAL HISTORY - Past Medical History Cardiovascular: High cholesterol Respiratory: None Neuro: None Endocrine/Autoimmune: None GI: None : Renal insuffiency HEENT: None Psych: Depression, Anxiety, Bipolar disorder, Schizophrenia, Panic attacks, ADD/ADHD, Obsessive compulsive disorder Musculoskeletal: None Derm: None - Past Surgical History Past Surgical History: No - Present Medications Home Medications: Ambulatory Orders Medication Instructions Recorded Confirmed Atorvastatin [Lipitor] 10 mg PO DAILY 04/27/21 06/03/21 Benztropine Mesylate 1 mg PO BID 04/27/21 06/03/21 LORazepam [Ativan] 0.5 mg PO BID 04/27/21 06/03/21 carBAMazepine [TEGretol] 200 mg PO BID 04/27/21 06/03/21 traZODone [Desyrel] 150 mg PO HS 04/27/21 06/03/21 haloperidoL [Haloperidol] 10 mg PO DAILY 06/03/21 06/03/21 Trazodone HCl 150 mg PO QPM 30 Days #45 tablet 07/14/21 - Allergies Allergies/Adverse Reactions: Allergies Allergy/AdvReac Type Severity Reaction Status Date / Time ziprasidone HCl * AdvReac Severe Hallucinati Verified 07/22/21 00:59 [From [facility]] ons ziprasidone mesylate * AdvReac Severe Hallucinati Verified 07/22/21 00:59 [From [facility]] ons - Social History Does the pt smoke?: Yes Smoking Status: Current every day smoker Does the pt drink ETOH?: Yes Does the pt have substance abuse?: No - Immunizations Immunizations are current?: No Immunizations: TDAP >10years/unknown, Other immun current - POLST Patient has POLST: No PD ED PE NORMAL - Vitals Vital signs reviewed: Yes - General General: No acute distress, Other (disheveled appearing, alert, with intermittent eye contact) - HEENT HEENT: Atraumatic, PERRL, EOMI - Neck Neck: Supple, no meningeal sign - Cardiac Cardiac: RRR - Respiratory Respiratory: No respiratory distress, Clear bilaterally - Abdomen Abdomen: Non tender, Non distended - Derm Derm: Normal color, Warm and dry - Extremities Extremities: No deformity - Neuro Neuro: No motor deficit, No sensory deficit - Psych Psych: Other (responding to internal stimuli. otherwise calm, cooperative) Results - Vitals Vitals: Oxygen O2 Source Room air - Labs Labs: Laboratory Tests 07/28/21 07/28/21 07/28/21 08:55 08:55 08:55 WBC 7.7 RBC 4.95 Hgb 14.4 Hct 43.7 MCV 88.3 MCH 29.1 MCHC 33.0 RDW 13.2 Plt Count 243 MPV 10.9 Neut # (Auto) 4.6 Lymph # (Auto) 2.1 [place] # (Auto) 0.6 Eos # (Auto) 0.3 Baso # (Auto) 0.1 Absolute Nucleated RBC 0.00 Nucleated RBC % 0.0 Sodium 139 Potassium 3.9 Chloride 103 Carbon Dioxide 26 Anion Gap 10.0 BUN 14 Creatinine 0.7 Estimated GFR (MDRD) 128 Glucose 100 Calcium 9.3 Total Bilirubin 0.9 AST 14 ALT 19 Alkaline Phosphatase 58 Total Protein 6.8 Albumin 4.4 Globulin 2.4 Albumin/Globulin Ratio 1.8 Lipase 29 TSH 0.49 Salicylates < 6.0 Acetaminophen < 10 L Ethyl Alcohol < 5.0 PD MEDICAL DECISION MAKING - ED course Complexity details: re-evaluated patient ED course: Patient behaving calmly and at baseline to my previous experience in the emergency department. After his sandwich he laid down and is sleeping. Patient did not consent to bloodwork or eval for IPP hospitalization and is behaving calmly, appears not to be a danger to himself or others therefore I will hold off on bloodwork for now. Patient in NAD overnight. endorsed to daytime MD for further management and care. Departure - Departure Disposition: ED [place] Discharge Date/Time: 07/28/21 09:32
[2021-07-28 01:52] VITALS: BP 141/74
[2021-07-28 09:00] LABS: BASOPHILS # (AUTO) 0.1 10^3/uL (0.0-0.1); BASOPHILS % (AUTO) 0.8 %; EOSINOPHILS # (AUTO) 0.3 10^3/uL (0.0-0.7); EOSINOPHILS % (AUTO) 3.9 %; HCT - HEMATOCRIT 43.7 % (42.0-52.0); HGB - HEMOGLOBIN 14.4 g/dL (14.0-18.0); LYMPHOCYTES # (AUTO) 2.1 10^3/uL (1.5-3.5); LYMPHOCYTES % (AUTO) 27.2 %; MEAN CORPUSCULAR HEMOGLOBIN 29.1 pg (27.0-31.0); MEAN CORPUSCULAR VOLUME 88.3 fL (80.0-94.0); MEAN PLATELET VOLUME 10.9 fL (7.4-11.4); MONOCYTES # (AUTO) 0.6 10^3/uL (0.0-1.0); MONOCYTES % (AUTO) 8.1 %; NEUTROPHILS # (AUTO) 4.6 10^3/uL (1.5-6.6); NEUTROPHILS % (AUTO) 59.9 %; PLT - PLATELET COUNT 243 10^3/uL (130-450); RED BLOOD COUNT 4.95 10^6/uL (4.70-6.10); RED CELL DISTRIBUTION WIDTH 13.2 % (12.0-15.0); WHITE BLOOD COUNT 7.7 x10^3/uL (4.8-10.8)
[2021-07-28 09:17] LABS: ACETAMINOPHEN < 10 ug/mL (10-30); ALBUMIN 4.4 g/dL (3.2-5.5); ALBUMIN/GLOBULIN RATIO 1.8 (1.0-2.2); ALKALINE PHOSPHATASE 58 IU/L (42-121); ALT ALANINE AMINOTRANSFERASE 19 IU/L (10-60); AST ASPARTATE AMINOTRANSFERASE 14 IU/L (10-42); BILIRUBIN,TOTAL 0.9 mg/dL (0.2-1.0); BUN - BLOOD UREA NITROGEN 14 mg/dL (6-20); CALCIUM 9.3 mg/dL (8.5-10.3); CARBON DIOXIDE - CO2 26 mmol/L (21-32); CHLORIDE 103 mmol/L (101-111); CREATININE 0.7 mg/dL (0.6-1.2); ETOH - ETHANOL < 5.0 mg/dL; GFR - MDRD 128 (>89); GLUCOSE 100 mg/dL (70-100); LIPASE 29 U/L (22-51); POTASSIUM 3.9 mmol/L (3.5-5.0); SALICYLATE < 6.0 mg/dL; SODIUM 139 mmol/L (135-145); TOTAL PROTEIN 6.8 g/dL (6.7-8.2)
== END 2021-07-28 09:32 | disposition left against medical advice (07) ==
LOC: EDUNIT# → ED 01:39
DX: F41.9 Anxiety disorder, unspecified (principal); F17.200 Nicotine dependence, unspecified, uncomplicated
CPT/HCPCS: 36415; 80053; 80307; 80320; 80329; 83690; 84443; 85025; 99283

== ENCOUNTER 2021-07-29 12:12 | Outpatient (CLI) | payer MEDICAID | END 2021-07-29 12:13 | disposition left against medical advice (07) | LOC: EMS 12:12 | DX: R46.89 Other symptoms and signs involving appearance and behavior (principal) ==

== ENCOUNTER 2021-07-31 01:53 | Outpatient (CLI) | payer MEDICAID | END 2021-07-31 01:54 | disposition critical access hospital (66) | LOC: EMS 01:53 | DX: R46.89 Other symptoms and signs involving appearance and behavior (principal) | CPT/HCPCS: A0425; A0429; A0999 ==

== ENCOUNTER 2021-07-31 02:09 | Emergency (ER) | payer MEDICAID ==
[2021-07-31] MEDS ORDERED: OLANZapine ODT 5 MG TABLET TL ONE (02:43)
--- NOTE | 2021-07-31 02:45 | ED Physician Documentation ---
PD HPI MHE - Stated complaint Stated Complaint: MHE - Chief complaint Chief Complaint: MHE - History obtained from History obtained from: Patient, EMS - History of Present Illness Primary symptom: Psychosis (hearing voices, poor interaction.) Timing - onset: Chronic Contributing factors: No: Substance abuse - ETOH, Substance abuse - drugs, Out of meds Similar symptoms before: Diagnosis (here to ER frequently with similar symptoms. Typically feels better after resting and some extra meds here in E) Recently seen: Emergency Dept Review of Systems Constitutional: denies: Fever Nose: denies: Rhinorrhea / runny nose, Congestion Throat: denies: Sore throat Respiratory: denies: Cough GI: denies: Vomiting, Diarrhea Neurologic: denies: Headache, Head injury PD PAST MEDICAL HISTORY - Past Medical History Past Medical History: Yes Cardiovascular: High cholesterol Respiratory: None Neuro: None Endocrine/Autoimmune: None GI: None : Renal insuffiency HEENT: None Psych: Depression, Anxiety, Bipolar disorder, Schizophrenia, Panic attacks, ADD/ADHD, Obsessive compulsive disorder Musculoskeletal: None Derm: None - Past Surgical History Past Surgical History: No - Present Medications Home Medications: Ambulatory Orders Medication Instructions Recorded Confirmed Benztropine Mesylate 1 mg PO BID 04/27/21 06/03/21 LORazepam [Ativan] 0.5 mg PO BID 04/27/21 06/03/21 carBAMazepine [TEGretol] 200 mg PO BID 04/27/21 06/03/21 haloperidoL [Haloperidol] 10 mg PO DAILY 06/03/21 06/03/21 Atorvastatin [Lipitor] 10 mg PO DAILY 07/31/21 OLANZapine [Olanzapine] 20 mg PO DAILY 07/31/21 07/31/21 - Allergies Allergies/Adverse Reactions: Allergies Allergy/AdvReac Type Severity Reaction Status Date / Time ziprasidone HCl * AdvReac Severe Hallucinati Verified 07/31/21 02:21 [From [employer]] ons ziprasidone mesylate * AdvReac Severe Hallucinati Verified 07/31/21 02:21 [From [facility]] ons - Social History Does the pt smoke?: Yes Smoking Status: Current every day smoker Does the pt drink ETOH?: Yes Does the pt have substance abuse?: No - Immunizations Immunizations are current?: No Immunizations: TDAP >10years/unknown, Other immun current - POLST Patient has POLST: No PD ED PE NORMAL - Vitals Vital signs reviewed: Yes - General General: No acute distress, Well developed/nourished, Other (Unblinking gaze with flat affect and minimalist answers to my questions. Consistent with prior visits.) - Neck Neck: Supple, no meningeal sign, No adenopathy - Cardiac Cardiac: RRR, No murmur - Respiratory Respiratory: Clear bilaterally - Abdomen Abdomen: Soft, Non tender - Derm Derm: Normal color, Warm and dry - Extremities Extremities: Normal ROM s pain - Neuro Neuro: No motor deficit, No sensory deficit Results - Vitals Vitals: Vital Signs - 24 hr 07/31/21 07/31/21 07/31/21 02:18 03:28 06:33 Temperature 36.9 C Heart Rate 105 H Respiratory 15 13 13 Rate Blood Pressure 136/92 H O2 Saturation 96 Oxygen O2 Source Room air - Labs Labs: Laboratory Tests 07/31/21 02:55 Urine Color YELLOW Urine Clarity CLEAR Urine pH 6.5 Ur Specific [place] 1.010 Urine Protein NEGATIVE Urine Glucose (UA) NEGATIVE Urine Ketones NEGATIVE Urine Occult Blood NEGATIVE Urine Nitrite NEGATIVE Urine Bilirubin NEGATIVE Urine Urobilinogen 0.2 (NORMAL) Ur Leukocyte Esterase NEGATIVE Ur Microscopic Review NOT INDICATED Urine Culture Comments NOT INDICATED Urine Opiates Screen NEGATIVE Ur Oxycodone Screen NEGATIVE Urine Methadone Screen NEGATIVE Ur Propoxyphene Screen NEGATIVE Ur Barbiturates Screen NEGATIVE Ur Tricyclics Screen NEGATIVE Ur Phencyclidine Scrn NEGATIVE Ur Amphetamine Screen NEGATIVE U Methamphetamines Scrn NEGATIVE U Benzodiazepines Scrn NEGATIVE Urine Cocaine Screen NEGATIVE U Cannabinoids Screen NEGATIVE PD MEDICAL DECISION MAKING - ED course Complexity details: reviewed old records, re-evaluated patient, considered differential (Familiar presentation and will have social work talk with him. At this point I am deferring most labs as he has not really needed clearance for them recently.), d/w patient Departure - Departure Clinical Impression: Chronic psychosis, Anxiety Condition: Stable Record reviewed to determine appropriate education?: Yes Comments: Stay well-hydrated. Continue usual medications. Follow-up with your primary care and psychologist.
[2021-07-31 03:00] LABS: BILIRUBIN,URINE NEGATIVE (NEGATIVE); CLARITY,URINE CLEAR (CLEAR); GLUCOSE, URINE (UA) NEGATIVE (NEGATIVE); KETONES,URINE (UA) NEGATIVE (NEGATIVE); LEUKOCYTE ESTERASE, URINE NEGATIVE (NEGATIVE); MUDS CUTOFF CONCENTRATIONS CUTOFF CONC BELOW:; NITRITE,URINE NEGATIVE (NEGATIVE); OCCULT BLOOD,URINE NEGATIVE (NEGATIVE); PH,URINE 6.5 PH (5.0-7.5); PROTEIN,URINE NEGATIVE (NEGATIVE); UROBILINOGEN,URINE 0.2 (NORMAL) E.U./dL (NORMAL)
[2021-07-31 03:09] LABS: AMPHETAMINE SCREEN,URINE NEGATIVE (NEGATIVE); BARBITURATE SCREEN,UR NEGATIVE (NEGATIVE); BENZODIAZEPINES SCREEN, URINE NEGATIVE (NEGATIVE); COCAINE SCREEN URINE NEGATIVE (NEGATIVE); METHADONE SCREEN, URINE NEGATIVE (NEGATIVE); METHAMPHETAMINES SCREEN, URINE NEGATIVE (NEGATIVE); OPIATE SCREEN, URINE NEGATIVE (NEGATIVE); OXYCODONE SCREEN, URINE NEGATIVE (NEGATIVE); PROPOXYPHENE SCREEN, URINE NEGATIVE (NEGATIVE); THC CANNABINOID SCREEN, URINE NEGATIVE (NEGATIVE); TRICYCLIC ANTIDEPRESSANT,URINE NEGATIVE (NEGATIVE)
[2021-07-31 10:01] LABS: BASOPHILS # (AUTO) 0.1 10^3/uL (0.0-0.1); BASOPHILS % (AUTO) 0.5 %; EOSINOPHILS # (AUTO) 0.3 10^3/uL (0.0-0.7); EOSINOPHILS % (AUTO) 2.7 %; HCT - HEMATOCRIT 42.6 % (42.0-52.0); LYMPHOCYTES # (AUTO) 2.2 10^3/uL (1.5-3.5); LYMPHOCYTES % (AUTO) 24.5 %; MEAN CORPUSCULAR HEMOGLOBIN 29.2 pg (27.0-31.0); MEAN CORPUSCULAR HGB CONC 32.9 g/dL (32.0-36.0); MEAN CORPUSCULAR VOLUME 88.9 fL (80.0-94.0); MEAN PLATELET VOLUME 10.9 fL (7.4-11.4); MONOCYTES # (AUTO) 0.8 10^3/uL (0.0-1.0); MONOCYTES % (AUTO) 8.8 %; NEUTROPHILS # (AUTO) 5.8 10^3/uL (1.5-6.6); NEUTROPHILS % (AUTO) 63.3 %; PLT - PLATELET COUNT 228 10^3/uL (130-450); RED BLOOD COUNT 4.79 10^6/uL (4.70-6.10); RED CELL DISTRIBUTION WIDTH 13.3 % (12.0-15.0); WHITE BLOOD COUNT 9.1 x10^3/uL (4.8-10.8)
[2021-07-31 10:16] LABS: ACETAMINOPHEN < 10 ug/mL (10-30); ALBUMIN 4.2 g/dL (3.2-5.5); ALBUMIN/GLOBULIN RATIO 1.8 (1.0-2.2); ALKALINE PHOSPHATASE 54 IU/L (42-121); ALT ALANINE AMINOTRANSFERASE 18 IU/L (10-60); AST ASPARTATE AMINOTRANSFERASE 15 IU/L (10-42); BILIRUBIN,TOTAL 0.7 mg/dL (0.2-1.0); BUN - BLOOD UREA NITROGEN 12 mg/dL (6-20); CARBON DIOXIDE - CO2 26 mmol/L (21-32); CHLORIDE 106 mmol/L (101-111); CREATININE 0.8 mg/dL (0.6-1.2); ETOH - ETHANOL < 5.0 mg/dL; GFR - MDRD 110 (>89); GLUCOSE 100 mg/dL (70-100); LIPASE 53 U/L (22-51); POTASSIUM 3.9 mmol/L (3.5-5.0); SALICYLATE < 6.0 mg/dL; SODIUM 141 mmol/L (135-145); TOTAL PROTEIN 6.6 g/dL (6.7-8.2)
[2021-07-31 11:16] LABS: B. PARAPERTUSSIS- RESP PCR PAN NOT DETECTED; B. PERTUSSIS- RESP PCR PANEL NOT DETECTED; C. PNEUMONIAE- RESP PCR PANEL NOT DETECTED; CORONAVIRUS 229E-RESP PCR NOT DETECTED; CORONAVIRUS HKU1-RESP PCR NOT DETECTED; CORONAVIRUS NL63-RESP PCR NOT DETECTED; CORONAVIRUS OC43-RESP PCR NOT DETECTED; HUMAN METAPNEUMOVIRUS NOT DETECTED; INFLUENZA A- RESP PCR PANEL NOT DETECTED; INFLUENZA B - RESP PCR PANEL NOT DETECTED; M. PNEUMONIAE- RESP PCR PANEL NOT DETECTED; PARAINFLUENZA VIRUS 1 NOT DETECTED; PARAINFLUENZA VIRUS 2 NOT DETECTED; PARAINFLUENZA VIRUS 3 NOT DETECTED; PARAINFLUENZA VIRUS 4 NOT DETECTED; RHINOVIRUS/ENTEROVIRUS NOT DETECTED; RSV- RESP PCR PANEL NOT DETECTED; SARS-CoV-2 -RESP PCR PANEL NOT DETECTED
--- NOTE | 2021-07-31 13:15 | ED Physician Documentation ---
ED Addendum - Addendum Addendum: 07/31/21 13:14 Social work saw patient and reportedly there was a care plan that he was to be evaluated by the DCR. The DCR saw him and detained him to [facility] evaluation and treatment center under the care of MAURICE Valencia. [place] are completed. He is stable for transport. 07/31/21 13:15 Disposition psychiatric transfer to [facility] E and T Condition: Stable
[2021-07-31 17:40] VITALS: BP 121/70
== END 2021-07-31 17:45 ==
LOC: EDUNIT# → ED 02:09
DX: F29 Unspecified psychosis not due to a substance or known physiological condition (principal); F41.9 Anxiety disorder, unspecified; F17.200 Nicotine dependence, unspecified, uncomplicated; Z20.822 Contact with and (suspected) exposure to COVID-19
CPT/HCPCS: 0202U; 36415; 80053; 80306; 80307; 80320; 80329; 81003; 83690; 84443; 85025; 93005; 99283; 99285; A9270; 81001; 87086

== ENCOUNTER 2021-08-13 22:00 | Outpatient (CLI) | payer MEDICAID | END 2021-08-13 22:01 | disposition critical access hospital (66) | LOC: EMS 22:00 | DX: R45.89 Other symptoms and signs involving emotional state (principal) | CPT/HCPCS: A0425; A0429 ==

== ENCOUNTER 2021-08-13 22:16 | Emergency (ER) | payer MEDICAID ==
[2021-08-13] MEDS ORDERED: haloperidoL 1 MG TABLET PO STA (22:33)
[2021-08-13] MEDS ORDERED: LORazepam 0.5 MG TABLET PO STA (22:33)
--- NOTE | 2021-08-13 22:37 | ED Physician Documentation ---
History of Present Illness - Stated complaint Stated Complaint: CANT SLEEP - Chief complaint Chief Complaint: MHE - History obtained from History obtained from: Patient, EMS - Additonal information Additional information: 36yM well known to the ED with history of schizophrenia p/w insomnia and anxiety. patient denies SI/HI/AVH, states he can't sleep and would like his meds. Patient has not taken his home haldol or ativan today and is agreeable to take. also requesting sandwich. Review of Systems Ten Systems: 10 systems reviewed and negative Psychiatric: reports: Anxiety, Insomnia. denies: Suicidal, Homicidal, Hallucinations PD PAST MEDICAL HISTORY - Past Medical History Past Medical History: Yes Cardiovascular: High cholesterol Respiratory: None Neuro: None Endocrine/Autoimmune: None GI: None : Renal insuffiency HEENT: None Psych: Depression, Anxiety, Bipolar disorder, Schizophrenia, Panic attacks, ADD/ADHD, Obsessive compulsive disorder Musculoskeletal: None Derm: None - Past Surgical History Past Surgical History: No - Present Medications Home Medications: Ambulatory Orders Medication Instructions Recorded Confirmed Benztropine Mesylate 1 mg PO BID 04/27/21 08/13/21 LORazepam [Ativan] 0.5 mg PO BID 04/27/21 08/13/21 carBAMazepine [TEGretol] 200 mg PO BID 04/27/21 08/13/21 haloperidoL [Haloperidol] 10 mg PO DAILY 06/03/21 08/13/21 Atorvastatin [Lipitor] 10 mg PO DAILY 07/31/21 08/13/21 OLANZapine [Olanzapine] 20 mg PO DAILY 07/31/21 08/13/21 - Allergies Allergies/Adverse Reactions: Allergies Allergy/AdvReac Type Severity Reaction Status Date / Time ziprasidone HCl * AdvReac Severe Hallucinati Verified 08/13/21 22:22 [From [facility]] ons ziprasidone mesylate * AdvReac Severe Hallucinati Verified 08/13/21 22:22 [From [facility]] ons - Social History Does the pt smoke?: Yes Smoking Status: Current every day smoker Does the pt drink ETOH?: Yes Does the pt have substance abuse?: No - Immunizations Immunizations are current?: No Immunizations: TDAP >10years/unknown, Other immun current - POLST Patient has POLST: No PD ED PE NORMAL - Vitals Vital signs reviewed: Yes - General General: Alert and oriented X 3, No acute distress, Other (disheveled appearing) - HEENT HEENT: Atraumatic, PERRL, EOMI - Neck Neck: Supple, no meningeal sign - Cardiac Cardiac: RRR - Respiratory Respiratory: No respiratory distress, Clear bilaterally - Abdomen Abdomen: Non tender, Non distended - Derm Derm: Normal color, Warm and dry - Extremities Extremities: No deformity - Neuro Neuro: Alert and oriented X 3, 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 odd affect. linear thought process. denies SI/HI/AVH) Results - Vitals Vitals: Vital Signs - 24 hr 08/13/21 08/13/21 08/14/21 22:22 22:25 05:41 Temperature 37.2 C 37.2 C 37.0 C Heart Rate 110 H 110 H 88 Respiratory 17 17 16 Rate Blood Pressure 144/89 H 144/89 H 133/72 H O2 Saturation 95 95 96 Oxygen O2 Source Room air PD MEDICAL DECISION MAKING - ED course ED course: 36yM with history of mental illness presents requesting his home medications and a sandwich. He is calm, in NAD, appears coherent, denies SI/HI/AVH. Patient calm, NAD overnight. sleeping this morning. will have SW see him. Patient endorsed to Dr. Hadley, daytime ED MD.
[2021-08-14 05:41] VITALS: BP 133/72
--- NOTE | 2021-09-03 07:57 | ED Physician Documentation ---
ED Addendum - Addendum Addendum: Handoff from Dr Fonseca at shift change. Came in b/c he couldn't sleep. He slept all night. Seen by EVONNE in AM. Disposition Discharged home Condition: Stable Diagnoses: 1. Insomnia 2. Medication non-compliance.
== END 2021-08-14 08:29 | disposition home or self-care (01) ==
LOC: EDUNIT# → ED 22:16
DX: G47.00 Insomnia, unspecified (principal); Z91.14 Patient's other noncompliance with medication regimen; F20.9 Schizophrenia, unspecified; F31.9 Bipolar disorder, unspecified; F41.9 Anxiety disorder, unspecified; F17.200 Nicotine dependence, unspecified, uncomplicated
CPT/HCPCS: 99283; A9270

== ENCOUNTER 2021-09-09 13:59 | Outpatient (CLI) | payer MEDICAID | END 2021-09-09 14:00 | disposition critical access hospital (66) | LOC: EMS 13:59 | DX: R11.10 Vomiting, unspecified (principal); R45.850 Homicidal ideations | CPT/HCPCS: A0425; A0429; A0999 ==

== ENCOUNTER 2021-09-09 14:18 | Emergency (ER) | payer MEDICAID ==
--- NOTE | 2021-09-09 14:29 | ED Physician Documentation ---
History of Present Illness - Stated complaint Stated Complaint: MHE - Additonal information Additional information: Patient eloped from the emergency department before being assessed by a provider. He was not seen by me or the attending physician. He was reportedly not on a hold and free to leave. PD PAST MEDICAL HISTORY - Past Medical History Cardiovascular: High cholesterol Respiratory: None Neuro: None Endocrine/Autoimmune: None GI: None : Renal insuffiency HEENT: None Psych: Depression, Anxiety, Bipolar disorder, Schizophrenia, Panic attacks, ADD/ADHD, Obsessive compulsive disorder Musculoskeletal: None Derm: None - Past Surgical History Past Surgical History: No - Present Medications Home Medications: Ambulatory Orders Medication Instructions Recorded Confirmed Benztropine Mesylate 1 mg PO BID 04/27/21 08/13/21 LORazepam [Ativan] 0.5 mg PO BID 04/27/21 08/13/21 carBAMazepine [TEGretol] 200 mg PO BID 04/27/21 08/13/21 haloperidoL [Haloperidol] 10 mg PO DAILY 06/03/21 08/13/21 Atorvastatin [Lipitor] 10 mg PO DAILY 07/31/21 08/13/21 OLANZapine [Olanzapine] 20 mg PO DAILY 07/31/21 08/13/21 - Allergies Allergies/Adverse Reactions: Allergies Allergy/AdvReac Type Severity Reaction Status Date / Time ziprasidone HCl * AdvReac Severe Hallucinati Verified 08/13/21 22:22 [From Geodon] ons ziprasidone mesylate * AdvReac Severe Hallucinati Verified 08/13/21 22:22 [From Geodon] ons - Social History Does the pt smoke?: Yes Smoking Status: Current every day smoker Does the pt drink ETOH?: Yes Does the pt have substance abuse?: No - Immunizations Immunizations are current?: No Immunizations: TDAP >10years/unknown, Other immun current - POLST Patient has POLST: No Results - Vitals Vitals: Oxygen O2 Source Room air Departure - Departure Disposition: ED Elope Clinical Impression: Eloped from emergency department
== END 2021-09-09 14:28 | disposition left against medical advice (07) ==
LOC: EDUNIT# → ED 14:18
DX: Z53.21 Procedure and treatment not carried out due to patient leaving prior to being seen by health care provider (principal)
CPT/HCPCS: 80053; 80307; 80320; 80329; 83690; 84443; 85025

== ENCOUNTER 2021-09-09 15:14 | Emergency (ER) | payer MEDICAID | END 2021-09-09 15:23 | disposition left against medical advice (07) | LOC: ED 15:14 | DX: Z53.21 Procedure and treatment not carried out due to patient leaving prior to being seen by health care provider (principal) ==

== ENCOUNTER 2021-09-09 19:30 | Emergency (ER) | payer MEDICAID ==
[2021-09-09 19:54] VITALS: BP 148/108
== END 2021-09-09 21:25 | disposition left against medical advice (07) ==
LOC: ED 19:30
DX: Z53.21 Procedure and treatment not carried out due to patient leaving prior to being seen by health care provider (principal)

== ENCOUNTER 2021-09-10 13:08 | Outpatient (CLI) | payer MEDICAID | END 2021-09-10 13:09 | disposition critical access hospital (66) | LOC: EMS 13:08 | DX: R46.89 Other symptoms and signs involving appearance and behavior (principal); R45.851 Suicidal ideations | CPT/HCPCS: A0425; A0429; A0999 ==

== ENCOUNTER 2021-09-10 13:27 | Emergency (ER) | payer MEDICAID ==
[2021-09-10 13:52] VITALS: BP 140/97
--- NOTE | 2021-09-10 14:00 | ED Physician Documentation ---
PD HPI MHE - Stated complaint Stated Complaint: MHE - Chief complaint Chief Complaint: MHE - History obtained from History obtained from: Patient, EMS - History of Present Illness Primary symptom: Anxiety, Aggressive behavior (reportedly yelling and screaming at house. No reports of harming others. EMS called. Nonverbal for them and here. Following direction though. No reported suicidal statements.) Timing - onset: Today Contributing factors: No: Off meds Similar symptoms before: Diagnosis (schizophrenia and anxiety) Recently seen: Emergency Dept (Patient with longstanding history of schizophrenia and frequent ER visits for feeling anxious as well as voices and labile mood although he has never been dangerous to any staff or bystanders.) Review of Systems Unable to obtain: Uncooperative (He is not wanting to answer questions, just staring blankly past me, but the averts eyes when I get lined up right in his gaze pathway.) PD PAST MEDICAL HISTORY - Past Medical History Cardiovascular: High cholesterol Respiratory: None Neuro: None Endocrine/Autoimmune: None GI: None : Renal insuffiency HEENT: None Psych: Depression, Anxiety, Schizophrenia, Panic attacks, ADD/ADHD, Obsessive compulsive disorder Musculoskeletal: None Derm: None - Past Surgical History Past Surgical History: No - Present Medications Home Medications: Ambulatory Orders Medication Instructions Recorded Confirmed Benztropine Mesylate 1 mg PO BID 04/27/21 08/13/21 LORazepam [Ativan] 0.5 mg PO BID 04/27/21 08/13/21 carBAMazepine [TEGretol] 200 mg PO BID 04/27/21 08/13/21 haloperidoL [Haloperidol] 10 mg PO DAILY 06/03/21 08/13/21 Atorvastatin [Lipitor] 10 mg PO DAILY 07/31/21 08/13/21 OLANZapine [Olanzapine] 20 mg PO DAILY 07/31/21 08/13/21 - Allergies Allergies/Adverse Reactions: Allergies Allergy/AdvReac Type Severity Reaction Status Date / Time ziprasidone HCl * AdvReac Severe Hallucinati Verified 09/10/21 13:32 [From [employer]] ons ziprasidone mesylate * AdvReac Severe Hallucinati Verified 09/10/21 13:32 [From [employer]] ons - Social History Does the pt smoke?: Yes Smoking Status: Current every day smoker Does the pt drink ETOH?: Yes Does the pt have substance abuse?: No - Immunizations Immunizations are current?: No Immunizations: TDAP >10years/unknown, Other immun current - POLST Patient has POLST: No PD ED PE NORMAL - Vitals Vital signs reviewed: Yes - General General: Alert and oriented X 3 (not answering questions but is alert and attentive. ), No acute distress, Well developed/nourished - HEENT HEENT: Atraumatic - Neck Neck: Supple, no meningeal sign, No adenopathy - Cardiac Cardiac: RRR, No murmur - Respiratory Respiratory: Clear bilaterally - Abdomen Abdomen: Soft, Non tender - Derm Derm: Normal color, Warm and dry - Extremities Extremities: Normal ROM s pain - Neuro Neuro: No motor deficit Results - Vitals Vitals: Vital Signs - 24 hr 09/10/21 09/10/21 13:32 13:50 Temperature 36.4 C L 36.8 C Heart Rate 78 96 Respiratory 16 18 Rate Blood Pressure 138/79 H 140/97 H O2 Saturation 99 96 Oxygen O2 Source Room air - Labs Labs: Laboratory Tests 09/10/21 09/10/21 09/10/21 14:07 14:07 14:07 WBC 12.7 H RBC 5.02 Hgb 14.7 Hct 42.5 MCV 84.7 MCH 29.3 MCHC 34.6 RDW 12.6 Plt Count 227 MPV 11.3 Neut # (Auto) 8.9 H Lymph # (Auto) 2.6 Harmon # (Auto) 1.0 Eos # (Auto) 0.1 Baso # (Auto) 0.1 Absolute Nucleated RBC 0.00 Nucleated RBC % 0.0 Sodium 132 L Potassium 3.7 Chloride 95 L Carbon Dioxide 26 Anion Gap 11.0 BUN 11 Creatinine 0.4 L Estimated GFR (MDRD) 245 Glucose 96 Calcium 9.7 Total Bilirubin 0.6 AST 32 ALT 22 Alkaline Phosphatase 69 Total Protein 7.3 Albumin 4.8 Globulin 2.5 Albumin/Globulin Ratio 1.9 Lipase 26 TSH 0.24 L Nasal Adenovirus (PCR) Nasal B. parapertussis DNA (PCR) Nasal Coronavir 229E PCR Nasal Coronavir HKU1 PCR Nasal Coronavir NL63 PCR Nasal Coronavir OC43 PCR Nasal Enterovir/Rhinovir PCR Nasal Influenza B PCR Nasal Influenza A PCR Nasal Parainfluen 1 PCR Nasal Parainfluen 2 PCR Nasal Parainfluen 3 PCR Nasal Parainfluen 4 PCR Nasal RSV (PCR) Nasal B.pertussis DNA PCR Nasal C.pneumoniae (PCR) Gabe Human Metapneumo PCR Nasal M.pneumoniae (PCR) Nasal SARS-CoV-2 (PCR) Salicylates < 6.0 Acetaminophen < 10 L Ethyl Alcohol < 5.0 09/10/21 15:12 WBC RBC Hgb Hct MCV MCH MCHC RDW Plt Count MPV Neut # (Auto) Lymph # (Auto) Harmon # (Auto) Eos # (Auto) Baso # (Auto) Absolute Nucleated RBC Nucleated RBC % Sodium Potassium Chloride Carbon Dioxide Anion Gap BUN Creatinine Estimated GFR (MDRD) Glucose Calcium Total Bilirubin AST ALT Alkaline Phosphatase Total Protein Albumin Globulin Albumin/Globulin Ratio Lipase TSH Nasal Adenovirus (PCR) NOT DETECTED Nasal B. parapertussis DNA (PCR) NOT DETECTED Nasal Coronavir 229E PCR NOT DETECTED Nasal Coronavir HKU1 PCR NOT DETECTED Nasal Coronavir NL63 PCR NOT DETECTED Nasal Coronavir OC43 PCR NOT DETECTED Nasal Enterovir/Rhinovir PCR NOT DETECTED Nasal Influenza B PCR NOT DETECTED Nasal Influenza A PCR NOT DETECTED Nasal Parainfluen 1 PCR NOT DETECTED Nasal Parainfluen 2 PCR NOT DETECTED Nasal Parainfluen 3 PCR NOT DETECTED Nasal Parainfluen 4 PCR NOT DETECTED Nasal RSV (PCR) NOT DETECTED Nasal B.pertussis DNA PCR NOT DETECTED Nasal C.pneumoniae (PCR) NOT DETECTED Gabe Human Metapneumo PCR NOT DETECTED Nasal M.pneumoniae (PCR) NOT DETECTED Nasal SARS-CoV-2 (PCR) NOT DETECTED Salicylates Acetaminophen Ethyl Alcohol PD MEDICAL DECISION MAKING - ED course Complexity details: re-evaluated patient (at change of shift, patient still not wanting to talk nor interact. He has eyes open with tactile stimulation. Gets angry and yells with attempting to get ECG. Otherwise is lying on cart. SW tried to talk with him with similar interaction. Will contact DCR.), considered differential (Patient is well-known to the department with frequent visits for schizophrenia and anxiety and hearing voices. He is refusing to interact verbally so unclear what is symptoms are bothering at this time. He does not appear to be reacting to internal stimuli. Social work), d/w patient Departure - Departure Clinical Impression: Schizophrenia, chronic condition, Mood and affect disturbance Condition: Stable Record reviewed to determine appropriate education?: Yes
[2021-09-10] MEDS ORDERED: OLANZapine ODT 5 MG TABLET TL ONE (14:01)
[2021-09-10 14:12] LABS: BASOPHILS # (AUTO) 0.1 10^3/uL (0.0-0.1); BASOPHILS % (AUTO) 0.4 %; EOSINOPHILS # (AUTO) 0.1 10^3/uL (0.0-0.7); EOSINOPHILS % (AUTO) 0.5 %; HCT - HEMATOCRIT 42.5 % (42.0-52.0); HGB - HEMOGLOBIN 14.7 g/dL (14.0-18.0); LYMPHOCYTES # (AUTO) 2.6 10^3/uL (1.5-3.5); LYMPHOCYTES % (AUTO) 20.7 %; MEAN CORPUSCULAR HEMOGLOBIN 29.3 pg (27.0-31.0); MEAN CORPUSCULAR HGB CONC 34.6 g/dL (32.0-36.0); MEAN CORPUSCULAR VOLUME 84.7 fL (80.0-94.0); MEAN PLATELET VOLUME 11.3 fL (7.4-11.4); MONOCYTES % (AUTO) 7.7 %; NEUTROPHILS # (AUTO) 8.9 10^3/uL (1.5-6.6); NEUTROPHILS % (AUTO) 70.4 %; PLT - PLATELET COUNT 227 10^3/uL (130-450); RED BLOOD COUNT 5.02 10^6/uL (4.70-6.10); RED CELL DISTRIBUTION WIDTH 12.6 % (12.0-15.0); WHITE BLOOD COUNT 12.7 x10^3/uL (4.8-10.8)
[2021-09-10 14:27] LABS: ACETAMINOPHEN < 10 ug/mL (10-30); ALBUMIN 4.8 g/dL (3.2-5.5); ALBUMIN/GLOBULIN RATIO 1.9 (1.0-2.2); ALKALINE PHOSPHATASE 69 IU/L (42-121); ALT ALANINE AMINOTRANSFERASE 22 IU/L (10-60); AST ASPARTATE AMINOTRANSFERASE 32 IU/L (10-42); BILIRUBIN,TOTAL 0.6 mg/dL (0.2-1.0); BUN - BLOOD UREA NITROGEN 11 mg/dL (6-20); CALCIUM 9.7 mg/dL (8.5-10.3); CARBON DIOXIDE - CO2 26 mmol/L (21-32); CHLORIDE 95 mmol/L (101-111); CREATININE 0.4 mg/dL (0.6-1.2); ETOH - ETHANOL < 5.0 mg/dL; GFR - MDRD 245 (>89); GLUCOSE 96 mg/dL (70-100); LIPASE 26 U/L (22-51); POTASSIUM 3.7 mmol/L (3.5-5.0); SALICYLATE < 6.0 mg/dL; SODIUM 132 mmol/L (135-145); TOTAL PROTEIN 7.3 g/dL (6.7-8.2)
[2021-09-10 17:15] LABS: B. PARAPERTUSSIS- RESP PCR PAN NOT DETECTED; B. PERTUSSIS- RESP PCR PANEL NOT DETECTED; C. PNEUMONIAE- RESP PCR PANEL NOT DETECTED; CORONAVIRUS 229E-RESP PCR NOT DETECTED; CORONAVIRUS HKU1-RESP PCR NOT DETECTED; CORONAVIRUS NL63-RESP PCR NOT DETECTED; CORONAVIRUS OC43-RESP PCR NOT DETECTED; HUMAN METAPNEUMOVIRUS NOT DETECTED; INFLUENZA A- RESP PCR PANEL NOT DETECTED; INFLUENZA B - RESP PCR PANEL NOT DETECTED; M. PNEUMONIAE- RESP PCR PANEL NOT DETECTED; PARAINFLUENZA VIRUS 1 NOT DETECTED; PARAINFLUENZA VIRUS 2 NOT DETECTED; PARAINFLUENZA VIRUS 3 NOT DETECTED; PARAINFLUENZA VIRUS 4 NOT DETECTED; RHINOVIRUS/ENTEROVIRUS NOT DETECTED; RSV- RESP PCR PANEL NOT DETECTED; SARS-CoV-2 -RESP PCR PANEL NOT DETECTED
--- NOTE | 2021-09-11 01:32 | ED Physician Documentation ---
ED Addendum - Addendum Addendum: 09/11/21 01:30 Patient was quiet overnight until around 1 am when he began yelling and eloped from the emergency department. Patient is not on a hold. Impression 1. schizophrenia Disposition eloped.
== END 2021-09-11 01:25 | disposition left against medical advice (07) ==
LOC: EDUNIT# → ED 13:27
DX: F20.9 Schizophrenia, unspecified (principal); F39 Unspecified mood [affective] disorder; F41.9 Anxiety disorder, unspecified; Z20.822 Contact with and (suspected) exposure to COVID-19; F17.200 Nicotine dependence, unspecified, uncomplicated
CPT/HCPCS: 0202U; 36415; 80053; 80307; 80320; 80329; 83690; 84443; 85025; 99281; 99285; A9270

== ENCOUNTER 2021-09-11 04:48 | Outpatient (CLI) | payer MEDICAID | END 2021-09-11 04:49 | disposition critical access hospital (66) | LOC: EMS 04:48 | DX: Z76.89 Persons encountering health services in other specified circumstances (principal) | CPT/HCPCS: A0425; A0429 ==

== ENCOUNTER 2021-09-11 05:05 | Emergency (ER) | payer MEDICAID ==
--- NOTE | 2021-09-11 05:14 | ED Physician Documentation ---
History of Present Illness - Stated complaint Stated Complaint: MHE - History obtained from History obtained from: Patient, EMS - Additonal information Additional information: 36-year-old man with schizophrenia presents after leaving the ED a couple hours earlier for elopement. He called 911 and asked to be taken back to the emergency room. Patient has states that he has "iron bars" in him. Patient is requesting breakfast. noncompliant with history Review of Systems Unable to obtain: Uncooperative PD PAST MEDICAL HISTORY - Past Medical History Cardiovascular: High cholesterol Respiratory: None Neuro: None Endocrine/Autoimmune: None GI: None : Renal insuffiency HEENT: None Psych: Depression, Anxiety, Schizophrenia, Panic attacks, ADD/ADHD, Obsessive compulsive disorder Musculoskeletal: None Derm: None - Past Surgical History Past Surgical History: No - Present Medications Home Medications: Ambulatory Orders Medication Instructions Recorded Confirmed Benztropine Mesylate 1 mg PO BID 04/27/21 08/13/21 LORazepam [Ativan] 0.5 mg PO BID 04/27/21 08/13/21 carBAMazepine [TEGretol] 200 mg PO BID 04/27/21 08/13/21 haloperidoL [Haloperidol] 10 mg PO DAILY 06/03/21 08/13/21 Atorvastatin [Lipitor] 10 mg PO DAILY 07/31/21 08/13/21 OLANZapine [Olanzapine] 20 mg PO DAILY 07/31/21 08/13/21 - Allergies Allergies/Adverse Reactions: Allergies Allergy/AdvReac Type Severity Reaction Status Date / Time ziprasidone HCl * AdvReac Severe Hallucinati Verified 09/10/21 13:32 [From [employer]] ons ziprasidone mesylate * AdvReac Severe Hallucinati Verified 09/10/21 13:32 [From [employer]] ons - Social History Does the pt smoke?: Yes Smoking Status: Current every day smoker Does the pt drink ETOH?: Yes Does the pt have substance abuse?: No - Immunizations Immunizations are current?: No Immunizations: TDAP >10years/unknown, Other immun current - POLST Patient has POLST: No PD ED PE NORMAL - Vitals Vital signs reviewed: Yes - General General: Alert and oriented X 3, No acute distress, Well developed/nourished, Other (disheveled) - HEENT HEENT: Atraumatic, PERRL, EOMI - Neck Neck: Supple, no meningeal sign - Derm Derm: Normal color, Warm and dry - Neuro Neuro: Other (alert, noncompliant with history and exam) Eye Opening: Spontaneous Motor: Obeys Commands Verbal: Oriented GCS Score: 15 - Psych Psych: Other (guarded affect) Results - Vitals Vitals: Oxygen O2 Source Room air PD MEDICAL DECISION MAKING - ED course ED course: 36-year-old man with frequent ED use and severe mental illness presents after eloping a couple hours earlier, now requesting food and stating he has iron bars in his body. We will have social work see him. Patient will be endorsed to incoming daytime MD.
[2021-09-11 05:19] VITALS: BP 127/80
--- NOTE | 2021-09-11 12:42 | ED Physician Documentation ---
ED Addendum - Addendum Addendum: The patient did become more conversant into the morning. He was asking for breakfast. He had not allowed lab draws and not given a urine sample as yet. We tried bargaining with him about getting him some thing to eat as soon as he allowed with blood draws. He said that would be okay but then when lab came to draw him he would withdraw his hand and arm and not allow it. I asked if he wanted to get help for his psychiatric problems. If so we need to have testing done since he had left and come back we needed to reassess release some of the basic blood tests and could not use yesterday's. He declined blood draw still. He denied any suicidal ideation. He had a plan in place of catching the bus and going back home. He then left eloping from the department. I did not see need for detaining him. 09/11/21 12:40
== END 2021-09-11 09:52 | disposition left against medical advice (07) ==
LOC: EDUNIT# → ED 05:05
DX: F20.9 Schizophrenia, unspecified (principal); F17.200 Nicotine dependence, unspecified, uncomplicated; Z53.20 Procedure and treatment not carried out because of patient's decision for unspecified reasons
CPT/HCPCS: 80053; 80307; 80320; 80329; 83690; 84443; 85025; 99283

== ENCOUNTER 2021-09-11 23:42 | Outpatient (CLI) | payer MEDICAID | END 2021-09-11 23:43 | disposition EMS.NT | LOC: EMS 23:42 | DX: R44.0 Auditory hallucinations (principal) | CPT/HCPCS: A0425; A0429 ==

== ENCOUNTER 2021-09-11 23:59 | Emergency (ER) | payer MEDICAID ==
[2021-09-12 00:10] VITALS: BP 127/67
--- NOTE | 2021-09-12 00:12 | ED Physician Documentation ---
PD HPI MHE - Stated complaint Stated Complaint: MHE - Chief complaint Chief Complaint: MHE - History obtained from History obtained from: Patient, EMS - History of Present Illness Primary symptom: Psychosis Timing - onset: Chronic Recently seen: Emergency Dept - Additional information Additional information: MIKE. patient is well known to this ED due to frequent visits. [place] is his 34th ED visit over past 12 months (involving 3 different EDs, but 32 of these visits are/were [facility] ED). This is his 6th [facility] ED visit in 3 days, with nearly all of these visits involving LWBS or eloping. Earlier today he was seen in this ED and stayed overnight with plan for SW consult in AM but he repeatedly refused blood tests/UA that was required in order to obtain said consult, was only interested in getting food and he eventually left on his own volition. He returns at this time via ambulance. EMS says patient was c/o hearing voices and this was why he wanted to be evaluated in ED [facility]. When I went to evaluate patient, I find him standing in the hallway repeatedly asking for a sandwich. I introduced myself and reminded him that I have taken care of him many times; I reminded him that he and I have typically had a good rapport and understanding and I asked him to please allow me to first try to address his mental health issues and in doing so, prioritize them above getting him a sandwich for now. He did slowly go back into the ED room 3 but persisted in asking for, then demanding, a sandwich. He stood at the bedside but refused to sit down on it so as to allow me to perform an exam. He then demanded a soda and a sandwich as well as peanut butter. I repeatedly reinforced to Mr. Barraza in a calm voice that I would like to address his mental health issues before any further discussion regarding getting him food would take place. He refused to allow the conversation to divert in any way away from demanding food and soda. He slowly walked back into the hallway during this discussion and eventually would not make eye contact with me, as he was then trying to solicit food and soda from other staff. I told him I would reassess him when he returns to his room when he is ready to discuss options for addressing his mental health issues (reportedly hearing voices per EMS but patient never allowed my HPI to divert from his requests for food, soda). He subsequently eloped from ED. Patient has exhibited similar patterns on past visits although recent ED notes seem to indicate increasing frequency of visits as well as recent angry outbursts. On tonights visit, I did not feel that patient exhibited behavior(s) that would provide sufficient cause to hold him against his will and perform tests without his consent and cooperation. Review of Systems Unable to obtain: Uncooperative PD PAST MEDICAL HISTORY - Past Medical History Cardiovascular: High cholesterol Respiratory: None Neuro: None Endocrine/Autoimmune: None GI: None : Renal insuffiency HEENT: None Psych: Depression, Anxiety, Schizophrenia, Panic attacks, ADD/ADHD, Obsessive compulsive disorder Musculoskeletal: None Derm: None - Past Surgical History Past Surgical History: No - Present Medications Home Medications: Ambulatory Orders Medication Instructions Recorded Confirmed Benztropine Mesylate 1 mg PO BID 04/27/21 08/13/21 LORazepam [Ativan] 0.5 mg PO BID 04/27/21 08/13/21 carBAMazepine [TEGretol] 200 mg PO BID 04/27/21 08/13/21 haloperidoL [Haloperidol] 10 mg PO DAILY 06/03/21 08/13/21 Atorvastatin [Lipitor] 10 mg PO DAILY 07/31/21 08/13/21 OLANZapine [Olanzapine] 20 mg PO DAILY 07/31/21 08/13/21 - Allergies Allergies/Adverse Reactions: Allergies Allergy/AdvReac Type Severity Reaction Status Date / Time ziprasidone HCl * AdvReac Severe Hallucinati Verified 09/11/21 05:17 [From [employer]] ons ziprasidone mesylate * AdvReac Severe Hallucinati Verified 09/11/21 05:17 [From [employer]] ons - Social History Does the pt smoke?: Yes Smoking Status: Current every day smoker Does the pt drink ETOH?: Yes Does the pt have substance abuse?: No - Immunizations Immunizations are current?: No Immunizations: TDAP >10years/unknown, Other immun current - POLST Patient has POLST: No PD ED PE NORMAL - Vitals Vital signs reviewed: Yes - General General: No acute distress (appears somewhat angry at times, although this is not unusual for some of my previous encounters with this patient. He was uncooperative but not threatening nor violent), Well developed/nourished, Other (awake, alert, answers few questions, mostly repeatedly requesting food and soda; elements of exam below are from observation during our discussion) - HEENT HEENT: PERRL, EOMI, Moist mucous membranes - Neck Neck: Supple, no meningeal sign - Neuro Neuro: No motor deficit, Normal speech PD ED PE EXPANDED - Psych Psych: Other (odd affect ; does not appear to be responding to internal stimuli) Results - Vitals Vitals: Vital Signs - 24 hr 09/12/21 00:05 Temperature 36.7 C Heart Rate 109 H Respiratory 18 Rate Blood Pressure 127/67 O2 Saturation 97 Oxygen O2 Source Room air PD MEDICAL DECISION MAKING - ED course Complexity details: reviewed old records, considered differential, d/w patient Departure - Departure Disposition: ED Elope Clinical Impression: Eloped from emergency department, Psychiatric symptoms Condition: Stable Discharge Date/Time: 09/12/21 00:45
== END 2021-09-12 00:45 | disposition left against medical advice (07) ==
LOC: EDUNIT# → ED 23:59
DX: F20.9 Schizophrenia, unspecified (principal); F17.200 Nicotine dependence, unspecified, uncomplicated; Z53.20 Procedure and treatment not carried out because of patient's decision for unspecified reasons
CPT/HCPCS: 80053; 80307; 80320; 80329; 83690; 84443; 85025; 99283

== ENCOUNTER 2021-09-13 16:52 | Outpatient (CLI) | payer MEDICAID | END 2021-09-13 16:53 | disposition critical access hospital (66) | LOC: EMS 16:52 | DX: R45.851 Suicidal ideations (principal) | CPT/HCPCS: A0425; A0429; A0999 ==

== ENCOUNTER 2021-09-13 17:11 | Emergency (ER) | payer MEDICAID ==
[2021-09-13 17:22] VITALS: BP 152/105
[2021-09-13 17:40] LABS: MUDS CUTOFF CONCENTRATIONS CUTOFF CONC BELOW:
[2021-09-13 17:41] LABS: BILIRUBIN,URINE NEGATIVE (NEGATIVE); GLUCOSE, URINE (UA) NEGATIVE (NEGATIVE); KETONES,URINE (UA) NEGATIVE (NEGATIVE); LEUKOCYTE ESTERASE, URINE NEGATIVE (NEGATIVE); NITRITE,URINE NEGATIVE (NEGATIVE); OCCULT BLOOD,URINE NEGATIVE (NEGATIVE); PROTEIN,URINE NEGATIVE (NEGATIVE); UROBILINOGEN,URINE 0.2 (NORMAL) E.U./dL (NORMAL)
[2021-09-13 17:43] LABS: CLARITY,URINE CLEAR (CLEAR)
--- NOTE | 2021-09-13 17:47 | ED Physician Documentation ---
PD HPI MHE - Stated complaint Stated Complaint: MHE - Chief complaint Chief Complaint: MHE - History obtained from History obtained from: Patient - Additional information Additional information: Presented to the ER asking for a sandwich. I asked if he was here for any other reasons and he states "I am here for help" but does not answer any other questions or discuss with me what type of help he is seeking, if he is suicidal, or being harmed. He refused blood draw. Shortly thereafter he ambulated out the back door the ER. Review of Systems Unable to obtain: Other (Pt does not answer questions.) PD PAST MEDICAL HISTORY - Past Medical History Past Medical History: Yes Cardiovascular: High cholesterol Respiratory: None Neuro: None Endocrine/Autoimmune: None GI: None : Renal insuffiency HEENT: None Psych: Depression, Anxiety, Schizophrenia, Panic attacks, ADD/ADHD, Obsessive compulsive disorder Musculoskeletal: None Derm: None - Past Surgical History Past Surgical History: No - Present Medications Home Medications: Ambulatory Orders Medication Instructions Recorded Confirmed Benztropine Mesylate 1 mg PO BID 04/27/21 08/13/21 LORazepam [Ativan] 0.5 mg PO BID 04/27/21 08/13/21 carBAMazepine [TEGretol] 200 mg PO BID 04/27/21 08/13/21 haloperidoL [Haloperidol] 10 mg PO DAILY 06/03/21 08/13/21 Atorvastatin [Lipitor] 10 mg PO DAILY 07/31/21 08/13/21 OLANZapine [Olanzapine] 20 mg PO DAILY 07/31/21 08/13/21 - Allergies Allergies/Adverse Reactions: Allergies Allergy/AdvReac Type Severity Reaction Status Date / Time ziprasidone HCl * AdvReac Severe Hallucinati Verified 09/13/21 17:22 [From [employer]] ons ziprasidone mesylate * AdvReac Severe Hallucinati Verified 09/13/21 17:22 [From [employer]] ons - Social History Does the pt smoke?: Yes Smoking Status: Current every day smoker Does the pt drink ETOH?: Yes Does the pt have substance abuse?: No - Immunizations Immunizations are current?: No Immunizations: TDAP >10years/unknown, Other immun current - POLST Patient has POLST: No PD ED PE NORMAL - Vitals Vital signs reviewed: Yes - General General: Alert and oriented X 3, No acute distress, Other (somewhat disheveled. ) - Respiratory Respiratory: No respiratory distress - Neuro Neuro: Alert and oriented X 3 Eye Opening: Spontaneous Motor: Obeys Commands Verbal: Oriented GCS Score: 15 - Free text exam Free text exam: Pt eloped prior to complete exam. Results - Vitals Vitals: Vital Signs - 24 hr 09/13/21 17:18 Temperature 36.4 C L Heart Rate 73 Respiratory 16 Rate Blood Pressure 152/105 H O2 Saturation 99 Oxygen O2 Source Room air - Labs Labs: Laboratory Tests 09/13/21 17:35 Urine Color YELLOW Urine Clarity CLEAR Urine pH 6.0 Ur Specific [place] 1.020 Urine Protein NEGATIVE Urine Glucose (UA) NEGATIVE Urine Ketones NEGATIVE Urine Occult Blood NEGATIVE Urine Nitrite NEGATIVE Urine Bilirubin NEGATIVE Urine Urobilinogen 0.2 (NORMAL) Ur Leukocyte Esterase NEGATIVE Ur Microscopic Review NOT INDICATED Urine Culture Comments NOT INDICATED PD MEDICAL DECISION MAKING - ED course ED course: Was seen briefly and then subsequently eloped from the ER before for work-up or exam could be done. Departure - Departure Disposition: ED Elope Clinical Impression: Eloped from emergency department Condition: Good
[2021-09-13 17:54] LABS: AMPHETAMINE SCREEN,URINE NEGATIVE (NEGATIVE); BARBITURATE SCREEN,UR NEGATIVE (NEGATIVE); BENZODIAZEPINES SCREEN, URINE NEGATIVE (NEGATIVE); COCAINE SCREEN URINE NEGATIVE (NEGATIVE); METHADONE SCREEN, URINE NEGATIVE (NEGATIVE); METHAMPHETAMINES SCREEN, URINE NEGATIVE (NEGATIVE); OPIATE SCREEN, URINE NEGATIVE (NEGATIVE); OXYCODONE SCREEN, URINE NEGATIVE (NEGATIVE); PROPOXYPHENE SCREEN, URINE NEGATIVE (NEGATIVE); THC CANNABINOID SCREEN, URINE NEGATIVE (NEGATIVE); TRICYCLIC ANTIDEPRESSANT,URINE NEGATIVE (NEGATIVE)
== END 2021-09-13 17:46 | disposition left against medical advice (07) ==
LOC: EDUNIT# → ED 17:11
DX: Z53.21 Procedure and treatment not carried out due to patient leaving prior to being seen by health care provider (principal); F17.200 Nicotine dependence, unspecified, uncomplicated
CPT/HCPCS: 80053; 80306; 80307; 80320; 80329; 81001; 81003; 83690; 84443; 85025; 87086; 99281; 99283

== ENCOUNTER 2021-09-14 08:52 | Outpatient (CLI) | payer MEDICAID | END 2021-09-14 08:53 | disposition EMS.NT | LOC: EMS 08:52 | DX: Z03.89 Encounter for observation for other suspected diseases and conditions ruled out (principal) ==

== ENCOUNTER 2021-09-14 10:11 | Outpatient (CLI) | payer MEDICAID | END 2021-09-14 10:12 | disposition EMS.NT | LOC: EMS 10:11 | DX: Z03.89 Encounter for observation for other suspected diseases and conditions ruled out (principal) ==

== ENCOUNTER 2021-09-21 16:12 | Outpatient (CLI) | payer MEDICAID | END 2021-09-21 23:59 | disposition critical access hospital (66) | LOC: EMS 16:12 | DX: R45.851 Suicidal ideations (principal); R46.89 Other symptoms and signs involving appearance and behavior | CPT/HCPCS: A0425; A0429; A0999 ==

== ENCOUNTER 2021-09-21 16:33 | Emergency (ER) | payer MEDICAID ==
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
[2021-09-21 17:06] LABS: MUDS CUTOFF CONCENTRATIONS CUTOFF CONC BELOW:
[2021-09-21 17:08] LABS: BILIRUBIN,URINE NEGATIVE (NEGATIVE); GLUCOSE, URINE (UA) NEGATIVE (NEGATIVE); KETONES,URINE (UA) NEGATIVE (NEGATIVE); LEUKOCYTE ESTERASE, URINE NEGATIVE (NEGATIVE); NITRITE,URINE NEGATIVE (NEGATIVE); OCCULT BLOOD,URINE NEGATIVE (NEGATIVE); PH,URINE 6.5 PH (5.0-7.5); PROTEIN,URINE NEGATIVE (NEGATIVE); UROBILINOGEN,URINE 0.2 (NORMAL) E.U./dL (NORMAL)
[2021-09-21 17:10] LABS: CLARITY,URINE HAZY (CLEAR)
[2021-09-21 17:22] LABS: AMORPHOUS SEDIMENT,UR Moderate /LPF; BACTERIA,URINE Rare /HPF (None Seen); MUCUS,URINE Moderate Strands; RBC,URINE None Seen /HPF (0-5); SQUAMOUS EPITHELIAL CELL,UR RARE Squamous (<= Few); WBC,URINE 0-3 /HPF (0-3)
[2021-09-21 17:23] LABS: AMPHETAMINE SCREEN,URINE NEGATIVE (NEGATIVE); BARBITURATE SCREEN,UR NEGATIVE (NEGATIVE); BENZODIAZEPINES SCREEN, URINE NEGATIVE (NEGATIVE); COCAINE SCREEN URINE NEGATIVE (NEGATIVE); METHADONE SCREEN, URINE NEGATIVE (NEGATIVE); METHAMPHETAMINES SCREEN, URINE NEGATIVE (NEGATIVE); OPIATE SCREEN, URINE NEGATIVE (NEGATIVE); OXYCODONE SCREEN, URINE NEGATIVE (NEGATIVE); PROPOXYPHENE SCREEN, URINE NEGATIVE (NEGATIVE); THC CANNABINOID SCREEN, URINE POSITIVE (NEGATIVE); TRICYCLIC ANTIDEPRESSANT,URINE NEGATIVE (NEGATIVE)
[2021-09-21] MEDS ORDERED: OLANZapine ODT 5 MG TABLET TL ONE (17:31)
[2021-09-21 17:32] LABS: BASOPHILS # (AUTO) 0.1 10^3/uL (0.0-0.1); BASOPHILS % (AUTO) 0.5 %; EOSINOPHILS % (AUTO) 0.4 %; HCT - HEMATOCRIT 47.8 % (42.0-52.0); HGB - HEMOGLOBIN 15.8 g/dL (14.0-18.0); LYMPHOCYTES # (AUTO) 2.2 10^3/uL (1.5-3.5); LYMPHOCYTES % (AUTO) 21.6 %; MEAN CORPUSCULAR HGB CONC 33.1 g/dL (32.0-36.0); MEAN CORPUSCULAR VOLUME 87.7 fL (80.0-94.0); MEAN PLATELET VOLUME 10.6 fL (7.4-11.4); MONOCYTES # (AUTO) 0.7 10^3/uL (0.0-1.0); MONOCYTES % (AUTO) 6.3 %; NEUTROPHILS # (AUTO) 7.3 10^3/uL (1.5-6.6); PLT - PLATELET COUNT 265 10^3/uL (130-450); RED BLOOD COUNT 5.45 10^6/uL (4.70-6.10); RED CELL DISTRIBUTION WIDTH 13.1 % (12.0-15.0); WHITE BLOOD COUNT 10.3 x10^3/uL (4.8-10.8)
[2021-09-21 17:50] LABS: ACETAMINOPHEN < 10 ug/mL (10-30); ALBUMIN 4.9 g/dL (3.2-5.5); ALBUMIN/GLOBULIN RATIO 1.8 (1.0-2.2); ALKALINE PHOSPHATASE 60 IU/L (42-121); ALT ALANINE AMINOTRANSFERASE 15 IU/L (10-60); AST ASPARTATE AMINOTRANSFERASE 14 IU/L (10-42); BILIRUBIN,TOTAL 0.6 mg/dL (0.2-1.0); BUN - BLOOD UREA NITROGEN 11 mg/dL (6-20); CALCIUM 9.7 mg/dL (8.5-10.3); CARBON DIOXIDE - CO2 26 mmol/L (21-32); CHLORIDE 101 mmol/L (101-111); CREATININE 0.7 mg/dL (0.6-1.2); ETOH - ETHANOL < 5.0 mg/dL; GFR - MDRD 128 (>89); GLUCOSE 94 mg/dL (70-100); LIPASE 31 U/L (22-51); POTASSIUM 3.9 mmol/L (3.5-5.0); SALICYLATE < 6.0 mg/dL; SODIUM 136 mmol/L (135-145); TOTAL PROTEIN 7.7 g/dL (6.7-8.2)
[2021-09-21 17:59] LABS: B. PARAPERTUSSIS- RESP PCR PAN NOT DETECTED; B. PERTUSSIS- RESP PCR PANEL NOT DETECTED; C. PNEUMONIAE- RESP PCR PANEL NOT DETECTED; CORONAVIRUS 229E-RESP PCR NOT DETECTED; CORONAVIRUS HKU1-RESP PCR NOT DETECTED; CORONAVIRUS NL63-RESP PCR NOT DETECTED; CORONAVIRUS OC43-RESP PCR NOT DETECTED; HUMAN METAPNEUMOVIRUS NOT DETECTED; INFLUENZA A- RESP PCR PANEL NOT DETECTED; INFLUENZA B - RESP PCR PANEL NOT DETECTED; M. PNEUMONIAE- RESP PCR PANEL NOT DETECTED; PARAINFLUENZA VIRUS 1 NOT DETECTED; PARAINFLUENZA VIRUS 2 NOT DETECTED; PARAINFLUENZA VIRUS 3 NOT DETECTED; PARAINFLUENZA VIRUS 4 NOT DETECTED; RHINOVIRUS/ENTEROVIRUS NOT DETECTED; RSV- RESP PCR PANEL NOT DETECTED; SARS-CoV-2 -RESP PCR PANEL NOT DETECTED
[2021-09-22] MEDS ORDERED: OLANZapine ODT 5 MG TABLET TL STA (04:38)
[2021-09-22] MEDS ORDERED: diazePAM 5 MG TABLET PO STA (04:38)
[2021-09-22 07:42] VITALS: BP 97/62
== END 2021-09-22 08:24 ==
LOC: EDUNIT# → ED 16:33
DX: F29 Unspecified psychosis not due to a substance or known physiological condition (principal); F20.9 Schizophrenia, unspecified; F17.200 Nicotine dependence, unspecified, uncomplicated; Z20.822 Contact with and (suspected) exposure to COVID-19
CPT/HCPCS: 0202U; 36415; 80053; 80306; 80307; 80320; 80329; 81001; 83690; 84443; 85025; 93005; 99285; A9270; 81003; 87086

== ENCOUNTER 2021-10-16 22:39 | Outpatient (CLI) | payer MEDICAID | END 2021-10-16 23:59 | disposition critical access hospital (66) | LOC: EMS 22:39 | DX: G47.00 Insomnia, unspecified (principal) | CPT/HCPCS: A0425; A0429 ==

== ENCOUNTER 2021-10-16 22:56 | Emergency (ER) | payer MEDICAID ==
--- NOTE | 2021-10-16 23:00 | ED Physician Documentation ---
History of Present Illness - Stated complaint Stated Complaint: UNABLE TO SLEEP - History obtained from History obtained from: Patient - History of Present Illness Timing: How many days ago (3) Pain level now: 0 - Additonal information Additional information: BIBA. Patient c/o insomnia, "haven't slept in 3 days" (per patient). He says he is taking medications as prescribed including trazadone for sleep but that it is not helping last 3 nights. Review of Systems Neurologic: denies: Headache Psychiatric: reports: Insomnia. denies: Suicidal, Homicidal, Hallucinations, Delusions PD PAST MEDICAL HISTORY - Past Medical History Past Medical History: Yes Psych: Schizophrenia - Present Medications Home Medications: Ambulatory Orders Medication Instructions Recorded Confirmed Benztropine Mesylate 1 mg PO BID 04/27/21 08/13/21 LORazepam [Ativan] 0.5 mg PO BID 04/27/21 08/13/21 carBAMazepine [TEGretol] 200 mg PO BID 04/27/21 08/13/21 haloperidoL [Haloperidol] 10 mg PO DAILY 06/03/21 08/13/21 Atorvastatin [Lipitor] 10 mg PO DAILY 07/31/21 08/13/21 OLANZapine [Olanzapine] 20 mg PO DAILY 07/31/21 08/13/21 LORazepam [Ativan] 0.5 - 1 mg PO HS PRN #8 tablet 10/16/21 - Allergies Allergies/Adverse Reactions: Allergies Allergy/AdvReac Type Severity Reaction Status Date / Time ziprasidone HCl * AdvReac Severe Hallucinati Verified 10/16/21 23:07 [From Geodon] ons ziprasidone mesylate * AdvReac Severe Hallucinati Verified 10/16/21 23:07 [From Geodon] ons PD ED PE NORMAL - Vitals Vital signs reviewed: Yes - General General: Alert and oriented X 3, No acute distress, Well developed/nourished - Cardiac Cardiac: RRR, No murmur - Respiratory Respiratory: No respiratory distress, Clear bilaterally - Neuro Neuro: Alert and oriented X 3 Eye Opening: Spontaneous Motor: Obeys Commands Verbal: Oriented GCS Score: 15 Results - Vitals Vitals: Oxygen O2 Source Room air PD MEDICAL DECISION MAKING - ED course Complexity details: reviewed old records, considered differential, d/w patient ED course: patient is well known to this ED because of particularly frequent visits for psychiatric-related problems. He was transferred from this ED 09/21 involuntarily to inpatient mental health facility and today he is far calmer and cooperative than when I had seen him the last few visits. He is requesting something to help him sleep, and I am willing to provide a short course of lorazepam for this Departure - Departure Disposition: Home, Self Care Clinical Impression: Insomnia Qualifiers: Insomnia type: unspecified Qualified Code(s): G47.00 - Insomnia, unspecified Condition: Good Instructions: ED Insomnia Prescriptions: LORazepam [Ativan] 0.5 - 1 mg PO HS PRN #8 tablet PRN Reason: Insomnia Comments: A prescription for lorazepam (anti-anxiety medication that can also help with difficulty sleeping) has been electronically submitted to [facility] pharmacy in [place]. This medication is only intended for short-term use, as it can be habit-forming, and thus I have prescribed enough to get you through the next few days. You should contact your prescribing medical provider to discuss other options for insomnia Discharge Date/Time: 10/17/21 00:05
[2021-10-16] MEDS ORDERED: LORazepam 0.5 MG TABLET PO STA (23:17)
[2021-10-17 00:25] VITALS: BP 120/72
== END 2021-10-17 00:05 | disposition home or self-care (01) ==
LOC: EDUNIT# → ED 22:56
DX: G47.00 Insomnia, unspecified (principal)
CPT/HCPCS: 99283; A9270

== ENCOUNTER 2021-11-03 18:44 | Outpatient (CLI) | payer MEDICAID | END 2021-11-03 18:45 | disposition home or self-care (01) | LOC: EMS 18:44 | DX: R41.82 Altered mental status, unspecified (principal) | CPT/HCPCS: A0425; A0429 ==

== ENCOUNTER 2021-11-03 19:02 | Emergency (ER) | payer MEDICAID ==
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
[2021-11-03 19:20] LABS: MUDS CUTOFF CONCENTRATIONS CUTOFF CONC BELOW:
[2021-11-03 19:26] LABS: BASOPHILS % (AUTO) 0.5 %; EOSINOPHILS % (AUTO) 0.2 %; HCT - HEMATOCRIT 43.3 % (42.0-52.0); HGB - HEMOGLOBIN 14.5 g/dL (14.0-18.0); MEAN CORPUSCULAR HEMOGLOBIN 28.6 pg (27.0-31.0); MEAN CORPUSCULAR HGB CONC 33.5 g/dL (32.0-36.0); MEAN CORPUSCULAR VOLUME 85.4 fL (80.0-94.0); MEAN PLATELET VOLUME 11.2 fL (7.4-11.4); MONOCYTES # (AUTO) 0.5 10^3/uL (0.0-1.0); MONOCYTES % (AUTO) 5.6 %; NEUTROPHILS # (AUTO) 6.6 10^3/uL (1.5-6.6); NEUTROPHILS % (AUTO) 81.3 %; PLT - PLATELET COUNT 184 10^3/uL (130-450); RED BLOOD COUNT 5.07 10^6/uL (4.70-6.10); RED CELL DISTRIBUTION WIDTH 13.2 % (12.0-15.0); WHITE BLOOD COUNT 8.1 x10^3/uL (4.8-10.8)
[2021-11-03 19:28] LABS: BILIRUBIN,URINE NEGATIVE (NEGATIVE); GLUCOSE, URINE (UA) NEGATIVE (NEGATIVE); KETONES,URINE (UA) TRACE mg/dL (NEGATIVE); LEUKOCYTE ESTERASE, URINE NEGATIVE (NEGATIVE); NITRITE,URINE NEGATIVE (NEGATIVE); OCCULT BLOOD,URINE NEGATIVE (NEGATIVE); PH,URINE 5.5 PH (5.0-7.5); PROTEIN,URINE NEGATIVE (NEGATIVE); UROBILINOGEN,URINE 0.2 (NORMAL) E.U./dL (NORMAL)
[2021-11-03 19:32] LABS: CLARITY,URINE CLEAR (CLEAR)
[2021-11-03 19:41] LABS: AMPHETAMINE SCREEN,URINE NEGATIVE (NEGATIVE); BARBITURATE SCREEN,UR NEGATIVE (NEGATIVE); BENZODIAZEPINES SCREEN, URINE NEGATIVE (NEGATIVE); COCAINE SCREEN URINE NEGATIVE (NEGATIVE); METHADONE SCREEN, URINE NEGATIVE (NEGATIVE); METHAMPHETAMINES SCREEN, URINE NEGATIVE (NEGATIVE); OPIATE SCREEN, URINE NEGATIVE (NEGATIVE); OXYCODONE SCREEN, URINE NEGATIVE (NEGATIVE); PROPOXYPHENE SCREEN, URINE NEGATIVE (NEGATIVE); THC CANNABINOID SCREEN, URINE POSITIVE (NEGATIVE); TRICYCLIC ANTIDEPRESSANT,URINE NEGATIVE (NEGATIVE)
[2021-11-03 19:43] LABS: ACETAMINOPHEN < 10 ug/mL (10-30); ALBUMIN 4.8 g/dL (3.2-5.5); ALBUMIN/GLOBULIN RATIO 1.8 (1.0-2.2); ALKALINE PHOSPHATASE 53 IU/L (42-121); ALT ALANINE AMINOTRANSFERASE 14 IU/L (10-60); AST ASPARTATE AMINOTRANSFERASE 18 IU/L (10-42); BILIRUBIN,TOTAL 0.8 mg/dL (0.2-1.0); BUN - BLOOD UREA NITROGEN 13 mg/dL (6-20); CALCIUM 9.4 mg/dL (8.5-10.3); CARBON DIOXIDE - CO2 25 mmol/L (21-32); CHLORIDE 98 mmol/L (101-111); CREATININE 0.8 mg/dL (0.6-1.2); ETOH - ETHANOL < 5.0 mg/dL; GFR - MDRD 110 (>89); GLUCOSE 152 mg/dL (70-100); LIPASE 23 U/L (22-51); POTASSIUM 3.7 mmol/L (3.5-5.0); SALICYLATE < 6.0 mg/dL; SODIUM 135 mmol/L (135-145); TOTAL PROTEIN 7.4 g/dL (6.7-8.2)
[2021-11-03 20:25] LABS: B. PARAPERTUSSIS- RESP PCR PAN NOT DETECTED; B. PERTUSSIS- RESP PCR PANEL NOT DETECTED; C. PNEUMONIAE- RESP PCR PANEL NOT DETECTED; CORONAVIRUS 229E-RESP PCR NOT DETECTED; CORONAVIRUS HKU1-RESP PCR NOT DETECTED; CORONAVIRUS NL63-RESP PCR NOT DETECTED; CORONAVIRUS OC43-RESP PCR NOT DETECTED; HUMAN METAPNEUMOVIRUS NOT DETECTED; INFLUENZA A- RESP PCR PANEL NOT DETECTED; INFLUENZA B - RESP PCR PANEL NOT DETECTED; M. PNEUMONIAE- RESP PCR PANEL NOT DETECTED; PARAINFLUENZA VIRUS 1 NOT DETECTED; PARAINFLUENZA VIRUS 2 NOT DETECTED; PARAINFLUENZA VIRUS 3 NOT DETECTED; PARAINFLUENZA VIRUS 4 NOT DETECTED; RHINOVIRUS/ENTEROVIRUS NOT DETECTED; RSV- RESP PCR PANEL NOT DETECTED; SARS-CoV-2 -RESP PCR PANEL NOT DETECTED
[2021-11-03] MEDS ORDERED: traZODone 50 MG TABLET PO STA (21:27)
[2021-11-03] MEDS ORDERED: QUEtiapine 25 MG TABLET PO STA (21:28)
[2021-11-04] MEDS ORDERED: BENZTROPINE 2 MG/2 ML VIAL IM STA (05:23)
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
--- NOTE | 2021-11-04 08:19 | ED Physician Documentation ---
ED Addendum - Addendum Addendum: 11/04/21 08:19 D/W telepsychiatrist who recommends 1mg IM cogentin and can then discharge if patient is improved, otherwise reevaluate for need for inpatient treatment. I reevaluated patient 8:00 AM; he received the IM cogentin at 5:30 AM. He is asleep, awakens to voice. He is in NAD, calm and cooperative. I reviewed with him the recommendation of the psychiatrist (outpatient follow up and rx for cogentin 1mg PO BID), and patient says he is comfortable with this plan. Rx for cogentin and trazadone transmitted to [facility], 1 week supply (patient had indicated to the psychiatrist he had appointment in one week with his prescribing practitioner)
[2021-11-04 08:39] VITALS: BP 93/58
== END 2021-11-04 08:45 | disposition home or self-care (01) ==
LOC: EDUNIT# → ED 19:02
DX: F20.89 Other schizophrenia (principal); F17.200 Nicotine dependence, unspecified, uncomplicated; Z20.822 Contact with and (suspected) exposure to COVID-19
CPT/HCPCS: 0202U; 36415; 80053; 80306; 80307; 80320; 80329; 81003; 83690; 84443; 85025; 96372; 99283; G0425; J0515; Q3014; 81001; 87086

== ENCOUNTER 2021-11-08 18:12 | Outpatient (CLI) | payer MEDICAID | END 2021-11-08 18:13 | disposition critical access hospital (66) | LOC: EMS 18:12 | DX: R45.89 Other symptoms and signs involving emotional state (principal) | CPT/HCPCS: A0425; A0429 ==

== ENCOUNTER 2021-11-08 19:31 | Emergency (ER) | payer MEDICAID ==
[2021-11-08 19:39] VITALS: BP 152/105
[2021-11-08 19:55] LABS: BASOPHILS # (AUTO) 0.1 10^3/uL (0.0-0.1); BASOPHILS % (AUTO) 0.7 %; EOSINOPHILS % (AUTO) 0.3 %; HCT - HEMATOCRIT 44.9 % (42.0-52.0); HGB - HEMOGLOBIN 15.3 g/dL (14.0-18.0); LYMPHOCYTES # (AUTO) 1.4 10^3/uL (1.5-3.5); LYMPHOCYTES % (AUTO) 19.1 %; MEAN CORPUSCULAR HEMOGLOBIN 28.9 pg (27.0-31.0); MEAN CORPUSCULAR HGB CONC 34.1 g/dL (32.0-36.0); MEAN CORPUSCULAR VOLUME 84.9 fL (80.0-94.0); MONOCYTES # (AUTO) 0.4 10^3/uL (0.0-1.0); MONOCYTES % (AUTO) 6.1 %; NEUTROPHILS # (AUTO) 5.2 10^3/uL (1.5-6.6); NEUTROPHILS % (AUTO) 73.5 %; PLT - PLATELET COUNT 191 10^3/uL (130-450); RED BLOOD COUNT 5.29 10^6/uL (4.70-6.10); WHITE BLOOD COUNT 7.1 x10^3/uL (4.8-10.8)
[2021-11-08 20:12] LABS: ACETAMINOPHEN < 10 ug/mL (10-30); ALBUMIN 4.8 g/dL (3.2-5.5); ALBUMIN/GLOBULIN RATIO 1.7 (1.0-2.2); ALKALINE PHOSPHATASE 62 IU/L (42-121); ALT ALANINE AMINOTRANSFERASE 13 IU/L (10-60); AST ASPARTATE AMINOTRANSFERASE 15 IU/L (10-42); BILIRUBIN,TOTAL 0.7 mg/dL (0.2-1.0); BUN - BLOOD UREA NITROGEN 11 mg/dL (6-20); CALCIUM 9.2 mg/dL (8.5-10.3); CARBON DIOXIDE - CO2 25 mmol/L (21-32); CHLORIDE 98 mmol/L (101-111); ETOH - ETHANOL < 5.0 mg/dL; GFR - MDRD 85 (>89); GLUCOSE 132 mg/dL (70-100); LIPASE 25 U/L (22-51); POTASSIUM 3.5 mmol/L (3.5-5.0); SALICYLATE < 6.0 mg/dL; SODIUM 133 mmol/L (135-145); TOTAL PROTEIN 7.6 g/dL (6.7-8.2)
[2021-11-08 20:24] LABS: MUDS CUTOFF CONCENTRATIONS CUTOFF CONC BELOW:
[2021-11-08 20:25] LABS: BILIRUBIN,URINE NEGATIVE (NEGATIVE); GLUCOSE, URINE (UA) NEGATIVE (NEGATIVE); KETONES,URINE (UA) 15 mg/dL (NEGATIVE); LEUKOCYTE ESTERASE, URINE NEGATIVE (NEGATIVE); NITRITE,URINE NEGATIVE (NEGATIVE); OCCULT BLOOD,URINE NEGATIVE (NEGATIVE); PROTEIN,URINE NEGATIVE (NEGATIVE); UROBILINOGEN,URINE 0.2 (NORMAL) E.U./dL (NORMAL)
[2021-11-08 20:28] LABS: CLARITY,URINE CLEAR (CLEAR)
[2021-11-08 20:36] LABS: AMPHETAMINE SCREEN,URINE NEGATIVE (NEGATIVE); BARBITURATE SCREEN,UR NEGATIVE (NEGATIVE); BENZODIAZEPINES SCREEN, URINE NEGATIVE (NEGATIVE); COCAINE SCREEN URINE NEGATIVE (NEGATIVE); METHADONE SCREEN, URINE NEGATIVE (NEGATIVE); METHAMPHETAMINES SCREEN, URINE NEGATIVE (NEGATIVE); OPIATE SCREEN, URINE NEGATIVE (NEGATIVE); OXYCODONE SCREEN, URINE NEGATIVE (NEGATIVE); PROPOXYPHENE SCREEN, URINE NEGATIVE (NEGATIVE); THC CANNABINOID SCREEN, URINE POSITIVE (NEGATIVE); TRICYCLIC ANTIDEPRESSANT,URINE NEGATIVE (NEGATIVE)
--- NOTE | 2021-11-08 20:50 | ED Physician Documentation ---
History of Present Illness - Stated complaint Stated Complaint: MHE - Chief complaint Chief Complaint: MHE - Additonal information Additional information: This is a 36-year-old male well-known to the emergency department who has previous history of schizophrenia comes to the ED stating that he would like medications to help him sleep. He also states that he just needs help with his thoughts. he denies any specific thoughts of self-harm or harm to others. He did not state that he desired psychiatric hospitalization. This is his second visit this week for similar. When he was seen by telepsych at that time they had recommended IM Cogentin for concerns of possible EPS. When seen recently recent ER provider had refilled his medications. Earnest states that they are at home. When I ask what he thought the emergency department could do for him tonight he said "I do not know give me my sleep medications." Review of Systems Constitutional: denies: Fever, Chills Nose: reports: Reviewed and negative Cardiac: reports: Reviewed and negative Respiratory: reports: Reviewed and negative GI: reports: Reviewed and negative : reports: Reviewed and negative Skin: reports: Reviewed and negative Musculoskeletal: reports: Reviewed and negative Neurologic: reports: Reviewed and negative Psychiatric: reports: Other (needs help sleeping). denies: Suicidal, Homicidal PD PAST MEDICAL HISTORY - Past Medical History Cardiovascular: High cholesterol Respiratory: None Neuro: None Endocrine/Autoimmune: None GI: None : Renal insuffiency HEENT: None Psych: Schizophrenia Musculoskeletal: None Derm: None - Past Surgical History Past Surgical History: No - Present Medications Home Medications: Ambulatory Orders Medication Instructions Recorded Confirmed Benztropine Mesylate 1 mg PO BID 04/27/21 08/13/21 LORazepam [Ativan] 0.5 mg PO BID 04/27/21 08/13/21 carBAMazepine [TEGretol] 200 mg PO BID 04/27/21 08/13/21 haloperidoL [Haloperidol] 10 mg PO DAILY 06/03/21 08/13/21 Atorvastatin [Lipitor] 10 mg PO DAILY 07/31/21 08/13/21 OLANZapine [Olanzapine] 20 mg PO DAILY 07/31/21 08/13/21 LORazepam [Ativan] 0.5 - 1 mg PO HS PRN #8 tablet 10/16/21 Benztropine Mesylate 1 mg PO BID #14 tablet 11/04/21 traZODone [Desyrel] 50 mg PO HS #7 tablet 11/04/21 - Allergies Allergies/Adverse Reactions: Allergies Allergy/AdvReac Type Severity Reaction Status Date / Time ziprasidone HCl * AdvReac Severe Hallucinati Verified 11/03/21 19:13 [From [facility]] ons ziprasidone mesylate * AdvReac Severe Hallucinati Verified 11/03/21 19:13 [From [facility]] ons - Social History Does the pt smoke?: Yes Smoking Status: Current every day smoker Does the pt drink ETOH?: Yes Does the pt have substance abuse?: No - Immunizations Immunizations are current?: No Immunizations: TDAP >10years/unknown, Other immun current - POLST Patient has POLST: No Results - Vitals Vitals: Vital Signs - 24 hr 11/08/21 19:35 Temperature 36.2 C L Heart Rate 107 H Respiratory 18 Rate Blood Pressure 152/105 H O2 Saturation 95 Oxygen O2 Source Room air - Labs Labs: Laboratory Tests 11/08/21 11/08/21 11/08/21 19:47 19:47 19:47 WBC 7.1 RBC 5.29 Hgb 15.3 Hct 44.9 MCV 84.9 MCH 28.9 MCHC 34.1 RDW 13.0 Plt Count 191 MPV 11.0 Neut # (Auto) 5.2 Lymph # (Auto) 1.4 L Benton # (Auto) 0.4 Eos # (Auto) 0.0 Baso # (Auto) 0.1 Absolute Nucleated RBC 0.00 Nucleated RBC % 0.0 Sodium 133 L Potassium 3.5 Chloride 98 L Carbon Dioxide 25 Anion Gap 10.0 BUN 11 Creatinine 1.0 Estimated GFR (MDRD) 85 L Glucose 132 H Calcium 9.2 Total Bilirubin 0.7 AST 15 ALT 13 Alkaline Phosphatase 62 Total Protein 7.6 Albumin 4.8 Globulin 2.8 Albumin/Globulin Ratio 1.7 Lipase 25 TSH 0.34 Urine Color Urine Clarity Urine pH Ur Specific [place] Urine Protein Urine Glucose (UA) Urine Ketones Urine Occult Blood Urine Nitrite Urine Bilirubin Urine Urobilinogen Ur Leukocyte Esterase Ur Microscopic Review Urine Culture Comments Salicylates < 6.0 Urine Opiates Screen Ur Oxycodone Screen Urine Methadone Screen Ur Propoxyphene Screen Acetaminophen < 10 L Ur Barbiturates Screen Ur Tricyclics Screen Ur Phencyclidine Scrn Ur Amphetamine Screen U Methamphetamines Scrn U Benzodiazepines Scrn Urine Cocaine Screen U Cannabinoids Screen Ethyl Alcohol < 5.0 11/08/21 20:08 WBC RBC Hgb Hct MCV MCH MCHC RDW Plt Count MPV Neut # (Auto) Lymph # (Auto) Benton # (Auto) Eos # (Auto) Baso # (Auto) Absolute Nucleated RBC Nucleated RBC % Sodium Potassium Chloride Carbon Dioxide Anion Gap BUN Creatinine Estimated GFR (MDRD) Glucose Calcium Total Bilirubin AST ALT Alkaline Phosphatase Total Protein Albumin Globulin Albumin/Globulin Ratio Lipase TSH Urine Color DARK YELLOW Urine Clarity CLEAR Urine pH 6.0 Ur Specific [place] >=1.030 H Urine Protein NEGATIVE Urine Glucose (UA) NEGATIVE Urine Ketones 15 H Urine Occult Blood NEGATIVE Urine Nitrite NEGATIVE Urine Bilirubin NEGATIVE Urine Urobilinogen 0.2 (NORMAL) Ur Leukocyte Esterase NEGATIVE Ur Microscopic Review NOT INDICATED Urine Culture Comments NOT INDICATED Salicylates Urine Opiates Screen NEGATIVE Ur Oxycodone Screen NEGATIVE Urine Methadone Screen NEGATIVE Ur Propoxyphene Screen NEGATIVE Acetaminophen Ur Barbiturates Screen NEGATIVE Ur Tricyclics Screen NEGATIVE Ur Phencyclidine Scrn NEGATIVE Ur Amphetamine Screen NEGATIVE U Methamphetamines Scrn NEGATIVE U Benzodiazepines Scrn NEGATIVE Urine Cocaine Screen NEGATIVE U Cannabinoids Screen POSITIVE H Ethyl Alcohol PD MEDICAL DECISION MAKING - ED course Complexity details: reviewed results, re-evaluated patient, considered differential, d/w patient ED course: 36-year-old male presents the emergency department requesting that we give him his normal sleep medications. Second ER visit in a week. He denies thoughts of self-harm or harm to others. He stated that he did not want to be hospitalized but did not know how we could help him. He really just wanted his sleep medications. I did review his cleaning labs and showed no acute findings. He is cannabis positive. His presentation is more of anxiety than an acute psychiatric decompensation though certainly has multiple hospitalizations in the past for schizophrenia and management of his disorder. I had ordered telepsych evaluation. However patient abruptly got up put on his jacket and walked out of the emergency department. He could not be compelled to stay. He did not present as an acute danger to himself. Departure - Departure Disposition: ED [place] Clinical Impression: Schizophrenia Qualifiers: Schizophrenia type: other Qualified Code(s): F20.89 - Other schizophrenia Condition: Stable Discharge Date/Time: 11/08/21 20:55
== END 2021-11-08 20:55 | disposition left against medical advice (07) ==
LOC: EDUNIT# → ED 19:31
DX: G47.00 Insomnia, unspecified (principal); F25.9 Schizoaffective disorder, unspecified; F41.9 Anxiety disorder, unspecified; F17.200 Nicotine dependence, unspecified, uncomplicated
CPT/HCPCS: 36415; 80053; 80306; 80307; 80320; 80329; 81003; 83690; 84443; 85025; 99283; G0425; Q3014; 81001; 87086

== ENCOUNTER 2021-11-08 21:31 | Emergency (ER) | payer MEDICAID ==
--- NOTE | 2021-11-08 22:07 | ED Physician Documentation ---
PD HPI MHE - Stated complaint Stated Complaint: MHE - Chief complaint Chief Complaint: MHE - Additional information Additional information: Is a 36-year-old male with known history of schizophrenia presenting to the emergency department with complaints of auditory hallucinations and insomnia. Was seen earlier at this facility for similar presentation and abruptly left the emergency department. Reports voices in his head, however denies command hallucinations. Also reports that he has been unable to sleep for several days. Requests medication to help him sleep. Denies suicidal or homicidal ideation. Denies drug and/or alcohol abuse. Patient seen here 11/03, prescribed Cogentin for possible extraparametal side effects of his medications as well as trazodone for insomnia. Review of Systems Unable to obtain: Other (Psychiatric disturbance) PD PAST MEDICAL HISTORY - Past Medical History Cardiovascular: High cholesterol Respiratory: None Neuro: None Endocrine/Autoimmune: None GI: None : Renal insuffiency HEENT: None Psych: Schizophrenia Musculoskeletal: None Derm: None - Past Surgical History Past Surgical History: No - Present Medications Home Medications: Ambulatory Orders Medication Instructions Recorded Confirmed haloperidoL [Haloperidol] 10 mg PO DAILY 06/03/21 11/08/21 traZODone [Desyrel] 50 mg PO HS #7 tablet 11/04/21 11/08/21 - Allergies Allergies/Adverse Reactions: Allergies Allergy/AdvReac Type Severity Reaction Status Date / Time ziprasidone HCl * AdvReac Severe Hallucinati Verified 11/08/21 22:03 [From Geodon] ons ziprasidone mesylate * AdvReac Severe Hallucinati Verified 11/08/21 22:03 [From Geodon] ons - Social History Does the pt smoke?: Yes Smoking Status: Current every day smoker Does the pt drink ETOH?: Yes Does the pt have substance abuse?: No - Immunizations Immunizations are current?: No Immunizations: TDAP >10years/unknown, Other immun current - POLST Patient has POLST: No PD ED PE NORMAL - Vitals Vital signs reviewed: Yes - General General: Alert and oriented X 3, Other (Patient appears disheveled) - HEENT HEENT: Atraumatic, PERRL, EOMI, Ears normal, Moist mucous membranes - Neck Neck: Supple, no meningeal sign, No JVD, No bruit - Cardiac Cardiac: RRR, No gallop - Respiratory Respiratory: No respiratory distress - Abdomen Abdomen: Normal bowel sounds - Male Male : Deferred - Rectal Rectal: Deferred - Derm Derm: Normal color - Extremities Extremities: No deformity - Neuro Neuro: Alert and oriented X 3, business proposal rep 2-12 intact, No motor deficit, No sensory deficit PD ED PE EXPANDED - Psych Psych: Withdrawn, Poor eye contact, Anxious, Delusions. No: Suicidal, Homicidal Results - Vitals Vitals: Vital Signs - 24 hr 11/08/21 11/08/21 21:50 21:58 Temperature 36.5 C 36.5 C Heart Rate 115 H 115 H Respiratory 16 16 Rate Blood Pressure 138/95 H 138/95 H O2 Saturation 98 98 Oxygen O2 Source Room air PD MEDICAL DECISION MAKING - ED course Complexity details: reviewed old records, reviewed results, d/w patient ED course: Patient is a 36-year-old male, with known history of schizophrenia presenting to the emergency department with auditory hallucinations and insomnia. Patient is well-known to the department. Was seen here earlier this evening. Eloped from the emergency department on his first evaluation however returned for persistent symptoms. Asks to speak with a telepsychiatrist in order to obtain "help with my voices". Comprehensive labs were obtained earlier this evening and were negative for any significant indication of inflammation, illness or electrolyte abnormality. His toxicologic screen was also negative with the exception of a urine analysis positive for cannabinoid metabolites. I do not see any indication to repeat these labs at this time. Patient was given medication to help him sleep and was monitored carefully throughout the evening. He rested comfortably and remained redirectable through out the entirety of his stay in the emergency department. At no time did he demonstrate grossly disorganized behavior. At this time I have placed consult for telepsychiatry to evaluate the patient in the a.m. I will be signing him out to the oncoming physician, please see their documentation for further detail. Departure - Departure Clinical Impression: Insomnia Condition: Fair
[2021-11-08] MEDS ORDERED: diazePAM 5 MG TABLET PO STA (23:42)
[2021-11-09] MEDS ORDERED: diphenhydrAMINE 25 MG CAPSULE PO STA (02:50)
[2021-11-09 07:38] VITALS: BP 102/68
--- NOTE | 2021-11-09 08:28 | ED Physician Documentation ---
ED Addendum - Addendum Addendum: 11/09/21 08:27 Patient signed out to me at shift change at 7 AM. Patient stable and c omfortable. He was seen by telepsychiatry who recommended outpatient follow-up. Patient denies SI or HI. Has chronic hallucinations. Disposition: Discharged home Condition: Stable Diagnoses: 1. Insomnia 2. Schizophrenia
--- NOTE | 2021-11-09 08:38 | TELEPSYCH PHYS NOTE ---
Telepsych Consultation Note Consult: [email or web address] Name: Earnest Barraza : 1985 Date: 11/09/21 Time: 10amCST Location of patient: [facility] Location of doctor:[place], [place] Length of consult:30 minutes This evaluation was conducted via telepsychiatry with the assistance of onsite staff Reason for consult: Hallucinations and insomnia Requested by: Dr. Hadley History of Present Illness: 36 y.o M with psychiatric history of schizoaffective disorder who presented to ED reporting hallucinations and insomnia. He had eloped from ED earlier but returned and asked to speak with a psychiatrist. He reports he is having trouble figuring out certain things in his head. Things he is seeing and believing. Reports this is chronic but its just gotten harder. He is unable to describe them to me. States he has had recent medication changes including Invega and he wants to get off it. He reports his last injection was on 10/13. He thinks the medication is too much for him. States he is feeling a lot better now because he needed to get some sleep. I asked if there was anything I could help with and he stated he was not sure. He denies SI and HI. At the end of interview, he asked if we could help him get home. Collateral EMR, staff Sleep issues: yes Psychiatric History/Treatment History: Past diagnoses: schizoaffective disorder Hospitalizations: yes- reports most recent was Current Treatment: yes Suicide Assessment: PSS-3: 1) Over the past 2 weeks have you felt down, depressed or hopeless? No 2) Over the past 2 weeks have you had thoughts of killing yourself? No 3) Have you ever in your life attempted to kill yourself? No If yes, then when? - Within the past 24h? (Y/N), past month? (Y/N), between 1-6 months (Y/N), > 6 months (Y/N) PSS-3 Secondary Screen If #2 is yes or #3 is yes within the past 6 months, then complete secondary screen: 1) Positive on PSS-3 questions 2 & 3 active SI with a past attempt? 2) Have you been thinking about how you might kill yourself? 3) Have you had some intention of acting on your thoughts? 4) Lifetime psychiatric hospitalization? 5) Has drinking or substance abuse ever been a problem for you? 6) Current irritability, agitation, or aggression? PSS-3 Secondary Screen Scoring: Mild (0-2) No current attempt and no plan/intent Moderate (3-4) No current attempt, Plan OR intent but not both Severe (5-6) Current Attempt with Plan AND intent [facility]-based Safety Assessment: Risk Factors: Stressors: homelessness, unemployed Attempts/Self-injury: denies Impulsivity: did not elicit Drug/Alcohol History: meth use Trauma history: deferred Access to firearms: denies HI/Violence/Property destruction: No Legal: unknown Family Psych History: unknown Family History of suicide: unknown Protective Factors: Internal: External: Social supports/ Therapeutic relationships: yes Relationship history: single Living situation: homeless Employment: unemployed Education: highest level of education Responsibility to family/children/work: unknown Future orientation: yes Medical History: Schizoaffective disorder Medications & Freq: No ED medications Allergies: Geodon Mental Status Exam: Appearance and attire: disheveled, appears stated age Attitude and behavior: cooperative, fair eye contact Speech: normal volume, slow rate, pauses Mood: euthymic Affect: constricted Association and thought processes: organized, goal directed Thought content: no SI, No HI Perception: hallucinations per HPI Sensorium, memory, and orientation: A&Ox 3 Intellectual functioning: average Insight and judgment: fair Impression/Risk Assessment: Current Suicide Risk Elevated?: No Current Violence Risk Elevated? : No Ability to care for self: yes Summary: 36 y.o M with psychiatric history of schizoaffective disorder who presented to ED reporting hallucinations and insomnia. He reports feeling better since getting sleep in ED. His symptoms appear to be chronic and he seemed to be at his psychiatric baseline. He was not disorganized on interview. He is not suicidal or homicidal . At this time, he does not need psychiatric hospitalization. He can be discharged with plan to follow up with his OP providers. Diagnosis: Schizoaffective disorder Treatment Plan: Level of Care: ED Psychiatric Clearance: Psychiatrically clear. He can be discharged from ED with plan to follow up with his outpatient providers Observation level NA Pharmacological: continue home medications Patient psychotic? Reports hallucinations Therapy: supportive Follow up needed while in hospital?: NA Plan discussed with Dr. Jomar Pham MD Psychiatrist List names and roles of persons who participated in consult: patient
== END 2021-11-09 08:37 | disposition home or self-care (01) ==
LOC: ED 21:31
DX: G47.00 Insomnia, unspecified (principal); F20.89 Other schizophrenia
CPT/HCPCS: A9270 ×2

== ENCOUNTER 2021-12-16 13:47 | Outpatient (CLI) | payer MEDICAID | END 2021-12-16 13:48 | disposition critical access hospital (66) | LOC: EMS 13:47 | DX: S70.262A Insect bite (nonvenomous), left hip, initial encounter (principal); S70.261A Insect bite (nonvenomous), right hip, initial encounter; W57.XXXA Bitten or stung by nonvenomous insect and other nonvenomous arthropods, initial encounter | CPT/HCPCS: A0425; A0429 ==

== ENCOUNTER 2021-12-16 14:04 | Emergency (ER) | payer MEDICAID ==
--- NOTE | 2021-12-16 14:25 | ED Physician Documentation ---
PD HPI SKIN - Stated complaint Stated Complaint: BUG BITES - Chief complaint Chief Complaint: Wound - History obtained from History obtained from: Patient - History of Present Illness Timing - onset: How many days ago (several) Timing - duration: Days (several) Timing - details: Gradual onset, Still present Location: Bodywide (with also itchy scalp (for longer term). Describes itchy perirectal as well, when asked, and his mother says he will have what looks like grains of rice in his underwear when she picks it up from his room.), Other (no on palms nor soles.) Quality / character: Itchy, Raised. No: Vesicular Associated symptoms: No: Fever, Myalgias Contributing factors: Other (he is schizophrenic and often sleeps outdoors, in [place]im[place], in empty car, etc.) Similar symptoms before: No diagnosis Recently seen: Emergency Dept Review of Systems Constitutional: denies: Fever Nose: denies: Rhinorrhea / runny nose, Congestion Throat: denies: Sore throat Respiratory: denies: Cough GI: reports: Other (itchy perirectal without rash.). denies: Vomiting, Const ipation Skin: reports: Rash (the past several days or more, increasing) Neurologic: denies: Generalized weakness, Altered mental status, Headache PD PAST MEDICAL HISTORY - Past Medical History Cardiovascular: High cholesterol Respiratory: None Neuro: None Endocrine/Autoimmune: None GI: None : Renal insuffiency HEENT: None Psych: Schizophrenia Musculoskeletal: None Derm: None - Past Surgical History Past Surgical History: No - Present Medications Home Medications: Ambulatory Orders Medication Instructions Recorded Confirmed haloperidoL [Haloperidol] 10 mg PO DAILY 06/03/21 11/08/21 traZODone [Desyrel] 50 mg PO HS #7 tablet 11/04/21 11/08/21 Albendazole 400 mg PO ONCE 1 Days #4 tablet 12/16/21 Cetirizine [ZyrTEC] 10 mg PO BID #15 tablet 12/16/21 Permethrin 5% Cream [Permethrin 1 applic TOP ONCE 1 Days #2 tub 12/16/21 Cream] - Allergies Allergies/Adverse Reactions: Allergies Allergy/AdvReac Type Severity Reaction Status Date / Time ziprasidone HCl * AdvReac Severe Hallucinati Verified 12/16/21 14:20 [From [facility]] ons ziprasidone mesylate * AdvReac Severe Hallucinati Verified 12/16/21 14:20 [From [facility]] ons - Social History Does the pt smoke?: Yes Smoking Status: Current every day smoker Does the pt drink ETOH?: Yes Does the pt have substance abuse?: No - Immunizations Immunizations are current?: No Immunizations: TDAP >10years/unknown, Other immun current - POLST Patient has POLST: No PD ED PE NORMAL - Vitals Vital signs reviewed: Yes - General General: Alert and oriented X 3, Well developed/nourished - HEENT HEENT: Pharynx benign, Other (no oral sores. scalp and hair with multiple nits noted. ) - Neck Neck: Supple, no meningeal sign, No adenopathy - Cardiac Cardiac: RRR, No murmur - Respiratory Respiratory: Clear bilaterally - Rectal Rectal: Other (perirectal without sores.) - Derm Derm: Normal color, Warm and dry - Extremities Extremities: Other (multiple discrete red bumps bodywide with scratch excoriations in accesible areas. No lesions on palms nor soles. ) - Neuro Neuro: Alert and oriented X 3, No motor deficit, Normal speech Results - Vitals Vitals: Vital Signs - 24 hr 12/16/21 16:22 Heart Rate 89 Respiratory 18 Rate Blood Pressure 140/69 H O2 Saturation 99 Oxygen O2 Source Room air PD MEDICAL DECISION MAKING - ED course Complexity details: considered differential (rash is c/w scabies, and his mother starting with similar rash. Scalp with obvious multiple nits. I presume the "rice" in underwear and itchy bottom most likely pinworms. ), d/w patient, d/w family (his mother is with him.) Departure - Departure Disposition: 01 Home, Self Care Clinical Impression: Scabies infestation, Head lice, Pinworm infection Condition: Stable Record reviewed to determine appropriate education?: Yes Instructions: ED Lice Head, ED Scabies Prescriptions: Albendazole 400 mg PO ONCE 1 Days #4 tablet Permethrin 5% Cream [Permethrin Cream] 1 applic TOP ONCE 1 Days #2 tub Cetirizine [ZyrTEC] 10 mg PO BID #15 tablet Comments: Use the permethrin antiparasitic medication in the scalp well and whole body from head to toe per the package directions. Repeated in 1 week. This should help clear the scabies as well as head lice. The itching and rash will not go away immediately. It will take several days to week for the inflammation and such to down. You can use cetirizine antihistamine twice daily for the next week to help with itching. It does sound likely to have pinworm as well and so take the albendazole antiparasitic tablet 2 tablets initially and repeated in a week. This should clear that. Follow-up with your primary care if not improved well over the next week or so. You will also need to comb your hair with a fine tooth comb to help get rid of some of the egg casings out of the hair. I transmitted your prescriptions to [facility] pharmacy. Discharge Date/Time: 12/16/21 16:39
[2021-12-16 16:23] VITALS: BP 140/69
== END 2021-12-16 16:39 | disposition home or self-care (01) ==
LOC: EDUNIT# → ED 14:04
DX: B86 Scabies (principal); B85.0 Pediculosis due to Pediculus humanus capitis; B80 Enterobiasis; F17.200 Nicotine dependence, unspecified, uncomplicated
CPT/HCPCS: 99282; 99283

== ENCOUNTER 2021-12-16 16:38 | Outpatient (CLI) | payer MEDICAID | END 2021-12-16 16:39 | disposition home or self-care (01) | LOC: EMS 16:38 | PROVIDERS: ATTEND Emergency Medicine | DX: B86 Scabies (principal); B85.0 Pediculosis due to Pediculus humanus capitis | CPT/HCPCS: A0425; A0428 ==

== ENCOUNTER 2021-12-24 11:37 | Outpatient (CLI) | payer MEDICAID | END 2021-12-24 11:38 | disposition EMS.NT | LOC: EMS 11:37 | DX: Z91.14 Patient's other noncompliance with medication regimen (principal) ==

== ENCOUNTER 2021-12-31 14:01 | Outpatient (CLI) | payer MEDICAID | END 2021-12-31 14:02 | disposition critical access hospital (66) | LOC: EMS 14:01 | DX: Z04.6 Encounter for general psychiatric examination, requested by authority (principal) | CPT/HCPCS: A0425; A0429; A0999 ==

== ENCOUNTER 2021-12-31 14:21 | Emergency (ER) | payer MEDICAID ==
[2021-12-31] MEDS ORDERED: OLANZapine ODT 5 MG TABLET TL ONE (14:28)
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
[2021-12-31 14:36] LABS: BASOPHILS # (AUTO) 0.1 10^3/uL (0.0-0.1); BASOPHILS % (AUTO) 0.5 %; EOSINOPHILS # (AUTO) 0.2 10^3/uL (0.0-0.7); EOSINOPHILS % (AUTO) 1.6 %; HGB - HEMOGLOBIN 15.6 g/dL (14.0-18.0); LYMPHOCYTES # (AUTO) 2.3 10^3/uL (1.5-3.5); LYMPHOCYTES % (AUTO) 24.2 %; MEAN CORPUSCULAR HEMOGLOBIN 29.1 pg (27.0-31.0); MEAN CORPUSCULAR HGB CONC 33.9 g/dL (32.0-36.0); MEAN CORPUSCULAR VOLUME 85.7 fL (80.0-94.0); MEAN PLATELET VOLUME 11.6 fL (7.4-11.4); MONOCYTES # (AUTO) 0.6 10^3/uL (0.0-1.0); NEUTROPHILS # (AUTO) 6.3 10^3/uL (1.5-6.6); NEUTROPHILS % (AUTO) 67.5 %; PLT - PLATELET COUNT 221 10^3/uL (130-450); RED BLOOD COUNT 5.37 10^6/uL (4.70-6.10); RED CELL DISTRIBUTION WIDTH 13.2 % (12.0-15.0); WHITE BLOOD COUNT 9.4 x10^3/uL (4.8-10.8)
[2021-12-31 14:52] LABS: MUDS CUTOFF CONCENTRATIONS CUTOFF CONC BELOW:
[2021-12-31 14:55] LABS: ACETAMINOPHEN < 10 ug/mL (10-30); ALBUMIN 4.6 g/dL (3.2-5.5); ALBUMIN/GLOBULIN RATIO 1.6 (1.0-2.2); ALKALINE PHOSPHATASE 57 IU/L (42-121); ALT ALANINE AMINOTRANSFERASE 15 IU/L (10-60); AST ASPARTATE AMINOTRANSFERASE 15 IU/L (10-42); BILIRUBIN,TOTAL 0.8 mg/dL (0.2-1.0); BUN - BLOOD UREA NITROGEN 16 mg/dL (6-20); CALCIUM 9.1 mg/dL (8.5-10.3); CARBON DIOXIDE - CO2 23 mmol/L (21-32); CHLORIDE 105 mmol/L (101-111); CREATININE 0.7 mg/dL (0.6-1.2); ETOH - ETHANOL < 5.0 mg/dL; GFR - MDRD 128 (>89); GLUCOSE 101 mg/dL (70-100); LIPASE 30 U/L (22-51); POTASSIUM 3.8 mmol/L (3.5-5.0); SALICYLATE < 6.0 mg/dL; SODIUM 137 mmol/L (135-145); TOTAL PROTEIN 7.5 g/dL (6.7-8.2)
[2021-12-31] MEDS ORDERED: KETAMINE 500 MG/10 ML VIAL IM STA ×2 (14:56→15:32)
[2021-12-31 14:57] LABS: BILIRUBIN,URINE NEGATIVE (NEGATIVE); GLUCOSE, URINE (UA) NEGATIVE (NEGATIVE); KETONES,URINE (UA) TRACE mg/dL (NEGATIVE); LEUKOCYTE ESTERASE, URINE NEGATIVE (NEGATIVE); NITRITE,URINE NEGATIVE (NEGATIVE); OCCULT BLOOD,URINE NEGATIVE (NEGATIVE); PROTEIN,URINE NEGATIVE (NEGATIVE); UROBILINOGEN,URINE 0.2 (NORMAL) E.U./dL (NORMAL)
[2021-12-31 14:58] LABS: CLARITY,URINE CLEAR (CLEAR)
[2021-12-31 15:11] LABS: AMPHETAMINE SCREEN,URINE NEGATIVE (NEGATIVE); BARBITURATE SCREEN,UR NEGATIVE (NEGATIVE); BENZODIAZEPINES SCREEN, URINE NEGATIVE (NEGATIVE); COCAINE SCREEN URINE NEGATIVE (NEGATIVE); METHADONE SCREEN, URINE NEGATIVE (NEGATIVE); METHAMPHETAMINES SCREEN, URINE NEGATIVE (NEGATIVE); OPIATE SCREEN, URINE NEGATIVE (NEGATIVE); OXYCODONE SCREEN, URINE NEGATIVE (NEGATIVE); PROPOXYPHENE SCREEN, URINE NEGATIVE (NEGATIVE); THC CANNABINOID SCREEN, URINE NEGATIVE (NEGATIVE); TRICYCLIC ANTIDEPRESSANT,URINE NEGATIVE (NEGATIVE)
--- NOTE | 2021-12-31 15:13 | ED Physician Documentation ---
Face to Face for Restraints - Immediate Situation Face to Face Evaluation Date: 07/31/22 Face to Face Evaluation Time: 15:10 Restraint Situation: Locking Patient's Reactions to the Intervention: Physically safe, Compliant - Behavioral Condition Attitude: Guarded Behavior: Cooperative Orientation: Person, Place, Situation Mood: Labile Behavioral Condition Comments: Patient is in four-point locking restraints but his behavior is now calm and cooperative. We will continue to monitor and see if appropriate to discontinue. If he should escalate again he will then require chemical restraints. - Evaluation Review of Systems: Mild hypertension but vital signs otherwise unremarkable. No respiratory distress room air saturations 98% Pertinent History/Illicit Drugs/Medications/Results: History of noncompliance with psychiatric medications. Urine drug screen pending. + hallucinations - Plan Need to Continue or Terminate Violent or Chemical Restraint: We will continue to observe the patient. If he continues to be verbally aggressive or antagonistic to the other patient in the room or threatened harm to her he will need chemical restraints.
[2021-12-31 15:27] LABS: B. PARAPERTUSSIS- RESP PCR PAN NOT DETECTED; B. PERTUSSIS- RESP PCR PANEL NOT DETECTED; C. PNEUMONIAE- RESP PCR PANEL NOT DETECTED; CORONAVIRUS 229E-RESP PCR NOT DETECTED; CORONAVIRUS HKU1-RESP PCR NOT DETECTED; CORONAVIRUS NL63-RESP PCR NOT DETECTED; CORONAVIRUS OC43-RESP PCR NOT DETECTED; HUMAN METAPNEUMOVIRUS NOT DETECTED; INFLUENZA A- RESP PCR PANEL NOT DETECTED; INFLUENZA B - RESP PCR PANEL NOT DETECTED; M. PNEUMONIAE- RESP PCR PANEL NOT DETECTED; PARAINFLUENZA VIRUS 1 NOT DETECTED; PARAINFLUENZA VIRUS 2 NOT DETECTED; PARAINFLUENZA VIRUS 3 NOT DETECTED; PARAINFLUENZA VIRUS 4 NOT DETECTED; RHINOVIRUS/ENTEROVIRUS NOT DETECTED; RSV- RESP PCR PANEL NOT DETECTED; SARS-CoV-2 -RESP PCR PANEL NOT DETECTED
[2021-12-31] MEDS ORDERED: SODIUM CHLORIDE 0.9% 1,000 ML IV STA (16:08)
[2021-12-31 17:26] VITALS: BP 153/92
[2021-12-31] MEDS ORDERED: PIPERONYL BUTOXIDE/PYRETHRINS 59 ML BOTTLE TOP ONE (18:00)
[2021-12-31] MEDS ORDERED: PERMETHRIN 5% CREAM 60 GM TUBE TOP ONE (18:00)
[2021-12-31] MEDS ORDERED: PIPERONYL BUTOXIDE TOP ONE (18:00)
[2021-12-31] MEDS ORDERED: PYRETHRINS TOP ONE (18:00)
== END 2021-12-31 23:00 ==
LOC: EDUNIT# → ED 14:21
DX: F28 Other psychotic disorder not due to a substance or known physiological condition (principal); B85.4 Mixed pediculosis and phthiriasis; B86 Scabies; B80 Enterobiasis; F17.200 Nicotine dependence, unspecified, uncomplicated; Z78.1 Physical restraint status; Z20.822 Contact with and (suspected) exposure to COVID-19
CPT/HCPCS: 0202U; 36415; 80053; 80306; 80307; 80320; 80329; 81003; 83690; 84443; 85025; 93005; 96372; 99281; 99285; A9180; A9270; 81001; 87086

== ENCOUNTER 2022-01-08 23:26 | Emergency (ER) | payer MEDICAID ==
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
[2022-01-09 00:52] VITALS: BP 131/85
== END 2022-01-09 00:51 | disposition home or self-care (01) ==
LOC: ED 23:26
DX: B85.0 Pediculosis due to Pediculus humanus capitis (principal); F17.200 Nicotine dependence, unspecified, uncomplicated
CPT/HCPCS: 99281; 99282

== ENCOUNTER 2022-01-09 14:44 | Outpatient (CLI) | payer MEDICAID | END 2022-01-09 14:45 | disposition critical access hospital (66) | LOC: EMS 14:44 | DX: R44.1 Visual hallucinations (principal) | CPT/HCPCS: A0425; A0429; A0999 ==

== ENCOUNTER 2022-01-09 15:01 | Emergency (ER) | payer MEDICAID ==
[2022-01-09 15:18] LABS: BASOPHILS # (AUTO) 0.1 10^3/uL (0.0-0.1); BASOPHILS % (AUTO) 0.6 %; EOSINOPHILS # (AUTO) 0.4 10^3/uL (0.0-0.7); EOSINOPHILS % (AUTO) 4.1 %; HCT - HEMATOCRIT 41.4 % (42.0-52.0); HGB - HEMOGLOBIN 13.8 g/dL (14.0-18.0); LYMPHOCYTES # (AUTO) 2.4 10^3/uL (1.5-3.5); LYMPHOCYTES % (AUTO) 26.9 %; MEAN CORPUSCULAR HEMOGLOBIN 28.7 pg (27.0-31.0); MEAN CORPUSCULAR HGB CONC 33.3 g/dL (32.0-36.0); MEAN CORPUSCULAR VOLUME 86.1 fL (80.0-94.0); MEAN PLATELET VOLUME 11.7 fL (7.4-11.4); MONOCYTES # (AUTO) 0.8 10^3/uL (0.0-1.0); MONOCYTES % (AUTO) 9.4 %; NEUTROPHILS # (AUTO) 5.3 10^3/uL (1.5-6.6); NEUTROPHILS % (AUTO) 58.8 %; PLT - PLATELET COUNT 218 10^3/uL (130-450); RED BLOOD COUNT 4.81 10^6/uL (4.70-6.10); RED CELL DISTRIBUTION WIDTH 13.2 % (12.0-15.0)
--- NOTE | 2022-01-09 15:23 | ED Physician Documentation ---
PD HPI MHE - Stated complaint Stated Complaint: MHE - Chief complaint Chief Complaint: MHE - History obtained from History obtained from: Patient, EMS - History of Present Illness Pain level max: 0 Pain level now: 0 - Additional information Additional information: 36-year-old male, longstanding history of mental illness presents to the emergency department stating he is having increasing delusions. He believes that there is somebody named Jake Davalos who is traveling through [place] to throw parasites on him. He also states that this person is engaging in self gratification and throwing semen at the patient. He states that this is often done through [place] as well. Patient is requesting voluntary placement for psychiatric issues. Patient states he has been taking his medications as prescribed. Nothing makes it better or worse Review of Systems Ten Systems: 10 systems reviewed and negative Constitutional: denies: Fever, Chills GI: denies: Nausea, Vomiting, Diarrhea Skin: denies: Rash Musculoskeletal: denies: Neck pain, Back pain Neurologic: denies: Focal weakness, Numbness, Headache PD PAST MEDICAL HISTORY - Past Medical History Cardiovascular: High cholesterol Respiratory: None Neuro: None Endocrine/Autoimmune: None GI: None : Renal insuffiency HEENT: None Psych: Schizophrenia Musculoskeletal: None Derm: None - Past Surgical History Past Surgical History: No - Present Medications Home Medications: Ambulatory Orders Medication Instructions Recorded Confirmed haloperidoL [Haloperidol] 10 mg PO DAILY 06/03/21 11/08/21 traZODone [Desyrel] 50 mg PO HS #7 tablet 11/04/21 01/09/22 Albendazole 400 mg PO ONCE 1 Days #4 tablet 12/16/21 Cetirizine [ZyrTEC] 10 mg PO BID #15 tablet 12/16/21 Permethrin 5% Cream [Permethrin 1 applic TOP ONCE 1 Days #2 tub 12/16/21 Cream] OLANZapine [Zyprexa] 20 tab PO DAILY 01/09/22 01/09/22 Permethrin 60 gm TP ONCE #60 gm 01/09/22 - Allergies Allergies/Adverse Reactions: Allergies Allergy/AdvReac Type Severity Reaction Status Date / Time ziprasidone HCl * AdvReac Severe Hallucinati Verified 01/09/22 15:04 [From Geodon] ons ziprasidone mesylate * AdvReac Severe Hallucinati Verified 01/09/22 15:04 [From Geodon] ons - Social History Does the pt smoke?: Yes Smoking Status: Current every day smoker Does the pt drink ETOH?: Yes Does the pt have substance abuse?: No - Immunizations Immunizations are current?: No Immunizations: TDAP >10years/unknown, Other immun current - POLST Patient has POLST: No PD ED PE NORMAL - Vitals Vital signs reviewed: Yes - General General: Alert and oriented X 3, No acute distress - Neck Neck: Supple, no meningeal sign - Cardiac Cardiac: RRR - Respiratory Respiratory: No respiratory distress, Clear bilaterally - Abdomen Abdomen: Soft, Non tender, Non distended - Derm Derm: Warm and dry - Extremities Extremities: No edema - Neuro Neuro: Alert and oriented X 3 Results - Vitals Vitals: Vital Signs - 24 hr 01/09/22 01/09/22 15:04 19:23 Temperature 36.5 C 36.9 C Heart Rate 90 93 Respiratory 16 16 Rate Blood Pressure 132/87 H 119/63 O2 Saturation 95 96 Oxygen O2 Source Room air - Labs Labs: Laboratory Tests 01/09/22 01/09/22 01/09/22 15:12 15:12 15:12 WBC 9.0 RBC 4.81 Hgb 13.8 L Hct 41.4 L MCV 86.1 MCH 28.7 MCHC 33.3 RDW 13.2 Plt Count 218 MPV 11.7 H Neut # (Auto) 5.3 Lymph # (Auto) 2.4 [place] # (Auto) 0.8 Eos # (Auto) 0.4 Baso # (Auto) 0.1 Absolute Nucleated RBC 0.00 Nucleated RBC % 0.0 Sodium 137 Potassium 3.6 Chloride 102 Carbon Dioxide 28 Anion Gap 7.0 BUN 15 Creatinine 0.7 Estimated GFR (MDRD) 128 Glucose 94 Calcium 8.7 Total Bilirubin 0.7 AST 21 ALT 26 Alkaline Phosphatase 53 Total Protein 6.4 L Albumin 4.2 Globulin 2.2 Albumin/Globulin Ratio 1.9 Lipase 42 TSH 0.81 Urine Color Urine Clarity Urine pH Ur Specific [place] Urine Protein Urine Glucose (UA) Urine Ketones Urine Occult Blood Urine Nitrite Urine Bilirubin Urine Urobilinogen Ur Leukocyte Esterase Ur Microscopic Review Urine Culture Comments Nasal Adenovirus (PCR) Nasal B. parapertussis DNA (PCR) Nasal Coronavir 229E PCR Nasal Coronavir HKU1 PCR Nasal Coronavir NL63 PCR Nasal Coronavir OC43 PCR Nasal Enterovir/Rhinovir PCR Nasal Influenza B PCR Nasal Influenza A PCR Nasal Parainfluen 1 PCR Nasal Parainfluen 2 PCR Nasal Parainfluen 3 PCR Nasal Parainfluen 4 PCR Nasal RSV (PCR) Nasal B.pertussis DNA PCR Nasal C.pneumoniae (PCR) Gabe Human Metapneumo PCR Nasal M.pneumoniae (PCR) Nasal SARS-CoV-2 (PCR) Salicylates < 6.0 Urine Opiates Screen Ur Oxycodone Screen Urine Methadone Screen Ur Propoxyphene Screen Acetaminophen < 10 L Ur Barbiturates Screen Ur Tricyclics Screen Ur Phencyclidine Scrn Ur Amphetamine Screen U Methamphetamines Scrn U Benzodiazepines Scrn Urine Cocaine Screen U Cannabinoids Screen Ethyl Alcohol < 5.0 01/09/22 01/09/22 15:31 16:45 WBC RBC Hgb Hct MCV MCH MCHC RDW Plt Count MPV Neut # (Auto) Lymph # (Auto) [place] # (Auto) Eos # (Auto) Baso # (Auto) Absolute Nucleated RBC Nucleated RBC % Sodium Potassium Chloride Carbon Dioxide Anion Gap BUN Creatinine Estimated GFR (MDRD) Glucose Calcium Total Bilirubin AST ALT Alkaline Phosphatase Total Protein Albumin Globulin Albumin/Globulin Ratio Lipase TSH Urine Color YELLOW Urine Clarity CLEAR Urine pH 7.0 Ur Specific [place] 1.020 Urine Protein NEGATIVE Urine Glucose (UA) NEGATIVE Urine Ketones NEGATIVE Urine Occult Blood NEGATIVE Urine Nitrite NEGATIVE Urine Bilirubin NEGATIVE Urine Urobilinogen 0.2 (NORMAL) Ur Leukocyte Esterase NEGATIVE Ur Microscopic Review NOT INDICATED Urine Culture Comments NOT INDICATED Nasal Adenovirus (PCR) NOT DETECTED Nasal B. parapertussis DNA (PCR) NOT DETECTED Nasal Coronavir 229E PCR NOT DETECTED Nasal Coronavir HKU1 PCR NOT DETECTED Nasal Coronavir NL63 PCR NOT DETECTED Nasal Coronavir OC43 PCR NOT DETECTED Nasal Enterovir/Rhinovir PCR NOT DETECTED Nasal Influenza B PCR NOT DETECTED Nasal Influenza A PCR NOT DETECTED Nasal Parainfluen 1 PCR NOT DETECTED Nasal Parainfluen 2 PCR NOT DETECTED Nasal Parainfluen 3 PCR NOT DETECTED Nasal Parainfluen 4 PCR NOT DETECTED Nasal RSV (PCR) NOT DETECTED Nasal B.pertussis DNA PCR NOT DETECTED Nasal C.pneumoniae (PCR) NOT DETECTED Gabe Human Metapneumo PCR NOT DETECTED Nasal M.pneumoniae (PCR) NOT DETECTED Nasal SARS-CoV-2 (PCR) NOT DETECTED Salicylates Urine Opiates Screen NEGATIVE Ur Oxycodone Screen NEGATIVE Urine Methadone Screen NEGATIVE Ur Propoxyphene Screen NEGATIVE Acetaminophen Ur Barbiturates Screen NEGATIVE Ur Tricyclics Screen NEGATIVE Ur Phencyclidine Scrn NEGATIVE Ur Amphetamine Screen NEGATIVE U Methamphetamines Scrn NEGATIVE U Benzodiazepines Scrn NEGATIVE Urine Cocaine Screen NEGATIVE U Cannabinoids Screen NEGATIVE Ethyl Alcohol PD MEDICAL DECISION MAKING - ED course Complexity details: reviewed old records, reviewed results, re-evaluated patient, considered differential, d/w patient, d/w client experience consultant ED course: Patient is medically clear for psychiatric care. Appears to be suffering from delusions and paranoia. He is voluntary. Social work was consulted and evaluated the patient. We will seek placement. Patient signed out to the [facility] emergency department physician awaiting placement. This document was made in part using voice recognition software. While efforts are made to proofread this document, sound alike and grammatical errors may occur. Departure - Departure Clinical Impression: Psychosis Qualifiers: Psychosis type: unspecified psychosis type Qualified Code(s): F29 - Unspecified psychosis not due to a substance or known physiological condition Schizophrenia Qualifiers: Schizophrenia type: unspecified Qualified Code(s): F20.9 - Schizophrenia, unspecified Condition: Stable
[2022-01-09 15:40] LABS: ACETAMINOPHEN < 10 ug/mL (10-30); ALBUMIN 4.2 g/dL (3.2-5.5); ALBUMIN/GLOBULIN RATIO 1.9 (1.0-2.2); ALKALINE PHOSPHATASE 53 IU/L (42-121); ALT ALANINE AMINOTRANSFERASE 26 IU/L (10-60); AST ASPARTATE AMINOTRANSFERASE 21 IU/L (10-42); BILIRUBIN,TOTAL 0.7 mg/dL (0.2-1.0); BUN - BLOOD UREA NITROGEN 15 mg/dL (6-20); CALCIUM 8.7 mg/dL (8.5-10.3); CARBON DIOXIDE - CO2 28 mmol/L (21-32); CHLORIDE 102 mmol/L (101-111); CREATININE 0.7 mg/dL (0.6-1.2); ETOH - ETHANOL < 5.0 mg/dL; GFR - MDRD 128 (>89); GLUCOSE 94 mg/dL (70-100); LIPASE 42 U/L (22-51); POTASSIUM 3.6 mmol/L (3.5-5.0); SALICYLATE < 6.0 mg/dL; SODIUM 137 mmol/L (135-145); TOTAL PROTEIN 6.4 g/dL (6.7-8.2)
[2022-01-09 17:05] LABS: B. PARAPERTUSSIS- RESP PCR PAN NOT DETECTED; B. PERTUSSIS- RESP PCR PANEL NOT DETECTED; C. PNEUMONIAE- RESP PCR PANEL NOT DETECTED; CORONAVIRUS 229E-RESP PCR NOT DETECTED; CORONAVIRUS HKU1-RESP PCR NOT DETECTED; CORONAVIRUS NL63-RESP PCR NOT DETECTED; CORONAVIRUS OC43-RESP PCR NOT DETECTED; HUMAN METAPNEUMOVIRUS NOT DETECTED; INFLUENZA A- RESP PCR PANEL NOT DETECTED; INFLUENZA B - RESP PCR PANEL NOT DETECTED; M. PNEUMONIAE- RESP PCR PANEL NOT DETECTED; PARAINFLUENZA VIRUS 1 NOT DETECTED; PARAINFLUENZA VIRUS 2 NOT DETECTED; PARAINFLUENZA VIRUS 3 NOT DETECTED; PARAINFLUENZA VIRUS 4 NOT DETECTED; RHINOVIRUS/ENTEROVIRUS NOT DETECTED; RSV- RESP PCR PANEL NOT DETECTED; SARS-CoV-2 -RESP PCR PANEL NOT DETECTED
[2022-01-09 17:07] LABS: MUDS CUTOFF CONCENTRATIONS CUTOFF CONC BELOW:
[2022-01-09 17:13] LABS: BILIRUBIN,URINE NEGATIVE (NEGATIVE); GLUCOSE, URINE (UA) NEGATIVE (NEGATIVE); KETONES,URINE (UA) NEGATIVE (NEGATIVE); LEUKOCYTE ESTERASE, URINE NEGATIVE (NEGATIVE); NITRITE,URINE NEGATIVE (NEGATIVE); OCCULT BLOOD,URINE NEGATIVE (NEGATIVE); PROTEIN,URINE NEGATIVE (NEGATIVE); UROBILINOGEN,URINE 0.2 (NORMAL) E.U./dL (NORMAL)
[2022-01-09 17:16] LABS: CLARITY,URINE CLEAR (CLEAR)
[2022-01-09 17:24] LABS: AMPHETAMINE SCREEN,URINE NEGATIVE (NEGATIVE); BARBITURATE SCREEN,UR NEGATIVE (NEGATIVE); BENZODIAZEPINES SCREEN, URINE NEGATIVE (NEGATIVE); COCAINE SCREEN URINE NEGATIVE (NEGATIVE); METHADONE SCREEN, URINE NEGATIVE (NEGATIVE); METHAMPHETAMINES SCREEN, URINE NEGATIVE (NEGATIVE); OPIATE SCREEN, URINE NEGATIVE (NEGATIVE); OXYCODONE SCREEN, URINE NEGATIVE (NEGATIVE); PROPOXYPHENE SCREEN, URINE NEGATIVE (NEGATIVE); THC CANNABINOID SCREEN, URINE NEGATIVE (NEGATIVE); TRICYCLIC ANTIDEPRESSANT,URINE NEGATIVE (NEGATIVE)
[2022-01-10 06:36] VITALS: BP 100/61
[2022-01-10] MEDS ORDERED: OLANZapine ODT 5 MG TABLET TL ONE (10:20)
--- NOTE | 2022-02-17 22:50 | ED Physician Documentation ---
ED Addendum - Addendum Addendum: 02/17/22 22:49 Care of patient turned over to me from Dr. Bianchi pending disposition, plan is to continue to look for available appropriate bed in the morning after failing to do so earlier today (by SW consult). No issues overnight. Care of patient turned over to oncoming ED MD on morning of 01/10
--- NOTE | 2022-02-22 09:33 | ED Physician Documentation ---
ED Addendum - Addendum Addendum: 02/22/22 09:31 36-year-old male with history of schizophrenia and substance abuse was endorsed to me by Dr. Arora a shift change pending social work consult and social work was able to provide resources for the patient and he was discharged to follow up at [facility] for treatment. Impression: Schizophrenia, stress reaction, psychosis Plan: discharge to follow up at [facility] for treatment. 02/22/22 09:33
== END 2022-01-10 11:01 | disposition home or self-care (01) ==
LOC: EDUNIT# → ED 15:01
DX: F29 Unspecified psychosis not due to a substance or known physiological condition (principal); F20.9 Schizophrenia, unspecified; F43.9 Reaction to severe stress, unspecified; F17.200 Nicotine dependence, unspecified, uncomplicated; Z20.822 Contact with and (suspected) exposure to COVID-19
CPT/HCPCS: 0202U; 36415; 80053; 80306; 80307; 80320; 80329; 81003; 83690; 84443; 85025; 99283; A9270; 81001; 87086

== ENCOUNTER 2022-01-12 21:35 | Outpatient (CLI) | payer MEDICAID | END 2022-01-12 21:36 | disposition critical access hospital (66) | LOC: EMS 21:35 | DX: R45.89 Other symptoms and signs involving emotional state (principal) | CPT/HCPCS: A0425; A0429 ==

== ENCOUNTER 2022-01-12 21:47 | Emergency (ER) | payer MEDICAID ==
--- NOTE | 2022-01-12 21:54 | ED Physician Documentation ---
PD HPI MHE - Stated complaint Stated Complaint: "BAD DAY" - Chief complaint Chief Complaint: MHE - History obtained from History obtained from: Patient - History of Present Illness Primary symptom: Other Recently seen: Emergency Dept - Additional information Additional information: MIKE. patient is not actively participating in HPI/ROS, repeatedly falls asleep and despite attempts to wake him and keep him awake, he provides few answers and seems mostly interested in going back to sleep. He says "I thought I could get checked out here and then go to a psychiatric [place]". He does not provide reason why he feels he need to be treated inpatient for mental health issues(s). As with his most recent visit, he endorses vague paranoid delusion , tells me "I'm having trouble with a certain person whose been following me". He has had several visits to this ED this month, and terrell is his 40th [facility] ED visit over past 12 months. He was last in this ED 2 days ago (01/10) and was to go to [facility] where a bed had been arranged for him. I ask patient about this and he says he was at [facility] and he says that the staff at [facility] and patient reached a mutual decision that "it was time for me to leave" (per patient). Review of Systems Unable to obtain: Other (repeatedly falls asleep, limiting ROS to few questions) Cardiac: denies: Chest pain / pressure Respiratory: denies: Dyspnea, Cough GI: denies: Abdominal Pain PD PAST MEDICAL HISTORY - Past Medical History Past Medical History: Yes Cardiovascular: High cholesterol Respiratory: None Neuro: None Endocrine/Autoimmune: None GI: None : Renal insuffiency HEENT: None Psych: Schizophrenia Musculoskeletal: None Derm: None - Past Surgical History Past Surgical History: No - Present Medications Home Medications: Ambulatory Orders Medication Instructions Recorded Confirmed haloperidoL [Haloperidol] 10 mg PO DAILY 06/03/21 11/08/21 traZODone [Desyrel] 50 mg PO HS #7 tablet 11/04/21 01/09/22 Albendazole 400 mg PO ONCE 1 Days #4 tablet 12/16/21 Cetirizine [ZyrTEC] 10 mg PO BID #15 tablet 12/16/21 Permethrin 5% Cream [Permethrin 1 applic TOP ONCE 1 Days #2 tub 12/16/21 Cream] OLANZapine [Zyprexa] 20 tab PO DAILY 01/09/22 01/09/22 Permethrin 60 gm TP ONCE #60 gm 01/09/22 - Allergies Allergies/Adverse Reactions: Allergies Allergy/AdvReac Type Severity Reaction Status Date / Time ziprasidone HCl * AdvReac Severe Hallucinati Verified 01/12/22 21:54 [From Geodon] ons ziprasidone mesylate * AdvReac Severe Hallucinati Verified 01/12/22 21:54 [From [facility]] ons - Social History Does the pt smoke?: Yes Smoking Status: Current every day smoker Does the pt drink ETOH?: Yes Does the pt have substance abuse?: No - Immunizations Immunizations are current?: No Immunizations: TDAP >10years/unknown, Other immun current - POLST Patient has POLST: No PD ED PE NORMAL - Vitals Vital signs reviewed: Yes - General General: No acute distress, Well developed/nourished, Other (drowsy, repeatedly falls asleep. no eye contact. ) - HEENT HEENT: PERRL, EOMI, Other (some nits seen on hair shafts. i do not see any lice at this time) - Neck Neck: Supple, no meningeal sign - Cardiac Cardiac: RRR, No murmur - Respiratory Respiratory: No respiratory distress, Clear bilaterally Results - Vitals Vitals: Vital Signs - 24 hr 01/12/22 01/12/22 01/13/22 21:51 22:21 06:00 Temperature 36.3 C L Heart Rate 89 62 Respiratory 18 12 Rate Blood Pressure 94/56 L 102/69 96/67 O2 Saturation 96 100 Oxygen O2 Source Room air - Labs Labs: Laboratory Tests 01/13/22 01/13/22 01/13/22 05:39 05:39 05:39 WBC 7.7 RBC 5.17 Hgb 14.9 Hct 45.0 MCV 87.0 MCH 28.8 MCHC 33.1 RDW 13.7 Plt Count 282 MPV 12.2 H Neut # (Auto) 4.0 Lymph # (Auto) 2.7 [place] # (Auto) 0.8 Eos # (Auto) 0.2 Baso # (Auto) 0.1 Absolute Nucleated RBC 0.00 Nucleated RBC % 0.0 Sodium 136 Potassium 3.6 Chloride 100 L Carbon Dioxide 25 Anion Gap 11.0 BUN 21 H Creatinine 0.8 Estimated GFR (MDRD) 110 Glucose 87 Calcium 8.9 Total Bilirubin 0.4 AST 17 ALT 24 Alkaline Phosphatase 55 Total Protein 6.4 L Albumin 4.2 Globulin 2.2 Albumin/Globulin Ratio 1.9 Lipase 30 TSH Urine Color Urine Clarity Urine pH Ur Specific [place] Urine Protein Urine Glucose (UA) Urine Ketones Urine Occult Blood Urine Nitrite Urine Bilirubin Urine Urobilinogen Ur Leukocyte Esterase Ur Microscopic Review Urine Culture Comments Nasal Adenovirus (PCR) Nasal B. parapertussis DNA (PCR) Nasal Coronavir 229E PCR Nasal Coronavir HKU1 PCR Nasal Coronavir NL63 PCR Nasal Coronavir OC43 PCR Nasal Enterovir/Rhinovir PCR Nasal Influenza B PCR Nasal Influenza A PCR Nasal Parainfluen 1 PCR Nasal Parainfluen 2 PCR Nasal Parainfluen 3 PCR Nasal Parainfluen 4 PCR Nasal RSV (PCR) Nasal B.pertussis DNA PCR Nasal C.pneumoniae (PCR) Gabe Human Metapneumo PCR Nasal M.pneumoniae (PCR) Nasal SARS-CoV-2 (PCR) Salicylates < 6.0 Urine Opiates Screen Ur Oxycodone Screen Urine Methadone Screen Ur Propoxyphene Screen Acetaminophen < 10 L Ur Barbiturates Screen Ur Tricyclics Screen Ur Phencyclidine Scrn Ur Amphetamine Screen U Methamphetamines Scrn U Benzodiazepines Scrn Urine Cocaine Screen U Cannabinoids Screen Ethyl Alcohol < 5.0 01/13/22 01/13/22 01/13/22 05:39 10:06 12:40 WBC RBC Hgb Hct MCV MCH MCHC RDW Plt Count MPV Neut # (Auto) Lymph # (Auto) [place] # (Auto) Eos # (Auto) Baso # (Auto) Absolute Nucleated RBC Nucleated RBC % Sodium Potassium Chloride Carbon Dioxide Anion Gap BUN Creatinine Estimated GFR (MDRD) Glucose Calcium Total Bilirubin AST ALT Alkaline Phosphatase Total Protein Albumin Globulin Albumin/Globulin Ratio Lipase TSH 0.68 Urine Color DARK YELLOW Urine Clarity CLEAR Urine pH 6.0 Ur Specific [place] 1.025 Urine Protein TRACE Urine Glucose (UA) NEGATIVE Urine Ketones NEGATIVE Urine Occult Blood NEGATIVE Urine Nitrite NEGATIVE Urine Bilirubin NEGATIVE Urine Urobilinogen 0.2 (NORMAL) Ur Leukocyte Esterase NEGATIVE Ur Microscopic Review NOT INDICATED Urine Culture Comments NOT INDICATED Nasal Adenovirus (PCR) NOT DETECTED Nasal B. parapertussis DNA (PCR) NOT DETECTED Nasal Coronavir 229E PCR NOT DETECTED Nasal Coronavir HKU1 PCR NOT DETECTED Nasal Coronavir NL63 PCR NOT DETECTED Nasal Coronavir OC43 PCR NOT DETECTED Nasal Enterovir/Rhinovir PCR NOT DETECTED Nasal Influenza B PCR NOT DETECTED Nasal Influenza A PCR NOT DETECTED Nasal Parainfluen 1 PCR NOT DETECTED Nasal Parainfluen 2 PCR NOT DETECTED Nasal Parainfluen 3 PCR NOT DETECTED Nasal Parainfluen 4 PCR NOT DETECTED Nasal RSV (PCR) NOT DETECTED Nasal B.pertussis DNA PCR NOT DETECTED Nasal C.pneumoniae (PCR) NOT DETECTED Gabe Human Metapneumo PCR NOT DETECTED Nasal M.pneumoniae (PCR) NOT DETECTED Nasal SARS-CoV-2 (PCR) NOT DETECTED Salicylates Urine Opiates Screen Ur Oxycodone Screen Urine Methadone Screen Ur Propoxyphene Screen Acetaminophen Ur Barbiturates Screen Ur Tricyclics Screen Ur Phencyclidine Scrn Ur Amphetamine Screen U Methamphetamines Scrn U Benzodiazepines Scrn Urine Cocaine Screen U Cannabinoids Screen Ethyl Alcohol 01/13/22 12:40 WBC RBC Hgb Hct MCV MCH MCHC RDW Plt Count MPV Neut # (Auto) Lymph # (Auto) [place] # (Auto) Eos # (Auto) Baso # (Auto) Absolute Nucleated RBC Nucleated RBC % Sodium Potassium Chloride Carbon Dioxide Anion Gap BUN Creatinine Estimated GFR (MDRD) Glucose Calcium Total Bilirubin AST ALT Alkaline Phosphatase Total Protein Albumin Globulin Albumin/Globulin Ratio Lipase TSH Urine Color Urine Clarity Urine pH Ur Specific [place] Urine Protein Urine Glucose (UA) Urine Ketones Urine Occult Blood Urine Nitrite Urine Bilirubin Urine Urobilinogen Ur Leukocyte Esterase Ur Microscopic Review Urine Culture Comments Nasal Adenovirus (PCR) Nasal B. parapertussis DNA (PCR) Nasal Coronavir 229E PCR Nasal Coronavir HKU1 PCR Nasal Coronavir NL63 PCR Nasal Coronavir OC43 PCR Nasal Enterovir/Rhinovir PCR Nasal Influenza B PCR Nasal Influenza A PCR Nasal Parainfluen 1 PCR Nasal Parainfluen 2 PCR Nasal Parainfluen 3 PCR Nasal Parainfluen 4 PCR Nasal RSV (PCR) Nasal B.pertussis DNA PCR Nasal C.pneumoniae (PCR) Gabe Human Metapneumo PCR Nasal M.pneumoniae (PCR) Nasal SARS-CoV-2 (PCR) Salicylates Urine Opiates Screen NEGATIVE Ur Oxycodone Screen NEGATIVE Urine Methadone Screen NEGATIVE Ur Propoxyphene Screen NEGATIVE Acetaminophen Ur Barbiturates Screen NEGATIVE Ur Tricyclics Screen NEGATIVE Ur Phencyclidine Scrn NEGATIVE Ur Amphetamine Screen NEGATIVE U Methamphetamines Scrn NEGATIVE U Benzodiazepines Scrn NEGATIVE Urine Cocaine Screen NEGATIVE U Cannabinoids Screen NEGATIVE Ethyl Alcohol PD MEDICAL DECISION MAKING - ED course Complexity details: reviewed old records, considered differential, d/w patient ED course: Patient slept in ED overnight pending SW consult in AM, care of patient turned over to oncoming ED physician at end of my shift
[2022-01-13 05:56] LABS: ACETAMINOPHEN < 10 ug/mL (10-30); ETOH - ETHANOL < 5.0 mg/dL; SALICYLATE < 6.0 mg/dL
[2022-01-13 06:02] VITALS: BP 96/67
[2022-01-13 10:02] LABS: BASOPHILS # (AUTO) 0.1 10^3/uL (0.0-0.1); BASOPHILS % (AUTO) 0.8 %; EOSINOPHILS # (AUTO) 0.2 10^3/uL (0.0-0.7); EOSINOPHILS % (AUTO) 2.6 %; HGB - HEMOGLOBIN 14.9 g/dL (14.0-18.0); LYMPHOCYTES # (AUTO) 2.7 10^3/uL (1.5-3.5); LYMPHOCYTES % (AUTO) 35.5 %; MEAN CORPUSCULAR HEMOGLOBIN 28.8 pg (27.0-31.0); MEAN CORPUSCULAR HGB CONC 33.1 g/dL (32.0-36.0); MEAN PLATELET VOLUME 12.2 fL (7.4-11.4); MONOCYTES # (AUTO) 0.8 10^3/uL (0.0-1.0); MONOCYTES % (AUTO) 9.8 %; NEUTROPHILS % (AUTO) 51.2 %; PLT - PLATELET COUNT 282 10^3/uL (130-450); RED BLOOD COUNT 5.17 10^6/uL (4.70-6.10); RED CELL DISTRIBUTION WIDTH 13.7 % (12.0-15.0); WHITE BLOOD COUNT 7.7 x10^3/uL (4.8-10.8)
[2022-01-13 10:48] LABS: ALBUMIN 4.2 g/dL (3.2-5.5); ALBUMIN/GLOBULIN RATIO 1.9 (1.0-2.2); BILIRUBIN,TOTAL 0.4 mg/dL (0.2-1.0); CALCIUM 8.9 mg/dL (8.5-10.3); CREATININE 0.8 mg/dL (0.6-1.2); POTASSIUM 3.6 mmol/L (3.5-5.0); TOTAL PROTEIN 6.4 g/dL (6.7-8.2)
[2022-01-13 11:22] LABS: B. PARAPERTUSSIS- RESP PCR PAN NOT DETECTED; B. PERTUSSIS- RESP PCR PANEL NOT DETECTED; C. PNEUMONIAE- RESP PCR PANEL NOT DETECTED; CORONAVIRUS 229E-RESP PCR NOT DETECTED; CORONAVIRUS HKU1-RESP PCR NOT DETECTED; CORONAVIRUS NL63-RESP PCR NOT DETECTED; CORONAVIRUS OC43-RESP PCR NOT DETECTED; HUMAN METAPNEUMOVIRUS NOT DETECTED; INFLUENZA A- RESP PCR PANEL NOT DETECTED; INFLUENZA B - RESP PCR PANEL NOT DETECTED; M. PNEUMONIAE- RESP PCR PANEL NOT DETECTED; PARAINFLUENZA VIRUS 1 NOT DETECTED; PARAINFLUENZA VIRUS 2 NOT DETECTED; PARAINFLUENZA VIRUS 3 NOT DETECTED; PARAINFLUENZA VIRUS 4 NOT DETECTED; RHINOVIRUS/ENTEROVIRUS NOT DETECTED; RSV- RESP PCR PANEL NOT DETECTED; SARS-CoV-2 -RESP PCR PANEL NOT DETECTED
[2022-01-13 12:45] LABS: MUDS CUTOFF CONCENTRATIONS CUTOFF CONC BELOW:
[2022-01-13 12:49] LABS: BILIRUBIN,URINE NEGATIVE (NEGATIVE); GLUCOSE, URINE (UA) NEGATIVE (NEGATIVE); KETONES,URINE (UA) NEGATIVE (NEGATIVE); LEUKOCYTE ESTERASE, URINE NEGATIVE (NEGATIVE); NITRITE,URINE NEGATIVE (NEGATIVE); OCCULT BLOOD,URINE NEGATIVE (NEGATIVE); PROTEIN,URINE TRACE mg/dL (NEGATIVE); UROBILINOGEN,URINE 0.2 (NORMAL) E.U./dL (NORMAL)
[2022-01-13 12:52] LABS: CLARITY,URINE CLEAR (CLEAR)
[2022-01-13 13:00] LABS: AMPHETAMINE SCREEN,URINE NEGATIVE (NEGATIVE); BARBITURATE SCREEN,UR NEGATIVE (NEGATIVE); BENZODIAZEPINES SCREEN, URINE NEGATIVE (NEGATIVE); COCAINE SCREEN URINE NEGATIVE (NEGATIVE); METHADONE SCREEN, URINE NEGATIVE (NEGATIVE); METHAMPHETAMINES SCREEN, URINE NEGATIVE (NEGATIVE); OPIATE SCREEN, URINE NEGATIVE (NEGATIVE); OXYCODONE SCREEN, URINE NEGATIVE (NEGATIVE); PROPOXYPHENE SCREEN, URINE NEGATIVE (NEGATIVE); THC CANNABINOID SCREEN, URINE NEGATIVE (NEGATIVE); TRICYCLIC ANTIDEPRESSANT,URINE NEGATIVE (NEGATIVE)
--- NOTE | 2022-01-13 14:01 | ED Physician Documentation ---
ED Addendum - Addendum Addendum: 01/13/22 14:00 The patient was minimally interactive and reticent to talk but still pleasant and answering questions. Social work talked with him and they are looking at placement because of decompensation of his psychiatric behavior. Examination of his hair showed no apparent ongoing lice. I only saw 1 white spot that might be admit. This was considerably improved from the last time it seen him when he had had multiple nits. Skin check showed some eczematous type irritation in the lower abdomen localized which appears to be just an irritation. No obvious diffuse rash to suggest persistent scabies.
== END 2022-01-13 19:00 | disposition home or self-care (01) ==
LOC: EDUNIT# → ED 21:47
DX: F20.9 Schizophrenia, unspecified (principal); L30.9 Dermatitis, unspecified; F17.200 Nicotine dependence, unspecified, uncomplicated; Z20.822 Contact with and (suspected) exposure to COVID-19
CPT/HCPCS: 0202U; 36415; 80053; 80306; 80307; 80320; 80329; 81003; 83690; 84443; 85025; 99283; 81001; 87086

== ENCOUNTER 2022-01-13 22:37 | Emergency (ER) | payer MEDICAID ==
[2022-01-13 22:54] VITALS: BP 136/83
--- NOTE | 2022-01-13 23:16 | ED Physician Documentation ---
PD HPI MHE - Stated complaint Stated Complaint: MHE - Chief complaint Chief Complaint: MHE - History obtained from History obtained from: Patient - History of Present Illness Primary symptom: Psychosis Timing - onset: Unknown Recently seen: Emergency Dept - Additional information Additional information: patient returns, checks self back in to ED after having eloped just a few hours earlier. He has long history of [facility] ED visits over many years, almost always for MHE-related issues. His ED visits are escalating in frequency this month. During the day today, SW was actively working on finding appropriate inpatient facility for patient but he eloped before the process was completed. When I ask patient what he is here for, he says "I want help", and he specifies that he wants to be inpatient for mental health reasons. When I ask why he left the ED, he says "because the government wants my body. They want to use my body". He is similar in affect to when I evaluated him last night, which is that his affect is flat and he only answers some questions. He seems to be responding to internal stimuli tonight, which I did not notice last night. Review of Systems Unable to obtain: Other (unable to obtain reliable ROS; does not answer some of my questions, and some answers he does provide are inappropriate/bizarre) PD PAST MEDICAL HISTORY - Past Medical History Cardiovascular: High cholesterol Respiratory: None Neuro: None Endocrine/Autoimmune: None GI: None : Renal insuffiency HEENT: None Psych: Schizophrenia Musculoskeletal: None Derm: None - Past Surgical History Past Surgical History: No - Present Medications Home Medications: Ambulatory Orders Medication Instructions Recorded Confirmed haloperidoL [Haloperidol] 10 mg PO DAILY 06/03/21 11/08/21 traZODone [Desyrel] 50 mg PO HS #7 tablet 11/04/21 01/09/22 Albendazole 400 mg PO ONCE 1 Days #4 tablet 12/16/21 Cetirizine [ZyrTEC] 10 mg PO BID #15 tablet 12/16/21 Permethrin 5% Cream [Permethrin 1 applic TOP ONCE 1 Days #2 tub 12/16/21 Cream] OLANZapine [Zyprexa] 20 tab PO DAILY 01/09/22 01/09/22 Permethrin 60 gm TP ONCE #60 gm 01/09/22 - Allergies Allergies/Adverse Reactions: Allergies Allergy/AdvReac Type Severity Reaction Status Date / Time ziprasidone HCl * AdvReac Severe Hallucinati Verified 01/13/22 22:54 [From [facility]] ons ziprasidone mesylate * AdvReac Severe Hallucinati Verified 01/13/22 22:54 [From [facility]] ons - Social History Does the pt smoke?: Yes Smoking Status: Current every day smoker Does the pt drink ETOH?: Yes Does the pt have substance abuse?: No - Immunizations Immunizations are current?: No Immunizations: TDAP >10years/unknown, Other immun current - POLST Patient has POLST: No PD ED PE NORMAL - Vitals Vital signs reviewed: Yes - General General: No acute distress, Well developed/nourished, Other (awake, alert; cannot assess orientation as he won't answer place/time orientation questions) - HEENT HEENT: Atraumatic, PERRL, EOMI - Cardiac Cardiac: RRR, No murmur - Respiratory Respiratory: No respiratory distress, Clear bilaterally - Abdomen Abdomen: Soft, Non tender - Derm Derm: Normal color, Warm and dry Results - Vitals Vitals: Vital Signs - 24 hr 01/13/22 01/13/22 01/14/22 22:50 22:59 03:16 Temperature 36.0 C L Heart Rate 93 Respiratory 17 14 12 Rate Blood Pressure 136/83 H O2 Saturation 99 01/14/22 01/14/22 04:39 06:57 Temperature Heart Rate Respiratory 12 13 Rate Blood Pressure O2 Saturation Oxygen O2 Source Room air PD MEDICAL DECISION MAKING - ED course Complexity details: reviewed old records, re-evaluated patient, considered differential, d/w patient ED course: increasingly frequent [facility] ED visits related to odd behavior. This is his fourth [facility] ED visit in 6 days; he eloped only a few hours prior to this presentation. Care of patient turned over to oncoming ED physician at end of my shift pending reevaluation by SW and consideration of options for placement at appropriate facility.
--- NOTE | 2022-01-14 10:23 | ED Physician Documentation ---
ED Addendum - Addendum Addendum: 01/14/22 10:23 Patient with underlying mental illness was pending social work evaluation and left the emergency department. I did not personally see the patient, but my understanding from Dr. Arora at shift change was that at least at this point he is voluntary and there was no indication for involuntary hold. Diagnosis: 1. Mental illness Disposition: Self discharged in stable condition
== END 2022-01-14 10:03 | disposition home or self-care (01) ==
LOC: ED 22:37
DX: F20.9 Schizophrenia, unspecified (principal); F17.200 Nicotine dependence, unspecified, uncomplicated
CPT/HCPCS: 99281; 99283

== ENCOUNTER 2022-01-15 10:40 | Outpatient (CLI) | payer MEDICAID | END 2022-01-15 10:41 | disposition critical access hospital (66) | LOC: EMS 10:40 | DX: R46.89 Other symptoms and signs involving appearance and behavior (principal); R45.1 Restlessness and agitation | CPT/HCPCS: A0425; A0429; A0999 ==

== ENCOUNTER 2022-01-15 10:55 | Emergency (ER) | payer MEDICAID ==
[2022-01-15] MEDS ORDERED: OLANZapine 10 MG VIAL IM STA (11:04)
[2022-01-15] MEDS ORDERED: traZODone 50 MG TABLET PO STA (11:05)
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
[2022-01-15 11:08] VITALS: BP 137/97
[2022-01-15 11:22] LABS: BASOPHILS # (AUTO) 0.1 10^3/uL (0.0-0.1); BASOPHILS % (AUTO) 0.9 %; EOSINOPHILS # (AUTO) 0.2 10^3/uL (0.0-0.7); EOSINOPHILS % (AUTO) 2.8 %; HCT - HEMATOCRIT 46.3 % (42.0-52.0); HGB - HEMOGLOBIN 15.5 g/dL (14.0-18.0); LYMPHOCYTES # (AUTO) 1.9 10^3/uL (1.5-3.5); LYMPHOCYTES % (AUTO) 33.2 %; MEAN CORPUSCULAR HEMOGLOBIN 29.2 pg (27.0-31.0); MEAN CORPUSCULAR HGB CONC 33.5 g/dL (32.0-36.0); MEAN CORPUSCULAR VOLUME 87.4 fL (80.0-94.0); MONOCYTES # (AUTO) 0.4 10^3/uL (0.0-1.0); MONOCYTES % (AUTO) 7.6 %; NEUTROPHILS # (AUTO) 3.2 10^3/uL (1.5-6.6); NEUTROPHILS % (AUTO) 55.2 %; PLT - PLATELET COUNT 237 10^3/uL (130-450); RED CELL DISTRIBUTION WIDTH 13.5 % (12.0-15.0); WHITE BLOOD COUNT 5.8 x10^3/uL (4.8-10.8)
[2022-01-15] MEDS ORDERED: OLANZapine ODT 5 MG TABLET TL ONE (11:26)
[2022-01-15 11:35] LABS: ACETAMINOPHEN < 10 ug/mL (10-30); ALBUMIN 4.3 g/dL (3.2-5.5); ALBUMIN/GLOBULIN RATIO 1.6 (1.0-2.2); ALKALINE PHOSPHATASE 59 IU/L (42-121); ALT ALANINE AMINOTRANSFERASE 19 IU/L (10-60); AST ASPARTATE AMINOTRANSFERASE 16 IU/L (10-42); BILIRUBIN,TOTAL 0.5 mg/dL (0.2-1.0); BUN - BLOOD UREA NITROGEN 11 mg/dL (6-20); CALCIUM 9.1 mg/dL (8.5-10.3); CARBON DIOXIDE - CO2 28 mmol/L (21-32); CHLORIDE 102 mmol/L (101-111); CREATININE 0.5 mg/dL (0.6-1.2); ETOH - ETHANOL < 5.0 mg/dL; GFR - MDRD 189 (>89); GLUCOSE 111 mg/dL (70-100); LIPASE 72 U/L (22-51); POTASSIUM 4.2 mmol/L (3.5-5.0); SALICYLATE < 6.0 mg/dL; SODIUM 139 mmol/L (135-145)
== END 2022-01-15 13:52 | disposition home or self-care (01) ==
LOC: ED 10:55
DX: F20.9 Schizophrenia, unspecified (principal); F17.200 Nicotine dependence, unspecified, uncomplicated
CPT/HCPCS: 36415; 80053; 80307; 80320; 80329; 83690; 84443; 85025; 93005; 99282; 99283; A9270

== ENCOUNTER 2022-03-18 19:22 | Outpatient (CLI) | payer MEDICAID | END 2022-03-18 19:23 | disposition critical access hospital (66) | LOC: EMS 19:22 | DX: R41.82 Altered mental status, unspecified (principal); R46.89 Other symptoms and signs involving appearance and behavior; R45.1 Restlessness and agitation | CPT/HCPCS: A0425; A0429; A0999 ==

== ENCOUNTER 2022-03-18 19:42 | Emergency (ER) | payer MEDICAID ==
[2022-03-18 19:49] VITALS: BP 120/80
--- OUTSIDE RECORDS SUMMARY | 2022-03-18 20:55 | EXTERNAL MEDICAL SUMMARY RPT | Continuity of Care Document ---
:1985 Author Organization [place] Address [address] [place] [address] Phone Allergies No information. Encounters No information. Medications No information. Problems date description facility [phone] [facility] digital Results No information.
--- NOTE | 2022-03-18 22:30 | ED Physician Documentation ---
PD HPI MHE - Stated complaint Stated Complaint: MHE - Chief complaint Chief Complaint: MHE - History obtained from History obtained from: Patient, EMS - History of Present Illness Recently seen: Not recently seen - Additional information Additional information: Patient is a 36-year-old male who presents to the emergency department via EMS. He states that he is not hearing voices. He is not having any hallucinations. He states he has been off all of his medications for several months. Does not want to be placed back on medications. Is not suicidal or homicidal. He states that he just wanted to be "checked out" today. He does not want to go to a psychiatric facility. He has no specific complaints. Review of Systems Ten Systems: 10 systems reviewed and negative Constitutional: denies: Fever, Chills Nose: denies: Rhinorrhea / runny nose, Congestion Throat: denies: Sore throat Cardiac: denies: Chest pain / pressure, Palpitations Respiratory: denies: Dyspnea, Cough Skin: denies: Rash Musculoskeletal: denies: Neck pain, Back pain Neurologic: denies: Focal weakness, Numbness, Confused, Headache Psychiatric: denies: Depressed, Suicidal, Homicidal, Hallucinations, Delusions, Anxiety, Insomnia PD PAST MEDICAL HISTORY - Past Medical History Cardiovascular: High cholesterol Respiratory: None Neuro: None Endocrine/Autoimmune: None GI: None : Renal insuffiency HEENT: None Psych: Schizophrenia Musculoskeletal: None Derm: None - Past Surgical History Past Surgical History: No - Present Medications Home Medications: Ambulatory Orders Medication Instructions Recorded Confirmed haloperidoL [Haloperidol] 10 mg PO DAILY 06/03/21 11/08/21 traZODone [Desyrel] 50 mg PO HS #7 tablet 11/04/21 01/09/22 Albendazole 400 mg PO ONCE 1 Days #4 tablet 12/16/21 Cetirizine [ZyrTEC] 10 mg PO BID #15 tablet 12/16/21 Permethrin 5% Cream [Permethrin 1 applic TOP ONCE 1 Days #2 tub 12/16/21 Cream] OLANZapine [Zyprexa] 20 tab PO DAILY 01/09/22 01/09/22 Permethrin 60 gm TP ONCE #60 gm 01/09/22 - Allergies Allergies/Adverse Reactions: Allergies Allergy/AdvReac Type Severity Reaction Status Date / Time ziprasidone HCl * AdvReac Severe Hallucinati Verified 04/27/22 19:49 [From Geodon] ons ziprasidone mesylate * AdvReac Severe Hallucinati Verified 03/18/22 19:49 [From [facility] [place]] ons - Social History Does the pt smoke?: Yes Smoking Status: Current every day smoker Does the pt drink ETOH?: Yes Does the pt have substance abuse?: No - Immunizations Immunizations are current?: No Immunizations: TDAP >10years/unknown, Other immun current - POLST Patient has POLST: No PD ED PE NORMAL - Vitals Vital signs reviewed: Yes - General General: Alert and oriented X 3, No acute distress - HEENT HEENT: PERRL, Moist mucous membranes - Neck Neck: Supple, no meningeal sign - Cardiac Cardiac: RRR, Strong equal pulses - Respiratory Respiratory: No respiratory distress, Clear bilaterally - Abdomen Abdomen: Soft, Non tender, Non distended - Derm Derm: Warm and dry - Extremities Extremities: No edema, No calf tenderness / cord - Neuro Neuro: Alert and oriented X 3 - Psych Psych: Normal mood, Normal affect Results - Vitals Vitals: Vital Signs - 24 hr 03/18/22 19:45 Temperature 35.7 C L Heart Rate 96 Respiratory 18 Rate Blood Pressure 120/80 O2 Saturation 98 Oxygen O2 Source Room air PD MEDICAL DECISION MAKING - ED course Complexity details: considered differential, d/w patient ED course: Patient appears to be at his mental baseline. He is not suicidal or homicidal. Does not appear gravely disabled. Is not having hallucinations. Does not want any blood work. Does not want to go to any psychiatric facilities. Does not want to be placed back on medications. Does not have an emergency medical condition at this time. Patient will be discharged home. This document was made in part using voice recognition software. While efforts are made to proofread this document, sound alike and grammatical errors may occur. Departure - Departure Disposition: 01 Home, Self Care Clinical Impression: Schizophrenia Condition: Good Instructions: ED Schizophrenia General Follow-Up: Your,doctor in 1 week [Other] Comments: Please follow-up with your doctor for further care. Return if you worsen. Crisis Line and is available to talk to someone [email or web address] is also available to chat with someone online if you prefer. There are also many resources on this website and apps for your phone to help with your mental health You can also text the word START to [phone] to chat with someome via text.
== END 2022-03-18 23:10 | disposition home or self-care (01) ==
LOC: ED 19:42
DX: F20.9 Schizophrenia, unspecified (principal); F17.200 Nicotine dependence, unspecified, uncomplicated
CPT/HCPCS: 99282; 99283

== ENCOUNTER 2022-09-16 17:45 | Outpatient (CLI) | payer MEDICAID | END 2022-09-16 17:46 | disposition left against medical advice (07) | LOC: EMS 17:45 | DX: R46.89 Other symptoms and signs involving appearance and behavior (principal); R53.83 Other fatigue; Z59.00 Homelessness unspecified ==

== ENCOUNTER 2022-11-06 11:57 | Outpatient (CLI) | payer MEDICAID | END 2022-11-06 11:58 | disposition critical access hospital (66) | LOC: EMS 11:57 | DX: Z04.6 Encounter for general psychiatric examination, requested by authority (principal); R46.89 Other symptoms and signs involving appearance and behavior; R45.1 Restlessness and agitation; Z78.1 Physical restraint status | CPT/HCPCS: A0425; A0429; A0999 ==

== ENCOUNTER 2022-11-09 12:39 | Outpatient (CLI) | payer MEDICAID | END 2022-11-09 12:40 | disposition EMS.NT | LOC: EMS 12:39 | DX: Z04.6 Encounter for general psychiatric examination, requested by authority (principal) ==

== ENCOUNTER 2022-11-09 14:17 | Emergency (ER) | payer OTHER, MEDICAID ==
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
[2022-11-09] MEDS: LORazepam 2 MG/ML VIAL IM STA (15:04)
[2022-11-09] MEDS: OLANZapine 10 MG VIAL IM STA (15:04)
[2022-11-09 15:32] LABS: MUDS CUTOFF CONCENTRATIONS CUTOFF CONC BELOW:
[2022-11-09 15:33] LABS: BASOPHILS % (AUTO) 0.3 %; EOSINOPHILS # (AUTO) 0.1 10^3/uL (0.0-0.7); EOSINOPHILS % (AUTO) 1.3 %; HCT - HEMATOCRIT 44.2 % (42.0-52.0); HGB - HEMOGLOBIN 14.6 g/dL (14.0-18.0); LYMPHOCYTES # (AUTO) 2.1 10^3/uL (1.5-3.5); LYMPHOCYTES % (AUTO) 27.3 %; MEAN CORPUSCULAR HEMOGLOBIN 28.2 pg (27.0-31.0); MEAN CORPUSCULAR VOLUME 85.5 fL (80.0-94.0); MEAN PLATELET VOLUME 10.5 fL (7.4-11.4); MONOCYTES # (AUTO) 0.6 10^3/uL (0.0-1.0); NEUTROPHILS # (AUTO) 4.9 10^3/uL (1.5-6.6); NEUTROPHILS % (AUTO) 62.8 %; PLT - PLATELET COUNT 301 10^3/uL (130-450); RED BLOOD COUNT 5.17 10^6/uL (4.70-6.10); RED CELL DISTRIBUTION WIDTH 13.4 % (12.0-15.0); WHITE BLOOD COUNT 7.8 x10^3/uL (4.8-10.8)
[2022-11-09 15:35] LABS: BILIRUBIN,URINE NEGATIVE (NEGATIVE); GLUCOSE, URINE (UA) NEGATIVE (NEGATIVE); KETONES,URINE (UA) TRACE mg/dL (NEGATIVE); LEUKOCYTE ESTERASE, URINE NEGATIVE (NEGATIVE); NITRITE,URINE NEGATIVE (NEGATIVE); OCCULT BLOOD,URINE TRACE-INTA (NEGATIVE); PROTEIN,URINE NEGATIVE (NEGATIVE); UROBILINOGEN,URINE 1 (NORMAL) E.U./dL (NORMAL)
[2022-11-09 15:38] LABS: CLARITY,URINE CLEAR (CLEAR)
[2022-11-09 15:46] LABS: AMPHETAMINE SCREEN,URINE NEGATIVE (NEGATIVE); BARBITURATE SCREEN,UR NEGATIVE (NEGATIVE); BENZODIAZEPINES SCREEN, URINE NEGATIVE (NEGATIVE); COCAINE SCREEN URINE NEGATIVE (NEGATIVE); METHADONE SCREEN, URINE NEGATIVE (NEGATIVE); METHAMPHETAMINES SCREEN, URINE NEGATIVE (NEGATIVE); OPIATE SCREEN, URINE NEGATIVE (NEGATIVE); OXYCODONE SCREEN, URINE NEGATIVE (NEGATIVE); PROPOXYPHENE SCREEN, URINE NEGATIVE (NEGATIVE); THC CANNABINOID SCREEN, URINE NEGATIVE (NEGATIVE); TRICYCLIC ANTIDEPRESSANT,URINE NEGATIVE (NEGATIVE)
[2022-11-09 15:56] LABS: ACETAMINOPHEN < 10 ug/mL (10-30); ALBUMIN 4.1 g/dL (3.2-5.5); ALBUMIN/GLOBULIN RATIO 1.4 (1.0-2.2); ALKALINE PHOSPHATASE 68 IU/L (42-121); ALT ALANINE AMINOTRANSFERASE 20 IU/L (10-60); AST ASPARTATE AMINOTRANSFERASE 19 IU/L (10-42); BILIRUBIN,TOTAL 0.5 mg/dL (0.2-1.0); BUN - BLOOD UREA NITROGEN 23 mg/dL (6-20); CALCIUM 9.4 mg/dL (8.5-10.3); CARBON DIOXIDE - CO2 24 mmol/L (21-32); CHLORIDE 103 mmol/L (101-111); CREATININE 0.6 mg/dL (0.6-1.2); ETOH - ETHANOL < 5.0 mg/dL; GFR - MDRD 152 (>89); GLUCOSE 121 mg/dL (70-100); LIPASE 31 U/L (22-51); POTASSIUM 3.7 mmol/L (3.5-5.0); SALICYLATE < 6.0 mg/dL; SODIUM 136 mmol/L (135-145); TOTAL PROTEIN 7.1 g/dL (6.7-8.2)
[2022-11-10 06:47] VITALS: BP 108/68
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
== END 2022-11-10 08:50 | disposition left against medical advice (07) ==
LOC: ED 14:17
DX: F17.200 Nicotine dependence, unspecified, uncomplicated (principal); F20.9 Schizophrenia, unspecified
CPT/HCPCS: 36415; 51701; 80053; 80306; 80307; 80320; 80329; 81003; 83690; 84443; 85025; 87635; 93005; 96372; 99282; 99284; J2060; 81001; 87086

== ENCOUNTER 2022-11-11 11:30 | Outpatient (CLI) | payer MEDICAID | END 2022-11-11 11:31 | disposition critical access hospital (66) | LOC: EMS 11:30 | DX: Z04.6 Encounter for general psychiatric examination, requested by authority (principal); R44.0 Auditory hallucinations; Z78.1 Physical restraint status | CPT/HCPCS: A0425; A0429; A0999 ==

== ENCOUNTER 2022-11-11 13:15 | Emergency (ER) | payer MEDICAID ==
--- NOTE | 2022-11-11 13:18 | ED Physician Documentation ---
History of Present Illness - Stated complaint Stated Complaint: MHE/SHARATH - History obtained from History obtained from: EMS - Additonal information Additional information: 37-year-old gentleman with history of mental health issues and polysubstance use and homelessness was here in the emergency department 2 nights ago and detained by the DCR to a facility in [place]. There was a delay to transport because of the distance and snowstorm and subsequently the patient eloped. He returns now by ambulance on a new SHARATH for concern for self-harm. Paperwork accompanies the patient. The patient is nonverbal and uncooperative with me so all of the history is from EMS. Review of Systems Unable to obtain: Uncooperative PD PAST MEDICAL HISTORY - Past Medical History Cardiovascular: High cholesterol Respiratory: None Neuro: None Endocrine/Autoimmune: None GI: None : Renal insuffiency HEENT: None Psych: Schizophrenia Musculoskeletal: None Derm: None - Past Surgical History Past Surgical History: No - Present Medications Home Medications: Ambulatory Orders Medication Instructions Recorded Confirmed haloperidoL [Haloperidol] 10 mg PO DAILY 06/03/21 11/08/21 traZODone [Desyrel] 50 mg PO HS #7 tablet 11/04/21 01/09/22 Albendazole 400 mg PO ONCE 1 Days #4 tablet 12/16/21 Cetirizine [ZyrTEC] 10 mg PO BID #15 tablet 12/16/21 Permethrin 5% Cream [Permethrin 1 applic TOP ONCE 1 Days #2 tub 12/16/21 Cream] OLANZapine [Zyprexa] 20 tab PO DAILY 01/09/22 01/09/22 Permethrin 60 gm TP ONCE #60 gm 01/09/22 - Allergies Allergies/Adverse Reactions: Allergies Allergy/AdvReac Type Severity Reaction Status Date / Time ziprasidone HCl * AdvReac Severe Hallucinati Verified 11/09/22 14:26 [From Geodon] ons ziprasidone mesylate * AdvReac Severe Hallucinati Verified 11/09/22 14:26 [From Geodon] ons - Social History Does the pt smoke?: Yes Smoking Status: Current every day smoker Does the pt drink ETOH?: Yes Does the pt have substance abuse?: No - Immunizations Immunizations are current?: No Immunizations: TDAP >10years/unknown, Other immun current - POLST Patient has POLST: No PD ED PE NORMAL - Vitals Vital signs reviewed: Yes - General General: Other (He makes eye contact, he does not follow commands, he is fig hting restraints. He is disheveled.) - HEENT HEENT: PERRL, EOMI - Neck Neck: No bony TTP - Cardiac Cardiac: RRR, No murmur - Respiratory Respiratory: No respiratory distress, Clear bilaterally - Abdomen Abdomen: Non tender - Back Back: No CVA TTP, No spinal TTP - Derm Derm: Normal color, Warm and dry - Extremities Extremities: No edema, No calf tenderness / cord - Neuro Eye Opening: Spontaneous Motor: Localizes to Pain Verbal: None GCS Score: 10 Results - Vitals Vitals: Vital Signs - 24 hr 11/11/22 13:30 Temperature 37.2 C Heart Rate 114 H Respiratory 23 Rate Blood Pressure 155/100 H O2 Saturation 94 Oxygen O2 Source Room air - EKG (time done) 2126 Rate: Rate (enter#) (96) Rhythm: NSR [place]: Normal Intervals: No: Prolonged QT Other comments: Other comments (There is significant artifact but no clear abnormality and it does not look like he has a prolonged QT. ) - Labs Labs: Laboratory Tests 11/11/22 11/11/22 11/11/22 13:35 13:35 13:35 WBC 8.3 RBC 5.21 Hgb 14.6 Hct 45.2 MCV 86.8 MCH 28.0 MCHC 32.3 RDW 13.4 Plt Count 274 MPV 10.5 Neut # (Auto) 5.8 Lymph # (Auto) 1.8 [place] # (Auto) 0.6 Eos # (Auto) 0.1 Baso # (Auto) 0.0 Absolute Nucleated RBC 0.00 Nucleated RBC % 0.0 Sodium 135 Potassium 3.7 Chloride 98 L Carbon Dioxide 29 Anion Gap 8.0 BUN 17 Creatinine 0.4 L Estimated GFR (MDRD) 243 Glucose 118 H Calcium 9.2 Total Bilirubin 0.5 AST 18 ALT 19 Alkaline Phosphatase 72 Total Protein 7.2 Albumin 4.4 Globulin 2.8 Albumin/Globulin Ratio 1.6 Lipase 30 TSH 0.73 Urine Color Urine Clarity Urine pH Ur Specific [place] Urine Protein Urine Glucose (UA) Urine Ketones Urine Occult Blood Urine Nitrite Urine Bilirubin Urine Urobilinogen Ur Leukocyte Esterase Ur Microscopic Review Urine Culture Comments Salicylates < 6.0 Urine Opiates Screen Ur Oxycodone Screen Urine Methadone Screen Ur Propoxyphene Screen Acetaminophen < 10 L Ur Barbiturates Screen Ur Tricyclics Screen Ur Phencyclidine Scrn Ur Amphetamine Screen U Methamphetamines Scrn U Benzodiazepines Scrn Urine Cocaine Screen U Cannabinoids Screen Ethyl Alcohol < 5.0 SARS-CoV-2 (PCR) 11/11/22 11/11/22 16:25 18:50 WBC RBC Hgb Hct MCV MCH MCHC RDW Plt Count MPV Neut # (Auto) Lymph # (Auto) [place] # (Auto) Eos # (Auto) Baso # (Auto) Absolute Nucleated RBC Nucleated RBC % Sodium Potassium Chloride Carbon Dioxide Anion Gap BUN Creatinine Estimated GFR (MDRD) Glucose Calcium Total Bilirubin AST ALT Alkaline Phosphatase Total Protein Albumin Globulin Albumin/Globulin Ratio Lipase TSH Urine Color YELLOW Urine Clarity CLEAR Urine pH 6.5 Ur Specific [place] 1.015 Urine Protein NEGATIVE Urine Glucose (UA) NEGATIVE Urine Ketones TRACE Urine Occult Blood NEGATIVE Urine Nitrite NEGATIVE Urine Bilirubin NEGATIVE Urine Urobilinogen 1 (NORMAL) Ur Leukocyte Esterase NEGATIVE Ur Microscopic Review NOT INDICATED Urine Culture Comments NOT INDICATED Salicylates Urine Opiates Screen NEGATIVE Ur Oxycodone Screen NEGATIVE Urine Methadone Screen NEGATIVE Ur Propoxyphene Screen NEGATIVE Acetaminophen Ur Barbiturates Screen NEGATIVE Ur Tricyclics Screen NEGATIVE Ur Phencyclidine Scrn NEGATIVE Ur Amphetamine Screen POSITIVE H U Methamphetamines Scrn POSITIVE H U Benzodiazepines Scrn POSITIVE H Urine Cocaine Screen NEGATIVE U Cannabinoids Screen NEGATIVE Ethyl Alcohol SARS-CoV-2 (PCR) NOT DETECTED PD Medical Decision Making - ED course ED course: 37-year-old gentleman with psychosis and ongoing methamphetamine abuse presents with an SHARATH for bizarre behavior and aggressive behavior. He He is at high risk of elopement given history of same and is restrained for patient and staff safety. 37-year-old gentleman with known psychosis and methamphetamine abuse presents by ambulance with SHARATH paperwork. He had eloped from the emergency department yesterday under similar circumstances after placement was found in [place] but transport was delayed due to snow and ice. He is medically clear for psychiatric evaluation. Seen by the DCR and a bed was arranged at [facility]. Departure - Departure Disposition: 65 Psych Hosp/Unit DC/Xfer Clinical Impression: Methamphetamine abuse, Acute exacerbation of psychosis Condition: Stable
--- NOTE | 2022-11-11 13:20 | ED Physician Documentation ---
Restraint [id number] - Immediate Situation Face to Face Evaluation Date: 11/11/22 Face to Face Evaluation Time: 13:18 Restraint Classification: Violent, physical Restraint Type: Locked extremity - Patient's Reaction & Behaviors Safety: Non-compliant Harm: Potential harm to self, Potential harm to others Physical: Fighting restraints - Behavioral Condition Attitude: Indifferent Behavior: Uncooperative, Withdrawn Orientation: Non-responsive Mood: Content, Depressed - Evaluation Review of Systems: Unobtainable as he is nonverbal Pertinent History/Illicit Drugs/Medications/Results: Unobtainable as he is nonverbal - Plan Need to Continue or Terminate Violent or Chemical Restraint: Pending SHARATH, high risk of elopment
[2022-11-11 13:42] LABS: BASOPHILS % (AUTO) 0.4 %; EOSINOPHILS # (AUTO) 0.1 10^3/uL (0.0-0.7); EOSINOPHILS % (AUTO) 0.6 %; HCT - HEMATOCRIT 45.2 % (42.0-52.0); HGB - HEMOGLOBIN 14.6 g/dL (14.0-18.0); LYMPHOCYTES # (AUTO) 1.8 10^3/uL (1.5-3.5); LYMPHOCYTES % (AUTO) 21.5 %; MEAN CORPUSCULAR HGB CONC 32.3 g/dL (32.0-36.0); MEAN CORPUSCULAR VOLUME 86.8 fL (80.0-94.0); MEAN PLATELET VOLUME 10.5 fL (7.4-11.4); MONOCYTES # (AUTO) 0.6 10^3/uL (0.0-1.0); MONOCYTES % (AUTO) 7.7 %; NEUTROPHILS # (AUTO) 5.8 10^3/uL (1.5-6.6); NEUTROPHILS % (AUTO) 69.6 %; PLT - PLATELET COUNT 274 10^3/uL (130-450); RED BLOOD COUNT 5.21 10^6/uL (4.70-6.10); RED CELL DISTRIBUTION WIDTH 13.4 % (12.0-15.0); WHITE BLOOD COUNT 8.3 x10^3/uL (4.8-10.8)
[2022-11-11 13:54] LABS: ACETAMINOPHEN < 10 ug/mL (10-30); ALBUMIN 4.4 g/dL (3.2-5.5); ALBUMIN/GLOBULIN RATIO 1.6 (1.0-2.2); ALKALINE PHOSPHATASE 72 IU/L (42-121); ALT ALANINE AMINOTRANSFERASE 19 IU/L (10-60); AST ASPARTATE AMINOTRANSFERASE 18 IU/L (10-42); BILIRUBIN,TOTAL 0.5 mg/dL (0.2-1.0); BUN - BLOOD UREA NITROGEN 17 mg/dL (6-20); CALCIUM 9.2 mg/dL (8.5-10.3); CARBON DIOXIDE - CO2 29 mmol/L (21-32); CHLORIDE 98 mmol/L (101-111); CREATININE 0.4 mg/dL (0.6-1.2); ETOH - ETHANOL < 5.0 mg/dL; GFR - MDRD 243 (>89); GLUCOSE 118 mg/dL (70-100); LIPASE 30 U/L (22-51); POTASSIUM 3.7 mmol/L (3.5-5.0); SALICYLATE < 6.0 mg/dL; SODIUM 135 mmol/L (135-145); TOTAL PROTEIN 7.2 g/dL (6.7-8.2)
--- NOTE | 2022-11-11 17:23 | ED Physician Documentation ---
Restraint [id number] - Immediate Situation Face to Face Evaluation Date: 11/11/22 Face to Face Evaluation Time: 17:23 Restraint Classification: Violent, physical Restraint Type: Locked extremity - Patient's Reaction & Behaviors Safety: Non-compliant, Unable to Follow Commands Verbal: Screaming/Yelling Harm: Potential harm to self, Potential harm to others Physical: Aggressive behavior, Fighting restraints - Behavioral Condition Attitude: Guarded, Indifferent Behavior: Uncooperative, Belligerent Orientation: Non-responsive Mood: Angry - Evaluation Review of Systems: Unobtainable as he is nonverbal Pertinent History/Illicit Drugs/Medications/Results: Unobtainable as he is nonverbal - Plan Need to Continue or Terminate Violent or Chemical Restraint: He is having intermittent loud verbal outbursts with swearing, Awaiting DCR evaluation.
[2022-11-11 18:56] LABS: MUDS CUTOFF CONCENTRATIONS CUTOFF CONC BELOW:
[2022-11-11 19:14] LABS: BILIRUBIN,URINE NEGATIVE (NEGATIVE); GLUCOSE, URINE (UA) NEGATIVE (NEGATIVE); KETONES,URINE (UA) TRACE mg/dL (NEGATIVE); LEUKOCYTE ESTERASE, URINE NEGATIVE (NEGATIVE); NITRITE,URINE NEGATIVE (NEGATIVE); OCCULT BLOOD,URINE NEGATIVE (NEGATIVE); PH,URINE 6.5 PH (5.0-7.5); PROTEIN,URINE NEGATIVE (NEGATIVE); UROBILINOGEN,URINE 1 (NORMAL) E.U./dL (NORMAL)
[2022-11-11 19:15] LABS: CLARITY,URINE CLEAR (CLEAR)
[2022-11-11 19:26] LABS: AMPHETAMINE SCREEN,URINE POSITIVE (NEGATIVE); BARBITURATE SCREEN,UR NEGATIVE (NEGATIVE); BENZODIAZEPINES SCREEN, URINE POSITIVE (NEGATIVE); COCAINE SCREEN URINE NEGATIVE (NEGATIVE); METHADONE SCREEN, URINE NEGATIVE (NEGATIVE); METHAMPHETAMINES SCREEN, URINE POSITIVE (NEGATIVE); OPIATE SCREEN, URINE NEGATIVE (NEGATIVE); OXYCODONE SCREEN, URINE NEGATIVE (NEGATIVE); PROPOXYPHENE SCREEN, URINE NEGATIVE (NEGATIVE); THC CANNABINOID SCREEN, URINE NEGATIVE (NEGATIVE); TRICYCLIC ANTIDEPRESSANT,URINE NEGATIVE (NEGATIVE)
--- NOTE | 2022-11-11 20:05 | ED Physician Documentation ---
Restraint [id number] - Immediate Situation Face to Face Evaluation Date: 11/11/22 Face to Face Evaluation Time: 20:04 Restraint Classification: Violent, chemical w/ physical hold Restraint Type: Locked extremity - Patient's Reaction & Behaviors Safety: Unable to Follow Commands Verbal: Screaming/Yelling (With excessive profanities) Harm: Potential harm to self, Verbalizes intent to harm Physical: Aggressive behavior - Behavioral Condition Attitude: Indifferent Behavior: Belligerent, Agitated Orientation: Non-responsive, Disoriented to all Mood: Angry - Evaluation Review of Systems: Unobtainable as he is nonverbal Pertinent History/Illicit Drugs/Medications/Results: Unobtainable as he is nonverbal - Plan Need to Continue or Terminate Violent or Chemical Restraint: At this point he is more agitated and would benefit from chemical restraints, hopefully after some psychotropic medication further restraint will not be necessary.
[2022-11-11] MEDS: OLANZapine 10 MG VIAL IM ONE (20:14)
--- NOTE | 2022-11-11 21:38 | ED Physician Documentation ---
Restraint [id number] - Immediate Situation Face to Face Evaluation Date: 11/11/22 Face to Face Evaluation Time: 21:37 Restraint Classification: Violent, physical, chemical Restraint Type: Locked extremity - Patient's Reaction & Behaviors Safety: Non-compliant, Unable to Follow Commands Verbal: Screaming/Yelling, Swearing Harm: Potential harm to self, Potential harm to others Physical: Aggressive behavior Other: Disruption of therapy - Behavioral Condition Attitude: Indifferent Behavior: Belligerent, Agitated Orientation: Non-responsive, Disoriented to all Mood: Depressed, Angry - Evaluation Review of Systems: Unobtainable as he is nonverbal Pertinent History/Illicit Drugs/Medications/Results: Unobtainable as he is nonverbal - Plan Need to Continue or Terminate Violent or Chemical Restraint: This [id number] is for both violent and chemical restraints ordered at this ti nh, specifically ketamine and droperidol IM and renewal of locked restraints. He is still requiring restraints and despite Zyprexa given recently is still swearing, thrashing at the nurses. At this time he has been accepted to [facility] after evaluation by the DCR. [place] will be completed and he is stable for psychiatric hospitalization.
[2022-11-11] MEDS: KETAMINE 500 MG/10 ML VIAL IM STA (22:03)
[2022-11-11] MEDS: DROPERIDOL 5 MG/2 ML VIAL IM STA (22:07)
[2022-11-12] MEDS: OLANZapine 10 MG VIAL IM STA (06:03)
[2022-11-12 06:09] VITALS: BP 144/100
== END 2022-11-12 06:38 ==
LOC: ED 13:15
DX: Z04.6 Encounter for general psychiatric examination, requested by authority (principal); F23 Brief psychotic disorder; F15.10 Other stimulant abuse, uncomplicated; F17.200 Nicotine dependence, unspecified, uncomplicated; Z20.822 Contact with and (suspected) exposure to COVID-19
CPT/HCPCS: 36415; 80053; 80306; 80307; 80320; 80329; 81001; 81003; 83690; 84443; 85025; 87086; 93005; 96372; 99285

== ENCOUNTER 2023-02-27 12:18 | Outpatient (CLI) | payer MEDICAID | END 2023-02-27 12:19 | disposition critical access hospital (66) | LOC: EMS 12:18 | DX: R46.89 Other symptoms and signs involving appearance and behavior (principal); R41.82 Altered mental status, unspecified | CPT/HCPCS: A0425; A0429; A0999 ==

== ENCOUNTER 2023-02-27 12:35 | Emergency (ER) | payer MEDICAID ==
--- NOTE | 2023-02-27 12:44 | ED Physician Documentation ---
History of Present Illness - Stated complaint Stated Complaint: MHE - Additonal information Additional information: 37-year-old male was transported to the emergency department by EMS. Reportedly had been found sleeping at [facility]. [place] [employer] as well as EMS was summoned. It is not clear to this provider why he was transported to the emergency department as [facility] office is in attendance here and states that when we are completed with him they intend to take him back to his residence. On presentation the patient appears disheveled with poor hygiene. He does not have any specific complaints but tells me that people are trying to harvest his organs. He is mostly noncommunicative otherwise. His affect is blunted. Does not appear to want to harm himself or anybody else PD ED PE EXPANDED - General General: Alert, Disheveled, poorly kept - Cardiac Cardiac: Regular Rate, Radial strong equal, Pedal strong equal. No: Murmur Present - Respiratory Respiratory: Clear to ausultation yara. No: Distress, Labored - Abdomen Abdomen: Normal Bowel sounds. No: Tender to palpation - Derm Derm: Normal color, Warm and dry - Extremities Extremities: Other (Hands appear slightly red and swollen bilaterally and are cool to the touch. 2+ radial pulse bilaterally. Brisk cap refill.) - GCS Eye Opening: Spontaneous - Psych Psych: Withdrawn, Poor eye contact, Other (Reports that people are trying to harvest his organs. No SI or HI.). No: Suicidal, Homicidal PD Medical Decision Making - ED course Complexity details: d/w patient ED course: 37-year-old male well-known to the emergency department who has a history of illicit drug use as well as schizophrenia presents to the emergency department after he was found sleeping outside a grocery store in [place]. He was transported here via EMS[facility] on arrival and state that when medically cleared they anticipate transporting him back to his residence in [place]. On presentation though he is disheveled and has poor hygiene he does not appear to be in any acute distress. He denied SI and HI. He states that his hands were cold. They are slightly red and mildly swollen but neurovascularly intact. At this time Earnest does not present as a threat to him self and [facility] officers are going to transport him to his domicile. Departure - Departure Disposition: 01 Home, Self Care Clinical Impression: Mental health disorder Comments: Earnest is being discharged home. Here in the emergency department his vital signs do not show any worrisome abnormalities. He does appear with poor hygiene and has likely been sleeping outside. He does not express thoughts of self- harm. Return to the ER if you have any other emergent concerns
[2023-02-27 12:46] VITALS: BP 151/98
== END 2023-02-27 13:00 | disposition home or self-care (01) ==
LOC: EDUNIT# → ED 12:35
DX: F99 Mental disorder, not otherwise specified (principal); F20.9 Schizophrenia, unspecified
CPT/HCPCS: 99283; 99284

== ENCOUNTER 2023-02-27 17:37 | Outpatient (CLI) | payer MEDICAID | END 2023-02-27 17:38 | disposition critical access hospital (66) | LOC: EMS 17:37 | DX: R45.6 Violent behavior (principal); Z78.1 Physical restraint status | CPT/HCPCS: A0425; A0429 ==

== ENCOUNTER 2023-02-27 17:56 | Emergency (ER) | payer MEDICAID ==
[2023-02-27] MEDS ORDERED: haloperidoL 1 MG TABLET PO STA (18:03)
--- NOTE | 2023-02-27 18:39 | ED Physician Documentation ---
PD HPI MHE - Stated complaint Stated Complaint: MHE - Chief complaint Chief Complaint: MHE - History obtained from History obtained from: Patient, EMS - Additional information Additional information: Patient is a 37-year-old male with a longstanding history of schizophrenia. EMS states that he was at [employer] today eating a hamburger and he reportedly told someone that he wanted an ambulance called so an ambulance was called. When EMS arrived, they asked if he wanted help and he only told them that he wanted to go to the hospital. He said that he was cold and would not remove his jacket. Upo n arrival to the emergency department, the patient states that he has not taken his Haldol recently. Unknown how long. He denies having hallucinations at this time. He denies suicidal or homicidal ideation. He is requesting a dose of Haldol here. Review of Systems Constitutional: denies: Fever, Chills Nose: denies: Rhinorrhea / runny nose GI: denies: Vomiting, Diarrhea Skin: denies: Rash Musculoskeletal: denies: Neck pain, Back pain Neurologic: denies: Headache PD PAST MEDICAL HISTORY - Past Medical History Past Medical History: Yes Cardiovascular: High cholesterol Respiratory: None Neuro: None Endocrine/Autoimmune: None GI: None : Renal insuffiency HEENT: None Psych: Schizophrenia Musculoskeletal: None Derm: None - Past Surgical History Past Surgical History: No - Present Medications Home Medications: Ambulatory Orders Medication Instructions Recorded Confirmed haloperidoL [Haloperidol] 10 mg PO DAILY 06/03/21 11/08/21 traZODone [Desyrel] 50 mg PO HS #7 tablet 11/04/21 01/09/22 Albendazole 400 mg PO ONCE 1 Days #4 tablet 12/16/21 Cetirizine [ZyrTEC] 10 mg PO BID #15 tablet 12/16/21 Permethrin 5% Cream [Permethrin 1 applic TOP ONCE 1 Days #2 tub 12/16/21 Cream] OLANZapine [Zyprexa] 20 tab PO DAILY 01/09/22 01/09/22 Permethrin 60 gm TP ONCE #60 gm 01/09/22 - Allergies Allergies/Adverse Reactions: Allergies Allergy/AdvReac Type Severity Reaction Status Date / Time ziprasidone HCl * AdvReac Severe Hallucinati Verified 02/27/23 18:05 [From [facility]] ons ziprasidone mesylate * AdvReac Severe Hallucinati Verified 02/27/23 18:05 [From [facility]] ons - Social History Does the pt smoke?: Yes Smoking Status: Current every day smoker Does the pt drink ETOH?: Yes Does the pt have substance abuse?: No - Immunizations Immunizations are current?: No Immunizations: TDAP >10years/unknown, Other immun current - POLST Patient has POLST: No PD ED PE NORMAL - Vitals Vital signs reviewed: Yes - General General: Alert and oriented X 3, No acute distress, Well developed/nourished - HEENT HEENT: Atraumatic, PERRL, Moist mucous membranes - Neck Neck: Supple, no meningeal sign - Cardiac Cardiac: RRR, Strong equal pulses - Respiratory Respiratory: No respiratory distress, Clear bilaterally - Abdomen Abdomen: Soft, Non tender, Non distended - Back Back: No spinal TTP - Derm Derm: Warm and dry - Extremities Extremities: No edema - Neuro Neuro: Alert and oriented X 3 - Psych Psych: Other (flat affect, appears angry, short sentences) Results - Vitals Vitals: Vital Signs - 24 hr 02/27/23 02/27/23 18:05 18:27 Temperature 36.4 C L Heart Rate 91 92 Respiratory 20 18 Rate Blood Pressure 172/109 H 155/99 H O2 Saturation 97 97 Oxygen O2 Source Room air PD Medical Decision Making - ED course Complexity details: considered differential, d/w patient ED course: Patient took his Haldol without difficulty here. He then slept for a little while in the emergency department. He seems to be at his normal mental baseline. The patient then stated that he wanted to leave, got up and walked out of the emergency department before discharge paperwork could be completed. No indication for involuntary hold at this time. This document was made in part using voice recognition software. While efforts are made to proofread this document, sound alike and grammatical errors may occur. Departure - Departure Disposition: ED Elope Clinical Impression: Schizophrenia Condition: Stable
[2023-02-27 18:51] VITALS: BP 155/99
== END 2023-02-27 21:21 | disposition home or self-care (01) ==
LOC: EDUNIT# → ED 17:56
DX: F20.9 Schizophrenia, unspecified (principal); F17.200 Nicotine dependence, unspecified, uncomplicated

== ENCOUNTER 2023-02-27 22:29 | Emergency (ER) | payer MEDICAID ==
[2023-02-27 23:28] LABS: BASOPHILS # (AUTO) 0.1 10^3/uL (0.0-0.1); BASOPHILS % (AUTO) 0.7 %; EOSINOPHILS # (AUTO) 0.2 10^3/uL (0.0-0.7); EOSINOPHILS % (AUTO) 2.1 %; HCT - HEMATOCRIT 39.6 % (42.0-52.0); HGB - HEMOGLOBIN 12.8 g/dL (14.0-18.0); LYMPHOCYTES # (AUTO) 2.7 10^3/uL (1.5-3.5); LYMPHOCYTES % (AUTO) 37.6 %; MEAN CORPUSCULAR HEMOGLOBIN 27.9 pg (27.0-31.0); MEAN CORPUSCULAR HGB CONC 32.3 g/dL (32.0-36.0); MEAN CORPUSCULAR VOLUME 86.5 fL (80.0-94.0); MEAN PLATELET VOLUME 11.2 fL (7.4-11.4); MONOCYTES # (AUTO) 0.9 10^3/uL (0.0-1.0); MONOCYTES % (AUTO) 12.1 %; NEUTROPHILS # (AUTO) 3.3 10^3/uL (1.5-6.6); NEUTROPHILS % (AUTO) 47.4 %; PLT - PLATELET COUNT 199 10^3/uL (130-450); RED BLOOD COUNT 4.58 10^6/uL (4.70-6.10); RED CELL DISTRIBUTION WIDTH 13.7 % (12.0-15.0); WHITE BLOOD COUNT 7.1 x10^3/uL (4.8-10.8)
[2023-02-27 23:42] LABS: ACETAMINOPHEN < 10 ug/mL (10-30); ALBUMIN 3.7 g/dL (3.2-5.5); ALBUMIN/GLOBULIN RATIO 1.4 (1.0-2.2); ALKALINE PHOSPHATASE 53 IU/L (42-121); ALT ALANINE AMINOTRANSFERASE 22 IU/L (10-60); AST ASPARTATE AMINOTRANSFERASE 22 IU/L (10-42); BILIRUBIN,TOTAL 0.4 mg/dL (0.2-1.0); CALCIUM 9.1 mg/dL (8.5-10.3); CARBON DIOXIDE - CO2 28 mmol/L (21-32); CHLORIDE 107 mmol/L (101-111); CREATININE 0.8 mg/dL (0.6-1.2); ETOH - ETHANOL < 5.0 mg/dL; GFR - MDRD 109 (>89); GLUCOSE 120 mg/dL (70-100); LIPASE 36 U/L (22-51); POTASSIUM 3.5 mmol/L (3.5-5.0); SALICYLATE < 6.0 mg/dL; SODIUM 142 mmol/L (135-145); TOTAL PROTEIN 6.4 g/dL (6.7-8.2)
[2023-02-28] LABS: BUN - BLOOD UREA NITROGEN 16 mg/dL (6-20)
--- NOTE | 2023-02-28 05:55 | ED Physician Documentation ---
History of Present Illness - Stated complaint Stated Complaint: MHE - Chief complaint Chief Complaint: MHE - History obtained from History obtained from: Patient - Additonal information Additional information: 37yM, well known to our ED, with history of meth abuse and mental illness, presents to the ED for unclear reasons. When asked why he is here, patient states only he needed to be "checked out". difficult historian. Review of Systems Unable to obtain: Uncooperative PD PAST MEDICAL HISTORY - Past Medical History Past Medical History: Yes Cardiovascular: High cholesterol Respiratory: None Neuro: None Endocrine/Autoimmune: None GI: None : Renal insuffiency HEENT: None Psych: Schizophrenia Musculoskeletal: None Derm: None - Past Surgical History Past Surgical History: No - Present Medications Home Medications: Ambulatory Orders Medication Instructions Recorded Confirmed haloperidoL [Haloperidol] 10 mg PO DAILY 06/03/21 11/08/21 traZODone [Desyrel] 50 mg PO HS #7 tablet 11/04/21 01/09/22 Albendazole 400 mg PO ONCE 1 Days #4 tablet 12/16/21 Cetirizine [ZyrTEC] 10 mg PO BID #15 tablet 12/16/21 Permethrin 5% Cream [Permethrin 1 applic TOP ONCE 1 Days #2 tub 12/16/21 Cream] OLANZapine [Zyprexa] 20 tab PO DAILY 01/09/22 01/09/22 Permethrin 60 gm TP ONCE #60 gm 01/09/22 - Allergies Allergies/Adverse Reactions: Allergies Allergy/AdvReac Type Severity Reaction Status Date / Time ziprasidone HCl * AdvReac Severe Hallucinati [facility]/27[facility]23 [facility] zipras[facility] mesylate * AdvReac Severe Hallucinati Verified 02/27/23 23:00 [From Geodon] ons - Social History Does the pt smoke?: Yes Smoking Status: Current every day smoker Does the pt drink ETOH?: Yes Does the pt have substance abuse?: No - Immunizations Immunizations are current?: No Immunizations: TDAP >10years/unknown, Other immun current - POLST Patient has POLST: No PD ED PE NORMAL - Vitals Vital signs reviewed: Yes - General General: Alert and oriented X 3, No acute distress, Other (disheveled appearing) - HEENT HEENT: Atraumatic, PERRL, EOMI, Moist mucous membranes - Neck Neck: Supple, no meningeal sign - Cardiac Cardiac: RRR - Respiratory Respiratory: No respiratory distress, Clear bilaterally - Abdomen Abdomen: Non tender, Non distended - Derm Derm: Normal color, Warm and dry - Psych Psych: Other (denies si/hi/avh) Results - Vitals Vitals: Vital Signs - 24 hr 02/27/23 22:56 Temperature 36.2 C L Heart Rate 77 Respiratory 16 Rate Blood Pressure 123/87 H O2 Saturation 97 Oxygen O2 Source Room air - Labs Labs: Laboratory Tests 02/27/23 02/27/23 02/27/23 23:10 23:10 23:10 WBC 7.1 RBC 4.58 L Hgb 12.8 L Hct 39.6 L MCV 86.5 MCH 27.9 MCHC 32.3 RDW 13.7 Plt Count 199 MPV 11.2 Neut # (Auto) 3.3 Lymph # (Auto) 2.7 [place] # (Auto) 0.9 Eos # (Auto) 0.2 Baso # (Auto) 0.1 Absolute Nucleated RBC 0.00 Nucleated RBC % 0.0 Sodium 142 Potassium 3.5 Chloride 107 Carbon Dioxide 28 Anion Gap 7.0 BUN 16 Creatinine 0.8 Estimated GFR (MDRD) 109 Glucose 120 H Calcium 9.1 Total Bilirubin 0.4 AST 22 ALT 22 Alkaline Phosphatase 53 Total Protein 6.4 L Albumin 3.7 Globulin 2.7 Albumin/Globulin Ratio 1.4 Lipase 36 TSH 0.40 Salicylates < 6.0 Acetaminophen < 10 L Ethyl Alcohol < 5.0 SARS-CoV-2 (PCR) 02/27/23 23:36 WBC RBC Hgb Hct MCV MCH MCHC RDW Plt Count MPV Neut # (Auto) Lymph # (Auto) [place] # (Auto) Eos # (Auto) Baso # (Auto) Absolute Nucleated RBC Nucleated RBC % Sodium Potassium Chloride Carbon Dioxide Anion Gap BUN Creatinine Estimated GFR (MDRD) Glucose Calcium Total Bilirubin AST ALT Alkaline Phosphatase Total Protein Albumin Globulin Albumin/Globulin Ratio Lipase TSH Salicylates Acetaminophen Ethyl Alcohol SARS-CoV-2 (PCR) NOT DETECTED PD Medical Decision Making - ED course ED course: 37yM presented to the ED for medical screening exam. He rested here for several hours overnight and has no acute complaints this morning. Plan to dc to f/u with pcp. return precautions given. Departure - Departure Disposition: 01 Home, Self Care Clinical Impression: Encounter for medical screening examination Condition: Stable Instructions: ED Screening Exam Medical Nonurgent Comments: You were seen in the ED for medical screening. Your vital signs were normal and you don't appear to have any active issues. Please follow up with your primary care provider. return to the ED if you have other concerns.
[2023-02-28 06:03] VITALS: BP 126/78
== END 2023-02-28 06:03 | disposition home or self-care (01) ==
LOC: ED 22:29
DX: Z03.89 Encounter for observation for other suspected diseases and conditions ruled out (principal); F17.200 Nicotine dependence, unspecified, uncomplicated; Z20.822 Contact with and (suspected) exposure to COVID-19; F20.9 Schizophrenia, unspecified
CPT/HCPCS: 36415; 80053; 80307; 80320; 80329; 83690; 84443; 85025; 87635; A9270

== ENCOUNTER 2023-06-17 19:30 | Outpatient (CLI) | payer OTHER, MEDICAID | END 2023-06-17 23:59 | disposition critical access hospital (66) | LOC: EMS 19:30 | DX: Z04.6 Encounter for general psychiatric examination, requested by authority (principal); R41.82 Altered mental status, unspecified; R46.89 Other symptoms and signs involving appearance and behavior | CPT/HCPCS: A0425; A0429 ==

== ENCOUNTER 2023-06-17 19:55 | Emergency (ER) | payer MEDICAID ==
[2023-06-17] MEDS ORDERED: MIDAZOLAM 10 MG/5 ML UDC PO STA (20:16)
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
[2023-06-17] MEDS ORDERED: NICOTINE 21 MG PATCH TOP STA (20:25)
[2023-06-17] MEDS ORDERED: OLANZapine ODT 5 MG TABLET TL ONE (23:23)
[2023-06-18] MEDS ORDERED: KETAMINE 500 MG/10 ML VIAL IM STA (04:22)
[2023-06-18] MEDS ORDERED: ONDANSETRON ODT 4 MG TABLET TL STA (06:41)
--- NOTE | 2023-06-18 08:11 | ED Physician Documentation ---
ED Addendum - Addendum Addendum: 06/18/23 08:10After change of shift, the patient is lying comfortably in bed and appears sleeping. I left him undisturbed at this time. He will be brought breakfast soon and we will see how he does with that. We will check in on blood draws. He did subsequently consent to an EKG being performed. The EKG shows a normal sinus rhythm with a rate of 59. There is some mildly delayed R wave progression in the anterior leads. No ST elevations. The QT interval is normal at 426. CO interval is normal as well.
[2023-06-18 08:45] LABS: ACETAMINOPHEN 0.4 ug/mL; ALBUMIN 4.2 g/dL (3.2-5.5); ALKALINE PHOSPHATASE 53 IU/L (42-121); ALT ALANINE AMINOTRANSFERASE 5 IU/L (10-60); AST ASPARTATE AMINOTRANSFERASE 11 IU/L (10-42); BILIRUBIN,TOTAL 0.6 mg/dL (0.2-1.0); BUN - BLOOD UREA NITROGEN 14 mg/dL (6-20); CALCIUM 9.1 mg/dL (8.5-10.3); CARBON DIOXIDE - CO2 28 mmol/L (21-32); CHLORIDE 106 mmol/L (101-111); CK- CREATINE KINASE 61 IU/L (30-223); CREATININE 0.7 mg/dL (0.6-1.3); ETOH - ETHANOL < 10.0 mg/dL; GFR - MDRD 127 (>89); GLUCOSE 96 mg/dL (74-104); LIPASE 12 U/L (11-82); MAGNESIUM 1.9 mg/dL (1.7-2.3); POTASSIUM 3.9 mmol/L (3.5-4.5); SODIUM 140 mmol/L (135-145); TOTAL PROTEIN 6.3 g/dL (6.4-8.9)
[2023-06-18 09:14] LABS: SALICYLATE < 1.5 mg/dL
[2023-06-18 09:45] LABS: MUDS CUTOFF CONCENTRATIONS CUTOFF CONC BELOW:
[2023-06-18 09:47] LABS: BILIRUBIN,URINE NEGATIVE (NEGATIVE); GLUCOSE, URINE (UA) NEGATIVE (NEGATIVE); KETONES,URINE (UA) NEGATIVE (NEGATIVE); LEUKOCYTE ESTERASE, URINE NEGATIVE (NEGATIVE); NITRITE,URINE NEGATIVE (NEGATIVE); OCCULT BLOOD,URINE NEGATIVE (NEGATIVE); PH,URINE 7.5 PH (5.0-7.5); PROTEIN,URINE NEGATIVE (NEGATIVE); UROBILINOGEN,URINE 1 (NORMAL) E.U./dL (NORMAL)
[2023-06-18 09:49] LABS: CLARITY,URINE CLEAR (CLEAR)
[2023-06-18 10:04] LABS: AMPHETAMINE SCREEN,URINE NEGATIVE (NEGATIVE); BARBITURATE SCREEN,UR NEGATIVE (NEGATIVE); BENZODIAZEPINES SCREEN, URINE NEGATIVE (NEGATIVE); COCAINE SCREEN URINE NEGATIVE (NEGATIVE); METHADONE SCREEN, URINE NEGATIVE (NEGATIVE); METHAMPHETAMINES SCREEN, URINE NEGATIVE (NEGATIVE); OPIATE SCREEN, URINE NEGATIVE (NEGATIVE); OXYCODONE SCREEN, URINE NEGATIVE (NEGATIVE); PROPOXYPHENE SCREEN, URINE NEGATIVE (NEGATIVE); THC CANNABINOID SCREEN, URINE NEGATIVE (NEGATIVE); TRICYCLIC ANTIDEPRESSANT,URINE NEGATIVE (NEGATIVE)
[2023-06-18 14:23] VITALS: BP 92/54; O2SAT 98
--- NOTE | 2023-06-18 15:01 | ED Physician Documentation ---
ED Addendum - Addendum Addendum: 06/18/23 15:00 He was excepted to [facility]. Cobras are completed. He is stable for transfer. Disposition: Transfer to psychiatric facility
[2023-06-18] MEDS ORDERED: MIDAZOLAM 10 MG/5 ML UDC PO STA (15:16)
[2023-06-18] MEDS ORDERED: OLANZapine ODT 5 MG TABLET TL ONE (15:16)
== END 2023-06-18 20:29 ==
LOC: ED 19:55
DX: Z04.6 Encounter for general psychiatric examination, requested by authority (principal); F29 Unspecified psychosis not due to a substance or known physiological condition; F15.10 Other stimulant abuse, uncomplicated; F17.200 Nicotine dependence, unspecified, uncomplicated; Z20.822 Contact with and (suspected) exposure to COVID-19
CPT/HCPCS: 36415; 80053; 80306; 80307; 80320; 80329; 81003; 82550; 83690; 83735; 84443; 87635; 93005; 96372; 99285; A9270; Q0162; 81001; 85025; 87086

== ENCOUNTER 2023-07-12 05:42 | Outpatient (CLI) | payer MEDICAID | END 2023-07-12 05:43 | disposition critical access hospital (66) | LOC: EMS 05:42 | DX: Z04.6 Encounter for general psychiatric examination, requested by authority (principal) | CPT/HCPCS: A0425; A0429; A0999 ==

== ENCOUNTER 2023-07-12 05:58 | Emergency (ER) | payer MEDICAID ==
[2023-07-12 06:41] LABS: BASOPHILS % (AUTO) 0.4 %; EOSINOPHILS % (AUTO) 0.4 %; HCT - HEMATOCRIT 44.5 % (42.0-52.0); HGB - HEMOGLOBIN 14.9 g/dL (14.0-18.0); LYMPHOCYTES # (AUTO) 1.7 10^3/uL (1.5-3.5); LYMPHOCYTES % (AUTO) 25.1 %; MEAN CORPUSCULAR HEMOGLOBIN 28.8 pg (27.0-31.0); MEAN CORPUSCULAR HGB CONC 33.5 g/dL (32.0-36.0); MEAN CORPUSCULAR VOLUME 85.9 fL (80.0-94.0); MEAN PLATELET VOLUME 10.8 fL (7.4-11.4); MONOCYTES # (AUTO) 0.7 10^3/uL (0.0-1.0); MONOCYTES % (AUTO) 10.2 %; NEUTROPHILS # (AUTO) 4.4 10^3/uL (1.5-6.6); NEUTROPHILS % (AUTO) 63.6 %; PLT - PLATELET COUNT 241 10^3/uL (130-450); RED BLOOD COUNT 5.18 10^6/uL (4.70-6.10); RED CELL DISTRIBUTION WIDTH 14.3 % (12.0-15.0); WHITE BLOOD COUNT 6.9 x10^3/uL (4.8-10.8)
[2023-07-12 07:00] LABS: ACETAMINOPHEN 0.5 ug/mL; ALBUMIN/GLOBULIN RATIO 1.9 (1.0-2.2); ALKALINE PHOSPHATASE 73 IU/L (42-121); ALT ALANINE AMINOTRANSFERASE 9 IU/L (10-60); AST ASPARTATE AMINOTRANSFERASE 18 IU/L (10-42); BILIRUBIN,TOTAL 0.8 mg/dL (0.2-1.0); BUN - BLOOD UREA NITROGEN 7 mg/dL (6-20); CARBON DIOXIDE - CO2 27 mmol/L (21-32); CHLORIDE 103 mmol/L (101-111); CREATININE 0.6 mg/dL (0.6-1.3); ETOH - ETHANOL < 10.0 mg/dL; GFR - MDRD 152 (>89); GLUCOSE 117 mg/dL (74-104); POTASSIUM 3.3 mmol/L (3.5-4.5); SODIUM 138 mmol/L (135-145); TOTAL PROTEIN 7.7 g/dL (6.4-8.9)
[2023-07-12 07:09] LABS: THYROID STIMULATING HORMONE 1.57 uIU/mL (0.34-5.60)
--- NOTE | 2023-07-12 07:16 | ED Physician Documentation ---
PD HPI MHE - Stated complaint Stated Complaint: INVOLUNTARY DCR HOLD - Chief complaint Chief Complaint: MHE - History obtained from History obtained from: EMS, Other (RN note) - Additional information Additional information: Patient brought to ER via EMS for mental health evaluation. There is DCR paperwork for an involuntary hold. Patient is refusing to answer any questions. Per border measurerTANGELA Hutson patient is talking to himself and also not answering her questions. He was found behind [employer]. History is quite limited as patient is not able to provide any. Review of Systems Unable to obtain: Uncooperative PD PAST MEDICAL HISTORY - Past Medical History Past Medical History: Yes Cardiovascular: High cholesterol Respiratory: None Neuro: None Endocrine/Autoimmune: None GI: None : Renal insuffiency HEENT: None Psych: Schizophrenia Musculoskeletal: None Derm: None - Past Surgical History Past Surgical History: No - Present Medications Home Medications: Ambulatory Orders Medication Instructions Recorded Confirmed haloperidoL [Haloperidol] 10 mg PO DAILY 06/03/21 11/08/21 traZODone [Desyrel] 50 mg PO HS #7 tablet 11/04/21 01/09/22 Albendazole 400 mg PO ONCE 1 Days #4 tablet 12/16/21 Cetirizine [ZyrTEC] 10 mg PO BID #15 tablet 12/16/21 Permethrin 5% Cream [Permethrin 1 applic TOP ONCE 1 Days #2 tub 12/16/21 Cream] OLANZapine [Zyprexa] 20 tab PO DAILY 01/09/22 01/09/22 Permethrin 60 gm TP ONCE #60 gm 01/09/22 - Allergies Allergies/Adverse Reactions: Allergies Allergy/AdvReac Type Severity Reaction Status Date / Time ziprasidone HCl * AdvReac Severe Hallucinati Verified 07/12/23 06:28 [From [facility]] ons ziprasidone mesylate * AdvReac Severe Hallucinati Verified 07/12/23 06:28 [From [facility]] ons - Social History Does the pt smoke?: Yes Smoking Status: Current every day smoker Does the pt drink ETOH?: Yes Does the pt have substance abuse?: No - Immunizations Immunizations are current?: No Immunizations: TDAP >10years/unknown, Other immun current - POLST Patient has POLST: No PD ED PE NORMAL - General General: No acute distress, Well developed/nourished - HEENT HEENT: Atraumatic - Neck Neck: Supple, no meningeal sign - Cardiac Cardiac: RRR - Respiratory Respiratory: No respiratory distress, Clear bilaterally - Abdomen Abdomen: Non tender, Non distended - Derm Derm: Warm and dry - Psych Psych: Other (Mumbling to self) Results - Vitals Vitals: Vital Signs - 24 hr 07/12/23 06:15 Temperature 36.3 C L Heart Rate 83 Respiratory 18 Rate Blood Pressure 147/113 H O2 Saturation 100 Oxygen O2 Source Room air - Labs Labs: Laboratory Tests 07/12/23 07/12/23 07/12/23 06:37 06:37 11:53 WBC 6.9 RBC 5.18 Hgb 14.9 Hct 44.5 MCV 85.9 MCH 28.8 MCHC 33.5 RDW 14.3 Plt Count 241 MPV 10.8 Neut # (Auto) 4.4 Lymph # (Auto) 1.7 Hale # (Auto) 0.7 Eos # (Auto) 0.0 Baso # (Auto) 0.0 Absolute Nucleated RBC 0.00 Nucleated RBC % 0.0 Sodium 138 Potassium 3.3 L Chloride 103 Carbon Dioxide 27 Anion Gap 8.0 BUN 7 Creatinine 0.6 Estimated GFR (MDRD) 152 Glucose 117 H Calcium 10.0 Total Bilirubin 0.8 AST 18 ALT 9 L Alkaline Phosphatase 73 Total Protein 7.7 Albumin 5.0 Globulin 2.7 Albumin/Globulin Ratio 1.9 Lipase 7 L TSH 1.57 Urine Color DARK YELLOW Urine Clarity CLEAR Urine pH 6.0 Ur Specific [place] >=1.030 H Urine Protein 30 H Urine Glucose (UA) NEGATIVE Urine Ketones 40 H Urine Occult Blood NEGATIVE Urine Nitrite NEGATIVE Urine Bilirubin NEGATIVE Urine Urobilinogen 1 (NORMAL) Ur Leukocyte Esterase NEGATIVE Urine RBC 6-10 H Urine WBC 6-10 H Ur Squamous Epith Cells RARE Squamous Urine Bacteria Few Urine Mucus Moderate Strands Urine Sperm PRESENT Ur Microscopic Review INDICATED Urine Culture Comments NOT INDICATED Salicylates < 1.5 Urine Opiates Screen NEGATIVE Ur Oxycodone Screen NEGATIVE Urine Methadone Screen NEGATIVE Ur Propoxyphene Screen NEGATIVE Acetaminophen 0.5 Ur Barbiturates Screen NEGATIVE Ur Tricyclics Screen NEGATIVE Ur Phencyclidine Scrn NEGATIVE Ur Amphetamine Screen POSITIVE H U Methamphetamines Scrn POSITIVE H U Benzodiazepines Scrn POSITIVE H Urine Cocaine Screen NEGATIVE U Cannabinoids Screen NEGATIVE Ethyl Alcohol < 10.0 SARS-CoV-2 (PCR) 07/12/23 16:30 WBC RBC Hgb Hct MCV MCH MCHC RDW Plt Count MPV Neut # (Auto) Lymph # (Auto) Hale # (Auto) Eos # (Auto) Baso # (Auto) Absolute Nucleated RBC Nucleated RBC % Sodium Potassium Chloride Carbon Dioxide Anion Gap BUN Creatinine Estimated GFR (MDRD) Glucose Calcium Total Bilirubin AST ALT Alkaline Phosphatase Total Protein Albumin Globulin Albumin/Globulin Ratio Lipase TSH Urine Color Urine Clarity Urine pH Ur Specific [place] Urine Protein Urine Glucose (UA) Urine Ketones Urine Occult Blood Urine Nitrite Urine Bilirubin Urine Urobilinogen Ur Leukocyte Esterase Urine RBC Urine WBC Ur Squamous Epith Cells Urine Bacteria Urine Mucus Urine Sperm Ur Microscopic Review Urine Culture Comments Salicylates Urine Opiates Screen Ur Oxycodone Screen Urine Methadone Screen Ur Propoxyphene Screen Acetaminophen Ur Barbiturates Screen Ur Tricyclics Screen Ur Phencyclidine Scrn Ur Amphetamine Screen U Methamphetamines Scrn U Benzodiazepines Scrn Urine Cocaine Screen U Cannabinoids Screen Ethyl Alcohol SARS-CoV-2 (PCR) NOT DETECTED PD Medical Decision Making - ED course Complexity details: reviewed results, re-evaluated patient ED course: Patient is a 38-year-old male with an extensive psychiatric and substance abuse history presenting for a mental health evaluation under the DCR. He is not co operative and not engaging in conversation. He does appear to be hallucinating. Labs were reviewed without significant findings. Urine analysis was eventually obtained. Patient has been cleared from a medical standpoint. Patient has been evaluated by the DCR. They are looking for involuntary placement for his psychiatric symptoms and being gravely disabled. 1536 - Per DCR Alex patient has been smearing his feces on his hands and trying to shake hands with people. Given this history of reported behavior I do think hospitalization would be warranted. 1800 - Patient is signed out to oncoming provider awaiting transfer to an accepting facility. Departure - Departure Clinical Impression: Psychiatric symptoms, Methamphetamine abuse Condition: Stable Forms: PCP List
[2023-07-12 07:25] LABS: LIPASE 7 U/L (11-82)
[2023-07-12 07:26] LABS: SALICYLATE < 1.5 mg/dL
[2023-07-12 12:04] LABS: MUDS CUTOFF CONCENTRATIONS CUTOFF CONC BELOW:
[2023-07-12 12:07] LABS: GLUCOSE, URINE (UA) NEGATIVE (NEGATIVE); KETONES,URINE (UA) 40 mg/dL (NEGATIVE); LEUKOCYTE ESTERASE, URINE NEGATIVE (NEGATIVE); NITRITE,URINE NEGATIVE (NEGATIVE); OCCULT BLOOD,URINE NEGATIVE (NEGATIVE); PROTEIN,URINE 30 mg/dL (NEGATIVE); UROBILINOGEN,URINE 1 (NORMAL) E.U./dL (NORMAL)
[2023-07-12 12:11] LABS: BILIRUBIN,URINE NEGATIVE (NEGATIVE); CLARITY,URINE CLEAR (CLEAR); ICTOTEST,URINE NEGATIVE
[2023-07-12 12:19] LABS: BACTERIA,URINE Few /HPF (None Seen); SQUAMOUS EPITHELIAL CELL,UR RARE Squamous (<= Few)
[2023-07-12 12:20] LABS: MUCUS,URINE Moderate Strands; SPERM,URINE PRESENT
[2023-07-12 12:21] LABS: AMPHETAMINE SCREEN,URINE POSITIVE (NEGATIVE); BARBITURATE SCREEN,UR NEGATIVE (NEGATIVE); BENZODIAZEPINES SCREEN, URINE POSITIVE (NEGATIVE); COCAINE SCREEN URINE NEGATIVE (NEGATIVE); METHADONE SCREEN, URINE NEGATIVE (NEGATIVE); METHAMPHETAMINES SCREEN, URINE POSITIVE (NEGATIVE); OPIATE SCREEN, URINE NEGATIVE (NEGATIVE); OXYCODONE SCREEN, URINE NEGATIVE (NEGATIVE); PROPOXYPHENE SCREEN, URINE NEGATIVE (NEGATIVE); THC CANNABINOID SCREEN, URINE NEGATIVE (NEGATIVE); TRICYCLIC ANTIDEPRESSANT,URINE NEGATIVE (NEGATIVE)
--- NOTE | 2023-07-12 21:41 | ED Physician Documentation ---
ED Addendum - Addendum Addendum: 07/12/23 21:41 He was accepted to [facility]. Cobras are completed and he is stable for transport. Disposition: Transfer to psychiatric facility Condition: Stable
[2023-07-13] MEDS ORDERED: OLANZapine ODT 5 MG TABLET TL STA (07:02)
--- NOTE | 2023-07-13 07:22 | ED Physician Documentation ---
ED Addendum - Addendum Addendum: 07/13/23 07:18 Pt Has been accepted to psychiatric facility and is awaiting transport. At this morning he has been talking to him self and hallucinating and Occasionally yelling out. He is involuntary. I have ordered a dose of PO Zyprexa for his psychiatric symptoms This morning. Departure - Departure Disposition: [facility]/Unit DC/Xfer Clinical Impression: Psychiatric symptoms, Methamphetamine abuse Condition: Stable Forms: PCP List Discharge Date/Time: 07/13/23 08:35
[2023-07-13 08:11] VITALS: BP 152/95; O2SAT 100
== END 2023-07-13 08:35 ==
LOC: EDUNIT# → ED 05:58
DX: F15.10 Other stimulant abuse, uncomplicated (principal); F20.9 Schizophrenia, unspecified; E78.00 Pure hypercholesterolemia, unspecified; Z79.899 Other long term (current) drug therapy; Z20.822 Contact with and (suspected) exposure to COVID-19
CPT/HCPCS: 36415; 80053; 80306; 80307; 80320; 80329; 81001; 83690; 84443; 85025; 87635; 99284; 99285; A9270; 81003; 87086

== ENCOUNTER 2024-01-13 19:40 | Outpatient (CLI) | payer MEDICAID | END 2024-01-13 19:41 | disposition critical access hospital (66) | LOC: EMS 19:40 | DX: Z04.6 Encounter for general psychiatric examination, requested by authority (principal); R46.89 Other symptoms and signs involving appearance and behavior | CPT/HCPCS: A0425; A0429; A0999 ==

== ENCOUNTER 2024-01-13 20:02 | Emergency (ER) | payer MEDICAID ==
--- NOTE | 2024-01-13 20:40 | ED Physician Documentation ---
History of Present Illness - Stated complaint Stated Complaint: MHE - History obtained from History obtained from: Patient, EMS - Additonal information Additional information: 38yM with pmh schizophrenia presents with court ordered SHARATH for hospitalization. patient refused to give further history. Review of Systems Unable to obtain: Uncooperative PD PAST MEDICAL HISTORY - Past Medical History Cardiovascular: High cholesterol Respiratory: None Neuro: None Endocrine/Autoimmune: None GI: None : Renal insuffiency HEENT: None Psych: Schizophrenia Musculoskeletal: None Derm: None - Past Surgical History Past Surgical History: No - Present Medications Home Medications: Ambulatory Orders Medication Instructions Recorded Confirmed haloperidoL [Haloperidol] 10 mg PO DAILY 06/03/21 11/08/21 traZODone [Desyrel] 50 mg PO HS #7 tablet 11/04/21 01/09/22 Albendazole 400 mg PO ONCE 1 Days #4 tablet 12/16/21 Cetirizine [ZyrTEC] 10 mg PO BID #15 tablet 12/16/21 Permethrin 5% Cream 1 applic TOP ONCE 1 Days #2 tub 12/16/21 OLANZapine [Zyprexa] 20 tab PO DAILY 01/09/22 01/09/22 Permethrin [Permethrin 5% Cream] 60 gm TP ONCE #60 gm 01/09/22 - Allergies Allergies/Adverse Reactions: Allergies Allergy/AdvReac Type Severity Reaction Status Date / Time ziprasidone HCl * AdvReac Severe Hallucinati Verified 01/13/24 20:47 [From [facility]] ons ziprasidone mesylate * AdvReac Severe Hallucinati Verified 01/13/24 20:47 [From [facility]] ons - Social History Does the pt smoke?: Yes Smoking Status: Current every day smoker Does the pt drink ETOH?: Yes Does the pt have substance abuse?: No - Immunizations Immunizations are current?: No Immunizations: TDAP >10years/unknown, Other immun current - POLST Patient has POLST: No PD ED PE NORMAL - Vitals Vital signs reviewed: Yes - General General: No acute distress, Other (disheveled appearing. alert, intermittently cooperative) - HEENT HEENT: Atraumatic, PERRL, EOMI, Moist mucous membranes, Pharynx benign - Neck Neck: Supple, no meningeal sign - Cardiac Cardiac: RRR - Respiratory Respiratory: No respiratory distress, Clear bilaterally - Abdomen Abdomen: Non tender, Non distended - Derm Derm: Normal color, Warm and dry - Psych Psych: Other (responding to internal stimuli. intermittent catatonia. ) Results - Vitals Vitals: Vital Signs - 24 hr 01/13/24 01/13/24 01/13/24 20:38 20:46 21:30 Temperature 97.3 C H Heart Rate 106 H 130 H 130 H Respiratory 18 25 H 15 Rate Blood Pressure 190/128 H 194/128 H O2 Saturation 98 95 92 01/13/24 01/13/24 01/13/24 21:45 21:52 22:00 Temperature Heart Rate 125 H 104 H 120 H Respiratory 25 H 19 22 Rate Blood Pressure 194/128 H 149/95 H O2 Saturation 95 95 94 01/13/24 01/13/24 01/13/24 22:07 22:15 22:22 Temperature Heart Rate 120 H 109 H 104 H Respiratory 20 20 20 Rate Blood Pressure 149/95 H 149/95 H O2 Saturation 94 94 98 01/13/24 01/13/24 01/13/24 22:30 22:45 22:52 Temperature Heart Rate 111 H 107 H 111 H Respiratory 20 24 20 Rate Blood Pressure 145/109 H 145/109 H O2 Saturation 98 97 98 01/13/24 01/13/24 01/13/24 23:00 23:15 23:30 Temperature Heart Rate 105 H 117 H 109 H Respiratory 17 22 15 Rate Blood Pressure 156/109 H O2 Saturation 97 97 97 01/14/24 01/14/24 01/14/24 00:00 00:52 01:00 Temperature Heart Rate 95 100 100 Respiratory 15 17 20 Rate Blood Pressure 150/107 H 137/101 H 137/101 H O2 Saturation 97 97 97 01/14/24 02:00 Temperature Heart Rate 108 H Respiratory 19 Rate Blood Pressure 130/82 H O2 Saturation 98 Oxygen O2 Source Room air - EKG (time done) 6224 EKG releavant findings:: EKG personally interpreted by author of this note. Relevant findings are: Rate: Rate (enter#) (104) Rhythm: Sinus tachycardia [place]: Normal Intervals: Normal [place] QRS: Normal Ischemia: ST elevation c/w repol - Labs Labs: Laboratory Tests 01/13/24 01/13/24 01/13/24 21:27 21:27 22:00 WBC 12.1 H RBC 5.12 Hgb 14.6 Hct 45.1 MCV 88.1 MCH 28.5 MCHC 32.4 RDW 14.0 Plt Count 355 MPV 10.2 Neut # (Auto) 7.5 H Lymph # (Auto) 3.7 H [place] # (Auto) 0.7 Eos # (Auto) 0.1 Baso # (Auto) 0.1 Absolute Nucleated RBC 0.00 Nucleated RBC % 0.0 Sodium 138 Potassium 3.4 L Chloride 102 Carbon Dioxide 27 Anion Gap 9.0 BUN 11 Creatinine 0.7 Estimated GFR (MDRD) 127 Glucose 107 H Calcium 9.6 Magnesium 1.9 Total Bilirubin 0.5 AST 16 ALT 18 Alkaline Phosphatase 69 Total Creatine Kinase 93 Total Protein 6.9 Albumin 4.5 Globulin 2.4 Albumin/Globulin Ratio 1.9 Lipase 10 L TSH 0.91 Salicylates < 1.5 Acetaminophen < 0.1 Ethyl Alcohol < 10.0 SARS-CoV-2 (PCR) NOT DETECTED PD Medical Decision Making - ED course ED course: 38yM presents with court ordered SHARATH for mental health confinement. I offered medicine to help the patient sleep and he was agreeable to IM ketamine. 9:15pm - after an hour and 20 minutes patient still has not gotten ketamine. He now is refusing. Refusing oral versed as well or any alternative such as IM antipsychotic. Allowed us to put him in paper scrubs and take vital signs. Not allowing bloodwork. Patient is displaying some negative symptoms of schizophrenia, staring and slow to answer/not answering questions. He is responding to internal stimuli. Plan to contact [facility] and initiate chemical restraint with physical hold protocol, administering 250mg IM ketamine. Initiated at 21:33. Patient tolerated well and did not require physical restraint. Medically cleared and DCR was dispatched overnight to find involuntary psychiatric facility placement. However they would not complete evaluation without a urine sample. Patient held his urine all night. Plan to endorse to incoming daytime ED MD at 7am shift change.
[2024-01-13] MEDS: KETAMINE 500 MG/10 ML VIAL IM STA (21:33)
[2024-01-13 21:34] LABS: BASOPHILS # (AUTO) 0.1 10^3/uL (0.0-0.1); BASOPHILS % (AUTO) 0.7 %; EOSINOPHILS # (AUTO) 0.1 10^3/uL (0.0-0.7); EOSINOPHILS % (AUTO) 0.7 %; HCT - HEMATOCRIT 45.1 % (42.0-52.0); HGB - HEMOGLOBIN 14.6 g/dL (14.0-18.0); LYMPHOCYTES # (AUTO) 3.7 10^3/uL (1.5-3.5); LYMPHOCYTES % (AUTO) 30.4 %; MEAN CORPUSCULAR HEMOGLOBIN 28.5 pg (27.0-31.0); MEAN CORPUSCULAR HGB CONC 32.4 g/dL (32.0-36.0); MEAN CORPUSCULAR VOLUME 88.1 fL (80.0-94.0); MEAN PLATELET VOLUME 10.2 fL (7.4-11.4); MONOCYTES # (AUTO) 0.7 10^3/uL (0.0-1.0); NEUTROPHILS # (AUTO) 7.5 10^3/uL (1.5-6.6); NEUTROPHILS % (AUTO) 61.9 %; PLT - PLATELET COUNT 355 10^3/uL (130-450); RED BLOOD COUNT 5.12 10^6/uL (4.70-6.10); WHITE BLOOD COUNT 12.1 x10^3/uL (4.8-10.8)
[2024-01-13 21:48] LABS: ALBUMIN 4.5 g/dL (3.2-5.5); ALBUMIN/GLOBULIN RATIO 1.9 (1.0-2.2); ALKALINE PHOSPHATASE 69 IU/L (42-121); ALT ALANINE AMINOTRANSFERASE 18 IU/L (10-60); AST ASPARTATE AMINOTRANSFERASE 16 IU/L (10-42); BILIRUBIN,TOTAL 0.5 mg/dL (0.2-1.0); BUN - BLOOD UREA NITROGEN 11 mg/dL (6-20); CALCIUM 9.6 mg/dL (8.5-10.3); CARBON DIOXIDE - CO2 27 mmol/L (21-32); CHLORIDE 102 mmol/L (101-111); CK- CREATINE KINASE 93 IU/L (30-223); CREATININE 0.7 mg/dL (0.6-1.3); ETOH - ETHANOL < 10.0 mg/dL; GFR - MDRD 127 (>89); GLUCOSE 107 mg/dL (74-104); LIPASE 10 U/L (11-82); MAGNESIUM 1.9 mg/dL (1.7-2.3); POTASSIUM 3.4 mmol/L (3.5-4.5); SODIUM 138 mmol/L (135-145); TOTAL PROTEIN 6.9 g/dL (6.4-8.9)
[2024-01-13 21:50] LABS: ACETAMINOPHEN < 0.1 ug/mL; SALICYLATE < 1.5 mg/dL
--- NOTE | 2024-01-13 21:57 | ED Physician Documentation ---
Restraint [id number] - Immediate Situation Face to Face Evaluation Date: 01/13/24 Face to Face Evaluation Time: 21:33 Restraint Classification: Violent, chemical w/ physical hold - Patient's Reaction & Behaviors Safety: Physically safe Verbal: Screaming/Yelling Harm: Potential harm to self Physical: Aggressive behavior Other: Resting quietly - Behavioral Condition Attitude: Guarded Behavior: Uncooperative Orientation: Non-responsive Mood: Labile - Evaluation Pertinent History/Illicit Drugs/Medications/Results: HISTORY OF LONGSTANDING DEBILITATING SCHIZOPHRENIA - Plan Need to Initiate/Renew Violent or Chemical Restraint: WILL DC WHEN SAFE
[2024-01-13 22:17] LABS: THYROID STIMULATING HORMONE 0.91 uIU/mL (0.34-5.60)
[2024-01-14] MEDS: OLANZapine ODT 5 MG TABLET TL ONE (07:36)
[2024-01-14 08:08] LABS: BILIRUBIN,URINE NEGATIVE (NEGATIVE); GLUCOSE, URINE (UA) NEGATIVE (NEGATIVE); KETONES,URINE (UA) TRACE mg/dL (NEGATIVE); LEUKOCYTE ESTERASE, URINE NEGATIVE (NEGATIVE); NITRITE,URINE NEGATIVE (NEGATIVE); OCCULT BLOOD,URINE NEGATIVE (NEGATIVE); PH,URINE 6.5 PH (5.0-7.5); PROTEIN,URINE NEGATIVE (NEGATIVE); UROBILINOGEN,URINE 0.2 (NORMAL) E.U./dL (NORMAL)
[2024-01-14 08:12] LABS: CLARITY,URINE CLEAR (CLEAR)
[2024-01-14 08:18] LABS: AMPHETAMINE SCREEN,URINE POSITIVE (NEGATIVE); BARBITURATE SCREEN,UR NEGATIVE (NEGATIVE); BENZODIAZEPINES SCREEN, URINE NEGATIVE (NEGATIVE); BUPRENORPHINE SCREEN, URINE NEGATIVE (NEGATIVE); COCAINE SCREEN URINE NEGATIVE (NEGATIVE); METHADONE SCREEN, URINE NEGATIVE (NEGATIVE); METHAMPHETAMINES SCREEN, URINE POSITIVE (NEGATIVE); OPIATE SCREEN, URINE NEGATIVE (NEGATIVE); OXYCODONE SCREEN, URINE NEGATIVE (NEGATIVE); THC CANNABINOID SCREEN, URINE NEGATIVE (NEGATIVE); TRICYCLIC ANTIDEPRESSANT,URINE NEGATIVE (NEGATIVE)
[2024-01-14] MEDS: haloperidoL 1 MG TABLET PO SCH (09:38)
--- NOTE | 2024-01-14 14:25 | ED Physician Documentation ---
ED Addendum - Addendum Addendum: 01/14/24 14:22 Mr. Barraza was having a lot of verbalization and seem to be responding to external stimuli earlier in my shift this morning. He was agreeable to taking his normal medication doses of olanzapine and haloperidol 20 mg and 10 mg respectively orally. Over the next hour or so this did allow for him to relax better and he was actually somewhat somnolent. There had been a hold-up on his evaluation overnight because he had not had a urine test result. He did give a urine sample this morning and it was positive for methamphetamines which is not unusual for him. No other abnormalities found on the U tox. We did contact back the DCR who assessed the patient on tablet. My assessment of the patient was still having a lot of external stimulation and agitation with verbalization. He was not physical to anybody in the department. He was following of commands in the sense of going to the bathroom and back into bed. Beyond that though he did not seem to have a real direction or plan or comprehension of other events surrounding him. He does seem to be disabled because of the current symptoms. The DCR did feel the patient was potentially harm to himself because of the grave disability and the current symptoms. Intention is to hospitalize him. There was an accepting facility and he will be transferred to there by BLS ambulance. At this point were awaiting pickup. The patient is remaining calm at this time. Disposition: The patient is transferred to acute psychiatric facility in stable condition Diagnoses: 1. Acute exacerbation of psychosis 2. Underlying schizoaffective disease 3. Methamphetamine use disorder
[2024-01-14 20:25] VITALS: BP 145/72; O2SAT 97
== END 2024-01-14 20:38 ==
LOC: ED 20:02
DX: F25.9 Schizoaffective disorder, unspecified (principal); F28 Other psychotic disorder not due to a substance or known physiological condition; F15.90 Other stimulant use, unspecified, uncomplicated; E78.00 Pure hypercholesterolemia, unspecified; N28.9 Disorder of kidney and ureter, unspecified; Z79.899 Other long term (current) drug therapy; F17.200 Nicotine dependence, unspecified, uncomplicated
CPT/HCPCS: 36415; 80053; 80143; 80179; 80306; 81003; 82077; 82550; 83690; 83735; 84443; 85025; 87635; 93005; 96372; 99284; 99285; A9270; 81001; 87086

== ENCOUNTER 2024-03-31 16:00 | Outpatient (CLI) | payer MEDICAID | END 2024-03-31 23:59 | disposition critical access hospital (66) | LOC: EMS 16:00 | DX: T40.411A Poisoning by fentanyl or fentanyl analogs, accidental (unintentional), initial encounter (principal); R46.4 Slowness and poor responsiveness | CPT/HCPCS: A0425; A0429; A0999 ==

== ENCOUNTER 2024-03-31 16:27 | Emergency (ER) | payer MEDICAID ==
--- NOTE | 2024-03-31 16:35 | ED Physician Documentation ---
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 Pt with 3 others were sharing smoking Fentanyl and 2 of the people reportedly got too sedated and apparently minimal or no breathing. EMS called and administered Narcan nasally, with improved alertness (of note, the other person overdosed also was brought to ED with withdrawal sxs).) Subtance(s) ingested: Single (intended use of fentanyl but unknown if other substances with it. Another person who was given Narcan did have some withdrawal symptoms c/w at least mainly opiate as a cause. 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: Narcan PD PAST MEDICAL HISTORY - Past Medical History Cardiovascular: High cholesterol Respiratory: None Neuro: None Endocrine/Autoimmune: None GI: None : Renal insuffiency HEENT: None Psych: Schizophrenia Musculoskeletal: None Derm: None - Past Surgical History Past Surgical History: No - Present Medications Home Medications: Ambulatory Orders Medication Instructions Recorded Confirmed No Known Home Medications 01/14/24 03/31/24 - Allergies Allergies/Adverse Reactions: Allergies Allergy/AdvReac Type Severity Reaction Status Date / Time ziprasidone HCl * AdvReac Severe Hallucinati Verified 03/31/24 16:43 [From [facility]] ons ziprasidone mesylate * AdvReac Severe Hallucinati Verified 03/31/24 16:43 [From [facility]] ons - Social History Does the pt smoke?: Yes Smoking Status: Current every day smoker Does the pt drink ETOH?: Yes Does the pt have substance abuse?: No - Immunizations Immunizations are current?: No Immunizations: TDAP >10years/unknown, Other immun current - POLST Patient has POLST: No PD ED PE NORMAL - Vitals Vital signs reviewed: Yes - General General: Alert and oriented X 3 (he is staring blankly mostly with sparse answers but is oriented when asked. His affect and demeanor are c/w other times I have seen this pt, so close to baseline with h/o schizoaffective disorder. ), No acute distress. No: Well developed/nourished (unkempt, soiled dirt on hands/fingers, soiled stool in underwear. nursing will help with other clothing. ) - HEENT HEENT: Atraumatic - Neck Neck: Supple, no meningeal sign - Cardiac Cardiac: RRR (mild tachycardia), No murmur - Respiratory Respiratory: No respiratory distress, Clear bilaterally - Abdomen Abdomen: Soft, Non tender - Derm Derm: Normal color, Warm and dry - Extremities Extremities: No tenderness to palpate - Neuro Neuro: No motor deficit, No sensory deficit Results - Vitals Vitals: Vital Signs - 24 hr 03/31/24 03/31/24 16:37 18:43 Temperature 37.1 C Heart Rate 110 H 100 Respiratory 14 14 Rate Blood Pressure 131/76 H 109/77 O2 Saturation 93 96 Oxygen O2 Source Room air - Labs Labs: Laboratory Tests 03/31/24 16:49 POC Whole Bld Glucose 98 PD Medical Decision Making - ED course Complexity details: re-evaluated patient (Pt did sleep some in ER but on monitor and maintined normal sats, respirations, and HR normalized. He was checked frequently by nursing and rousable. After reasonable time for Narcan to wear off, the patient was still easily alert and conversant similar to his baseline. Ambulatory. Can d/c. ), considered differential (apparent overdose of fentanyl. Consider co-ingestants not intended so will watch for few hours to ensure continued adequate alertness and ventilation. ), d/w patient Departure - Departure Disposition: 01 Home, Self Care Clinical Impression: Altered mental state, Opioid overdose, Drug abuse Condition: Stable Record reviewed to determine appropriate education?: Yes Instructions: ED Narcotic Abuse Comments: We are sending you home with a dose of Narcan. Obviously the best way to stay alive is to not be taking nonprescribed medication in particular the opiates. There certainly are issues with dosages and other coingestions with the fentanyl now a day. This can include anesthetic medication such as drink or more purified fentanyl etc. These can lead to unintended overdoses. Again the best is to avoid these. Be certain to be with other people who are not using drugs if you are going to take drugs like this and have Narcan available in case you over dose such as today. There are some studies that show people who have had opiate overdose are at high risk of further episodes and have a fairly high mortality within the next year so please be safe and avoid drugs. Forms: PCP List Discharge Date/Time: 03/31/24 19:03
[2024-03-31 18:54] VITALS: BP 109/77; O2SAT 96
[2024-03-31] MEDS: NALOXONE HCL NASAL SPRAY KIT NAS STA (18:54)
== END 2024-03-31 19:03 | disposition home or self-care (01) ==
LOC: EDUNIT# → ED 16:27
DX: T40.411A Poisoning by fentanyl or fentanyl analogs, accidental (unintentional), initial encounter (principal); R41.82 Altered mental status, unspecified; F11.10 Opioid abuse, uncomplicated; E78.00 Pure hypercholesterolemia, unspecified; N28.9 Disorder of kidney and ureter, unspecified; F17.200 Nicotine dependence, unspecified, uncomplicated
CPT/HCPCS: 99283; 99284; G2215

== ENCOUNTER 2024-04-03 10:30 | Emergency (ER) | payer MEDICAID ==
--- NOTE | 2024-04-03 10:37 | ED Physician Documentation ---
PD HPI MHE - Stated complaint Stated Complaint: MHE/SHARATH - History obtained from History obtained from: Police, Other (CHING Carter) - Additional information Additional information: Patient is a 38-year-old with a history significant for substance abuse and psychiatric illnesses presenting For an involuntary mental health hold. Transported by [place] PD. Patient was evaluated by Emma from [facility] and was sent to the emergency department for medical clearance. She plans to detain him involuntarily for being gravely disabled. Patient states that there is nothing wrong with him and that he does not need to be here. He states that he was bothered as he was drinking a cup of coffee this morning and does not understand why he was brought here. Per paperwork that came with patient from [facility], patient was reportedly refusing to wash his hands which had stool under fingernails before eating at the [employer]. He was refusing to shower or to change his clothes. He was reportedly acting in a harassing manner towards staff on Wednesday. Patient was seen here on March 31 after a fentanyl overdose. Review of Systems Constitutional: denies: Fever Cardiac: denies: Chest pain / pressure Respiratory: denies: Dyspnea GI: denies: Abdominal Pain PD PAST MEDICAL HISTORY - Past Medical History Cardiovascular: High cholesterol Respiratory: None Neuro: None Endocrine/Autoimmune: None GI: None : Renal insuffiency HEENT: None Psych: Schizophrenia Musculoskeletal: None Derm: None - Past Surgical History Past Surgical History: No - Present Medications Home Medications: Ambulatory Orders Medication Instructions Recorded Confirmed No Known Home Medications 01/14/24 04/03/24 - Allergies Allergies/Adverse Reactions: Allergies Allergy/AdvReac Type Severity Reaction Status Date / Time ziprasidone HCl * AdvReac Severe Hallucinati Verified 04/03/24 10:44 [From [facility]] ons ziprasidone mesylate * AdvReac Severe Hallucinati Verified 04/03/24 10:44 [From [facility]] ons - Social History Does the pt smoke?: Yes Smoking Status: Current every day smoker Does the pt drink ETOH?: Yes Does the pt have substance abuse?: No - Immunizations Immunizations are current?: No Immunizations: TDAP >10years/unknown, Other immun current - POLST Patient has POLST: No PD ED PE NORMAL - General General: Alert and oriented X 3, No acute distress, Other (Disheveled, dressed in layers and Smells of feces) - HEENT HEENT: Atraumatic - Neck Neck: Supple, no meningeal sign - Cardiac Cardiac: RRR - Respiratory Respiratory: No respiratory distress, Clear bilaterally - Derm Derm: Warm and dry - Neuro Neuro: Alert and oriented X 3, No motor deficit, Normal speech Results - Vitals Vitals: Vital Signs - 24 hr 04/03/24 04/03/24 10:45 12:47 Temperature 37.7 C Heart Rate 93 70 Respiratory 18 14 Rate Blood Pressure 154/100 H 135/83 H O2 Saturation 99 95 Oxygen O2 Source Room air - Labs Labs: Laboratory Tests 04/03/24 04/03/24 04/03/24 10:53 11:00 11:06 WBC 9.9 RBC 4.64 L Hgb 13.1 L Hct 40.5 L MCV 87.3 MCH 28.2 MCHC 32.3 RDW 14.0 Plt Count 248 MPV 10.3 Neut # (Auto) 7.3 H Lymph # (Auto) 1.5 [place] # (Auto) 1.1 H Eos # (Auto) 0.1 Baso # (Auto) 0.0 Absolute Nucleated RBC 0.00 Nucleated RBC % 0.0 Sodium Potassium Chloride Carbon Dioxide Anion Gap BUN Creatinine Estimated GFR (MDRD) Glucose Calcium Magnesium Total Bilirubin AST ALT Alkaline Phosphatase Total Creatine Kinase Total Protein Albumin Globulin Albumin/Globulin Ratio Lipase TSH Urine Color DARK YELLOW Urine Clarity CLEAR Urine pH 7.0 Ur Specific [place] 1.025 Urine Protein TRACE Urine Glucose (UA) NEGATIVE Urine Ketones NEGATIVE Urine Occult Blood NEGATIVE Urine Nitrite NEGATIVE Urine Bilirubin NEGATIVE Urine Urobilinogen 0.2 (NORMAL) Ur Leukocyte Esterase NEGATIVE Ur Microscopic Review NOT INDICATED Urine Culture Comments NOT INDICATED Salicylates Urine Opiates Screen NEGATIVE Ur Buprenorphine Scrn NEGATIVE Ur Oxycodone Screen NEGATIVE Urine Methadone Screen NEGATIVE Acetaminophen Ur Barbiturates Screen NEGATIVE Ur Tricyclics Screen NEGATIVE Ur Phencyclidine Scrn NEGATIVE Ur Amphetamine Screen POSITIVE H U Methamphetamines Scrn POSITIVE H U Benzodiazepines Scrn NEGATIVE Urine Cocaine Screen NEGATIVE U Cannabinoids Screen NEGATIVE Ur Drug Screen Comment CUTOFF CONC BELOW: Ethyl Alcohol SARS-CoV-2 (PCR) NOT DETECTED 04/03/24 11:06 WBC RBC Hgb Hct MCV MCH MCHC RDW Plt Count MPV Neut # (Auto) Lymph # (Auto) [place] # (Auto) Eos # (Auto) Baso # (Auto) Absolute Nucleated RBC Nucleated RBC % Sodium 136 Potassium 3.6 Chloride 100 L Carbon Dioxide 28 Anion Gap 8.0 BUN 12 Creatinine 0.6 Estimated GFR (MDRD) 152 Glucose 104 Calcium 9.7 Magnesium 1.8 Total Bilirubin 0.5 AST 12 ALT 10 Alkaline Phosphatase 56 Total Creatine Kinase 105 Total Protein 7.0 Albumin 4.3 Globulin 2.7 Albumin/Globulin Ratio 1.6 Lipase < 10 L TSH 1.47 Urine Color Urine Clarity Urine pH Ur Specific [place] Urine Protein Urine Glucose (UA) Urine Ketones Urine Occult Blood Urine Nitrite Urine Bilirubin Urine Urobilinogen Ur Leukocyte Esterase Ur Microscopic Review Urine Culture Comments Salicylates < 1.5 Urine Opiates Screen Ur Buprenorphine Scrn Ur Oxycodone Screen Urine Methadone Screen Acetaminophen 0.2 Ur Barbiturates Screen Ur Tricyclics Screen Ur Phencyclidine Scrn Ur Amphetamine Screen U Methamphetamines Scrn U Benzodiazepines Scrn Urine Cocaine Screen U Cannabinoids Screen Ur Drug Screen Comment Ethyl Alcohol < 10.0 SARS-CoV-2 (PCR) PD Medical Decision Making - ED course Complexity details: reviewed results, d/w patient ED course: Patient is a 38-year-old male with a long history of psychiatric illness as well as substance abuse. Patient was seen by DCR and had concerns for grave disability. Patient brought in by [place]. Mental health screening labs were obtained and reviewed and without significant findings. Patient was given a dose of p.o. Zyprexa which he was agreeable to for Mild agitation. As he was having periods where this was not used as a chemical restraint. Excepting facility was found by the DCR and cobras were signed. Patient has otherwise been cooperative here. 1140 - Labs reviewed. No significant findings. Patient is medically cleared. CHING Carter has been here to speak with the patient again. Departure - Departure Disposition: [facility]/Unit DC/Xfer Clinical Impression: Psychiatric symptoms Condition: Stable Forms: PCP List
[2024-04-03] MEDS: OLANZapine ODT 5 MG TABLET TL ONE ×2 (10:56→11:32)
[2024-04-03 11:10] LABS: BILIRUBIN,URINE NEGATIVE (NEGATIVE); GLUCOSE, URINE (UA) NEGATIVE (NEGATIVE); KETONES,URINE (UA) NEGATIVE (NEGATIVE); LEUKOCYTE ESTERASE, URINE NEGATIVE (NEGATIVE); NITRITE,URINE NEGATIVE (NEGATIVE); OCCULT BLOOD,URINE NEGATIVE (NEGATIVE); PROTEIN,URINE TRACE mg/dL (NEGATIVE); UROBILINOGEN,URINE 0.2 (NORMAL) E.U./dL (NORMAL)
[2024-04-03 11:11] LABS: BASOPHILS % (AUTO) 0.2 %; EOSINOPHILS # (AUTO) 0.1 10^3/uL (0.0-0.7); EOSINOPHILS % (AUTO) 0.5 %; HCT - HEMATOCRIT 40.5 % (42.0-52.0); HGB - HEMOGLOBIN 13.1 g/dL (14.0-18.0); LYMPHOCYTES # (AUTO) 1.5 10^3/uL (1.5-3.5); LYMPHOCYTES % (AUTO) 14.6 %; MEAN CORPUSCULAR HEMOGLOBIN 28.2 pg (27.0-31.0); MEAN CORPUSCULAR HGB CONC 32.3 g/dL (32.0-36.0); MEAN CORPUSCULAR VOLUME 87.3 fL (80.0-94.0); MEAN PLATELET VOLUME 10.3 fL (7.4-11.4); MONOCYTES # (AUTO) 1.1 10^3/uL (0.0-1.0); MONOCYTES % (AUTO) 11.2 %; NEUTROPHILS # (AUTO) 7.3 10^3/uL (1.5-6.6); NEUTROPHILS % (AUTO) 73.2 %; PLT - PLATELET COUNT 248 10^3/uL (130-450); RED BLOOD COUNT 4.64 10^6/uL (4.70-6.10); WHITE BLOOD COUNT 9.9 x10^3/uL (4.8-10.8)
[2024-04-03 11:11] LABS: CLARITY,URINE CLEAR (CLEAR)
[2024-04-03 11:21] LABS: AMPHETAMINE SCREEN,URINE POSITIVE (NEGATIVE); BARBITURATE SCREEN,UR NEGATIVE (NEGATIVE); BENZODIAZEPINES SCREEN, URINE NEGATIVE (NEGATIVE); BUPRENORPHINE SCREEN, URINE NEGATIVE (NEGATIVE); COCAINE SCREEN URINE NEGATIVE (NEGATIVE); METHADONE SCREEN, URINE NEGATIVE (NEGATIVE); METHAMPHETAMINES SCREEN, URINE POSITIVE (NEGATIVE); OPIATE SCREEN, URINE NEGATIVE (NEGATIVE); OXYCODONE SCREEN, URINE NEGATIVE (NEGATIVE); THC CANNABINOID SCREEN, URINE NEGATIVE (NEGATIVE); TRICYCLIC ANTIDEPRESSANT,URINE NEGATIVE (NEGATIVE)
[2024-04-03 11:26] LABS: MAGNESIUM 1.8 mg/dL (1.7-2.3)
[2024-04-03 11:33] LABS: ACETAMINOPHEN 0.2 ug/mL; ALBUMIN 4.3 g/dL (3.2-5.5); ALBUMIN/GLOBULIN RATIO 1.6 (1.0-2.2); ALKALINE PHOSPHATASE 56 IU/L (42-121); ALT ALANINE AMINOTRANSFERASE 10 IU/L (10-60); AST ASPARTATE AMINOTRANSFERASE 12 IU/L (10-42); BILIRUBIN,TOTAL 0.5 mg/dL (0.2-1.0); BUN - BLOOD UREA NITROGEN 12 mg/dL (6-20); CALCIUM 9.7 mg/dL (8.5-10.3); CARBON DIOXIDE - CO2 28 mmol/L (21-32); CHLORIDE 100 mmol/L (101-111); CK- CREATINE KINASE 105 IU/L (30-223); CREATININE 0.6 mg/dL (0.6-1.3); ETOH - ETHANOL < 10.0 mg/dL; GFR - MDRD 152 (>89); GLUCOSE 104 mg/dL (74-104); LIPASE < 10 U/L (11-82); POTASSIUM 3.6 mmol/L (3.5-4.5); SODIUM 136 mmol/L (135-145)
[2024-04-03 11:36] LABS: SALICYLATE < 1.5 mg/dL
[2024-04-03 11:39] LABS: THYROID STIMULATING HORMONE 1.47 uIU/mL (0.34-5.60)
[2024-04-03 20:16] VITALS: BP 127/63; O2SAT 99
== END 2024-04-03 22:10 ==
LOC: EDUNIT# → ED 10:30
DX: F20.9 Schizophrenia, unspecified (principal); R45.1 Restlessness and agitation; E78.00 Pure hypercholesterolemia, unspecified; F17.200 Nicotine dependence, unspecified, uncomplicated
CPT/HCPCS: 36415; 80053; 80143; 80179; 80306; 81003; 82077; 82550; 83690; 83735; 84443; 85025; 87635; 99285; A9270; 81001; 87086

== ENCOUNTER 2024-08-17 07:37 | Emergency (ER) | payer MEDICAID ==
[2024-08-17 08:32] LABS: BASOPHILS # (AUTO) 0.1 10^3/uL (0.0-0.1); BASOPHILS % (AUTO) 0.7 %; EOSINOPHILS # (AUTO) 0.1 10^3/uL (0.0-0.7); EOSINOPHILS % (AUTO) 0.7 %; HCT - HEMATOCRIT 41.7 % (42.0-52.0); HGB - HEMOGLOBIN 13.4 g/dL (14.0-18.0); LYMPHOCYTES # (AUTO) 1.6 10^3/uL (1.5-3.5); LYMPHOCYTES % (AUTO) 22.3 %; MEAN CORPUSCULAR HEMOGLOBIN 27.6 pg (27.0-31.0); MEAN CORPUSCULAR HGB CONC 32.1 g/dL (32.0-36.0); MEAN CORPUSCULAR VOLUME 85.8 fL (80.0-94.0); MEAN PLATELET VOLUME 10.5 fL (7.4-11.4); MONOCYTES # (AUTO) 0.9 10^3/uL (0.0-1.0); MONOCYTES % (AUTO) 12.4 %; NEUTROPHILS # (AUTO) 4.5 10^3/uL (1.5-6.6); NEUTROPHILS % (AUTO) 63.6 %; PLT - PLATELET COUNT 249 10^3/uL (130-450); RED BLOOD COUNT 4.86 10^6/uL (4.70-6.10); RED CELL DISTRIBUTION WIDTH 13.6 % (12.0-15.0)
[2024-08-17] MEDS: SODIUM CHLORIDE 0.9% 1,000 ML IV STA ×2 (08:42→11:17)
[2024-08-17 08:52] LABS: ALBUMIN 3.9 g/dL (3.2-5.5); ALBUMIN/GLOBULIN RATIO 2.1 (1.0-2.2); ALKALINE PHOSPHATASE 54 IU/L (42-121); ALT ALANINE AMINOTRANSFERASE 27 IU/L (10-60); AST ASPARTATE AMINOTRANSFERASE 23 IU/L (10-42); BILIRUBIN,TOTAL 0.7 mg/dL (0.2-1.0); BUN - BLOOD UREA NITROGEN 10 mg/dL (6-20); CARBON DIOXIDE - CO2 27 mmol/L (21-32); CHLORIDE 99 mmol/L (101-111); CREATININE 0.4 mg/dL (0.6-1.3); ETOH - ETHANOL < 10.0 mg/dL; GFR - MDRD 241 (>89); GLUCOSE 90 mg/dL (74-104); LIPASE 28 U/L (11-82); POTASSIUM 3.3 mmol/L (3.5-4.5); SODIUM 136 mmol/L (135-145); TOTAL PROTEIN 5.8 g/dL (6.4-8.9)
--- NOTE | 2024-08-17 09:42 | ED Physician Documentation ---
PD HPI MHE - Stated complaint Stated Complaint: SHARATH - Chief complaint Chief Complaint: MHE - History obtained from History obtained from: EMS - Additional information Additional information: The patient is sent to the emergency department via EMS for grave disability and mandatory DCR initiated involuntary commitment. He has apparently been wandering around incoherent and was seen by DCR Sandy yesterday and deemed gravely disabled. The patient has an extensive psychiatric and substance abuse history and is well-known to our emergency department. He had a similar situation back in March at which time he was also involuntarily committed. The patient does not offer any information. He will answer to his name and that is the extent of his verbal interaction. Medics report he has been calm during transport. PD PAST MEDICAL HISTORY - Past Medical History Cardiovascular: High cholesterol Respiratory: None Neuro: None Endocrine/Autoimmune: None GI: None : Renal insuffiency HEENT: None Psych: Schizophrenia Musculoskeletal: None Derm: None - Past Surgical History Past Surgical History: No - Present Medications Home Medications: Ambulatory Orders Medication Instructions Recorded Confirmed No Known Home Medications 01/14/24 04/03/24 - Allergies Allergies/Adverse Reactions: Allergies Allergy/AdvReac Type Severity Reaction Status Date / Time ziprasidone HCl * AdvReac Severe Hallucinati Verified 08/17/24 07:52 [From [facility]] ons ziprasidone mesylate * AdvReac Severe Hallucinati Verified 08/17/24 07:52 [From [facility]] ons - Social History Does the pt smoke?: Yes Smoking Status: Current every day smoker Does the pt drink ETOH?: Yes Does the pt have substance abuse?: No - Immunizations Immunizations are current?: No Immunizations: TDAP >10years/unknown, Other immun current - POLST Patient has POLST: No PD ED PE NORMAL - Vitals Vital signs reviewed: Yes - General General: No acute distress, Other (The patient is disheveled and smells of urine.) - HEENT HEENT: Atraumatic, Moist mucous membranes - Neck Neck: Supple, no meningeal sign - Cardiac Cardiac: RRR, No murmur - Respiratory Respiratory: No respiratory distress, Clear bilaterally - Abdomen Abdomen: Soft, Non tender, Non distended - Derm Derm: Normal color, Warm and dry, No rash - Extremities Extremities: No deformity - Neuro Neuro: Other (Awake, but does not engage. Slowed responses. Otherwise grossly intact.) - Psych Psych: Normal mood, Normal affect Results - Vitals Vitals: Vital Signs - 24 hr 08/17/24 07:44 Temperature 35.8 C L Heart Rate 100 Respiratory 17 Rate Blood Pressure 179/95 H O2 Saturation 98 Oxygen O2 Source Room air - Labs Labs: Laboratory Tests 08/17/24 08/17/24 08/17/24 08:25 08:25 09:34 WBC 7.0 RBC 4.86 Hgb 13.4 L Hct 41.7 L MCV 85.8 MCH 27.6 MCHC 32.1 RDW 13.6 Plt Count 249 MPV 10.5 Neut # (Auto) 4.5 Lymph # (Auto) 1.6 [place] # (Auto) 0.9 Eos # (Auto) 0.1 Baso # (Auto) 0.1 Absolute Nucleated RBC 0.00 Nucleated RBC % 0.0 Sodium 136 Potassium 3.3 L Chloride 99 L Carbon Dioxide 27 Anion Gap 10.0 BUN 10 Creatinine 0.4 L Estimated GFR (MDRD) 241 Glucose 90 Calcium 9.0 Total Bilirubin 0.7 AST 23 ALT 27 Alkaline Phosphatase 54 Total Protein 5.8 L Albumin 3.9 Globulin 1.9 L Albumin/Globulin Ratio 2.1 Lipase 28 Urine Opiates Screen Ur Buprenorphine Scrn Ur Oxycodone Screen Urine Methadone Screen Ur Barbiturates Screen Ur Tricyclics Screen Ur Phencyclidine Scrn Ur Amphetamine Screen U Methamphetamines Scrn U Benzodiazepines Scrn Urine Cocaine Screen U Cannabinoids Screen Ur Drug Screen Comment Ethyl Alcohol < 10.0 SARS-CoV-2 (PCR) NOT DETECTED 08/17/24 14:04 WBC RBC Hgb Hct MCV MCH MCHC RDW Plt Count MPV Neut # (Auto) Lymph # (Auto) [place] # (Auto) Eos # (Auto) Baso # (Auto) Absolute Nucleated RBC Nucleated RBC % Sodium Potassium Chloride Carbon Dioxide Anion Gap BUN Creatinine Estimated GFR (MDRD) Glucose Calcium Total Bilirubin AST ALT Alkaline Phosphatase Total Protein Albumin Globulin Albumin/Globulin Ratio Lipase Urine Opiates Screen NEGATIVE Ur Buprenorphine Scrn NEGATIVE Ur Oxycodone Screen NEGATIVE Urine Methadone Screen NEGATIVE Ur Barbiturates Screen NEGATIVE Ur Tricyclics Screen NEGATIVE Ur Phencyclidine Scrn NEGATIVE Ur Amphetamine Screen POSITIVE H U Methamphetamines Scrn POSITIVE H U Benzodiazepines Scrn NEGATIVE Urine Cocaine Screen NEGATIVE U Cannabinoids Screen NEGATIVE Ur Drug Screen Comment CUTOFF CONC BELOW: Ethyl Alcohol SARS-CoV-2 (PCR) PD Medical Decision Making - ED course Complexity details: reviewed old records, reviewed results, re-evaluated patient, considered differential, d/w patient ED course: Medical clearance workup was initiated and social work, who also happened to be the DCR who saw the patient yesterday was consulted. The patient is medically clear for mental health evaluation and consideration of transfer to an inpatient mental health facility. At this point in time, he is awaiting mental health evaluation and final disposition. He is signed out to Dr. Hadley at change of shift. Departure - Departure Forms: PCP List
[2024-08-17 14:27] LABS: AMPHETAMINE SCREEN,URINE POSITIVE (NEGATIVE); BARBITURATE SCREEN,UR NEGATIVE (NEGATIVE); BENZODIAZEPINES SCREEN, URINE NEGATIVE (NEGATIVE); BUPRENORPHINE SCREEN, URINE NEGATIVE (NEGATIVE); COCAINE SCREEN URINE NEGATIVE (NEGATIVE); METHADONE SCREEN, URINE NEGATIVE (NEGATIVE); METHAMPHETAMINES SCREEN, URINE POSITIVE (NEGATIVE); OPIATE SCREEN, URINE NEGATIVE (NEGATIVE); OXYCODONE SCREEN, URINE NEGATIVE (NEGATIVE); THC CANNABINOID SCREEN, URINE NEGATIVE (NEGATIVE); TRICYCLIC ANTIDEPRESSANT,URINE NEGATIVE (NEGATIVE)
[2024-08-17] MEDS: OLANZapine ODT 5 MG TABLET TL ONE (14:34)
--- NOTE | 2024-08-17 15:55 | ED Physician Documentation ---
ED Addendum - Addendum Addendum: 08/17/24 15:[address] Mejia at 3 PM shift change. The DCR is detaining and I just talk to her. She is starting to look for a bed. 08/17/24 17:26 DCR found a bed at [facility] and he was accepted there by Tina Valencia and cobras are completed and he is stable to transport. Disposition: Transferred to psychiatric facility Condition: Stable Diagnosis: 1. Psychosis
[2024-08-17 16:35] VITALS: BP 122/75
[2024-08-17 20:11] VITALS: O2SAT 98
== END 2024-08-17 20:17 ==
LOC: EDUNIT# → ED 07:37
DX: F29 Unspecified psychosis not due to a substance or known physiological condition (principal); F17.200 Nicotine dependence, unspecified, uncomplicated
CPT/HCPCS: 36415; 80053; 80306; 82077; 83690; 85025; 87635; 96360; 96361; 99284; 99285; A9270